=== PATIENT | female | born 1980 | race Caucasian/White ===

== ENCOUNTER → 2018-12-03 | Outpatient (CLI) | payer MEDICARE, MEDICAID | LOC: WOUNDCARE 09:27 | PROVIDERS: ATTEND Surgery | DX: L98.492 Non-pressure chronic ulcer of skin of other sites with fat layer exposed (principal); T81.32XA Disruption of internal operation (surgical) wound, not elsewhere classified, initial encounter; E11.622 Type 2 diabetes mellitus with other skin ulcer; B35.4 Tinea corporis | CPT/HCPCS: 11042; 11045; 87070; 87077; 87185; 87186; 87205 ==

== ENCOUNTER → 2018-12-03 | Outpatient (CLI) | payer MEDICAID, MEDICARE ==
[2018-12-03 11:07] LABS: BASOPHILS % (AUTO) 0 % (0-10); EOSINOPHILS % (AUTO) 0 % (0-10); HEMATOCRIT 36 % (35-52); HEMOGLOBIN 11.8 G/DL (11.5-16.0); LYMPHOCYTES # (AUTO) 1.2 X 10^3 (1.0-4.0); LYMPHOCYTES % (AUTO) 23 % (12-44); MEAN CORPUSCULAR HEMOGLOBIN 31 PG (25-34); MEAN CORPUSCULAR HGB CONC 33 G/DL (32-36); MEAN CORPUSCULAR VOLUME 92 FL (80-99); MEAN PLATELET VOLUME 9.4 FL (7.4-10.4); MONOCYTES # (AUTO) 0.4 X 10^3 (0.0-1.0); MONOCYTES % (AUTO) 7 % (0-12); NEUTROPHILS # (AUTO) 3.6 X 10^3 (1.8-7.8); NEUTROPHILS % (AUTO) 70 % (42-75); PLATELET COUNT 262 10^3/uL (130-400); RED CELL DISTRIBUTION WIDTH 13.4 % (10.0-14.5); WHITE BLOOD COUNT 5.1 10^3/uL (4.3-11.0)
[2018-12-03 11:19] LABS: ALANINE AMINOTRANSFERASE 13 U/L (0-55); ALBUMIN 3.8 GM/DL (3.2-4.5); ALKALINE PHOSPHATASE 65 U/L (40-136); BILIRUBIN,TOTAL 0.5 MG/DL (0.1-1.0); BUN/CREATININE RATIO 13; CALCIUM 8.6 MG/DL (8.5-10.1); CARBON DIOXIDE 23 MMOL/L (21-32); CHLORIDE 108 MMOL/L (98-107); CREATININE SERUM 0.63 MG/DL (0.60-1.30); GFR ESTIMATED > 60; GLUCOSE 82 MG/DL (70-105); SODIUM 140 MMOL/L (135-145); TOTAL PROTEIN 5.9 GM/DL (6.4-8.2)
== END ==
LOC: LAB 10:45
PROVIDERS: ATTEND Surgery
DX: E11.622 Type 2 diabetes mellitus with other skin ulcer (principal); L98.492 Non-pressure chronic ulcer of skin of other sites with fat layer exposed; T81.32XA Disruption of internal operation (surgical) wound, not elsewhere classified, initial encounter; B35.4 Tinea corporis
CPT/HCPCS: 36415; 80053; 83036; 84134; 85025

== ENCOUNTER → 2018-12-10 | Outpatient (CLI) | payer MEDICAID | LOC: WOUNDCARE 09:23 | PROVIDERS: ATTEND Surgery | DX: L98.492 Non-pressure chronic ulcer of skin of other sites with fat layer exposed (principal); T81.31XA Disruption of external operation (surgical) wound, not elsewhere classified, initial encounter; E11.622 Type 2 diabetes mellitus with other skin ulcer; B35.4 Tinea corporis | CPT/HCPCS: 11042; 11045; 97606 ==

== ENCOUNTER → 2018-12-17 | Outpatient (CLI) | payer MEDICAID | LOC: WOUNDCARE 10:57 | PROVIDERS: ATTEND Surgery | DX: E11.622 Type 2 diabetes mellitus with other skin ulcer (principal); L98.492 Non-pressure chronic ulcer of skin of other sites with fat layer exposed; T81.31XA Disruption of external operation (surgical) wound, not elsewhere classified, initial encounter | CPT/HCPCS: 11042; 11045; 97606 ==

== ENCOUNTER → 2018-12-24 | Outpatient (CLI) | payer MEDICAID | LOC: WOUNDCARE 10:37 | PROVIDERS: ATTEND Surgery | DX: L98.492 Non-pressure chronic ulcer of skin of other sites with fat layer exposed (principal); T81.31XA Disruption of external operation (surgical) wound, not elsewhere classified, initial encounter; E11.622 Type 2 diabetes mellitus with other skin ulcer | CPT/HCPCS: 11042; 11045; 87070; 87077; 87186; 87205 ==

== ENCOUNTER → 2018-12-31 | Outpatient (CLI) | payer MEDICAID | LOC: WOUNDCARE 10:53 | PROVIDERS: ATTEND Surgery | DX: E11.622 Type 2 diabetes mellitus with other skin ulcer (principal); L98.492 Non-pressure chronic ulcer of skin of other sites with fat layer exposed; T81.31XA Disruption of external operation (surgical) wound, not elsewhere classified, initial encounter | CPT/HCPCS: 11042; 11045 ==

== ENCOUNTER → 2019-01-04 | Outpatient (CLI) | payer MEDICAID | LOC: WOUNDCARE 13:10 | PROVIDERS: ATTEND Surgery | DX: L98.492 Non-pressure chronic ulcer of skin of other sites with fat layer exposed (principal); T81.31XA Disruption of external operation (surgical) wound, not elsewhere classified, initial encounter; E11.622 Type 2 diabetes mellitus with other skin ulcer | CPT/HCPCS: 11042; 11045 ==

== ENCOUNTER → 2019-01-14 | Outpatient (CLI) | payer MEDICAID | LOC: WOUNDCARE 10:47 | PROVIDERS: ATTEND Surgery | DX: E11.622 Type 2 diabetes mellitus with other skin ulcer (principal); L98.492 Non-pressure chronic ulcer of skin of other sites with fat layer exposed; T81.31XA Disruption of external operation (surgical) wound, not elsewhere classified, initial encounter | CPT/HCPCS: 11042; 87070; 87077; 87186; 87205 ==

== ENCOUNTER → 2019-01-21 | Outpatient (CLI) | payer MEDICAID | LOC: WOUNDCARE 10:55 | PROVIDERS: ATTEND Surgery | DX: E11.622 Type 2 diabetes mellitus with other skin ulcer (principal); L98.492 Non-pressure chronic ulcer of skin of other sites with fat layer exposed; T81.31XA Disruption of external operation (surgical) wound, not elsewhere classified, initial encounter | CPT/HCPCS: 11042 ==

== ENCOUNTER → 2019-01-21 | Outpatient (CLI) | payer MEDICAID ==
--- NOTE | 2019-01-21 13:20 | Diagnostic Imaging Report ---
PROCEDURE: US Non-ob pelvis comp/trans. TECHNIQUE: Multiple realtime grayscale images were obtained of the pelvis in various projections endovaginally. Transabdominal imaging was also performed. INDICATION: Ovarian cyst. Uterus measures 6.8 x 4.5 x 3.5 cm. Endometrial stripe is 3 mm. The ovaries are normal in size. There is a 3 cm cyst on the left ovary. There is a small amount of free fluid in the cul-de-sac. Impression: 3 cm left ovary cyst. There are other small follicular cysts on both ovaries. The uterus appears normal. There is a small amount of free fluid. Dictated by: Dictated on workstation # [id number]
== END ==
LOC: RAD 11:31
PROVIDERS: ATTEND Obstetrics & Gynecology
DX: N83.02 Follicular cyst of left ovary (principal); N83.01 Follicular cyst of right ovary
CPT/HCPCS: 76830; 76856

== ENCOUNTER → 2019-02-02 | Outpatient (CLI) | payer MEDICAID | LOC: WOUNDCARE 08:39 | PROVIDERS: ATTEND Surgery | DX: T81.31XA Disruption of external operation (surgical) wound, not elsewhere classified, initial encounter (principal); E11.622 Type 2 diabetes mellitus with other skin ulcer; L98.492 Non-pressure chronic ulcer of skin of other sites with fat layer exposed | CPT/HCPCS: 11042 ==

== ENCOUNTER → 2019-02-09 | Outpatient (CLI) | payer MEDICAID | LOC: WOUNDCARE 08:30 | PROVIDERS: ATTEND Surgery | DX: T81.31XA Disruption of external operation (surgical) wound, not elsewhere classified, initial encounter (principal); E11.622 Type 2 diabetes mellitus with other skin ulcer; L98.492 Non-pressure chronic ulcer of skin of other sites with fat layer exposed | CPT/HCPCS: 11042 ==

== ENCOUNTER → 2019-02-16 | Outpatient (CLI) | payer MEDICAID | LOC: WOUNDCARE 08:32 | PROVIDERS: ATTEND Surgery | DX: T81.31XA Disruption of external operation (surgical) wound, not elsewhere classified, initial encounter (principal); E11.622 Type 2 diabetes mellitus with other skin ulcer; L98.492 Non-pressure chronic ulcer of skin of other sites with fat layer exposed | CPT/HCPCS: 11042 ==

== ENCOUNTER → 2019-02-23 | Outpatient (CLI) | payer MEDICAID | LOC: WOUNDCARE 08:31 | PROVIDERS: ATTEND Surgery | DX: T81.31XA Disruption of external operation (surgical) wound, not elsewhere classified, initial encounter (principal); E11.622 Type 2 diabetes mellitus with other skin ulcer; L98.492 Non-pressure chronic ulcer of skin of other sites with fat layer exposed | CPT/HCPCS: 99212 ==

== ENCOUNTER 2019-03-18 11:30 | Outpatient (CLI) | payer MEDICAID ==
[~2019-03-18] VITALS: Ht 162.6 cm; Wt 96.6 kg
[2019-03-18] MEDS ORDERED: FERR325T18 PO (11:39)
[2019-03-18] MEDS ORDERED: SERT100T PO (11:39)
[2019-03-18] MEDS ORDERED: OLAN5TAB3 PO (11:39)
[2019-03-18] MEDS ORDERED: OLAN15TA3 PO (11:39)
[2019-03-18] MEDS ORDERED: CICL6.1H4 IH (11:39)
[2019-03-18] MEDS ORDERED: RT-ALBUINH IH (11:39)
[2019-03-18] MEDS ORDERED: OLAN20TA3 PO (11:39)
[2019-03-18] MEDS ORDERED: MEDR150D8 IM (11:39)
[2019-03-18] MEDS ORDERED: MIRT15TA PO (11:39)
[2019-03-18] MEDS ORDERED: LACT10SO5 PO (11:39)
[2019-03-18] MEDS ORDERED: CALC500T7 PO (11:39)
[2019-03-18] MEDS ORDERED: MONT10TA24 PO (11:39)
[2019-03-18] MEDS ORDERED: LAMO100T69 PO (11:39)
[2019-03-18] MEDS ORDERED: ACET325C5 PO (11:39)
[2019-03-22] MEDS ORDERED: IBUP-844 PO (10:47)
== END 2019-03-18 11:47 | disposition home or self-care (01) ==
LOC: PREOP 11:30
PROVIDERS: ATTEND Obstetrics & Gynecology
DX: Z01.818 Encounter for other preprocedural examination (principal)

== ENCOUNTER 2019-03-22 08:04 | Day surgery (SDC) | payer MEDICARE, MEDICAID ==
[~2019-03-22] VITALS: Ht 162.6 cm; Wt 96.6 kg
[2019-03-22] VITALS (9 sets, daily range): BP systolic 106–127; BP diastolic 67–87
[~2019-03-22 08:04] MED LIST: ACET325C5 PO; CALC500T7 PO; CICL6.1H4 IH; FERR325T18 PO; LACT10SO5 PO; LAMO100T69 PO; MEDR150D8 IM; MIRT15TA PO; MONT10TA24 PO; OLAN15TA3 PO; OLAN20TA3 PO; OLAN5TAB3 PO; RT-ALBUINH IH; SERT100T PO
[2019-03-22] MEDS ORDERED: FAMOTIDINE 20MG/2ML IV (PEPCID) IV ONE (08:15)
[2019-03-22] MEDS ORDERED: ceFAZolin INJECTION 1,000 MG in WATER (STERILE) FOR INJECTION 10 ML IV ONE (08:30)
[2019-03-22] MEDS ORDERED: metroNIDAZOLE 500MG/100ML IVPB 100 ML IV ONE (08:30)
[2019-03-22] MEDS ORDERED: RT-ALBUTEROL SULF 2.5 MG/3 ML PRE-MIX VIAL INH ONE (08:30)
--- NOTE | 2019-03-22 08:30 | Progress Note-Pre Operative ---
Pre-Operative Progress Note H&P Reviewed The H&P was reviewed, patient examined and no changes noted. Date Seen by Provider: Mar 22, 2019 Time Seen by Provider: 08:25 Date H&P Reviewed: Mar 22, 2019 Time H&P Reviewed: 08:15 Pre-Operative Diagnosis: menorrhagia, not controlled by conservative measures SHELBY JULES DO Mar 22, 2019 08:30
[2019-03-22] MEDS: LACTATED RINGERS 1,000 ML IV PRN ×2 (08:40→10:03)
[2019-03-22] MEDS ORDERED: FAMOTIDINE 20MG/2ML IV (PEPCID) ONE (09:02)
[2019-03-22] MEDS ORDERED: metroNIDAZOLE 500MG/100ML IVPB 100 ML ONE (09:02)
[2019-03-22] MEDS ORDERED: ceFAZolin INJECTION 1,000 MG ONE (09:02)
[2019-03-22] MEDS ORDERED: WATER (STERILE) FOR INJECTION 10 ML ONE (09:03)
[2019-03-22] MEDS ORDERED: MIDAZOLAM 2 MG/2 ML (VERSED) VIAL ONE (09:32)
[2019-03-22] MEDS ORDERED: fentaNYL INJECTION 100 MCG/2 ML AMP ONE (09:32)
[2019-03-22] MEDS ORDERED: LIDOCAINE PF 2% 5 ML (XYLOCAINE) VIAL ONE (09:32)
[2019-03-22] MEDS ORDERED: ONDANSETRON 4 MG/2 ML (SDV) Z0FRAN ONE (09:32)
[2019-03-22] MEDS ORDERED: proPOfol 200 MG/20 ML (DIPRIVAN) VIAL IV ONE (09:32)
[2019-03-22] MEDS ORDERED: BREO ELLIPTA IH (09:35)
[2019-03-22] MEDS ORDERED: KETOROLAC 30 MG/ML VIAL ONE (10:30)
[2019-03-22] MEDS ORDERED: SEVOFLURANE (ULTANE) 15 ML INHAL SOLN ONE (10:30)
[2019-03-22] MEDS ORDERED: ACETAMINOPHEN 500 MG TAB (TYLENOL) PO SCH (10:45)
[2019-03-22] MEDS ORDERED: KETOROLAC 30 MG/ML VIAL IVP ONE (10:45)
--- NOTE | 2019-03-22 10:45 | Operative Report ---
Operative Report Date of Procedure/Surgery Mar 22, 2019 Surgeon (s) SHELBY JULES DO Post-Operative Diagnosis menorrhagia Procedure Performed Exam under anesthesia, dilation and curettage, Liletta IUD placement Description of Procedure Anesthesia Type: General Estimated blood loss (mL): minimal Specimen(s) collected/removed endometrial curettings Allergies and Home Medications Allergies Coded Allergies: Penicillins (Verified Allergy, Unknown, 03/18/19) amoxicillin (Verified Allergy, Unknown, 03/18/19) clavulanic acid (Verified Allergy, Unknown, 03/18/19) potassium chloride (Verified Allergy, Unknown, 03/18/19) Home Medications Acetaminophen 325 Mg Capsule, 650 MG PO BID PRN for PAIN-MILD, (Reported) Albuterol Sulfate 1 Puff Puff, 2 PUFF IH Q4H PRN for SHORTNESS OF BREATH, (Reported) 1 PUFF = 90 MCG Calcium Carbonate 200 Mg Tab.chew, 200 MG PO BID PRN for HEARTBURN, (Reported) Ferrous Sulfate 325 Mg Tablet, 325 MG PO TID, (Reported) Lactulose 10 Gm/15 Ml Solution, 10 GM PO BID, (Reported) Lamotrigine 100 Mg Tablet, 100 MG PO DAILY, (Reported) Medroxyprogesterone Acetate 150 Mg/1 Ml Syringe, 150 MG IM Q 3MO, (Reported) Mirtazapine 15 Mg Tablet, 15 MG PO HS, (Reported) Montelukast Sodium 10 Mg Tablet, 10 MG PO DAILY, (Reported) Olanzapine 15 Mg Tablet, 15 MG PO DAILY, (Reported) Olanzapine 20 Mg Tablet, 20 MG PO HS, (Reported) Olanzapine 5 Mg Tablet, 5 MG PO HS, (Reported) Sertraline HCl 100 Mg Tablet, PO DAILY, (Reported) [Breo Ellipta] Unknown Strength , 1 PUFF IH DAILY, (Reported) Patient Home Medication List Home Medication List Reviewed: SHELBY Campa DO Mar 22, 2019 10:45
[2019-03-22] MEDS ORDERED: morphine INJ 10 MG/ML 1ML (SYR OR VIAL) ONE (10:46)
[2019-03-22] MEDS ORDERED: IBUP-844 PO (10:47)
--- NOTE | 2019-03-22 10:50 | Discharge Inst-Women's Service ---
Discharge Inst-Women's Serv Depart Medication/Instructions New, Converted or Re-Newed RX: RX on Chart Final Diagnosis menorrhagia Consults/Follow Up Additional Follow Up: Yes Activity Activity: Activity as Tolerated Driving Instructions: No Driving for 24 Hours NO SMOKING: NO SMOKING Nothing Inside Vagina: No Douching, No [place], No Tampons Diet Discharge Diet: No Restrictions Symptoms to Report to : Bleeding Excessive, Pain Increased, Fever Over 101 Degrees F, Vaginal Bleeding Increase, Vaginal Discharge Foul For Any Problems or Questions: Contact Your Physician SHELBY JULES DO Mar 22, 2019 10:50
[2019-03-22] MEDS ORDERED: PROMETHAZINE INJ 25 MG/ML (PHENERGAN) AMP IVP ONE (11:00)
[2019-03-22] MEDS ORDERED: morphine INJ 10 MG/ML 1ML (SYR OR VIAL) IVP ONE (11:00)
[2019-03-22] MEDS ORDERED: HYDROmorphone 2 MG/ML VIAL (DILAUDID) IV ONE (11:00)
[2019-03-22] MEDS ORDERED: ONDANSETRON 4 MG/2 ML (SDV) Z0FRAN IVP PRN (11:00)
--- NOTE | 2019-03-22 11:20 | NUR ---
RESTING QUIETLY IN BED ON ARRIVAL TO AMB SURG FROM PAR. DENIES COMPLAINTS. V-PAD IN PLACE, NO BLEEDING. PO FLUIDS PROVIDED. 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
[2019-03-22] MEDS ORDERED: FLUT1BLS IH (11:22)
[2019-03-22] MEDS ORDERED: IBUPROFEN 600 MG (MOTRIN) TAB PO SCH (12:00)
--- NOTE | 2019-03-22 12:26 | Anesthesia-General Post-Op ---
General Patient Condition Mental Status/LOC: Same as Preop Cardiovascular: Satisfactory Nausea/Vomiting: Absent Respiratory: Satisfactory Pain: Controlled Complications: Absent Post Op Complications Complications None Follow Up Care/Instructions Patient Instructions None needed. Anesthesia/Patient Condition Patient Condition Patient is doing well, no complaints, stable vital signs, no apparent adverse anesthesia problems. No complications reported per nursing. DANAE VELASCO CRNA Mar 22, 2019 12:26
--- NOTE | 2019-03-22 12:30 | NUR ---
HAS BEEN UP TO BR WITH ASSIST, VOIDED WITHOUT PROBLEM, VERY SCANT AMOUNT OF BLOODY DRAINAGE ON V-PAD. DENIES COMPLAINTS, ALERT. STATES SHE IS READY FOR DISMISSAL.
== END 2019-03-22 12:40 | disposition home or self-care (01) ==
LOC: SDC 08:04
PROVIDERS: ATTEND Obstetrics & Gynecology
DX: N92.0 Excessive and frequent menstruation with regular cycle (principal); F41.9 Anxiety disorder, unspecified; F32.9 Major depressive disorder, single episode, unspecified; J45.909 Unspecified asthma, uncomplicated; N83.201 Unspecified ovarian cyst, right side; N83.202 Unspecified ovarian cyst, left side; Z87.891 Personal history of nicotine dependence; Z86.718 Personal history of other venous thrombosis and embolism; F20.9 Schizophrenia, unspecified; K21.9 Gastro-esophageal reflux disease without esophagitis; R73.03 Prediabetes; Z79.899 Other long term (current) drug therapy; Z88.0 Allergy status to penicillin; Z88.1 Allergy status to other antibiotic agents; Z11.2 Encounter for screening for other bacterial diseases
CPT/HCPCS: 84703; 87081; 88305; 94640; 94664

== ENCOUNTER 2019-07-18 22:56 | Inpatient (IN) | payer MEDICARE, MEDICAID ==
[~2019-07-18] VITALS: Ht 170.2 cm; Wt 119.3 kg
[~2019-07-18 22:56] MED LIST changes: +BREO ELLIPTA IH; +FLUT1BLS INH; +IBUP-844 PO
[2019-07-19] MEDS ORDERED: NS IV 1000 ML 1,000 ML IV ONE (00:29)
[2019-07-19 00:39] LABS: BILIRUBIN,URINE NEGATIVE (NEGATIVE); CLARITY,URINE CLEAR; COLOR,URINE YELLOW; GLUCOSE, URINE (UA) NEGATIVE (NEGATIVE); KETONES,URINE NEGATIVE (NEGATIVE); LEUKOCYTE ESTERASE ,URINE NEGATIVE (NEGATIVE); NITRITE,URINE NEGATIVE (NEGATIVE); PH,URINE 8 (5-9); PROTEIN,URINE NEGATIVE (NEGATIVE)
[2019-07-19 00:49] LABS: BASOPHILS % (AUTO) 0 % (0-10); EOSINOPHILS % (AUTO) 0 % (0-10); HEMATOCRIT 42 % (35-52); HEMOGLOBIN 14.6 G/DL (11.5-16.0); LYMPHOCYTES # (AUTO) 1.5 X 10^3 (1.0-4.0); LYMPHOCYTES % (AUTO) 23 % (12-44); MEAN CORPUSCULAR HEMOGLOBIN 31 PG (25-34); MEAN CORPUSCULAR HGB CONC 35 G/DL (32-36); MEAN CORPUSCULAR VOLUME 89 FL (80-99); MEAN PLATELET VOLUME 9.7 FL (7.4-10.4); MONOCYTES # (AUTO) 0.5 X 10^3 (0.0-1.0); MONOCYTES % (AUTO) 7 % (0-12); NEUTROPHILS # (AUTO) 4.6 X 10^3 (1.8-7.8); NEUTROPHILS % (AUTO) 70 % (42-75); PLATELET COUNT 209 10^3/uL (130-400); RED CELL DISTRIBUTION WIDTH 12.6 % (10.0-14.5); WHITE BLOOD COUNT 6.6 10^3/uL (4.3-11.0)
[2019-07-19 01:01] LABS: BACTERIA,URINE FEW /HPF; SQUAMOUS EPITHELIAL CELL,UR 0-2 /HPF
[2019-07-19 01:02] LABS: AMPHETAMINE SCREEN, URINE NEGATIVE (NEGATIVE); BARBITURATE SCREEN URINE NEGATIVE (NEGATIVE); BENZODIAZEPINES SCREEN URINE NEGATIVE (NEGATIVE); CANNABINOID SCREEN, URINE NEGATIVE (NEGATIVE); COCAINE SCREEN URINE NEGATIVE (NEGATIVE); METHADONE STAT NEGATIVE (NEGATIVE); METHAMPHETAMINE SCREEN URINE S NEGATIVE (NEGATIVE); OPIATE SCREEN URINE NEGATIVE (NEGATIVE); OXYCODONE STAT NEGATIVE (NEGATIVE); PROPOXYPHENE STAT NEGATIVE (NEGATIVE); TRICYCLIC ANTIDEPRESSANTS SCRE NEGATIVE (NEGATIVE)
[2019-07-19 01:05] LABS: ACETAMINOPHEN < 10 UG/ML (10-30); ALANINE AMINOTRANSFERASE 17 U/L (0-55); ALBUMIN 4.2 GM/DL (3.2-4.5); ALKALINE PHOSPHATASE 68 U/L (40-136); BILIRUBIN,TOTAL 0.5 MG/DL (0.1-1.0); BUN/CREATININE RATIO 10; CALCIUM 8.6 MG/DL (8.5-10.1); CARBON DIOXIDE 24 MMOL/L (21-32); CHLORIDE 106 MMOL/L (98-107); CREATININE SERUM 0.72 MG/DL (0.60-1.30); GFR ESTIMATED > 60; GLUCOSE 94 MG/DL (70-105); POTASSIUM 3.6 MMOL/L (3.6-5.0); SALICYLATE < 5.0 MG/DL (5.0-20.0); SODIUM 142 MMOL/L (135-145); TOTAL PROTEIN 6.6 GM/DL (6.4-8.2)
--- NOTE | 2019-07-19 01:22 | ED GI ---
General Chief Complaint: Foreign Body Stated Complaint: SWALLOWED FOREIGN BODY Nursing Triage Note: swallowed jin lights because she was upset. Sepsis Screen: No Definite Risk (COOKIE HILL,MED STUDENT) History of Present Illness Date Seen by Provider: Jul 19, 2019 Time Seen by Provider: 00:04 Initial Comments This 38y/o female is accompanied by a generation manager form [employer] to the ED following the ingestion of light bulbs from a strand of Jin lights. Patient states that she swallowed the light bulbs around 1930 yesterday in an attempt to commit suicide. When asked how long she has had thoughts of suicide, she said "for about a week, I just did not tell anyone." When asked if she has e shanika done anything similar in the past she said that she has inserted things (pins, paper clips, etc) into her abdomen and has required hospitalization and surgery as a result. Her generation manager affirms that she has a history of inserting things into her abdomen that started around 2006. The generation manager says that the patient's thoughts of suicide are new to him and he did not know about them until the provider asked her "was there a reason that you swallowed the light bulbs' and she responded with "to commit suicide." According to the generation manager the patient sent a text message 2 days ago, saying she wanted to see one of the [employer] staffing rn members named Bessie because of "i self harmed my life and I don't know what to do about it so I can get you to call someone to help me." In addition, the patient wrote 2 notes yesterday, one note said that she wanted to go the hospital and the second note said that she had "swallowed the 20 light bulbs and wanted to leave this place." Caretakers say that they found the plasti c bases of 31 light bulbs in her room. Patient is on a Bactrim for a moist superficial skin wound on her abdomen. Patient has a history of Anxiety, MDD, schizoaffective disorder, and Borderline personality disorder and sees Anuradha Duffy at [facility]. The patient works with [employer] and is 1 on 1 with a staff member during the day. At this time the patient, denies any abdominal pain or thoughts of further self harm. Timing/Duration: 4-6 Hours Radiation: No Radiation Associated Symptoms: Denies Symptoms (COOKIE HILL,MED STUDENT) Allergies and Home Medications Allergies Coded Allergies: Penicillins (Verified Allergy, Unknown, 03/18/19) amoxicillin (Verified Allergy, Unknown, 03/18/19) clavulanic acid (Verified Allergy, Unknown, 03/18/19) potassium chloride (Verified Allergy, Unknown, 03/18/19) Home Medications Acetaminophen 325 Mg Capsule, 650 MG PO BID PRN for PAIN-MILD, (Reported) Albuterol Sulfate 1 Puff Puff, 2 PUFF IH Q4H PRN for SHORTNESS OF BREATH, (Reported) 1 PUFF = 90 MCG Calcium Carbonate 200 Mg Tab.chew, 200 MG PO BID PRN for HEARTBURN, (Reported) Ferrous Sulfate 325 Mg Tablet, 325 MG PO TID, (Reported) Fluticasone/Vilanterol 1 Each Blst.w.dev, 1 EACH IH DAILY, (Reported) Ibuprofen 600 Mg Tablet, 600 MG PO Q6HR Prescribed by: SHELBY JULES on 03/22/19 1047 Lactulose 10 Gm/15 Ml Solution, 10 GM PO BID, (Reported) Lamotrigine 100 Mg Tablet, 100 MG PO DAILY, (Reported) Mirtazapine 15 Mg Tablet, 15 MG PO HS, (Reported) Montelukast Sodium 10 Mg Tablet, 10 MG PO DAILY, (Reported) Olanzapine 15 Mg Tablet, 15 MG PO DAILY, (Reported) Olanzapine 20 Mg Tablet, 20 MG PO HS, (Reported) Olanzapine 5 Mg Tablet, 5 MG PO HS, (Reported) Sertraline HCl 100 Mg Tablet, PO DAILY, (Reported) Patient Home Medication List Home Medication List Reviewed: Yes (ADRIANA ESPARZA MD) Review of Systems Review of Systems Constitutional: No chills, No diaphoresis, No dizziness, No malaise EENTM: No Mouth Pain, No Mouth Swelling, No Throat Pain, No Throat Swelling Respiratory: Denies Cough, Denies Shortness of Air, Denies SOA With Exertion, Denies SOA at Rest Cardiovascular: Denies Chest Pain Gastrointestinal: Denies Abdomen Distended, Denies Abdominal Pain Skin: see HPI Psychiatric/Neurological: See HPI (COOKIE HILL,MED STUDENT) Past Mtmgisb-Rjfoqu-Gnadtx Hx Patient Social History Alcohol Use: Rarely Uses Alcohol Beverage of Choice: Other (wine coolers ) Recreational Drug Use: No Smoking Status: Former Smoker Former Smoker, Quit: Mar 18, 2014 2nd Hand Smoke Exposure: Yes Recent Foreign Travel: No Contact w/Someone Who Travel: No Recent Infectious Disease Expo: No Recent Hopitalizations: No Physical Abuse: No Sexual Abuse: No Mistreated: No Fear: No (COOKIE HILL MED STUDENT) Immunizations Up To Date Tetanus Booster (TDap): Unknown Date of Influenza Vaccine: Jun 28, 2018 (COOKIE HILL MED STUDENT) Seasonal Allergies Seasonal Allergies: Yes (COOKIE HILL MED STUDENT) Past Medical History Surgeries: Yes (FOREIGN BODY REMOVAL FROM ABDOMEN SEVERAL TIMES WITH A BOWEL RESECTION) Respiratory: Yes Asthma Cardiac: No Neurological: No : No Female Reproductive Disorders: Ovarian Cyst Sexually Transmitted Disease: No Genitourinary: No Gastrointestinal: Yes (BOWEL RESECTION ) Chronic Constipation Musculoskeletal: No Endocrine: No HEENT: No Loss of Vision: Denies Hearing Impairment: Denies Cancer: No Psychosocial: Yes Personality Disorder, Schizophrenia, Depression Integumentary: No Blood Disorders: Yes (LOW IRON) Adverse Reaction/Blood Tranf: No (COOKIE HILL MED STUDENT) Physical Exam Vital Signs Vital Signs - First Documented 07/18/19 23:00 Temp 36.6 Pulse 72 Resp 18 B/P (MAP) 145/97 (113) Pulse Ox 100 O2 Delivery Room Air (ADRIANA ESPARZA MD) Vital Signs Capillary Refill : Less Than 3 Seconds (COOKIE HILL MED STUDENT) Height/Weight/BMI Height: 5'4.00" Weight: 213lbs. 0.0oz. [id number]; 36.00 BMI Method: General Appearance: WD/WN, no apparent distress HEENT: PERRL/EOMI Neck: non-tender, full range of motion Respiratory: chest non-tender, lungs clear, normal breath sounds, no respiratory distress Cardiovascular: regular rate, rhythm, no edema, no gallop, no JVD, no murmur Gastrointestinal: normal bowel sounds, non tender, soft, no organomegaly, no pulsatile mass Extremities: normal range of motion Neurologic/Psychiatric: no motor/sensory deficits, alert, oriented x 3 Skin: normal color, warm/dry Lymphatic: no adenopathy (COOKIE HILL MED STUDENT) Progress/Results/Core Measures Results/Orders Lab Results Laboratory Tests Test 07/19/19 00:30 07/19/19 00:35 Range/Units Urine Color YELLOW Urine Clarity CLEAR Urine pH 8 5-9 Urine Specific [place] 1.010 L 1.016-1.022 Urine Protein NEGATIVE NEGATIVE Urine Glucose (UA) NEGATIVE NEGATIVE Urine Ketones NEGATIVE NEGATIVE Urine Nitrite NEGATIVE NEGATIVE Urine Bilirubin NEGATIVE NEGATIVE Urine Urobilinogen NORMAL NORMAL MG/DL Urine Leukocyte Esterase NEGATIVE NEGATIVE Urine RBC (Auto) NEGATIVE NEGATIVE Urine RBC NONE /HPF Urine WBC NONE /HPF Urine Squamous Epithelial Cells 0-2 /HPF Urine Crystals NONE /LPF Urine Bacteria FEW H /HPF Urine Casts NONE /LPF Urine Mucus NEGATIVE /LPF Urine Culture Indicated NO Urine Opiates Screen NEGATIVE NEGATIVE Urine Oxycodone Screen NEGATIVE NEGATIVE Urine Methadone Screen NEGATIVE NEGATIVE Urine Propoxyphene Screen NEGATIVE NEGATIVE Urine Barbiturates Screen NEGATIVE NEGATIVE Ur Tricyclic Antidepressants Screen NEGATIVE NEGATIVE Urine Phencyclidine Screen NEGATIVE NEGATIVE Urine Amphetamines Screen NEGATIVE NEGATIVE Urine Methamphetamines Screen NEGATIVE NEGATIVE Urine Benzodiazepines Screen NEGATIVE NEGATIVE Urine Cocaine Screen NEGATIVE NEGATIVE Urine Cannabinoids Screen NEGATIVE NEGATIVE White Blood Count 6.6 4.3-11.0 10^3/uL Red Blood Count 4.72 4.35-5.85 10^6/uL Hemoglobin 14.6 11.5-16.0 G/DL Hematocrit 42 35-52 % Mean Corpuscular Volume 89 80-99 FL Mean Corpuscular Hemoglobin 31 25-34 PG Mean Corpuscular Hemoglobin Concent 35 32-36 G/DL Red Cell Distribution Width 12.6 10.0-14.5 % Platelet Count 209 130-400 10^3/uL Mean Platelet Volume 9.7 7.4-10.4 FL Neutrophils (%) (Auto) 70 42-75 % Lymphocytes (%) (Auto) 23 12-44 % Monocytes (%) (Auto) 7 0-12 % Eosinophils (%) (Auto) 0 0-10 % Basophils (%) (Auto) 0 0-10 % Neutrophils # (Auto) 4.6 1.8-7.8 X 10^3 Lymphocytes # (Auto) 1.5 1.0-4.0 X 10^3 Monocytes # (Auto) 0.5 0.0-1.0 X 10^3 Eosinophils # (Auto) 0.0 0.0-0.3 10^3/uL Basophils # (Auto) 0.0 0.0-0.1 10^3/uL Sodium Level 142 135-145 MMOL/L Potassium Level 3.6 3.6-5.0 MMOL/L Chloride Level 106 98-107 MMOL/L Carbon Dioxide Level 24 21-32 MMOL/L Anion Gap 12 5-14 MMOL/L Blood Urea Nitrogen 7 7-18 MG/DL Creatinine 0.72 0.60-1.30 MG/DL Estimat Glomerular Filtration Rate > 60 BUN/Creatinine Ratio 10 Glucose Level 94 70-105 MG/DL Calcium Level 8.6 8.5-10.1 MG/DL Corrected Calcium 8.4 L 8.5-10.1 MG/DL Total Bilirubin 0.5 0.1-1.0 MG/DL Aspartate Amino Transf (AST/SGOT) 12 5-34 U/L Alanine Aminotransferase (ALT/SGPT) 17 0-55 U/L Alkaline Phosphatase 68 40-136 U/L Total Protein 6.6 6.4-8.2 GM/DL Albumin 4.2 3.2-4.5 GM/DL TSH [facility] Testing 5.58 H 0.35-4.94 UIU/ML Salicylates Level < 5.0 L 5.0-20.0 MG/DL Acetaminophen Level < 10 L 10-30 UG/ML Serum Alcohol < 10 <10 MG/DL (ADRIANA ESPARZA MD) My Orders Orders - ADRIANA ESPARZA MD Chest 1 View, Ap/Pa Only (07/18/19 22:59) Abdomen/Kub 1view (07/18/19 22:59) Acetaminophen (07/19/19 00:29) Alcohol (07/19/19:) Cbc With Automated Diff (07/19/19:) Comprehensive Metabolic Panel (07/19/19:) Drug Screen Stat (Urine) (07/19/19:) Salicylate (07/19/19:) Thyroid Analyzer (07/19/19:) Ua Culture If Indicated (07/19/19:) Ed Iv/Invasive Line Start (07/19/19:29) Ns Iv 1000 Ml (Sodium Chloride 0.9%) (07/19/19:29) Free T4 (Free Thyroxine) (07/19/19 00:35) (ADRIANA ESPARZA MD) Medications Given in ED Current Medications Medications Dose Ordered Sig/Dami Route Start Time Stop Time Status Last Admin Dose Admin Sodium Chloride 1,000 ml @ 0 mls/hr Q0M ONCE IV 07/19/19 00:29 07/19/19 00:33 DC 07/19/19 00:40 0 MLS/HR (ADRIANA ESPARZA MD) Vital Signs/I&O 07/18/19 23:00 Temp 36.6 Pulse 72 Resp 18 B/P (MAP) 145/97 (113) Pulse Ox 100 O2 Delivery Room Air (ADRIANA ESPARZA MD) Blood Pressure Mean: 113 POS Diagnostic Imaging Diagonstic Imaging: Xray Plain Films/CT/US/NM/MRI: chest, abdomen Comments X-ray of the chest is unremarkable. Abdominal x-ray reveals numerous Jin light bulbs in the region of the stomach and duodenum. There are also numerous linear metallic foreign bodies over the abdomen suggestive of subcutaneous foreign bodies consistent with patient's history of foreign body insertion. X- rays reviewed by me. Reports not yet available. (ADRIANA ESPARZA MD) Departure Communication (Admissions) Time/Spoke to Admitting Phy: 00:46 Dr. Engel Time/Spoke to Consulting Phy: 00:26 Dr. Flaherty (ADRIANA ESPARZA MD) Impression Primary Impression: Foreign body ingestion Qualified Codes: T18.9XXA - Foreign body of alimentary tract, part unspecified, initial encounter Additional Impressions: Suicidal ideation Wound of skin Disposition: ADMITTED INPATIENT Condition: Improved Admissions Decision to Admit Reason: Admit from ER (General) Decision to Admit/Date: Jul 19, 2019 Time/Decision to Admit Time: 00:26 (ADRIANA ESPARZA MD) Departure-Patient Inst. Referrals: GUILLERMO RASHID MD (PCP/Family) Primary Care Physician This patient was personally interviewed and examined by me along with Cookie Hill MS 3. We also interviewed her generation manager. I agree with MS 3 history, physical, and assessments, and documentation with the following additions and corrections. Patient presents accompanied by her caregiver with complaint of ingestion of numerous [place] light bulbs. She is a client of [employer]. She has a history of ingestions and insertion of foreign bodies under the skin. She has one-on-one supervision with caretakers 24 7. Ingestion was reportedly Thursday evening at 17:30. Patient denies any physical symptoms of nausea or abdominal pain. Staff report that approximately 30 bulbs were removed from their plastic bases. The bases were found in her room. Patient also reports suicidal ideation and states suicidal ideation was the reason for swallowing the bulbs. Additionally, she has an abdominal wound that she picks at. She was seen at an urgent care clinic earlier in the day and prescribed Bactrim. She took a dose of Bactrim in the afternoon. Exam: Gen.: Alert, oriented, obese, no acute distress HEENT: normocephalic and atraumatic Heart: Regular rate and rhythm without murmur Lungs: Clear to auscultation bilaterally with normal effort Abdomen: Soft, nontender Skin: Moist shallow skin and wound on the abdominal wall Neuro/psych: Alert, oriented, no focal deficits, patient expresses suicidal ideation. Case was discussed with Dr. Flaherty a surgeon chronic disease epidemiologist. We will observe the patient overnight and repeat a KUB in the morning. If ingested objects do not progress, endoscopy may be necessary. Case was discussed with Dr. Engel who excepts admission. Social work consult will be needed. A screening or consultation with [facility] may be necessary to determine if patient needs more intensive outpatient services or a psychiatric admission. Patient was given 1 L of IV fluid hydration as Dr. Flaherty requests her to be npo. (ADRIANA ESPARZA MD) Copy Copies To 1: GUILLERMO RASHID MD, MICAH,MED STUDENT Jul 19, 2019 01:22 ADRIANA BALL MD Jul 19, 2019 02:27 POS
[2019-07-19 01:24] LABS: TSH (THYROID ANALYZER) 5.58 UIU/ML (0.35-4.94)
[2019-07-19 02:17] VITALS: BP 126/65
[2019-07-19 03:01] LABS: FREE T4 (FREE THYROXINE) 1.06 NG/DL (0.70-1.48)
[2019-07-19 04:00] VITALS: BP 120/59
[2019-07-19] MEDS ORDERED: ONDANSETRON 4 MG/2 ML (SDV) Z0FRAN IV PRN (05:00)
[2019-07-19] MEDS: cefTRIAXone 1,000 MG/SWFI 10 ML IV PUSH IV SCH ×2 (05:47)
--- NOTE | 2019-07-19 06:55 | Diagnostic Imaging Report ---
INDICATION: Swallowed [place] lights because she was upset. FINDINGS: A supine view of the abdomen demonstrates multiple foreign bodies in the stomach. In addition there are linear foreign bodies consistent with wires overlying the abdomen. One of these overlies the upper liver and is definitely not outside the bowel. An IUD is in place. Bowel gas pattern appears normal. IMPRESSION: There are multiple foreign bodies. Most of these are within the stomach. There are some wires that overlie the abdomen and some could be within bowel loops but are probably all outside of the bowel loops. Dictated by: Dictated on workstation # [id number]
--- NOTE | 2019-07-19 07:39 | Diagnostic Imaging Report ---
INDICATION: Swallowed [place] lights because she is upset. FINDINGS: Frontal view of the chest demonstrates no foreign bodies within the chest. Lungs are clear. Heart size and vascularity are normal. There are no pleural effusions. IMPRESSION: Negative chest. Dictated by: Dictated on workstation # [id number]
[2019-07-19 08:00] VITALS: BP 110/60
--- NOTE | 2019-07-19 08:54 | Consultation - Surgery ---
ALMAZ FERREIRA,MED STUDENT 07/19/19 0854: History of Present Illness History of Present Illness Patient Consulted On(kenisha/time) 07/19/19 08:48 Date Seen by Provider: Jul 19, 2019 Time Seen by Provider: 08:15 History of Present Illness Consultation as requested for ingestion of foreign body. Patient seen and examined. Patient is a 38 yo female who became increasingly depressed yesterday and reports attempting suicide by eating the glass tops of [employer] lights. She estimates that she ate 20 lights, but her credit risk modeler reports that they found 31 empty plastic casings from lights in her room. Patient states that there was no particular event that caused her to become more depressed yesterday, she just felt more "down" than usual. She states that she has attempted suicide in the past by "stabbing myself" and by ingesting foreign materials. The last time she attempted suicide was last year. She denies having any abdominal pain, nausea, or vomiting currently. She has not had a bowel movement since ingesting the lights. Allergies and Home Medications Allergies Coded Allergies: Penicillins (Verified Allergy, Unknown, 03/18/19) amoxicillin (Verified Allergy, Unknown, 03/18/19) clavulanic acid (Verified Allergy, Unknown, 03/18/19) potassium chloride (Verified Allergy, Unknown, 03/18/19) Home Medications Acetaminophen 325 Mg Capsule, 650 MG PO Q6H PRN for PAIN-MILD OR TEMPATURE, (Reported) Acetaminophen 650 Mg Tablet.er, 650 MG PO UD PRN for PAIN-MILD, (Reported) Bismuth Subsalicylate 262 Mg/15 Ml Oral.susp, PO UD PRN for STOMACH UPSET, (Reported) Calamine/Zinc Oxide 177 Ml Lotion, TP UD PRN for RASH/ITCHING, (Reported) Calcium Carbonate 200 Mg Tab.chew, 2 TAB.CHEW PO BID PRN for HEARTBURN, (Reported) Cetirizine HCl 10 Mg Tablet, 10 MG PO HS, (Reported) Clotrimazole/Betamethasone Dip 15 Gm Cream..g., TOP BID PRN for SKIN, (Reported) Diphenhydramine HCl 25 Mg Capsule, 25 MG PO UD PRN for ITCHING, (Reported) Docusate Sodium 100 Mg Capsule, 100 MG PO BID, (Reported) Ferrous Sulfate 325 Mg Tablet, 325 MG PO TID, (Reported) Fluticasone Propionate 16 Gm [place].susp, 2 SPRAYS NS DAILY, (Reported) Fluticasone/Vilanterol 1 Each Blst.w.dev, 1 PUFF INH DAILY, (Reported) Guaifenesin 600 Mg Tab.er.12h, 600 MG PO UD PRN for CONGESTION, (Reported) Guaifenesin/Dextromethorphan 237 Ml Liquid, PO UD PRN for COUGH, (Reported) Hydrocortisone 28.35 Gm Cream..g., TP UD PRN for RASH/ITCHING, (Reported) Lactulose 10 Gm/15 Ml Solution, 30 ML PO BID, (Reported) Lamotrigine 100 Mg Tablet, 150 MG PO DAILY, (Reported) TAKES 1 & 1/2 (100MG) TABLETS Menthol 113 Gm Powder, TP UD PRN for FOOT ODOR/WETNESS, (Reported) Montelukast Sodium 10 Mg Tablet, 10 MG PO DAILY, (Reported) Neomycin/Polymyxin/Bacitracin 0.9 Gm Oint, TP UD PRN for MINOR CUTS, SCRAPES AND SORES, (Reported) Nystatin 60 Gm Powder, TP TID PRN for RASH, (Reported) Olanzapine 15 Mg Tablet, 15 MG PO DAILY, (Reported) Olanzapine 20 Mg Tablet, 20 MG PO HS, (Reported) Pectin 2.8 Mg Lozenge, MM UD PRN for SORE THROAT, (Reported) Sertraline HCl 100 Mg Tablet, 100 MG PO DAILY, (Reported) Sulfamethoxazole/Trimethoprim 1 Each Tablet, 1 TAB PO BID, (Reported) 7 DAY THERAPY START DATE 07-18-19 PM DOSE Trazodone HCl 100 Mg Tablet, 100 MG PO HS, (Reported) Patient Home Medication List Home Medication List Reviewed: Yes Past Lenwnnl-Outojv-Ovzsuy Hx Patient Social History Alcohol Use: Rarely Uses Number of Drinks Today: II Recreational Drug Use: No Smoking Status: Current Everyday Smoker (1 ppd) Former Smoker, Quit: Mar 18, 2014 2nd Hand Smoke Exposure: Yes Recent Foreign Travel: No Contact w/Someone Who Travel: No Recent Infectious Disease Expo: No Recent Hopitalizations: No Physical Abuse Screen: No Sexual Abuse: No Immunizations Up To Date Tetanus Booster (TDap): Unknown Date of Influenza Vaccine: Jun 28, 2018 Seasonal Allergies Seasonal Allergies: Yes Surgeries History of Surgeries: Yes (FOREIGN BODY REMOVAL FROM ABDOMEN SEVERAL TIMES WITH A BOWEL RESECTION) Surgeries: Tonsillectomy Respiratory History of Respiratory Disorde: Yes Respiratory Disorders: Asthma Cardiovascular History of Cardiac Disorders: No Neurological History of Neurological Disord: No Reproductive System : No Sexually Transmitted Disease: No Female Reproductive Disorders: Ovarian Cyst Genitourinary History of Genitourinary Disor: No Gastrointestinal History of Gastrointestinal Di: Yes (BOWEL RESECTION ) Gastrointestinal Disorders: Chronic Constipation Musculoskeletal History of Musculoskeletal Dis: No Endocrine History of Endocrine Disorders: No HEENT History of HEENT Disorders: No Loss of Vision: Denies Hearing Impairment: Denies Cancer History of Cancer: No Psychosocial History of Psychiatric Problem: Yes Behavioral Health Disorders: Anxiety, Suicide Attempts, Personality Disorder, Schizophrenia, Depression Integumentary History of Skin or Integumenta: No Blood Transfusions History of Blood Disorders: Yes (LOW IRON) Adverse Reaction to a Blood Tr: No Family Medical History Significant Family History: Cancer (breast cancer - mom), Diabetes (mom) Review of Systems-General Constitutional: No chills, No fever EENTM: No hearing loss, No vision loss Respiratory: No cough, No short of breath Cardiovascular: No chest pain, No palpitations Gastrointestinal: No abdominal pain, No nausea, No vomiting Genitourinary: No dysuria, No frequency Musculoskeletal: No joint pain, No joint swelling Skin: No lesions, No rash Psychiatric/Neurological: Anxiety, Depressed Physical Exam-General Problems Physical Exam Vital Signs Vital Signs - First Documented 07/18/19 23:00 Temp 36.6 Pulse 72 Resp 18 B/P (MAP) 145/97 (113) Pulse Ox 100 O2 Delivery Room Air Capillary Refill : Less Than 3 SecondsLess Than 3 Seconds General Appearance: WD/WN, no apparent distress HEENT: PERRL/EOMI, pharynx normal Neck: non-tender, supple Respiratory: chest non-tender, lungs clear, normal breath sounds, no respir atory distress, no accessory muscle use Cardiovascular: regular rate, rhythm, no murmur Gastrointestinal: non tender, soft; No distended, No guarding, No mass Extremities: non-tender, no pedal edema Neurologic/Psychiatric: alert, depressed affect Skin: normal color, warm/dry Lymphatic: no adenopathy Data Review Labs Laboratory Tests 07/19/19 00:30: Urine Color YELLOW, Urine Clarity CLEAR, Urine pH 8, Urine Specific Braxton 1.010L, Urine Protein NEGATIVE, Urine Glucose (UA) NEGATIVE, Urine Ketones NEGATIVE, Urine Nitrite NEGATIVE, Urine Bilirubin NEGATIVE, Urine Urobilinogen NORMAL, Urine Leukocyte Esterase NEGATIVE, Urine RBC (Auto) NEGATIVE, Urine RBC NONE, Urine WBC NONE, Urine Squamous Epithelial Cells 0-2, Urine Crystals NONE, Urine Bacteria FEWH, Urine Casts NONE, Urine Mucus NEGATIVE, Urine Culture Indicated NO, Urine Opiates Screen NEGATIVE, Urine Oxycodone Screen NEGATIVE, Urine Methadone Screen NEGATIVE, Urine Propoxyphene Screen NEGATIVE, Urine Barbiturates Screen NEGATIVE, Ur Tricyclic Antidepressants Screen NEGATIVE, Urine Phencyclidine Screen NEGATIVE, Urine Amphetamines Screen NEGATIVE, Urine Methamphetamines Screen NEGATIVE, Urine Benzodiazepines Screen NEGATIVE, Urine Cocaine Screen NEGATIVE, Urine Cannabinoids Screen NEGATIVE 07/19/19 00:35: White Blood Count 6.6, Red Blood Count 4.72, Hemoglobin 14.6, Hematocrit 42, Mean Corpuscular Volume 89, Mean Corpuscular Hemoglobin 31, Mean Corpuscular Hemoglobin Concent 35, Red Cell Distribution Width 12.6, Platelet Count 209, Mean Platelet Volume 9.7, Neutrophils (%) (Auto) 70, Lymphocytes (%) (Auto) 23, Monocytes (%) (Auto) 7, Eosinophils (%) (Auto) 0, Basophils (%) (Auto) 0, Neutrophils # (Auto) 4.6, Lymphocytes # (Auto) 1.5, Monocytes # (Auto) 0.5, Eosinophils # (Auto) 0.0, Basophils # (Auto) 0.0, Sodium Level 142, Potassium Level 3.6, Chloride Level 106, Carbon Dioxide Level 24, Anion Gap 12, Blood Urea Nitrogen 7, Creatinine 0.72, Estimat Glomerular Filtration Rate > 60, BUN/Creatinine Ratio 10, Glucose Level 94, Calcium Level 8.6, Corrected Calcium 8.4L, Total Bilirubin 0.5, Aspartate Amino Transf (AST/SGOT) 12, Alanine Aminotransferase (ALT/SGPT) 17, Alkaline Phosphatase 68, Total Protein 6.6, Albumin 4.2, Free Thyroxine 1.06, TSH [place] Testing 5.58H, Salicylates Level < 5.0L, Acetaminophen Level < 10L, Serum Alcohol < 10 Assessment/Plan Assessment/Plan Assessment/Plan Foreign body ingestion History of suicide attempts Anxiety and Depression Imaging in ED last night showed multiple foreign bodies. Most of these within the stomach. There are some wires that overlie the abdomen and some could be within bowel loops but are probably all outside of the bowel loops. Repeat X-ray today showed that lights had moved beyond duodenum, so endoscopy no longer indicated. Encouraged ambulation and lots of clear liquids and hopefully the lights will pass without issue. Clinical Quality Measures DVT/VTE Risk/Contraindication: RFS Level Per Nursing on Admit: 0=No Risk/No VTE PPX CHERYL FLAHERTY Getachew DO 07/19/19 1728: History of Present Illness History of Present Illness Time Seen by Provider: 16:40 History of Present Illness Pt seen, denies abdominal pain and wants to eat. Allergies and Home Medications Allergies Coded Allergies: Penicillins (Verified Allergy, Unknown, 03/18/19) amoxicillin (Verified Allergy, Unknown, 03/18/19) clavulanic acid (Verified Allergy, Unknown, 03/18/19) potassium chloride (Verified Allergy, Unknown, 03/18/19) Home Medications Acetaminophen 325 Mg Capsule, 650 MG PO Q6H PRN for PAIN-MILD OR TEMPATURE, (Reported) Acetaminophen 650 Mg Tablet.er, 650 MG PO UD PRN for PAIN-MILD, (Reported) Bismuth Subsalicylate 262 Mg/15 Ml Oral.susp, PO UD PRN for STOMACH UPSET, (Reported) Calamine/Zinc Oxide 177 Ml Lotion, TP UD PRN for RASH/ITCHING, (Reported) Calcium Carbonate 200 Mg Tab.chew, 2 TAB.CHEW PO BID PRN for HEARTBURN, (Reported) Cetirizine HCl 10 Mg Tablet, 10 MG PO HS, (Reported) Clotrimazole/Betamethasone Dip 15 Gm Cream..g., TOP BID PRN for SKIN, (Reported) Diphenhydramine HCl 25 Mg Capsule, 25 MG PO UD PRN for ITCHING, (Reported) Docusate Sodium 100 Mg Capsule, 100 MG PO BID, (Reported) Ferrous Sulfate 325 Mg Tablet, 325 MG PO TID, (Reported) Fluticasone Propionate 16 Gm [place].susp, 2 SPRAYS NS DAILY, (Reported) Fluticasone/Vilanterol 1 Each Blst.w.dev, 1 PUFF INH DAILY, (Reported) Guaifenesin 600 Mg Tab.er.12h, 600 MG PO UD PRN for CONGESTION, (Reported) Guaifenesin/Dextromethorphan 237 Ml Liquid, PO UD PRN for COUGH, (Reported) Hydrocortisone 28.35 Gm Cream..g., TP UD PRN for RASH/ITCHING, (Reported) Lactulose 10 Gm/15 Ml Solution, 30 ML PO BID, (Reported) Lamotrigine 100 Mg Tablet, 150 MG PO DAILY, (Reported) TAKES 1 & 1/2 (100MG) TABLETS Menthol 113 Gm Powder, TP UD PRN for FOOT ODOR/WETNESS, (Reported) Montelukast Sodium 10 Mg Tablet, 10 MG PO DAILY, (Reported) Neomycin/Polymyxin/Bacitracin 0.9 Gm Oint, TP UD PRN for MINOR CUTS, SCRAPES AND SORES, (Reported) Nystatin 60 Gm Powder, TP TID PRN for RASH, (Reported) Olanzapine 15 Mg Tablet, 15 MG PO DAILY, (Reported) Olanzapine 20 Mg Tablet, 20 MG PO HS, (Reported) Pectin 2.8 Mg Lozenge, MM UD PRN for SORE THROAT, (Reported) Sertraline HCl 100 Mg Tablet, 100 MG PO DAILY, (Reported) Sulfamethoxazole/Trimethoprim 1 Each Tablet, 1 TAB PO BID, (Reported) 7 DAY THERAPY START DATE 07-18-19 PM DOSE Trazodone HCl 100 Mg Tablet, 100 MG PO HS, (Reported) Review of Systems-General Other pt denies any hx of abnormal bleeding or bruising Physical Exam-General Problems Physical Exam Eyes: Bilateral Eye PERRL, Bilateral Eye EOMI Assessment/Plan Assessment/Plan Assessment/Plan Start clears and then soft in am; most likely ok to go home tomorrow around lunch time. Did talk with pt regarding the fact that most likely they will pass, but it is possible they could cause perforation. Will need to monitor abdomen; any bloating, severe pain or vomiting are signs she needs to go to ER emergently. Supervisory-Addendum Brief Verification & Attestation Participated in pt care: history, MDM, physical Personally performed: exam, history, MDM Care discussed with: Medical Student Procedures: n/a Verification and Attestation of Medical Student E/M Service A medical student performed and documented this service in my presence. I reviewed and verified all information documented by the medical student and made modifications to such information, when appropriate. I personally performed the physical exam and medical decision making. Cheryl Flaherty Jul 19, 2019,17:28 ALMAZ FERREIRA,MED STUDENT Jul 19, 2019 08:54 CHERYL CLEVELAND DO Jul 19, 2019 17:28 POS
--- NOTE | 2019-07-19 09:20 | Diagnostic Imaging Report ---
INDICATION: Foreign body ingestion. FINDINGS: The aggregate of presumed [place] tree lights projects over the right flank along the expected course of the ascending colon to the level of its hepatic flexure. There are multiple additional more linear metallic foreign bodies arrayed in unchanged fashion. These may be soft tissue foreign bodies. An IUD device is unchanged. IMPRESSION: 1. The aggregate of linearly arrayed radiopacities, presumed a string of [place] tree lights, now projects along the right flank over the course of the proximal colon. 2. Multiple additional linear metallic foreign bodies are identical in their orientation and largely projecting outside of bowel loops, presumed embedded in soft tissues. Dictated by: Dictated on workstation # [id number]
[2019-07-19 12:00] VITALS: BP 97/66
--- NOTE | 2019-07-19 12:24 | NUR ---
PATIENT LIVES AT [facility]. SHE HAS A COURT APPOINTED GUARDIAN --[place] [phone] FROM [facility] IS NOT SURE IF SHE OR THE PATIENT CAN AUTHORIZE A FLU VACCINE TO BE GIVEN HERE.
[2019-07-19] MEDS ORDERED: PECT2.8L4 MM (13:26)
[2019-07-19] MEDS ORDERED: DOCU-143 PO (13:26)
[2019-07-19] MEDS ORDERED: HYDR28.3 TP (13:26)
[2019-07-19] MEDS ORDERED: CALA177S11 TP (13:26)
[2019-07-19] MEDS ORDERED: CLOT15CR6 TOP (13:26)
[2019-07-19] MEDS ORDERED: MENT113P2 TP (13:26)
[2019-07-19] MEDS ORDERED: LACT10SO64 PO (13:26)
[2019-07-19] MEDS ORDERED: NYST60PO TP (13:26)
[2019-07-19] MEDS ORDERED: FLUT16SP22 NS (13:26)
[2019-07-19] MEDS ORDERED: GUAI237L82 PO (13:26)
[2019-07-19] MEDS ORDERED: TRAZ-190 PO (13:26)
[2019-07-19] MEDS ORDERED: NPB.9O TP (13:26)
[2019-07-19] MEDS ORDERED: CETI10TA20 PO (13:26)
[2019-07-19] MEDS ORDERED: DIPH25CA79 PO (13:26)
[2019-07-19] MEDS ORDERED: BISM262O27 PO (13:26)
[2019-07-19] MEDS ORDERED: GUAI600T43 PO (13:26)
[2019-07-19] MEDS ORDERED: ACET-2650 PO (13:26)
[2019-07-19] MEDS ORDERED: SULF1TAB35 PO (13:48)
--- NOTE | 2019-07-19 13:49 | NUR ---
UPDATED MED REC WITH MAR FROM [facility]. I HAVE CALLED THEM SEVERAL TIMES TODAY BUT OFTEN GET THE ANSWERING MACHINE. THE MAR STATES ZYPREXA 20MG HS ALONG WITH 5MG DOSE HOWEVER THERE IS NO ENTRY ON THE MAR FOR THE 5MG DOSE SHOWING WHERE IT IS AN ACTIVE ORDER OR BEING CHARTED ON. I CALLED [facility]ERT[facility] MILLER WHO FILLS THE PRESCRIPTIONS AND THEY STATE THE 5MG DOSE WAS DISCONTINUED IN MARCH. I LEFT IT OFF THE MED REC AT THIS TIME.
[2019-07-19] MEDS ORDERED: FLU QUADRIvalent (5+ YOA) 2019-2020 (AFLURIA) 0.5 ML IM ONE (14:45)
--- NOTE | 2019-07-19 14:47 | History & Physical-Hospitalist ---
History of Present Illness HPI/Chief Complaint Stefanie Bernardo is a 38yoF with PMH schizophrenia, depression, self-harming behaviors, who resides at [facility], presented after being found to have ingested several [place] light bulbs. She tells me that she was feeling depressed and decided to ingest the bulbs in an attempt at suicide. She reports that she has tried to harm herself before. Most recently within the past week she cut her abdomen with her fingernail. She has not attempted suicide for about one year. She has a history of impaling her abdomen with foreign objects. Other than the depression, she has been in her normal state of health recently. Source: patient Exam Limitations: no limitations Date Seen 07/19/19 Time Seen by a Provider: 10:45 Attending Physician Rodolfo Engel MD PCP Lillie Tineo MD Referring Physician Date of Admission Jul 19, 2019 at 01:38 Home Medications & Allergies Home Medications Reviewed patient Home Medication Reconciliation performed by pharmacy medication reconciliations veterinary technician assistant and/or nursing. Patients Allergies have been reviewed. Allergies Allergies Coded Allergies Penicillins (Verified Allergy, Unknown, 03/18/19) amoxicillin (Verified Allergy, Unknown, 03/18/19) clavulanic acid (Verified Allergy, Unknown, 03/18/19) potassium chloride (Verified Allergy, Unknown, 03/18/19) Past Khbuhtw-Uedkku-Lioljn Hx Past Med/Social Hx: Reviewed Nursing Past Med/Soc Hx Patient Social History Alcohol Use: Rarely Uses Number of Drinks Today: II Alcohol Beverage of Choice: Other Recreational Drug Use: No Smoking Status: Current Everyday Smoker (1 ppd) Former Smoker, Quit: Mar 18, 2014 2nd Hand Smoke Exposure: Yes Physical Abuse Screen: No Sexual Abuse: No Recent Foreign Travel: No Contact w/other who traveled: No Recent Hopitalizations: No Recent Infectious Disease Expo: No Immunizations Up To Date Tetanus Booster (TDap): Unknown Date of Influenza Vaccine: Jun 28, 2018 Seasonal Allergies Seasonal Allergies: Yes Past Medical History Surgeries: Tonsillectomy : No Sexually Transmitted Disease: No Female Reproductive Disorders: Ovarian Cyst Gastrointestinal: Chronic Constipation Loss of Vision: Denies Hearing Impairment: Denies Psychosocial: Anxiety, Suicide Attempts, Personality Disorder, Schizophrenia, Depression History of Blood Disorders: Yes (LOW IRON) Adverse Reaction to Blood [place]: No Family History Cancer (breast cancer - mom), Diabetes (mom) Review of Systems Constitutional: no symptoms reported EENTM: no symptoms reported Respiratory: no symptoms reported Cardiovascular: no symptoms reported Gastrointestinal: no symptoms reported Genitourinary: no symptoms reported Musculoskeletal: no symptoms reported Skin: no symptoms reported Psychiatric/Neurological: Depressed Physical Exam Physical Exam Vital Signs Vital Signs - First Documented 07/18/19 23:00 Temp 36.6 Pulse 72 Resp 18 B/P (MAP) 145/97 (113) Pulse Ox 100 O2 Delivery Room Air Capillary Refill : Less Than 3 SecondsLess Than 3 Seconds Height, Weight, BMI Height: 5'4.00" Weight: 213lbs. 0.0oz. 96.186490ar; 41.18 BMI Method: General Appearance: No Apparent Distress, WD/WN HEENT: Other (abnormal dentition) Neck: Normal Inspection, Supple Respiratory: Lungs Clear, Normal Breath Sounds, No Respiratory Distress Cardiovascular: Regular Rate, Rhythm, No Edema, No Murmur Gastrointestinal: Normal Bowel Sounds, Non Tender, Soft Extremity: Normal Inspection, Non Tender, No Pedal Edema Neurologic/Psychiatric: Alert, Oriented x3, Depressed Affect Skin: Normal Color, Warm/Dry Results Results/Procedures Labs Laboratory Tests 07/19/19 00:35 Patient resulted labs reviewed. Assessment/Plan Admission Diagnosis Suicide attempt Admission Status: Inpatient Order (span 2 midnights) Reason for Inpatient Admission: Suicide attempt by foreign body ingestion with need for possible endoscopic intervention Assessment and Plan Suicide attempt Foreign body ingestion Schizophrenia Depression -KUB showed multiple foreign bodies in the stomach -Repeat KUB this morning with several opacities within the proximal colon -Surgery consulted -NPO for possible endoscopic intervention -Home psychiatric meds continued -Sitter at bedside -Has 24 hour, one-on-one care, at her current facility to which she will return upon discharge Tobacco abuse -Nicotine patch DVT Prophylaxis: ambulation Diagnosis/Problems Diagnosis/Problems (1) Suicide attempt Status: Acute (2) Foreign body ingestion Status: Acute Qualifiers: Encounter type: initial encounter Qualified Codes: T18.9XXA - Foreign body of alimentary tract, part unspecified, initial encounter Clinical Quality Measures DVT/VTE Risk/Contraindication: RFS Level Per Nursing on Admit: 0=No Risk/No VTE PPX SARTHAK MURPHY MD Jul 19, 2019 14:47 POS
[2019-07-19] MEDS ORDERED: NICOTINE 14 MG (NICODERM) PATCH TD ONE (15:00)
[2019-07-19] MEDS ORDERED: CALCIUM CARBONATE 500 MG (TUMS) TAB.CHEW PO PRN (15:15)
[2019-07-19] MEDS ORDERED: diphenhydrAMINE 25 MG TAB (BENADRYL) PO PRN (15:15)
[2019-07-19 16:11] VITALS: BP 98/56
[2019-07-19] MEDS ORDERED: BISACODYL 5 MG (DULCOLAX) TABLET PO PRN (17:00)
[2019-07-19] MEDS ORDERED: ACETAMINOPHEN 325 MG TABLET PO PRN (17:00)
[2019-07-19] MEDS ORDERED: ONDANSETRON 4 MG (ZOFRAN) ORAL DISSOLVE TAB PO PRN (17:00)
[2019-07-19] MEDS ORDERED: POLYETHYLENE GLYCOL 17 GM (MIRALAX) PACK PO PRN (17:00)
[2019-07-19] MEDS ORDERED: MELATONIN 3 MG TABLET PO PRN (17:00)
[2019-07-19 20:00] VITALS: BP 106/51
[2019-07-19] MEDS ORDERED: RT-ADVAIR HFA 115/21 MCG PER PUFF IH SCH (20:00)
[2019-07-19] MEDS ORDERED: LORATADINE (CLARITIN) 10 MG TAB PO SCH (21:00)
[2019-07-19] MEDS ORDERED: traZODone 100 MG (DESYREL) TAB PO SCH (21:00)
[2019-07-19] MEDS ORDERED: OLANZapine 5 MG (ZyPREXA) TAB PO SCH (21:00)
[2019-07-19] MEDS: DOCUSATE SODIUM 100 MG (COLACE) CAP PO SCH (21:27)
[2019-07-19] MEDS: LACTULOSE SYRUP 10GM/15ML (ENULOSE) 30ML UDC PO SCH (21:27)
[2019-07-20 00:10] VITALS: BP 115/78
[2019-07-20 04:05] VITALS: BP 94/62
[2019-07-20] MEDS: cefTRIAXone 1,000 MG/SWFI 10 ML IV PUSH IV SCH ×2 (05:27)
--- NOTE | 2019-07-20 07:48 | Progress Note - Surgery ---
HANNA,ALMAZ,MED STUDENT 07/20/19 0748: Subjective Date Seen by a Provider: Jul 20, 2019 Time Seen by a Provider: 07:34 Subjective/Events-last exam Patient is feeling well today. Tolerating clear liquids and feels like she wants to advance her diet. She has not had a bowel movement since ingesting the lights. Denies abdominal pain, bloating, nausea, or vomiting. No complaints or concerns at this time. Objective Exam Vital Signs Date Time Temp Pulse Resp B/P (MAP) Pulse Ox O2 Delivery O2 Flow Rate FiO2 07/20/19 04:05 36.4 56 18 94/62 (73) 96 Room Air 07/20/19 00:10 36.2 60 16 115/78 (90) 95 Room Air 07/19/19 20:00 36.1 70 14 106/51 (69) 95 Room Air 07/19/19 20:00 96 Room Air 07/19/19 16:11 36.7 63 16 98/56 (70) 96 Room Air 07/19/19 12:00 37.0 67 18 97/66 (76) 94 Room Air 07/19/19 08:00 96 Room Air 07/19/19 08:00 36.9 71 18 110/60 (77) 96 Room Air I & O 07/20/19 07:00 Intake Total 920 ml Output Total 200 ml Balance 720 ml Capillary Refill : Less Than 3 SecondsLess Than 3 Seconds General Appearance: No Apparent Distress, WD/WN HEENT: Other (poor dentition) Respiratory: Lungs Clear, Normal Breath Sounds, No Respiratory Distress Cardiovascular: Regular Rate, Rhythm, No Edema, No Murmur Gastrointestinal: non tender, soft; No distended, No guarding, No mass Extremity: Normal Inspection, Non Tender, No Pedal Edema Neurologic/Psychiatric: Alert, Normal Mood/Affect Skin: Normal Color, Warm/Dry Assessment/Plan Assessment/Plan Assessment/Plan Foreign body ingestion History of suicide attempts and self harm Anxiety and Depression Tolerating clears, advance to soft diet Ok for discharge home later today if tolerates soft diet Discussed with patient that she will likely pass the lights, but perforation is possible and she should monitor for any bloating, severe abdominal pain, or vomiting in which case she should proceed to ER Clinical Quality Measures DVT/VTE Risk/Contraindication: RFS Level Per Nursing on Admit: 0=No Risk/No VTE PPX CHERYL FLAHERTY DO 07/20/19 1740: Subjective Time Seen by a Provider: 10:39 Subjective/Events-last exam Pt seen and examined, ready to go home. Denies abdominal pain. Objective Exam Gastrointestinal: non tender, soft; No distended, No guarding Supervisory-Addendum Brief Verification & Attestation Participated in pt care: history, MDM, physical Personally performed: exam, history, MDM Care discussed with: Medical Student Procedures: n/a Verification and Attestation of Medical Student E/M Service A medical student performed and documented this service in my presence. I reviewed and verified all information documented by the medical student and made modifications to such information, when appropriate. I personally performed the physical exam and medical decision making. Cheryl Flaherty, Jul 20, 2019,17:39 ALMAZ FERREIRA,MED STUDENT Jul 20, 2019 07:48 CHERYL CLEVELAND DO Jul 20, 2019 17:40 POS
[2019-07-20 08:00] VITALS: BP 92/62
[2019-07-20] MEDS: LACTULOSE SYRUP 10GM/15ML (ENULOSE) 30ML UDC PO SCH (08:23)
[2019-07-20] MEDS: DOCUSATE SODIUM 100 MG (COLACE) CAP PO SCH (08:23)
[2019-07-20] MEDS ORDERED: SERTRALINE 100 MG (ZOLOFT) TAB PO SCH (09:00)
[2019-07-20] MEDS ORDERED: OLANZapine 5 MG (ZyPREXA) TAB PO SCH (09:00)
[2019-07-20] MEDS ORDERED: MONTELUKAST 10 MG (SINGULAIR) TAB PO SCH (09:00)
[2019-07-20] MEDS ORDERED: FLUTICASONE NASAL SPRAY (FLONASE) 16 GM BTL NS SCH (09:00)
[2019-07-20] MEDS ORDERED: NICOTINE 14 MG (NICODERM) PATCH TD SCH (09:00)
[2019-07-20] MEDS ORDERED: NICOTINE PATCH REMOVAL TP SCH (09:00)
--- NOTE | 2019-07-20 10:58 | NUR ---
KAREN/KRISTIN spoke with the patient and the patient's caregiver to assess needs upon discharge. Plan: The patient and caregiver stated that the plan is to return home with 24/7 care in the home. KAREN/KRISTIN discussed moving up her appointment scheduled with Anuradha at [facility] up from to this week. The patient and caregiver verbalized understanding. Summary: The patient's caregiver stated that she is there from 9am-9pm during the day along with another worker due to the patient living with a roommate that is also a one-on-one care. The patient is not alone at home at all without a worker. The patient stated that she feels much better today and does not plan to be back in the hospital. There are no other needs at this time. Addendum: 07/20/19 at 1106 by JING EDUARDO reviewed / approved
--- NOTE | 2019-07-20 11:06 | Discharge Summary ---
Discharge Summary Hospital Course Problems/Dx: (1) Suicide attempt Status: Acute (2) Foreign body ingestion Status: Acute Qualifiers: Qualified Codes: T18.9XXA - Foreign body of alimentary tract, part unspecified, initial encounter Hospital Course Date of Admission: Jul 19, 2019 at 01:38 Admission Diagnosis : Suicide attempt by foreign body ingestion Family Physician/Provider: Guillermo Tineo MD Date of Discharge: 07/20/19 Discharge Diagnosis: Suicide attempt by foreign body ingestion Hospital Course: Stefanie Bernardo is a 38yoF with PMH schizophrenia, depression, self-harming behaviors, multiple suicide attempts, who presented after ingesting several [place] light bulbs in a suicide attempt. Surgery was consulted and did not recommend any surgical or endoscopic intervention. She is expected to pass the bulbs without incidence. She is already staying at a facility with 24 hour one-on-one care and she will return there on discharge. She was instructed to return with any concerning symptoms including: severe abdominal pain, bloating, bleeding, etc. She will follow up in Dr. Flaherty's clinic in about two weeks. Labs and Pending Lab Test: Home Meds Active Reported Bactrim Ds Tablet (Sulfamethoxazole/Trimethoprim) 1 Each Tablet 1 Tab PO BID 7 Days 7 DAY THERAPY START DATE 07-18-19 PM DOSE Clotrimazole-Betamethasone Crm (Clotrimazole/Betamethasone Dip) 15 Gm Cream..g. TOP BID PRN Nystop (Nystatin) 60 Gm Powder TP TID PRN Tylenol Arthritis (Acetaminophen) 650 Mg Tablet.er 650 Mg PO UD PRN Mucinex (Guaifenesin) 600 Mg Tab.er.12h 600 Mg PO UD PRN Pepto-Bismol (Bismuth Subsalicylate) 262 Mg/15 Ml Oral.susp PO UD PRN Throat Drops (Pectin) 2.8 Mg Lozenge MM UD PRN Hydrocortisone 28.35 Gm Cream..g. TP UD PRN Calamine Lotion (Calamine/Zinc Oxide) 177 Ml Lotion TP UD PRN Triple Antibiotic Ointment (Neomycin/Polymyxin/Bacitracin) 0.9 Gm Oint TP UD PRN Gold Melendrez Medicated Foot (Menthol) 113 Gm Powder TP UD PRN Benadryl (Diphenhydramine HCl) 25 Mg Capsule 25 Mg PO UD PRN Robitussin Cough-Chest Dm Liq (Guaifenesin/Dextromethorphan) 237 Ml Liquid PO UD PRN Trazodone HCl 100 Mg Tablet 100 Mg PO HS Constulose (Lactulose) 10 Gm/15 Ml Solution 30 Ml PO BID Fluticasone Propionate 16 Gm [place].susp 2 Sprays NS DAILY Colace (Docusate Sodium) 100 Mg Capsule 100 Mg PO BID Zyrtec (Cetirizine HCl) 10 Mg Tablet 10 Mg PO HS Breo Ellipta 200-25 Mcg INH (Fluticasone/Vilanterol) 1 Each Blst.w.dev 1 Puff INH DAILY Tums (Calcium Carbonate) 200 Mg Tab.chew 2 Tab.chew PO BID PRN Tylenol (Acetaminophen) 325 Mg Capsule 650 Mg PO Q6H PRN Zyprexa (Olanzapine) 20 Mg Tablet 20 Mg PO HS Zyprexa (Olanzapine) 15 Mg Tablet 15 Mg PO DAILY Zoloft (Sertraline HCl) 100 Mg Tablet 100 Mg PO DAILY Montelukast Sodium 10 Mg Tablet 10 Mg PO DAILY Lamictal (Lamotrigine) 100 Mg Tablet 150 Mg PO DAILY TAKES 1 & 1/2 (100MG) TABLETS Ferrous Sulfate 325 Mg Tablet 325 Mg PO TID Assessment/Pt Instructions Take medications as prescribed. Return to the hospital with severe abdominal pain, bloating, rectal bleeding, or if you feel like you are getting worse. Discharge Planning: <30 minutes discharge planning Discharge Instructions Discharge Diet: No Restrictions Activity as Tolerated: Yes Consultations General surgery Discharge Physical Examination Vital Signs Vital Signs Date Time Temp Pulse Resp B/P (MAP) Pulse Ox O2 Delivery O2 Flow Rate FiO2 07/20/19 08:00 96 Room Air 07/20/19 08:00 36.4 79 16 92/62 (72) General Appearance: No Apparent Distress, WD/WN HEENT: PERRL/EOMI, Pharynx Normal Respiratory: Lungs Clear, Normal Breath Sounds, No Respiratory Distress Cardiovascular: Regular Rate, Rhythm, No Edema, No Murmur Gastrointestinal: Normal Bowel Sounds, Non Tender, Soft Extremity: Normal Inspection, Non Tender, No Pedal Edema Skin: Normal Color, Warm/Dry Neurologic/Psychiatric: Alert, Oriented x3, No Motor/Sensory Deficits, Normal Mood/Affect Allergies: Coded Allergies: Penicillins (Verified Allergy, Unknown, 03/18/19) amoxicillin (Verified Allergy, Unknown, 03/18/19) clavulanic acid (Verified Allergy, Unknown, 03/18/19) potassium chloride (Verified Allergy, Unknown, 03/18/19) Copy Copies To 1: GUILLERMO TINEO MD Discharge Summary Date of Admission Jul 19, 2019 at 01:38 Date of Discharge Discharge Date: Jul 20, 2019 Discharge Time: 11:04 Admission Diagnosis Suicide attempt Consults/Procedures Consulations General surgery Discharge Diagnosis Suicide attempt, foreign body ingestion (1) Suicide attempt Status: Acute (2) Foreign body ingestion Status: Acute Qualifiers: Qualified Codes: T18.9XXA - Foreign body of alimentary tract, part unspecified, initial encounter Clinical Quality Measures DVT/VTE Risk/Contraindication: RFS Level Per Nursing on Admit: 0=No Risk/No VTE PPX SARTHAK MURPHY MD Jul 20, 2019 11:03 POS
[2019-07-20 11:30] VITALS: BP 92/62
== END 2019-07-20 11:30 | disposition home or self-care (01) | DRG 395 ==
LOC: EDUNIT# 22:56 → ER 22:57 → 4TH 07-19 01:38
PROVIDERS: ADMIT Internal Medicine; ATTEND Internal Medicine
DX: T18.3XXA Foreign body in small intestine, initial encounter (principal); T18.2XXA Foreign body in stomach, initial encounter; S30.851A Superficial foreign body of abdominal wall, initial encounter; T14.91XA Suicide attempt, initial encounter; F41.9 Anxiety disorder, unspecified; F32.9 Major depressive disorder, single episode, unspecified; F25.9 Schizoaffective disorder, unspecified; F60.3 Borderline personality disorder; J45.909 Unspecified asthma, uncomplicated; K59.09 Other constipation; F17.210 Nicotine dependence, cigarettes, uncomplicated; Z90.49 Acquired absence of other specified parts of digestive tract; Z91.5 Personal history of self-harm; Z88.0 Allergy status to penicillin; Z88.1 Allergy status to other antibiotic agents
CPT/HCPCS: 36415; 71045; 74018; 80053; 80306; 80320; 80329; 81000; 84439; 84443; 85025; 96360

== ENCOUNTER → 2019-07-28 | Outpatient (CLI) | payer MEDICARE, MEDICAID ==
[~2019-07-28] MED LIST changes: +ACET-2650 PO; +BISM262O27 PO; +CALA177S11 TP; +CETI10TA20 PO; +CLOT15CR6 TOP; +DIPH25CA79 PO; +DOCU-143 PO; +FLUT16SP22 NS; +GUAI237L82 PO; +GUAI600T43 PO; +HYDR28.3 TP; +LACT10SO64 PO; +MENT113P2 TP; +NPB.9O TP; +NYST60PO TP; +PECT2.8L4 MM; +SULF1TAB35 PO; +TRAZ-190 PO
--- NOTE | 2019-07-28 14:33 | Diagnostic Imaging Report ---
INDICATION: Foreign body ingestion. COMPARISON: 07/19/2019. FINDINGS: Two supine radiographic views of the abdomen were obtained and demonstrate interval passage of cylindrical radiopaque foreign bodies presumed to represent small [place] tree lights. Multiple linear and curvilinear metallic opacities remain projecting over both sides of the abdomen. Overall, these appear stable in position. There is no large collection of free intraperitoneal air. Small bowel loops are nondistended. Indwelling IUD is noted. Osseous structures show no acute abnormalities. IMPRESSION: 1. Interval passage of radiopaque foreign bodies presumed to represent small [place] tree lights. 2. Multiple other linear and curvilinear metallic opacities are stable in position. Dictated by: Dictated on workstation # [id number]
== END ==
LOC: RAD 13:50
PROVIDERS: ATTEND Surgery
DX: T18.2XXA Foreign body in stomach, initial encounter (principal)
CPT/HCPCS: 74018

== ENCOUNTER 2019-09-21 22:33 | Emergency (ER) | payer MEDICARE, MEDICAID ==
[~2019-09-21] VITALS: Ht 167 cm; Wt 119.3 kg
[2019-09-21] MEDS ORDERED: TETANUS,DIPTH,PERTUSS P/F (BOOSTRIX) 0.5 ML VIAL IM ONE (23:00)
[2019-09-21 23:24] LABS: BASOPHILS % (AUTO) 0 % (0-10); EOSINOPHILS % (AUTO) 0 % (0-10); HEMATOCRIT 42 % (35-52); HEMOGLOBIN 13.9 G/DL (11.5-16.0); LYMPHOCYTES % (AUTO) 17 % (12-44); MEAN CORPUSCULAR HEMOGLOBIN 30 PG (25-34); MEAN CORPUSCULAR HGB CONC 33 G/DL (32-36); MEAN CORPUSCULAR VOLUME 91 FL (80-99); MEAN PLATELET VOLUME 9.3 FL (7.4-10.4); MONOCYTES # (AUTO) 0.9 X 10^3 (0.0-1.0); MONOCYTES % (AUTO) 8 % (0-12); NEUTROPHILS # (AUTO) 8.5 X 10^3 (1.8-7.8); NEUTROPHILS % (AUTO) 75 % (42-75); PLATELET COUNT 249 10^3/uL (130-400); RED CELL DISTRIBUTION WIDTH 12.7 % (10.0-14.5); WHITE BLOOD COUNT 11.3 10^3/uL (4.3-11.0)
[2019-09-21 23:44] LABS: ALANINE AMINOTRANSFERASE 17 U/L (0-55); ALBUMIN 4.3 GM/DL (3.2-4.5); ALKALINE PHOSPHATASE 69 U/L (40-136); BILIRUBIN,TOTAL 0.5 MG/DL (0.1-1.0); BUN/CREATININE RATIO 14; CALCIUM 9.3 MG/DL (8.5-10.1); CARBON DIOXIDE 21 MMOL/L (21-32); CHLORIDE 104 MMOL/L (98-107); GFR ESTIMATED > 60; GLUCOSE 97 MG/DL (70-105); POTASSIUM 3.9 MMOL/L (3.6-5.0); SALICYLATE < 5.0 MG/DL (5.0-20.0); SODIUM 140 MMOL/L (135-145); TOTAL PROTEIN 6.8 GM/DL (6.4-8.2)
[2019-09-21 23:45] LABS: ACETAMINOPHEN < 10 UG/ML (10-30)
[2019-09-21 23:55] LABS: BILIRUBIN,URINE NEGATIVE (NEGATIVE); CLARITY,URINE CLEAR; COLOR,URINE YELLOW; GLUCOSE, URINE (UA) NEGATIVE (NEGATIVE); KETONES,URINE NEGATIVE (NEGATIVE); LEUKOCYTE ESTERASE ,URINE 1+ (NEGATIVE); NITRITE,URINE NEGATIVE (NEGATIVE); PH,URINE 5.5 (5-9); PROTEIN,URINE NEGATIVE (NEGATIVE)
[2019-09-22 00:05] LABS: RBC,URINE RARE /HPF; WBC,URINE 0-2 /HPF
[2019-09-22 00:06] LABS: AMPHETAMINE SCREEN, URINE NEGATIVE (NEGATIVE); BACTERIA,URINE TRACE /HPF; BARBITURATE SCREEN URINE NEGATIVE (NEGATIVE); BENZODIAZEPINES SCREEN URINE NEGATIVE (NEGATIVE); CANNABINOID SCREEN, URINE NEGATIVE (NEGATIVE); COCAINE SCREEN URINE NEGATIVE (NEGATIVE); METHADONE STAT NEGATIVE (NEGATIVE); METHAMPHETAMINE SCREEN URINE S NEGATIVE (NEGATIVE); OPIATE SCREEN URINE NEGATIVE (NEGATIVE); OXYCODONE STAT NEGATIVE (NEGATIVE); PROPOXYPHENE STAT NEGATIVE (NEGATIVE); TRICYCLIC ANTIDEPRESSANTS SCRE NEGATIVE (NEGATIVE)
[2019-09-22] MEDS ORDERED: TRIM/SULFAMETH 160/800 (SEPTRA DS) TAB PO ONE (02:15)
--- NOTE | 2019-09-22 02:24 | ED Psychosocial ---
General Chief Complaint: Psych/Social Disorder Stated Complaint: CUT ON STOMACH,SUICIDAL Nursing Triage Note: PT PRESENTS TO ROOM 8 AMBULATORY WITH SELF INFLICTED INJURIES TO THE ABD. THAT STAFF WITH THE PT STATE SHE USED THE SPRING OUT OF A COUCH CUSION TO LACERATE HER ABD. JUST ABOVE THE NAV[place]. PT STATES SHE DOESNT WANT TO LIVE ANYMORE SO SHE BEGAN CUTTING HERSELF AROUND 2100 TONIGHT. PT STATES SHE HAS A HX OF PREVIOUS SELF HARM Source: patient, caregiver ([facility]) Exam Limitations: no limitations History of Present Illness Date Seen by Provider: Sep 22, 2019 Time Seen by Provider: 01:14 Initial Comments Patient presents ER by private conveyance from [facility] where she was discove red at 10:00 to have lacerated her belly. She says she did about 8:30 to 9:00 last night. She's done this multiple times before. She took a coffman chain coffman ring and straightened the wire out to cut into her abdominal fat. She has multiple scars from previous similar attempts. She says she did it because she was suicidal. She says lots of things of them going on and she would like to go inpatient for counseling and medication adjustment. She is on sertraline and Lamictal. She is followed by psychiatry at [facility] and primary care doctor Noman. She's not having any abdominal pain chest pain nausea vomiting diarrhea dysuria cough shortness of breath. She does have a history of asthma. Reports several previous suicide attempts similar method. She has been in multiple inpatient psychiatric hospitals. Allergies and Home Medications Allergies Coded Allergies: Penicillins (Verified Allergy, Unknown, 03/18/19) amoxicillin (Verified Allergy, Unknown, 03/18/19) clavulanic acid (Verified Allergy, Unknown, 03/18/19) potassium chloride (Verified Allergy, Unknown, 03/18/19) Home Medications Acetaminophen 325 Mg Capsule, 650 MG PO Q6H PRN for PAIN-MILD OR TEMPATURE, (Reported) Acetaminophen 650 Mg Tablet.er, 650 MG PO UD PRN for PAIN-MILD, (Reported) Bismuth Subsalicylate 262 Mg/15 Ml Oral.susp, PO UD PRN for STOMACH UPSET, (Reported) Calamine/Zinc Oxide 177 Ml Lotion, TP UD PRN for RASH/ITCHING, (Reported) Calcium Carbonate 200 Mg Tab.chew, 2 TAB.CHEW PO BID PRN for HEARTBURN, (Reported) Cetirizine HCl 10 Mg Tablet, 10 MG PO HS, (Reported) Clotrimazole/Betamethasone Dip 15 Gm Cream..g., TOP BID PRN for SKIN, (Reported) Diphenhydramine HCl 25 Mg Capsule, 25 MG PO UD PRN for ITCHING, (Reported) Docusate Sodium 100 Mg Capsule, 100 MG PO BID, (Reported) Ferrous Sulfate 325 Mg Tablet, 325 MG PO TID, (Reported) Fluticasone Propionate 16 Gm [place].susp, 2 SPRAYS NS DAILY, (Reported) Fluticasone/Vilanterol 1 Each Blst.w.dev, 1 PUFF INH DAILY, (Reported) Guaifenesin 600 Mg Tab.er.12h, 600 MG PO UD PRN for CONGESTION, (Reported) Guaifenesin/Dextromethorphan 237 Ml Liquid, PO UD PRN for COUGH, (Reported) Hydrocortisone 28.35 Gm Cream..g., TP UD PRN for RASH/ITCHING, (Reported) Lactulose 10 Gm/15 Ml Solution, 30 ML PO BID, (Reported) Lamotrigine 100 Mg Tablet, 150 MG PO DAILY, (Reported) TAKES 1 & 1/2 (100MG) TABLETS Menthol 113 Gm Powder, TP UD PRN for FOOT ODOR/WETNESS, (Reported) Montelukast Sodium 10 Mg Tablet, 10 MG PO DAILY, (Reported) Neomycin/Polymyxin/Bacitracin 0.9 Gm Oint, TP UD PRN for MINOR CUTS, SCRAPES AND SORES, (Reported) Nystatin 60 Gm Powder, TP TID PRN for RASH, (Reported) Olanzapine 15 Mg Tablet, 15 MG PO DAILY, (Reported) Olanzapine 20 Mg Tablet, 20 MG PO HS, (Reported) Pectin 2.8 Mg Lozenge, MM UD PRN for SORE THROAT, (Reported) Sertraline HCl 100 Mg Tablet, 100 MG PO DAILY, (Reported) Sulfamethoxazole/Trimethoprim 1 Each Tablet, 1 TAB PO BID, (Reported) 7 DAY THERAPY START DATE 07-18-19 PM DOSE Trazodone HCl 100 Mg Tablet, 100 MG PO HS, (Reported) Patient Home Medication List Home Medication List Reviewed: Yes Review of Systems Constitutional: No chills, No diaphoresis EENTM: No ear discharge, No ear pain Respiratory: No cough, No short of breath Cardiovascular: No chest pain, No edema Gastrointestinal: No abdominal pain, No constipation, No diarrhea, No dysphagia Genitourinary: No discharge, No dysuria Musculoskeletal: No back pain, No joint pain Skin: No pruritus, No rash Psychiatric/Neurological: See HPI All Other Systems Reviewed Negative Unless Noted: Yes Past Zufnwzp-Jctjtn-Jpnhwc Hx Patient Social History Alcohol Use: Denies Use Alcohol Beverage of Choice: Other Recreational Drug Use: No Smoking Status: Former Smoker Former Smoker, Quit: Mar 18, 2014 2nd Hand Smoke Exposure: Yes Recent Foreign Travel: No Contact w/Someone Who Travel: No Recent Infectious Disease Expo: No Recent Hopitalizations: No Immunizations Up To Date Tetanus Booster (TDap): Unknown Date of Influenza Vaccine: Jun 28, 2018 Seasonal Allergies Seasonal Allergies: Yes Past Medical History Surgeries: Yes (FOREIGN BODY REMOVAL FROM ABDOMEN SEVERAL TIMES WITH A BOWEL RESECTION) Tonsillectomy Respiratory: Yes Asthma Cardiac: No Neurological: No : No Last Menstrual Period: Sep 21, 2019 Female Reproductive Disorders: Ovarian Cyst Sexually Transmitted Disease: No Genitourinary: No Gastrointestinal: Yes (BOWEL RESECTION ) Chronic Constipation Musculoskeletal: No Endocrine: No HEENT: No Loss of Vision: Denies Hearing Impairment: Denies Cancer: No Psychosocial: Yes Anxiety, Suicide Attempts, Personality Disorder, Schizophrenia, Depression Integumentary: No Blood Disorders: Yes (LOW IRON) Adverse Reaction/Blood Tranf: No Family Medical History Cancer, Diabetes Physical Exam Vital Signs - First Documented 09/21/19 22:53 Temp 37.2 Pulse 83 Resp 20 B/P (MAP) 186/105 (132) Pulse Ox 95 O2 Delivery Room Air Capillary Refill : Less Than 3 Seconds Height, Weight, BMI Height: 5'4.00" Weight: 213lbs. 0.0oz. 96.814684kd; 42.00 BMI Method: General Appearance: no apparent distress, obese HEENT: PERRL/EOMI, pharynx normal Neck: non-tender, full range of motion Respiratory: lungs clear, normal breath sounds, no respiratory distress, no accessory muscle use Cardiovascular: normal peripheral pulses, regular rate, rhythm Peripheral Pulses: 2+ Radial Pulses (R), 2+ Radial Pulses (L) Gastrointestinal: normal bowel sounds, non tender, soft Neurologic/Psychiatric: alert, normal mood/affect, oriented x 3 Appearance/Memory: appropriate appearance, no memory impairment, disheveled Behavior/Eye Contact: cooperative, good eye contact, normal speech, other (smiles, jokes and interacts appropriately) Thoughts/Hallucinations: normal thought pattern, no apparent hallucination Skin: normal color, warm/dry, other (5 cm ragged, linear laceration above the umbilicus along an old scar line into the subcutaneous fat but not to the fascia.) Procedures/Interventions Wound Location: Trunk Other Wound Location Superior to the umbilicus, ventral Wound Length (cm): 5 Wound's Depth, Shape: linear, irregular, sub Q Wound Explored: no foreign body removed Irrigated w/ Saline (ccs): 500 Betadine Prep?: Yes (chlorhexidine) Anesthesia: 1% Lidocaine Volume Anesthetic (ccs): 6 Wound Debrided: minimal Suture: Prolene Suture Size: 4-0 Number of Sutures: 7 Layer Closure?: 1 Sterile Dressing Applied?: Yes Progress Wound was cleaned thoroughly with chlorhexidine and sterile saline. We then more gently and found the cavity does not track beyond the subcutaneous initial injury. She was thoroughly flushed with sterile saline and then wiped out again with chlorhexidine and sterile saline. We then flushed the second time and using Betadine disinfected the skin and wound. After this dried we flushed the final time with sterile saline, reapproximated skin edges and closed with 7 simple, interrupted sutures. Patient tolerated procedure well. Progress/Results/Core Measures Results/Orders Lab Results Laboratory Tests Test 09/21/19 23:15 09/21/19 23:45 Range/Units White Blood Count 11.3 H 4.3-11.0 10^3/uL Red Blood Count 4.58 4.35-5.85 10^6/uL Hemoglobin 13.9 11.5-16.0 G/DL Hematocrit 42 35-52 % Mean Corpuscular Volume 91 80-99 FL Mean Corpuscular Hemoglobin 30 25-34 PG Mean Corpuscular Hemoglobin Concent 33 32-36 G/DL Red Cell Distribution Width 12.7 10.0-14.5 % Platelet Count 249 130-400 10^3/uL Mean Platelet Volume 9.3 7.4-10.4 FL Neutrophils (%) (Auto) 75 42-75 % Lymphocytes (%) (Auto) 17 12-44 % Monocytes (%) (Auto) 8 0-12 % Eosinophils (%) (Auto) 0 0-10 % Basophils (%) (Auto) 0 0-10 % Neutrophils # (Auto) 8.5 H 1.8-7.8 X 10^3 Lymphocytes # (Auto) 2.0 1.0-4.0 X 10^3 Monocytes # (Auto) 0.9 0.0-1.0 X 10^3 Eosinophils # (Auto) 0.0 0.0-0.3 10^3/uL Basophils # (Auto) 0.0 0.0-0.1 10^3/uL Sodium Level 140 135-145 MMOL/L Potassium Level 3.9 3.6-5.0 MMOL/L Chloride Level 104 98-107 MMOL/L Carbon Dioxide Level 21 21-32 MMOL/L Anion Gap 15 H 5-14 MMOL/L Blood Urea Nitrogen 10 7-18 MG/DL Creatinine 0.70 0.60-1.30 MG/DL Estimat Glomerular Filtration Rate > 60 BUN/Creatinine Ratio 14 Glucose Level 97 70-105 MG/DL Calcium Level 9.3 8.5-10.1 MG/DL Corrected Calcium 9.1 8.5-10.1 MG/DL Total Bilirubin 0.5 0.1-1.0 MG/DL Aspartate Amino Transf (AST/SGOT) 13 5-34 U/L Alanine Aminotransferase (ALT/SGPT) 17 0-55 U/L Alkaline Phosphatase 69 40-136 U/L Total Protein 6.8 6.4-8.2 GM/DL Albumin 4.3 3.2-4.5 GM/DL Salicylates Level < 5.0 L 5.0-20.0 MG/DL Acetaminophen Level < 10 L 10-30 UG/ML Serum Alcohol < 10 <10 MG/DL Urine Color YELLOW Urine Clarity CLEAR Urine pH 5.5 5-9 Urine Specific [place] 1.015 L 1.016-1.022 Urine Protein NEGATIVE NEGATIVE Urine Glucose (UA) NEGATIVE NEGATIVE Urine Ketones NEGATIVE NEGATIVE Urine Nitrite NEGATIVE NEGATIVE Urine Bilirubin NEGATIVE NEGATIVE Urine Urobilinogen 0.2 < = 1.0 MG/DL Urine Leukocyte Esterase 1+ H NEGATIVE Urine RBC (Auto) TRACE-I NEGATIVE Urine RBC RARE /HPF Urine WBC 0-2 /HPF Urine Squamous Epithelial Cells 2-5 /HPF Urine Crystals NONE /LPF Urine Bacteria TRACE /HPF Urine Casts NONE /LPF Urine Mucus NEGATIVE /LPF Urine Culture Indicated NO Urine Test NEGATIVE NEGATIVE Urine Opiates Screen NEGATIVE NEGATIVE Urine Oxycodone Screen NEGATIVE NEGATIVE Urine Methadone Screen NEGATIVE NEGATIVE Urine Propoxyphene Screen NEGATIVE NEGATIVE Urine Barbiturates Screen NEGATIVE NEGATIVE Ur Tricyclic Antidepressants Screen NEGATIVE NEGATIVE Urine Phencyclidine Screen NEGATIVE NEGATIVE Urine Amphetamines Screen NEGATIVE NEGATIVE Urine Methamphetamines Screen NEGATIVE NEGATIVE Urine Benzodiazepines Screen NEGATIVE NEGATIVE Urine Cocaine Screen NEGATIVE NEGATIVE Urine Cannabinoids Screen NEGATIVE NEGATIVE My Orders Orders - ZION,HAO Hugo Ua Culture If Indicated (09/21/19 23:00) Cbc With Automated Diff (09/21/19 23:00) Comprehensive Metabolic Panel (09/21/19 23:00) Alcohol (09/21/19 23:00) Drug Screen Stat (Urine) (09/21/19 23:00) Acetaminophen (09/21/19 23:00) Salicylate (09/21/19 23:00) Ekg Tracing (09/21/19 23:00) Monitor-Rhythm Ecg Trace Only (09/21/19 23:00) Bh Status Checks/Observation Q15M (09/21/19 23:00) Dipht,Pertuss(Acell),Tet Adult (Boostrix (09/21/19 23:00) Hcg,Qualitative Urine (09/22/19 01:39) Sulfamethoxazole/Trimet Ds Tab (Bactrim (09/22/19 02:15) Abdomen/Kub 1[place] (09/22/19 02:35) Hydralazine Tablet (Apresoline Tablet) (09/22/19 03:15) Medications Given in ED Current Medications Medications Dose Ordered Sig/Dami Route Start Time Stop Time Status Last Admin Dose Admin Diphtheria/ Tetanus/Acell Pertussis 0.5 ml ONCE ONCE IM 09/21/19 23:00 09/21/19 23:02 DC 09/21/19 23:55 0.5 ML Trimethoprim/ Sulfamethoxazole 2 ea ONCE ONCE PO 09/22/19 02:15 09/22/19 02:16 DC 09/22/19 03:00 2 EA Vital Signs/I&O 09/21/19 22:53 Temp 37.2 Pulse 83 Resp 20 B/P (MAP) 186/105 (132) Pulse Ox 95 O2 Delivery Room Air Blood Pressure Mean: 132 Progress Progress Note #1: Time: 02:26 Progress Note Patient is voluntary to go inpatient. Wound is closed we gave her 2 tablets of Bactrim prophylactic infection prevention. Sterile dressing was placed. We will place her on Keflex which would have good coverage against staph and strep. Jonah is on diversion. Faxed information over to [facility]. Progress Note #2: Time: 03:27 Progress Note Discussed the case over the phone with Breana Caruso, associate director data & analytics at [facility]. They have multiple plans in place for this very situation because this patient does this frequently. She feels this is a cry for attention and not medical customer service representative of a actual suicide attempt. This examiner weird agrees since the patient is smiling, giggling, joking throughout the interview and has multiple scars. They have made changes regarding staff doing body checks. They're going to put the patient on one-on-one for the next 24 hours and in the morning and will set her up for an appointment with Nayeli her psychiatrist and Anuradha her therapist at [facility]. We discussed care of her wound and return precautions. This examiner feels that this is an appropriate plan of care and follow-up. Initial ECG Impression Date: Sep 21, 2019 Initial ECG Impression Time: 23:13 Initial ECG Rate: 89 Initial ECG Rhythm: Normal Sinus Initial ECG Intervals: Normal Initial ECG Impression: Normal, Nonspecific Changes Initial ECG Comparisson: No Previous ECG Available Comment Sinus rhythm with no relevant ST elevation or depression. Diagnostic Imaging Diagonstic Imaging: Xray Plain Films/CT/US/NM/MRI: abdomen (kub 1v) Reviewed: Reviewed by Me Departure Impression Primary Impression: Suicide attempt Additional Impressions: Deliberate self-cutting Laceration Disposition: HOME, SELF-CARE Condition: Improved Departure-Patient Inst. Decision time for Depature: 03:30 Referrals: GUILLERMO RASHID MD (PCP/Family) Primary Care Physician Patient Instructions: Laceration Repair With Stitches (DC), Suicide Prevention, Self-Harm Add. Discharge Instructions: Keep the wound clean with regular soap and water. Shampoo or body washes okay. Do not submerse and a bathtub. Showers are okay. Apply a thin smear of Vaseline daily under a gauze dressing changed at least once a day or as often as it becomes soiled. Keflex one capsule twice a day to prevent infection. If you develop fevers, discharge from the wound or redness and pain around the wound that is getting worse then you should follow-up with a doctor. You may return to the ER or your primary care doctor to have the sutures removed in 10-14 days. All discharge instructions reviewed with patient and/or family. Voiced understanding. Scripts Cephalexin (Cephalexin) 500 Mg Tablet 500 MG PO BID for 5 Days, #10 TAB 0 Refills Prov: HAO DONOVAN 09/22/19 HAO DONOVAN Sep 22, 2019 02:24
[2019-09-22] MEDS ORDERED: CEPH500T PO (03:32)
[2019-09-22 03:51] VITALS: BP 165/99
== END 2019-09-22 03:46 | disposition home or self-care (01) ==
LOC: EDUNIT# 22:33 → ER 22:35
DX: S31.115A Laceration without foreign body of abdominal wall, periumbilic region without penetration into peritoneal cavity, initial encounter (principal); J45.909 Unspecified asthma, uncomplicated; F41.9 Anxiety disorder, unspecified; F60.9 Personality disorder, unspecified; F20.9 Schizophrenia, unspecified; F32.9 Major depressive disorder, single episode, unspecified; Z88.0 Allergy status to penicillin; Z88.1 Allergy status to other antibiotic agents; Z88.8 Allergy status to other drugs, medicaments and biological substances; Z79.51 Long term (current) use of inhaled steroids; Z87.891 Personal history of nicotine dependence; Z77.22 Contact with and (suspected) exposure to environmental tobacco smoke (acute) (chronic); Z90.89 Acquired absence of other organs; X78.8XXA Intentional self-harm by other sharp object, initial encounter
CPT/HCPCS: 36415; 80053; 80306; 80320; 80329; 81000; 84703; 85025; 90471; 90715; 93005; 93041

== ENCOUNTER → 2019-09-29 | Outpatient (CLI) | payer MEDICARE, MEDICAID ==
[~2019-09-29] MED LIST changes: +CEPH500T PO
--- NOTE | 2019-09-29 11:03 | Diagnostic Imaging Report ---
INDICATION: Follow-up foreign body. TIME OF EXAM: 10:47 AM Correlation is made with prior radiograph from 07/28/2019. FINDINGS: Multiple linear opacities overlying the abdomen are again noted. There is an IUD in the midline pelvis. Previously noted Jin tree likely ingested foreign bodies are no longer visualized. Bowel gas pattern is unremarkable. No obstruction is seen. There is no free air. IMPRESSION: No definite residual Jin tree-like foreign bodies are identified. Numerous linear radiopaque foreign bodies appear stable. Dictated by: Dictated on workstation # [id number]
== END ==
LOC: RAD 10:03
PROVIDERS: ATTEND Family Medicine
DX: T18.9XXD Foreign body of alimentary tract, part unspecified, subsequent encounter (principal); Z97.5 Presence of (intrauterine) contraceptive device
CPT/HCPCS: 74019

== ENCOUNTER → 2019-10-05 | Outpatient (CLI) | payer MEDICARE, MEDICAID ==
[~2019-10-05] MED LIST changes: -ACET325C5 PO; +ACET325C7 PO; +LACT10SO27 PO; -LACT10SO5 PO
== END ==
LOC: WOUNDCARE 12:18
PROVIDERS: ATTEND Orthopaedic Surgery Hand Surgery
DX: L98.492 Non-pressure chronic ulcer of skin of other sites with fat layer exposed (principal); T81.33XA Disruption of traumatic injury wound repair, initial encounter; X78.8XXD Intentional self-harm by other sharp object, subsequent encounter
CPT/HCPCS: 11042

== ENCOUNTER → 2019-10-11 | Outpatient (CLI) | payer MEDICARE, MEDICAID | LOC: WOUNDCARE 09:09 | PROVIDERS: ATTEND Orthopaedic Surgery Hand Surgery | DX: L98.492 Non-pressure chronic ulcer of skin of other sites with fat layer exposed (principal); T81.33XA Disruption of traumatic injury wound repair, initial encounter; X78.8XXD Intentional self-harm by other sharp object, subsequent encounter; L53.8 Other specified erythematous conditions; L29.9 Pruritus, unspecified | CPT/HCPCS: 11042 ==

== ENCOUNTER → 2019-10-18 | Outpatient (CLI) | payer MEDICARE, MEDICAID | LOC: WOUNDCARE 09:13 | PROVIDERS: ATTEND Orthopaedic Surgery Hand Surgery | DX: L98.491 Non-pressure chronic ulcer of skin of other sites limited to breakdown of skin (principal); T81.33XA Disruption of traumatic injury wound repair, initial encounter; X78.8XXD Intentional self-harm by other sharp object, subsequent encounter; L53.8 Other specified erythematous conditions; L29.9 Pruritus, unspecified | CPT/HCPCS: 99213 ==

== ENCOUNTER 2019-12-31 23:23 | Inpatient (IN) | payer MEDICARE, MEDICAID ==
[~2019-12-31] VITALS: Ht 167 cm; Wt 132.2 kg
[~2019-12-31 23:23] MED LIST changes: -CETI10TA20 PO; +CETI10TA21 PO; -MONT10TA24 PO; +MONT10TA26 PO; -TRAZ-190 PO; +TRAZ-227 PO
[2019-12-31] MEDS ORDERED: LAMO150T4 (23:44)
[2019-12-31] MEDS ORDERED: MELO15TA39 (23:44)
[2019-12-31] MEDS ORDERED: OLAN15TA19 (23:44)
--- NOTE | 2019-12-31 23:55 | NUR ---
urine specimen requested, pt denies being able to void at this time.
[2020-01-01] VITALS (11 sets, daily range): BP systolic 123–163; BP diastolic 63–93
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
[2020-01-01 00:09] LABS: BASOPHILS % (AUTO) 0 % (0-10); EOSINOPHILS % (AUTO) 0 % (0-10); HEMATOCRIT 42 % (35-52); HEMOGLOBIN 14.6 G/DL (11.5-16.0); LYMPHOCYTES # (AUTO) 1.8 X 10^3 (1.0-4.0); LYMPHOCYTES % (AUTO) 16 % (12-44); MEAN CORPUSCULAR HEMOGLOBIN 30 PG (25-34); MEAN CORPUSCULAR HGB CONC 35 G/DL (32-36); MEAN CORPUSCULAR VOLUME 88 FL (80-99); MEAN PLATELET VOLUME 9.7 FL (7.4-10.4); MONOCYTES # (AUTO) 0.8 X 10^3 (0.0-1.0); MONOCYTES % (AUTO) 7 % (0-12); NEUTROPHILS # (AUTO) 8.6 X 10^3 (1.8-7.8); NEUTROPHILS % (AUTO) 76 % (42-75); PLATELET COUNT 237 10^3/uL (130-400); RED CELL DISTRIBUTION WIDTH 12.4 % (10.0-14.5); WHITE BLOOD COUNT 11.2 10^3/uL (4.3-11.0)
[2020-01-01 00:32] LABS: ALBUMIN 4.2 GM/DL (3.2-4.5); CHLORIDE 103 MMOL/L (98-107); POTASSIUM 3.6 MMOL/L (3.6-5.0); SODIUM 139 MMOL/L (135-145)
[2020-01-01 00:33] LABS: AMYLASE 43 U/L (25-125); CALCIUM 8.6 MG/DL (8.5-10.1)
[2020-01-01 00:35] LABS: GLUCOSE 95 MG/DL (70-105); TOTAL PROTEIN 6.7 GM/DL (6.4-8.2)
[2020-01-01 00:36] LABS: BILIRUBIN,TOTAL 0.7 MG/DL (0.1-1.0); CARBON DIOXIDE 22 MMOL/L (21-32)
[2020-01-01 00:36] LABS: BILIRUBIN,URINE NEGATIVE (NEGATIVE); CLARITY,URINE CLEAR; COLOR,URINE YELLOW; GLUCOSE, URINE (UA) NEGATIVE (NEGATIVE); KETONES,URINE NEGATIVE (NEGATIVE); LEUKOCYTE ESTERASE ,URINE NEGATIVE (NEGATIVE); NITRITE,URINE NEGATIVE (NEGATIVE); PROTEIN,URINE NEGATIVE (NEGATIVE)
[2020-01-01 00:37] LABS: PROTHROMBIN TIME PATIENT 13.7 SEC (12.2-14.7)
[2020-01-01 00:38] LABS: ALKALINE PHOSPHATASE 66 U/L (40-136); CREATININE SERUM 0.67 MG/DL (0.60-1.30); GFR ESTIMATED > 60
[2020-01-01 00:40] LABS: BUN/CREATININE RATIO 12
[2020-01-01 00:41] LABS: ALANINE AMINOTRANSFERASE 14 U/L (0-55); SALICYLATE < 5.0 MG/DL (5.0-20.0)
[2020-01-01 00:42] LABS: LIPASE 12 U/L (8-78)
[2020-01-01 00:50] LABS: BACTERIA,URINE FEW /HPF
[2020-01-01 00:51] LABS: YEAST,URINE FEW /HPF
[2020-01-01 00:55] LABS: AMPHETAMINE SCREEN, URINE NEGATIVE (NEGATIVE); BARBITURATE SCREEN URINE NEGATIVE (NEGATIVE); BENZODIAZEPINES SCREEN URINE NEGATIVE (NEGATIVE); CANNABINOID SCREEN, URINE NEGATIVE (NEGATIVE); COCAINE SCREEN URINE NEGATIVE (NEGATIVE); METHADONE STAT NEGATIVE (NEGATIVE); METHAMPHETAMINE SCREEN URINE S NEGATIVE (NEGATIVE); OPIATE SCREEN URINE NEGATIVE (NEGATIVE); OXYCODONE STAT NEGATIVE (NEGATIVE); PROPOXYPHENE STAT NEGATIVE (NEGATIVE); TRICYCLIC ANTIDEPRESSANTS SCRE NEGATIVE (NEGATIVE)
[2020-01-01 01:02] LABS: TSH (THYROID ANALYZER) 3.78 UIU/ML (0.35-4.94)
[2020-01-01 01:03] LABS: ACETAMINOPHEN < 10 UG/ML (10-30)
[2020-01-01] MEDS ORDERED: CEFEPIME INJECTION 1,000 MG in WATER (STERILE) FOR INJECTION 10 ML IV ONE (01:15)
[2020-01-01] MEDS ORDERED: IOHEXOL 350 MG/ML 100 ML (OMNIPAQUE 350) VIAL IV ONE (01:15)
[2020-01-01] MEDS ORDERED: NS 100 ML (IVPB) BAG IV ONE (01:15)
[2020-01-01] MEDS ORDERED: VANCOMYCIN INJECTION 1,000 MG in NS (IVPB) 250 ML IV ONE (01:15)
[2020-01-01] MEDS ORDERED: metroNIDAZOLE 500MG/100ML IVPB 100 ML IV ONE (01:15)
[2020-01-01] MEDS ORDERED: HOLD METFORMIN - RECEIVED CONTRAST 20 ML VIAL IV SCH (01:15)
[2020-01-01] MEDS ORDERED: BUP/EPI 0.5% 1:200,000 (SENSORCAINE) 30 ML VIAL ONE (02:35)
--- NOTE | 2020-01-01 02:44 | NUR ---
dr zuluaga here seeing patient
[2020-01-01] MEDS ORDERED: MEPERIDINE (DEMEROL) INJ 50 MG/ML ONE (02:51)
[2020-01-01] MEDS ORDERED: HYDROmorphone 2 MG/ML VIAL (DILAUDID) ONE (02:51)
[2020-01-01] MEDS ORDERED: ONDANSETRON 4 MG/2 ML (SDV) Z0FRAN ONE (02:52)
[2020-01-01] MEDS ORDERED: morphine INJ 10 MG/ML 1ML (SYR OR VIAL) ONE (02:52)
[2020-01-01] MEDS ORDERED: fentaNYL INJECTION 100 MCG/2 ML AMP ONE ×2 (02:52→02:57)
[2020-01-01] MEDS ORDERED: PROMETHAZINE INJ 25 MG/ML (PHENERGAN) AMP ONE (02:52)
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
[2020-01-01] MEDS ORDERED: proPOfol 200 MG/20 ML (DIPRIVAN) VIAL IV ONE (02:57)
[2020-01-01] MEDS ORDERED: SEVOFLURANE (ULTANE) 15 ML INHAL SOLN ONE ×4 (02:57→04:49)
[2020-01-01] MEDS ORDERED: SUCCINYLCHOLINE INJ 100 MG/5 ML SYR ONE (02:57)
[2020-01-01] MEDS ORDERED: LIDOCAINE PF 2% 5 ML (XYLOCAINE) VIAL ONE (02:57)
[2020-01-01] MEDS ORDERED: MIDAZOLAM 2 MG/2 ML (VERSED) VIAL ONE (02:58)
[2020-01-01] MEDS ORDERED: ROCURONIUM 10 MG/ML 5 ML SYRINGE IV ONE ×2 (03:31→04:12)
[2020-01-01] MEDS ORDERED: NEOSTIGMINE 3 MG/3 ML VIAL ONE (04:17)
[2020-01-01] MEDS ORDERED: GLYCOPYRROLATE 0.2 MG/ML (ROBINUL) 2 ML VIAL ONE (04:17)
[2020-01-01] MEDS ORDERED: ONDANSETRON 4 MG/2 ML (SDV) Z0FRAN IVP PRN ×2 (04:45→05:15)
[2020-01-01] MEDS: KETOROLAC 30 MG/ML VIAL IVP SCH ×4 (04:45→23:09)
[2020-01-01] MEDS: ACETAMINOPHEN 500 MG TAB (TYLENOL) PO SCH ×3 (04:45→21:44)
[2020-01-01] MEDS: metroNIDAZOLE 500MG/100ML IVPB 100 ML IV SCH ×3 (04:45→14:37)
[2020-01-01] MEDS: CIPROFLOXACIN IV 400MG/200ML 200 ML IV SCH ×3 (04:45→18:18)
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
[2020-01-01] MEDS ORDERED: fentaNYL INJECTION 100 MCG/2 ML AMP IVP ONE (05:15)
[2020-01-01] MEDS ORDERED: PROMETHAZINE INJ 25 MG/ML (PHENERGAN) AMP IVP ONE (05:15)
[2020-01-01] MEDS ORDERED: morphine INJ 10 MG/ML 1ML (SYR OR VIAL) IVP ONE (05:15)
[2020-01-01] MEDS ORDERED: HYDROmorphone 2 MG/ML VIAL (DILAUDID) IV ONE (05:15)
[2020-01-01] MEDS ORDERED: MEPERIDINE (DEMEROL) INJ 50 MG/ML IVP ONE (05:15)
--- OUTSIDE RECORDS SUMMARY | 2020-01-01 05:22 | XMS REPORT | Continuity of Care Document ---
Author Organization Unknown Address Unknown Phone Unavailable Allergies Active Description Code Type Severity Reaction Onset Reported/Identified Relationship to Patient Clinical Status Yes NO NAME AVAILABLE 83135 DRUG N/A N/A Yes .MDRO 0040 Miscellaneous Allergy N/A N/A 12/05/2015 Yes amoxicillin [id number] Drug Aller gy N/A N/A 12/05/2015 Yes clavulanic acid [id number] D rug Allergy N/A N/A 12/05/2015 Yes AMOXICILLIN-POT CLAVULANATE 12102 DRUG N/A Other 11/06/2017 11/06/2017 Yes amoxicillin [id number] Drug Aller gy Unknown N/A 03/18/2019 Yes clavulanic acid [id number] D rug Allergy Unknown N/A 03/18/2019 Yes Penicillins [id number] Drug Aller gy Unknown N/A 03/18/2019 Yes potassium chloride [id number] Drug Allergy Unknown N/A 03/18/2019 Medications Medication Packaging Start Date St op Date Route Dosage Sig IOHEXOL 350 MG/ML IV SOLN 08/16/2017 Intravenous 100 ONCE PIPERACILLIN-TAZOBACTAM IN D EX 3-0.375 GM/50ML IV SOLN 08/16/2017 Intravenous 3.375 ONCE LIDOCAINE HCL 1 % IJ SOLN 08/16/2017 Intravenous PRN SUCCINYLCHOLINE CHLORIDE 20 MG/ML IJ SOLN 08/16/2017 Intravenous PRN PROPOFOL 200 MG/20ML IV EMUL 08/16/2017 Intravenous PRN LACTATED RINGERS IV SOLN 08/16/2017 Intravenous 1000 CONTINUOUS ROCURONIUM BROMIDE 50 MG/5ML IV SOLN 08/16/2017 Intravenous PRN DEXAMETHASONE SODIUM PHOSPHATE 4 MG/ML IJ SOLN 08/16/2017 Intravenous PRN ONDANSETRON HCL 4 MG/2ML IJ SOLN 08/16/2017 Intravenous PRN ACETAMINOPHEN 10 MG/ML IV SOLN 08/16/2017 PRN NEOSTIGMINE METHYLSULFATE 5 MG/5ML IV SOSY 08/16/2017 Intravenous PRN GLYCOPYRROLATE 0.2 MG/ML IJ SOLN 08/16/2017 Intravenous PRN ONDANSETRON HCL 4 MG/2ML IJ SOLN 08/16/2017 Intravenous 4 ONCE PRN ONDANSETRON 4 MG PO TBDP 08/16/2017 Oral 4 ONCE PRN CALCIUM CARBONATE ANTACID 500 MG PO CHEW 08/16/2017 Oral 1000 3 TIMES DAILY PRN ALUM T MAG HYDROXIDE-SIMETH 200-200-20 MG/5ML PO SUSP 08/16/2017 Oral 30 EVERY 6 HOURS PRN ONDANSETRON HCL 4 MG/2ML IJ SOLN 08/16/2017 Intravenous 4 EVERY 6 HOURS PRN ACETAMINOPHEN 325 MG PO TABS 08/16/2017 Oral 650 EVERY 4 HOURS PRN LACTATED RINGERS IV BOLUS 08/16/2017 Intravenous 500 BOLUS PRN FAMOTIDINE 40 MG/5ML PO SUSR 08/16/2017 Tube 20 2 TIMES DAILY LACTATED RINGERS IV SOLN 08/16/2017 Intravenous CONTINUOUS PIPERACILLIN-TAZOBACTAM IN D EX 3-0.375 GM/50ML IV SOLN 08/16/2017 Intravenous 3.375 EVERY 6 HOURS CARBAMAZEPINE 200 MG PO TABS 08/16/2017 Oral 200 2 TIMES DAILY ALBUTEROL SULFATE HFA 108 (9 0 BASE) MCG/ACT IN AERS 08/16/2017 Inhalation 2 4 TIMES DAILY MONTELUKAST SODIUM 10 MG PO TABS 08/16/2017 Oral 10 BEDTIME ENOXAPARIN SODIUM 30 MG/0.3ML SC SOLN 08/17/2017 Subcutaneous 30 EVERY 24 HOURS ENOXAPARIN SODIUM 40 MG/0.4ML SC SOLN 08/17/2017 Subcutaneous 40 EVERY 24 HOURS VENLAFAXINE HCL 25 MG PO TABS 08/17/2017 Oral 50 DAILY WITH BREAKFAST LIDOCAINE HCL 2 % EX GEL 08/18/2017 Topical NJ N LACTATED RINGERS IV SOLN 08/20/2017 Intravenous 30 CONTINUOUS VENLAFAXINE HCL 25 MG PO TABS 08/20/2017 Oral 50 2 TIMES DAILY ALBUTEROL SULFATE HFA 108 (9 0 BASE) MCG/ACT IN AERS 08/21/2017 Inhalation 2 EVERY 2 HOURS PRN FAMOTIDINE 20 MG PO TABS 08/21/2017 Oral 20 2 TI MES DAILY CLINIMIX E/DEXTROSE (4.25/5) 4.25 % IV REED N 08/21/2017 Intravenous CONTINUOUS AMOXICILLIN-POT CLAVULANATE 875-125 MG PO TABS 08/24/2017 08/30/2017 Oral 1 2 TIMES DAILY MAGNESIUM HYDROXIDE 400 MG/5ML PO SUSP 08/24/2017 Oral 30 DAILY IOHEXOL 350 MG/ML IV SOLN 10/10/2017 Intravenous 100 ONCE GABAPENTIN 300 MG PO CAPS 11/06/2017 Oral 600 ONCE ACETAMINOPHEN 500 MG PO TABS 11/06/2017 Oral 1000 ONCE LACTATED RINGERS IV SOLN 11/06/2017 Intravenous 20 CONTINUOUS PROPOFOL 200 MG/20ML IV EMUL 11/06/2017 Intravenous PRN SUCCINYLCHOLINE CHLORIDE 20 MG/ML IJ SOLN 11/06/2017 Intravenous PRN ONDANSETRON HCL 4 MG/2ML IJ SOLN 11/06/2017 Intravenous PRN GLYCOPYRROLATE 0.2 MG/ML IJ SOLN 11/06/2017 Intravenous PRN ROCURONIUM BROMIDE 50 MG/5ML IV SOLN 11/06/2017 Intravenous PRN LIDOCAINE HCL 1 % IJ SOLN 11/06/2017 Intravenous PRN DEXAMETHASONE SODIUM PHOSPHATE 4 MG/ML IJ SOLN 11/06/2017 Intravenous PRN STERILE WATER FOR IRRIGATION SOLN (SUPPLY) 11/06/2017 PRN KETOROLAC TROMETHAMINE 30 MG/ML IJ SOLN 11/06/2017 PRN NEOSTIGMINE METHYLSULFATE 5 MG/5ML IV SOSY 11/06/2017 Intravenous PRN ALBUTEROL SULFATE HFA 108 (9 0 BASE) MCG/ACT IN AERS 11/06/2017 PRN ONDANSETRON HCL 4 MG/2ML IJ SOLN 11/06/2017 Intravenous 4 ONCE PRN ONDANSETRON 4 MG PO TBDP 11/06/2017 Oral 4 ONCE PRN CALCIUM CARBONATE ANTACID 500 MG PO CHEW 11/06/2017 Oral 1000 3 TIMES DAILY PRN ALUM T MAG HYDROXIDE-SIMETH 200-200-20 MG/5ML PO SUSP 11/06/2017 Oral 30 EVERY 6 HOURS PRN ACETAMINOPHEN 325 MG PO TABS 11/06/2017 Oral 650 EVERY 4 HOURS PRN ONDANSETRON HCL 4 MG/2ML IJ SOLN 11/06/2017 Intravenous 4 EVERY 6 HOURS PRN ALBUTEROL SULFATE HFA 108 (9 0 BASE) MCG/ACT IN AERS 11/06/2017 Inhalation 2 EVERY 6 HOURS PRN ALVIMOPAN 12 MG PO CAPS 11/06/2017 11/13/2017 Oral 12 2 TIMES DAILY CICLESONIDE 160 MCG/ACT IN AERS 11/06/2017 Inhalation 1 2 TIMES DAILY POTASSIUM CHLORIDE BISI ER 20 MEQ PO TBCR 11/06/2017 Oral 20 DAILY DOCUSATE SODIUM 100 MG PO CAPS 11/06/2017 Oral 100 2 TIMES DAILY KETOROLAC TROMETHAMINE 30 MG/ML IJ SOLN 11/06/2017 11/11/2017 Intravenous 30 ONCE SODIUM CHLORIDE 0.9 % IV SOLN 11/06/2017 Intravenous 125 CONTINUOUS LACTULOSE 10 GM/15ML PO SOLN 11/06/2017 Oral 20 DAILY MONTELUKAST SODIUM 10 MG PO TABS 11/06/2017 Oral 10 BEDTIME OLANZAPINE 10 MG PO TABS 11/06/2017 Oral 20 BEDT CHANELLE LAMOTRIGINE 100 MG PO TABS 11/06/2017 Oral 100 DAILY FUROSEMIDE 20 MG PO TABS 11/06/2017 Oral 40 NATASHA Y KETOROLAC TROMETHAMINE 30 MG/ML IJ SOLN 11/07/2017 11/11/2017 Intravenous 30 EVERY 6 HOURS SCHEDULED LACTULOSE 20 G PO PACK 11/07/2017 Oral 20 NATASHA Y FLUTICASONE PROPIONATE HFA 220 MCG/ACT IN AERO 11/07/2017 Inhalation 1 2 TIMES DAILY ENOXAPARIN SODIUM 40 MG/0.4ML SC SOLN 11/07/2017 Subcutaneous 40 EVERY 24 HOURS SODIUM CHLORIDE 0.9 % IV BOLUS 11/18/2017 Intravenous 1000 BOLUS ACETAMINOPHEN 325 MG PO TABS 11/20/2017 Oral 650 EVERY 4 HOURS PRN ONDANSETRON HCL 4 MG/2ML IJ SOLN 11/20/2017 Intravenous 4 EVERY 6 HOURS PRN SODIUM CHLORIDE 0.9 % IV SOLN 11/20/2017 Intravenous 100 CONTINUOUS FAMOTIDINE IN NACL 20-0.9 MG/50ML-% IV REED N 11/20/2017 Intravenous 20 2 TIMES DAILY OLANZAPINE 5 MG PO TABS 11/20/2017 Oral 20 BEDT CHANELLE LIDOCAINE HCL 2 % EX GEL 11/21/2017 Topical 5 NJ N ALBUTEROL SULFATE HFA 108 (9 0 BASE) MCG/ACT IN AERS 11/21/2017 Inhalation 2 EVERY 6 HOURS PRN FLUTICASONE PROPIONATE HFA 110 MCG/ACT IN AERO 11/23/2017 Inhalation 1 2 TIMES DAILY CLINIMIX E/DEXTROSE (4.25/5) 4.25 % IV REED N 11/23/2017 Intravenous CONTINUOUS VENLAFAXINE HCL ER 75 MG PO CP24 11/23/2017 Oral 75 DAILY WITH BREAKFAST FLUTICASONE PROPIONATE HFA 110 MCG/ACT IN AERO 11/23/2017 Inhalation 1 2 TIMES DAILY LAMOTRIGINE 100 MG PO TABS 11/24/2017 Oral 100 DAILY NALOXONE HCL 2 MG/2ML IJ SOSY 12/23/2017 12/24/2017 Intravenous 0.1 ONCE PRN HEPARIN LOCK FLUSH 10 UNIT/ML IV SOLN 12/23/2017 Intercatheter 5 EVERY 6 HOURS LIDOCAINE HCL (PF) 1 % IJ SOLN 12/23/2017 Intradermal PRN PIPERACILLIN-TAZOBACTAM IN D EX 3-0.375 GM/50ML IV SOLN 10/16/2018 Intravenous 3.375 ONCE LACTATED RINGERS IV SOLN 10/16/2018 Intravenous CONTINUOUS PRN ONDANSETRON HCL 4 MG/2ML IJ SOLN 10/16/2018 Intravenous PRN GLYCOPYRROLATE 0.2 MG/ML IJ SOLN 10/16/2018 Intravenous PRN DEXAMETHASONE SODIUM PHOSPHATE 4 MG/ML IJ SOLN 10/16/2018 Intravenous PRN ROCURONIUM BROMIDE 50 MG/5ML IV SOLN 10/16/2018 Intravenous PRN PROPOFOL 200 MG/20ML IV EMUL 10/16/2018 Intravenous PRN LACTATED RINGERS IV SOLN 10/16/2018 Intravenous 75 CONTINUOUS PIPERACILLIN-TAZOBACTAM IN D EX 3-0.375 GM/50ML IV SOLN 10/16/2018 Intravenous 3.375 EVERY 8 HOURS KETOROLAC TROMETHAMINE 30 MG/ML IJ SOLN 10/16/2018 PRN SODIUM CHLORIDE 0.9 % IRRIGATION SOLN (SUP PLY) 10/16/2018 10/16/2018 PRN SUGAMMADEX SODIUM 200 MG/2ML IV SOLN 10/16/2018 Intravenous PRN BUPIVACAINE HCL 0.5 % IJ SOLN 10/16/2018 10/16/2018 PRN ONDANSETRON HCL 4 MG/2ML IJ SOLN 10/16/2018 Intravenous 4 ONCE PRN ONDANSETRON 4 MG PO TBDP 10/16/2018 Oral 4 ONCE PRN KETOROLAC TROMETHAMINE 30 MG/ML IJ SOLN 10/16/2018 10/21/2018 Intravenous 30 ONCE LACTATED RINGERS IV SOLN 10/16/2018 Intravenous 20 CONTINUOUS ONDANSETRON HCL 4 MG/2ML IJ SOLN 10/16/2018 Intravenous 4 EVERY 6 HOURS PRN CALCIUM CARBONATE ANTACID 500 MG PO CHEW 10/16/2018 Oral 1000 3 TIMES DAILY PRN ACETAMINOPHEN 325 MG PO TABS 10/16/2018 Oral 650 EVERY 4 HOURS PRN LAMOTRIGINE 100 MG PO TABS 10/16/2018 Oral 100 DAILY FLUTICASONE PROPIONATE HFA 110 MCG/ACT IN AERO 10/16/2018 Inhalation 1 2 TIMES DAILY ENOXAPARIN SODIUM 40 MG/0.4ML SC SOLN 10/16/2018 Subcutaneous 40 DAILY SERTRALINE HCL 100 MG PO TABS 10/16/2018 Oral 100 DAILY SERTRALINE HCL 50 MG PO TABS 10/16/2018 Oral 50 DAILY MIRTAZAPINE 15 MG PO TABS 10/16/2018 Oral 15 BEDT CHANELLE OLANZAPINE 5 MG PO TABS 10/16/2018 Oral 10 BEDT CHANELLE INFLUENZA VAC SPLIT QUAD 0.5 ML IM JEM 10/17/2018 Intramuscular 0.5 Prior to discharge ALBUTEROL SULFATE HFA 108 (9 0 BASE) MCG/ACT IN AERS 10/18/2018 Inhalation 2 TWICE WEEKLY IOHEXOL 350 MG/ML IV SOLN 11/05/2018 Intravenous 100 ONCE LEVOFLOXACIN IN D5W 750 MG/150ML IV SOLN 11/05/2018 Intravenous 750 ONCE METRONIDAZOLE IN NACL 5-0.79 MG/ML-% IV SO LN 11/05/2018 Intravenous 500 ONCE LACTATED RINGERS IV SOLN 11/05/2018 Intravenous CONTINUOUS PRN ONDANSETRON HCL 4 MG/2ML IJ SOLN 11/05/2018 Intravenous PRN PROPOFOL 200 MG/20ML IV EMUL 11/05/2018 Intravenous PRN LIDOCAINE HCL 1 % IJ SOLN 11/05/2018 Intravenous PRN DEXAMETHASONE SODIUM PHOSPHATE 4 MG/ML IJ SOLN 11/05/2018 Intravenous PRN SODIUM CHLORIDE 0.9 % IRRIGATION SOLN (SUP PLY) 11/05/2018 PRN ROCURONIUM BROMIDE 50 MG/5ML IV SOLN 11/05/2018 Intravenous PRN SUGAMMADEX SODIUM 200 MG/2ML IV SOLN 11/05/2018 PRN ONDANSETRON HCL 4 MG/2ML IJ SOLN 11/05/2018 Intravenous 4 ONCE PRN ONDANSETRON 4 MG PO TBDP 11/05/2018 Oral 4 ONCE PRN CALCIUM CARBONATE ANTACID 500 MG PO CHEW 11/05/2018 Oral 1000 3 TIMES DAILY PRN ALUM T MAG HYDROXIDE-SIMETH 200-200-20 MG/5ML PO SUSP 11/05/2018 Oral 30 EVERY 6 HOURS PRN ACETAMINOPHEN 325 MG PO TABS 11/05/2018 Oral 650 EVERY 4 HOURS PRN ONDANSETRON HCL 4 MG/2ML IJ SOLN 11/05/2018 Intravenous 4 EVERY 6 HOURS PRN LABETALOL HCL 5 MG/ML IV SOLN 11/05/2018 Intravenous 5 EVERY 1 HOUR PRN SODIUM CHLORIDE 0.9 % IV BOLUS 11/05/2018 Intravenous 500 BOLUS PRN ALBUTEROL SULFATE HFA 108 (9 0 BASE) MCG/ACT IN AERS 11/05/2018 Inhalation 2 TWICE WEEKLY LEVOFLOXACIN IN D5W 500 MG/100ML IV SOLN 11/05/2018 Intravenous 500 EVERY 24 HOURS METRONIDAZOLE IN NACL 5-0.79 MG/ML-% IV SO LN 11/05/2018 Intravenous 500 EVERY 8 HOURS DEXTROSE-NACL 5-0.45 % IV SOLN 11/05/2018 Intravenous 100 CONTINUOUS CICLESONIDE 160 MCG/ACT IN AERS 11/05/2018 Inhalation 1 2 TIMES DAILY SERTRALINE HCL 100 MG PO TABS 11/05/2018 Oral 100 DAILY SERTRALINE HCL 50 MG PO TABS 11/05/2018 Oral 50 DAILY FAMOTIDINE IN NACL 20-0.9 MG/50ML-% IV REED N 11/05/2018 Intravenous 20 2 TIMES DAILY MONTELUKAST SODIUM 10 MG PO TABS 11/05/2018 Oral 10 DAILY LAMOTRIGINE 100 MG PO TABS 11/05/2018 Oral 100 DAILY PHENOL 1.4 % MT LIQD 11/05/2018 Mouth/Throat 1 PRN [id number] PERTUSS IS 5-2-15.5 LF-MCG/0.5 IM SUSP 11/05/2018 Intramuscular 0.5 ONCE ALBUTEROL SULFATE HFA 108 (9 0 BASE) MCG/ACT IN AERS 11/05/2018 Inhalation 2 EVERY 6 HOURS PRN FLUTICASONE PROPIONATE HFA 110 MCG/ACT IN AERO 11/05/2018 Inhalation 1 2 TIMES DAILY MIRTAZAPINE 15 MG PO TABS 11/05/2018 Oral 15 BEDT CHANELLE OLANZAPINE 5 MG PO TABS 11/05/2018 Oral 10 BEDT CHANELLE ENOXAPARIN SODIUM 40 MG/0.4ML SC SOLN 11/06/2018 Subcutaneous 40 EVERY 24 HOURS LIDOCAINE HCL 2 % EX GEL 11/06/2018 Topical 5 NJ N FERROUS SULFATE 325 (65 FE) MG PO TABS 11/06/2018 Oral 325 3 TIMES DAILY WITH MEALS DOCUSATE SODIUM 100 MG PO CAPS 11/06/2018 Oral 100 2 TIMES DAILY OLANZAPINE 5 MG PO TABS 11/07/2018 Oral 5 NATASHA Y FAMOTIDINE 20 MG PO TABS 11/09/2018 Oral 20 2 TI MES DAILY POTASSIUM CHLORIDE BISI ER 20 MEQ PO TBCR 11/09/2018 Oral 40 ONCE MAGNESIUM SULFATE 2 GM/50ML IV SOLN 11/09/2018 Intravenous 2 BOLUS POTASSIUM CHLORIDE BISI ER 20 MEQ PO TBCR 11/09/2018 Oral 40 ONCE POTASSIUM CHLORIDE BISI ER 20 MEQ PO TBCR 11/10/2018 Oral 40 ONCE RISPERIDONE 1 MG PO TABS 11/10/2018 Oral 2 BEDT CHANELLE RISPERIDONE 1 MG PO TABS 11/11/2018 Oral 1 NATASHA Y Problems Date Dx Coded Attending Type Code Diagnosis Diagnosed By 02/19/2015 OT 459.89 02/19/2015 OT 564.00 02/19/2015 OT 681.10 03/05/2015 OT 466.0 03/05/2015 OT 786.2 03/09/2015 OT 459.89 03/09/2015 OT 564.00 03/09/2015 OT 681.10 05/04/2015 Lashanda Burgos APRN OT 783.1 05/04/2015 Lashanda Burgos APRN OT 786.2 05/04/2015 Lashanda Burgos APRN OT 787.01 05/04/2015 Lashanda Burgos APRN OT 789.06 05/04/2015 Lashanda Burgos APRN OT 783.1 05/04/2015 Lashanda Burgos APRN OT 786.2 05/04/2015 Lashanda Burgos APRN OT 787.01 05/04/2015 Lashanda Burgos APRN OT 789.06 05/04/2015 Lashanda Burgos APRN OT 783.1 05/04/2015 Lashanda Burgos APRN OT 786.2 05/04/2015 Lashanda Burgos ACCOUNT CONTACT ASSOCIATE OT 787.01 05/04/2015 Lashanda Burgosn ACCOUNT CONTACT ASSOCIATE OT 789.06 05/08/2015 Worf, Quinten Rosamaria OUTSIDE PRODUCTION INSPECTOR OT 786.00 05/08/2015 Worf, Quinten Rosamaria OUTSIDE PRODUCTION INSPECTOR OT 786.02 05/08/2015 Worf, Quinten Rosamaria OUTSIDE PRODUCTION INSPECTOR OT 786.00 05/08/2015 Worf, Quinten Rosamaria OUTSIDE PRODUCTION INSPECTOR OT 786.02 05/08/2015 Worf, Quinten Rosamaria OUTSIDE PRODUCTION INSPECTOR OT 786.00 05/08/2015 Worf, Quinten Rosamaria OUTSIDE PRODUCTION INSPECTOR OT 786.02 05/08/2015 Worf, Quinten Rosamaria OUTSIDE PRODUCTION INSPECTOR OT 786.00 05/08/2015 Worf, Quinten Rosamaria OUTSIDE PRODUCTION INSPECTOR OT 786.02 05/08/2015 Worf, Quinten Rosamaria OUTSIDE PRODUCTION INSPECTOR OT 786.00 05/08/2015 Worf, Quinten Rosamaria OUTSIDE PRODUCTION INSPECTOR OT 786.02 05/08/2015 Worf, Quinten Rosamaria OUTSIDE PRODUCTION INSPECTOR OT 786.00 05/08/2015 Worf, Quinten Rosamaria OUTSIDE PRODUCTION INSPECTOR OT 786.02 05/08/2015 Worf, Quinten Rosamaria OUTSIDE PRODUCTION INSPECTOR OT 786.00 05/08/2015 Worf, Quinten Rosamaria OUTSIDE PRODUCTION INSPECTOR OT 786.02 05/08/2015 Worf, Quinten Rosamaria OUTSIDE PRODUCTION INSPECTOR OT 786.00 05/08/2015 Worf, Quinten Rosamaria OUTSIDE PRODUCTION INSPECTOR OT 786.02 05/08/2015 EZ SANDOVAL, JOE PittmanPLOMTI OT 493.90 05/31/2015 Worf, Quinten Rosamaria OUTSIDE PRODUCTION INSPECTOR OT 786.05 05/31/2015 Worf, Quinten Rosamaria OUTSIDE PRODUCTION INSPECTOR OT 787.91 06/01/2015 Lashanda Burgosn ACCOUNT CONTACT ASSOCIATE OT 783.1 06/01/2015 Lashanda Burgos Su ACCOUNT CONTACT ASSOCIATE OT 786.2 06/01/2015 Lashanda Burgos Su ACCOUNT CONTACT ASSOCIATE OT 787.01 06/01/2015 Lashanda Burgosn ACCOUNT CONTACT ASSOCIATE OT 789.06 08/29/2015 Worf, Quinten Rosamaria OUTSIDE PRODUCTION INSPECTOR OT N91 .2 08/29/2015 Worf, Quinten Rosamaria OUTSIDE PRODUCTION INSPECTOR OT N91 .2 09/26/2015 Worf, Quinten Rosamaria OUTSIDE PRODUCTION INSPECTOR OT F60 .3 09/26/2015 Worf, Quinten ALLAN OT J44 .9 09/26/2015 Worf, Quinten ALLAN OT K21 .9 09/26/2015 Worzbigniew, Quinten ALLAN OT N91 .2 10/02/2015 OT 681.10 10/25/2015 Beni SANDOVAL, Jefferson Salguero OT F33 .2 10/25/2015 Beni SANDOVAL, Jefferson Salguero OT F60 .3 10/25/2015 Beni SANDOVAL, Jefferson Salguero OT F70 10/25/2015 Beni SANDOVAL, Jefferson Salguero OT J45.909 10/25/2015 Beni SANDOVAL, Jefferson Salguero OT K21 .9 10/25/2015 Beni SANDOVAL, Jefferson Salguero OT L80 10/25/2015 Beni SANDOVAL, Jefferson Salguero OT S30.851A 10/25/2015 Beni SANDOVAL, Jefferson Salguero OT X78.8XXA 10/25/2015 Beni SANDOVAL, Jefferson Salguero OT Z86.711 10/29/2015 Conner Allena R OT L03.31 1 10/29/2015 Conner Allena R OT W22.8X XA 10/29/2015 AllenConner andersona R OT W45.8X XA 10/29/2015 Conner Allena R OT Y99.8 10/29/2015 Conner Allena R OT Z86.14 11/04/2015 Aisha Brice S OT J45.909 11/04/2015 Brice Leonard S OT R07.89 12/05/2015 Jamie, Allan Heredia OT E66.9 12/05/2015 Jamie Allan Heredia OT F32.9 12/05/2015 Jamie, Allan Heredia OT R45.851 12/05/2015 Jamie, Allan Heredia OT S31.129A 12/05/2015 Jamie, Allan Heredia OT X78.0XXA 12/05/2015 Jamie, Allan Heredia OT Z68.43 12/05/2015 Jamie, Allan Heredia OT Z72.0 12/05/2015 WorQuinten OT R10.31 12/05/2015 EZ SANDOVAL, JOE GILMORE OT F32.9 12/05/2015 EZ SANDOVAL, JOE Maya~PLOMTI OT F60.3 12/05/2015 EZ SANDOVAL, JOE Maya~PLOMTI OT F70 12/05/2015 EZ SANDOVAL, JOE Maya~PLOMTI OT R45.851 12/05/2015 EZ SANDOVAL, JOE Maya~PLOMTI OT S31.125D 12/05/2015 EZ SANDOVAL, JOE Maya~PLOMTI OT X78.0XXD 12/05/2015 EZ SANDOVAL, JOE Maya~PLOMTI OT Z72.0 12/27/2015 Elva, Min Vern OT S31.125A 12/27/2015 Min Stevenson Vern OT X78.0XXA 12/27/2015 Min Stevenson Vern OT Z72.0 01/07/2016 Brice Leonard OT T19.2XXA 02/11/2016 Salbador Colin OT E66.9 02/11/2016 Salbador Colin OT F17.290 02/11/2016 Salbador Colin OT S31.115A 02/11/2016 Salbador Colin OT T19.2XXA 02/12/2016 Pauline Neville OT S31.109D 02/12/2016 Pauline Neville OT X78.8XXD 02/27/2016 Worf, Quinten Rosamaria OUTSIDE PRODUCTION INSPECTOR OT F33 .1 02/27/2016 Worf, Quinten Jo OUTSIDE PRODUCTION INSPECTOR OT R73.01 02/27/2016 Worf, Quinten Jo OUTSIDE PRODUCTION INSPECTOR OT F33 .1 02/27/2016 Worf, Quinten Rosamaria OUTSIDE PRODUCTION INSPECTOR OT R73.01 04/01/2016 Worf, Quinten Rosamaria OUTSIDE PRODUCTION INSPECTOR OT F33 .1 04/01/2016 Worf, Quinten Rosamaria OUTSIDE PRODUCTION INSPECTOR OT R73.01 04/01/2016 Worf, Quinten Rosamaria OUTSIDE PRODUCTION INSPECTOR OT F33 .1 04/01/2016 Worf, Quinten Rosamaria OUTSIDE PRODUCTION INSPECTOR OT R73.01 08/18/2016 Worf, Quinten Rosamaria OUTSIDE PRODUCTION INSPECTOR OT B37.84 08/18/2016 Worf, Quinten Blank OUTSIDE PRODUCTION INSPECTOR OT J44 .9 08/18/2016 Quinten Lindsay OT K21 .9 08/25/2017 KHRECEASAR, WAEL V [id number] Abdominal Injury KHREISS, WAEL 08/25/2017 KHREISS, WAEL V [id number] Suicidal KHREISS, WAEL 08/25/2017 KHREISS, WAEL V S31.109A Unspecified open wound of abdominal wall, unspecified quadrant without penetration into peritoneal cavity, initial encounter KEMI, KIMBERLY 08/25/2017 KHRECEASAR, MARIANNEEL A S31.119A Laceration without foreign body of abdominal wall, unspecified quadrant without penetration into peritoneal cavity, initial encounter KHRECEASAR, KIMBERLY 08/25/2017 KHRECEASAR, MARIANNEHARJIT P S31.119A Laceration without foreign body of abdominal wall, unspecified quadrant without penetration into peritoneal cavity, initial encounter 10/10/2017 SHANNEN ELAINE V [id number] Aggressive Behavior SHANNEN ELAINE 10/10/2017 SHANNEN ELAINE V [id number] Wound Dehiscence SHANNEN ELAINE 10/10/2017 SHANNEN ELAINE V T81.30X A Disruption of wound, unspecified, initial encounter SHANNEN ELAINE 11/18/2017 JOSE GARCIA V 160 471 Post-op Problem 11/18/2017 JOSE GARCIA V K63 .2 Fistula of intestine 11/18/2017 JOSE GARCIA F K63 .2 Fistula of intestine 11/18/2017 JOSE GARCIA F Z87.891 Personal history of nicotine dependence 11/18/2017 JOSE GARCIA A Z98.890 Other specified postprocedural states 11/26/2017 BRENDEN, ADDIE V [id number] Wound Check 11/26/2017 BRENDEN, ADDIE V L30.9 Dermatitis, unspecified 11/26/2017 BRENDEN, ADDIE A S31.109A Unspecified open wound of abdominal wall, unspecified quadrant without penetration into peritoneal cavity, initial encounter 11/26/2017 BRENDEN, ADDIE V T14.8XXA Other injury of unspecified body region, initial encounter 11/26/2017 BRENDEN, ADDIE V Z51.89 Encounter for other specified aftercare 11/26/2017 BRENDEN, ADDIE F G89.29 Other chronic pain 11/26/2017 BRENDEN, ADDIE F 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 11/26/2017 BRENDEN, ADDIE F L30.9 Dermatitis, unspecified 11/26/2017 BRENDEN, ADDIE F S31.105A Unspecified open wound of abdominal wall, periumbilic region without penetration into peritoneal cavity, initial encounter 11/26/2017 BRENDENJANENEON F T81.89XA Other complications of procedures, not elsewhere classified, initial encounter 11/26/2017 BRENDENJANENEON F X83.8XXA Intentional self-harm by other specified means, initial encounter ([facility]) 11/26/2017 BRENDEN, ADDIE F Z87.891 Personal history of nicotine dependence 11/26/2017 BRENDEN, ADDIE F Z90.49 Acquired absence of other specified parts of digestive tract 11/26/2017 BRENDEN, ADDIE F Z91.5 Personal history of self-harm 12/18/2017 BRENDEN, ADDIE V L08.9 Local infection of the skin and subcutaneous tissue, unspecified 12/18/2017 BRENDEN, ADDIE V S31.109A Unspecified open wound of abdominal wall, unspecified quadrant without penetration into peritoneal cavity, initial encounter 12/19/2017 BRENDEN, ADDIE F L08.9 Local infection of the skin and subcutaneous tissue, unspecified 12/19/2017 BRENDEN, ADDIE F S31.102D Unspecified open wound of abdominal wall, epigastric region without penetration into peritoneal cavity, subsequent encounter 12/23/2017 BRENDEN, ADDIE F Z45.2 Encounter for adjustment and management of vascular access device 12/28/2017 JOSE MUNROE S31.109 S Unspecified open wound of abdominal wall, unspecified quadrant without penetration into peritoneal cavity, sequela 10/17/2018 SONG CARRASCO V 1100 01 Abdominal Injury 10/17/2018 SONG CARRASCO V F31. 9 Bipolar disorder, unspecified ([facility]) 10/17/2018 SONG CARRASCO T18.9XXA Foreign body of alimentary tract, part unspecified, in itial encounter 10/17/2018 SONG CARRASCO V Z72. 89 Other problems related to lifestyle 10/17/2018 SONG CARRASCO E11. 9 Type 2 diabetes mellitus without complications ([facility]) 10/17/2018 SONG CARRASCO E66. 01 Morbid (severe) obesity due to excess calories (HCC) 10/17/2018 SONG CARRASCO F31. 10 Bipolar disorder, current episode manic without psychotic features, unspecified (HCC) 10/17/2018 SONG CARRASCO F41. 1 Generalized anxiety disorder 10/17/2018 SONG CARRASCO J45. 909 Unspecified asthma, uncomplicated 10/17/2018 SONG CARRASCO K00. 0 Anodontia 10/17/2018 SONG CARRASCO K63. 2 Fistula of intestine 10/17/2018 SONG CARRASCO N83. 9 Noninflammatory disorder of ovary, fallopian tube and broad ligament, unspecified 10/17/2018 SONG CARRASCO S36.81XA Injury of peritoneum, initial encounter 10/17/2018 SONG CARRASCO X78.9XXA Intentional self-harm by unspecified sha rp object, initial encounter ([facility]) 10/17/2018 SONG CARRASCO Z23 Encounter for immunization 10/17/2018 SONG CARRASCO Z65. 1 Imprisonment and other incarceration 10/17/2018 SONG CARRASCO Z68. 32 Body mass index (bmi) 32.0-32.9, adult 10/17/2018 SONG CARRASCO Z72. 89 Other problems related to lifestyle 10/17/2018 SONG CARRASCO Z87. 891 Personal history of nicotine dependence 10/17/2018 SONG CARRASCO Z90. 49 Acquired absence of other specified parts of digestive tract 10/17/2018 SONG CARRASCO Z91. 5 Personal history of self-harm 10/17/2018 SONG CARRASCO S31.149A Puncture wound of abdominal wall with fo reign body, unspecified quadrant without penetration into peritoneal cavity, initial encounter 11/10/2018 TANVIR ORDAZ V [id number] Suicidal 11/10/2018 TANVIR ORDAZ V [id number] Wound Check 11/10/2018 TANVIR ORDAZ V F31.4 Bipolar disorder, current episode depressed, severe, without psychotic features (HCC) 11/10/2018 TANVIR ORDAZ S31.10 9A Unspecified open wound of abdominal wall, unspecified quadrant without penetration into peritoneal cavity, initial encounter 11/10/2018 TANVIR ORDAZ S31.11 9A Laceration without foreign body of abdominal wall, unspecified quadrant without penetration into peritoneal cavity, initial encounter 11/10/2018 ORLIN, TANVIR Maya E66.9 Obesity, unspecified 11/10/2018 MYRANDA, TANVIR Maya E87.1 Hypo-osmolality and hyponatremia 11/10/2018 [facility], TANVIR Maya E87.6 Hypokalemia 11/10/2018 [facility], TANVIR Maya F31.32 Bipolar disorder, current episode depressed, moderate (HCC) 11/10/2018 [facility], TANVIR Maya F41.1 Generalized anxiety disorder 11/10/2018 [facility], TANVIR Maya F43.10 Post-traumatic stress disorder, unspecified 11/10/2018 [facility], TANVIR Maya F60.3 Borderline personality disorder (HCC) 11/10/2018 [facility], TANVIR Maya F63.1 Pyromania 11/10/2018 [facility], TANVIR Maya J45.90 9 Unspecified asthma, uncomplicated 11/10/2018 [facility], [facility] Maya K00.0 Anodontia 11/10/2018 [facility], [facility] Maya K66.0 Peritoneal adhesions (postprocedural) (postinfection) 11/10/2018 [facility], [facility] Maya N83.9 Noninflammatory disorder of ovary, fallopian tube and broad ligament, unspecified 11/10/2018 [facility], [facility] Maya R12 Heartburn 11/10/2018 [facility], [facility] Maya R45.87 Impulsiveness 11/10/2018 [facility], [facility] Maya R73.03 Prediabetes 11/10/2018 [facility], [facility] Maya R97.1 Elevated cancer antigen 125 (CA 125) 11/10/2018 [facility], [facility] Maya S31.62 9A Laceration with foreign body of abdominal wall, unspecified quadrant with penetration into peritoneal cavity, initial encounter 11/10/2018 [facility], [facility] Maya X78.8X XA Intentional self-harm by other sharp object, initial encounter (HCC) 11/10/2018 [facility], TANVIR Maya Z65.1 Imprisonment and other incarceration 11/10/2018 [facility], TAN[facility]IR Maya Z68.33 Body mass index (bmi) 33.0-33.9, adult 11/10/2018 [facility], TANVIR Maya Z71.3 Dietary counseling and surveillance 11/10/2018 [facility] ORDAZ 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 11/10/2018 [facility] Z91.5 Personal history of self-harm 12/03/2018 SALBADOR PAULA MD, Ot E11.622 TYPE 2 DIABETES MELLITUS WITH OTHER SKIN 12/03/2018 SALBADOR PAULA MD, Ot E11.622 TYPE 2 DIABETES MELLITUS WITH OTHER SKIN 12/06/2018 SALBADOR PAULA MD, Ot B35 .4 TINEA CORPORIS 12/06/2018 SALBADOR PAULA MD, Ot E11.622 TYPE 2 DIABETES MELLITUS WITH OTHER SKIN 12/06/2018 SALBADOR PAULA MD, Ot L98.492 NON-PRS CHRONIC ULCER OF SKIN OF SITES W 12/06/2018 SALBADOR PAULA MD, Ot T81.32XA DISRUPTION OF INTERNAL OPERATION (SURGIC 12/06/2018 SALBADOR PAULA MD, Ot B35 .4 TINEA CORPORIS 12/06/2018 SALBADOR PAULA MD, Ot E11.622 TYPE 2 DIABETES MELLITUS WITH OTHER SKIN 12/06/2018 SALBADOR PAULA MD, Ot L98.492 NON-PRS CHRONIC ULCER OF SKIN OF SITES W 12/06/2018 SALBADOR PAULA MD Ot T81.32XA DISRUPTION OF INTERNAL OPERATION (SURGIC 12/07/2018 TANVIR ORDAZ V [id number] Post Op Visit 12/07/2018 [facility]AN[facility] ORDAZ V K63.1 Perforation of intestine (nontraumatic) ([facility]) 12/08/2018 SALBADOR PAULA MD Ot B35 .4 TINEA CORPORIS 12/08/2018 SALBADOR PAULA MD, Ot E11.622 TYPE 2 DIABETES MELLITUS WITH OTHER SKIN 12/08/2018 SALBADOR PAULA MD Ot L98.492 NON-PRS CHRONIC ULCER OF SKIN OF SITES W 12/08/2018 SALBADOR PAULA MD Ot T81.32XA DISRUPTION OF INTERNAL OPERATION (SURGIC 12/08/2018 SALBADOR PAULA MD Ot B35 .4 TINEA CORPORIS 12/08/2018 SALBADOR PAULA MD, Ot E11.622 TYPE 2 DIABETES MELLITUS WITH OTHER SKIN 12/08/2018 SALBADOR PAULA MD Ot L98.492 NON-PRS CHRONIC ULCER OF SKIN OF SITES W 12/08/2018 NISA MD, SALBADOR G Ot T81.32XA DISRUPTION OF INTERNAL OPERATION (SURGIC 12/10/2018 SALBADOR PAULA MD Ot B35 .4 TINEA CORPORIS 12/10/2018 SALBADOR PAULA MD Ot E11.622 TYPE 2 DIABETES MELLITUS WITH OTHER SKIN 12/10/2018 SALBADOR PAULA MD Ot L98.492 NON-PRS CHRONIC ULCER OF SKIN OF SITES W 12/10/2018 SALBADOR PAULA MD Ot T81.32XA DISRUPTION OF INTERNAL OPERATION (SURGIC 12/10/2018 SALBADOR PAULA MD Ot B35 .4 TINEA CORPORIS 12/10/2018 SALBADOR PAULA MD Ot E11.622 TYPE 2 DIABETES MELLITUS WITH OTHER SKIN 12/10/2018 SALBADOR PAULA MD Ot L98.492 NON-PRS CHRONIC ULCER OF SKIN OF SITES W 12/10/2018 SALBADOR PAULA MD Ot T81.32XA DISRUPTION OF INTERNAL OPERATION (SURGIC 12/10/2018 SALBADOR PAULA MD Ot B35 .4 TINEA CORPORIS 12/10/2018 SALBADOR PAULA MD Ot E11.622 TYPE 2 DIABETES MELLITUS WITH OTHER SKIN 12/10/2018 SALBADOR PAULA MD Ot L98.492 NON-PRS CHRONIC ULCER OF SKIN OF SITES W 12/10/2018 SALBADOR PAULA MD Ot T81.32XA DISRUPTION OF INTERNAL OPERATION (SURGIC 12/14/2018 SALBADOR PAULA MD Ot B35 .4 TINEA CORPORIS 12/14/2018 SALBADOR PAULA MD Ot E11.622 TYPE 2 DIABETES MELLITUS WITH OTHER SKIN 12/14/2018 SALBADOR PAULA MD Ot L98.492 NON-PRS CHRONIC ULCER OF SKIN OF SITES W 12/14/2018 SALBADOR PAULA MD Ot T81.31XA DISRUPTION OF EXTERNAL OPERATION (SURGIC 12/29/2018 SALBADOR PAULA MD Ot E11.622 TYPE 2 DIABETES MELLITUS WITH OTHER SKIN 12/29/2018 SALBADOR PAULA MD Ot L98.492 NON-PRS CHRONIC ULCER OF SKIN OF SITES W 12/29/2018 SALBADOR PAULA MD Ot T81.31XA DISRUPTION OF EXTERNAL OPERATION (SURGIC 12/31/2018 SALBADOR PAULA MD Ot E11.622 TYPE 2 DIABETES MELLITUS WITH OTHER SKIN 12/31/2018 SALBADOR APULA MD Ot L98.492 NON-PRS CHRONIC ULCER OF SKIN OF SITES W 12/31/2018 SALBADOR PAULA MD Ot T81.31XA DISRUPTION OF EXTERNAL OPERATION (SURGIC 01/05/2019 SALBADOR PAULA MD Ot E11.622 TYPE 2 DIABETES MELLITUS WITH OTHER SKIN 01/05/2019 SALBADOR PAULA MD Ot L98.492 NON-PRS CHRONIC ULCER OF SKIN OF SITES W 01/05/2019 SALBADOR PAULA MD Ot T81.31XA DISRUPTION OF EXTERNAL OPERATION (SURGIC 01/18/2019 SALBADOR PAULA MD Ot E11.622 TYPE 2 DIABETES MELLITUS WITH OTHER SKIN 01/18/2019 SALBADOR PAULA MD, Ot L98.492 NON-PRS CHRONIC ULCER OF SKIN OF SITES W 01/18/2019 SALBADOR PAULA MD, Ot T81.31XA DISRUPTION OF EXTERNAL OPERATION (SURGIC 01/18/2019 SALBADOR PAULA MD, Ot E11.622 TYPE 2 DIABETES MELLITUS WITH OTHER SKIN 01/18/2019 SALBADOR PAULA MD, Ot L98.492 NON-PRS CHRONIC ULCER OF SKIN OF SITES W 01/18/2019 SALBADOR PAULA MD Ot T81.31XA DISRUPTION OF EXTERNAL OPERATION (SURGIC 01/23/2019 JULES DO, SHELBY C Ot N83.0 1 FOLLICULAR CYST OF RIGHT OVARY 01/23/2019 DHARA RAPHAEL SHELBY C Ot N83.0 2 FOLLICULAR CYST OF LEFT OVARY 01/25/2019 SALBADOR PAULA MD Ot E11.622 TYPE 2 DIABETES MELLITUS WITH OTHER SKIN 01/25/2019 SALBADOR PAULA MD Ot L98.492 NON-PRS CHRONIC ULCER OF SKIN OF SITES W 01/25/2019 SALBADOR PAULA MD Ot T81.31XA DISRUPTION OF EXTERNAL OPERATION (SURGIC 02/18/2019 SALBADOR PAULA MD Ot E11.622 TYPE 2 DIABETES MELLITUS WITH OTHER SKIN 02/18/2019 SALBADOR PAULA MD Ot L98.492 NON-PRS CHRONIC ULCER OF SKIN OF SITES W 02/18/2019 SALBADOR PAULA MD Ot T81.31XA DISRUPTION OF EXTERNAL OPERATION (SURGIC 03/01/2019 SALBADOR PAULA MD Ot E11.622 TYPE 2 DIABETES MELLITUS WITH OTHER SKIN 03/01/2019 SALBADOR PAULA MD Ot L98.492 NON-PRS CHRONIC ULCER OF SKIN OF SITES W 03/01/2019 SALBADOR PAULA MD Ot T81.31XA DISRUPTION OF EXTERNAL OPERATION (SURGIC 03/02/2019 SALBADOR PAULA MD Ot B35 .4 TINEA CORPORIS 03/02/2019 SALBADOR PAULA MD Ot E11.622 TYPE 2 DIABETES MELLITUS WITH OTHER SKIN 03/02/2019 SALBADOR PAULA MD Ot L98.492 NON-PRS CHRONIC ULCER OF SKIN OF SITES W 03/02/2019 SALBADOR PAULA MD Ot T81.32XA DISRUPTION OF INTERNAL OPERATION (SURGIC 03/02/2019 SALBADOR PAULA MD Ot B35 .4 TINEA CORPORIS 03/02/2019 SALBADOR PAULA MD Ot E11.622 TYPE 2 DIABETES MELLITUS WITH OTHER SKIN 03/02/2019 SALBADOR PAULA MD Ot L98.492 NON-PRS CHRONIC ULCER OF SKIN OF SITES W 03/02/2019 SALBADOR PAULA MD Ot T81.31XA DISRUPTION OF EXTERNAL OPERATION (SURGIC 03/02/2019 SALBADOR PAULA MD, Ot E11.622 TYPE 2 DIABETES MELLITUS WITH OTHER SKIN 03/02/2019 SALBADOR PAULA MD Ot L98.492 NON-PRS CHRONIC ULCER OF SKIN OF SITES W 03/02/2019 SALBADOR PAULA MD Ot T81.31XA DISRUPTION OF EXTERNAL OPERATION (SURGIC 03/02/2019 SALBADOR PAULA MD Ot E11.622 TYPE 2 DIABETES MELLITUS WITH OTHER SKIN 03/02/2019 SALBADOR PAULA MD Ot L98.492 NON-PRS CHRONIC ULCER OF SKIN OF SITES W 03/02/2019 SALBADOR PAULA MD Ot T81.31XA DISRUPTION OF EXTERNAL OPERATION (SURGIC 03/02/2019 SALBADOR PAULA MD Ot E11.622 TYPE 2 DIABETES MELLITUS WITH OTHER SKIN 03/02/2019 SALBADOR PAULA MD Ot L98.492 NON-PRS CHRONIC ULCER OF SKIN OF SITES W 03/02/2019 SALBADOR PAULA MD Ot T81.31XA DISRUPTION OF EXTERNAL OPERATION (SURGIC 03/02/2019 SALBADOR PAULA MD Ot E11.622 TYPE 2 DIABETES MELLITUS WITH OTHER SKIN 03/02/2019 SALBADOR PAULA MD Ot L98.492 NON-PRS CHRONIC ULCER OF SKIN OF SITES W 03/02/2019 SALBADOR PAULA MD Ot T81.31XA DISRUPTION OF EXTERNAL OPERATION (SURGIC 03/02/2019 SALBADOR PAULA MD Ot E11.622 TYPE 2 DIABETES MELLITUS WITH OTHER SKIN 03/02/2019 SALBADOR PAULA MD, Ot L98.492 NON-PRS CHRONIC ULCER OF SKIN OF SITES W 03/02/2019 SALBADOR PAULA MD, Ot T81.31XA DISRUPTION OF EXTERNAL OPERATION (SURGIC 03/02/2019 JULES DO, SHELBY C Ot N83.0 1 FOLLICULAR CYST OF RIGHT OVARY 03/02/2019 JULES DO SHELBY C Ot N83.0 2 FOLLICULAR CYST OF LEFT OVARY 03/02/2019 SALBADOR PAULA MD, Ot E11.622 TYPE 2 DIABETES MELLITUS WITH OTHER SKIN 03/02/2019 SALBADOR PAULA MD, Ot L98.492 NON-PRS CHRONIC ULCER OF SKIN OF SITES W 03/02/2019 SALBADOR PAULA MD, Ot T81.31XA DISRUPTION OF EXTERNAL OPERATION (SURGIC 03/02/2019 SALBADOR PAULA MD, Ot E11.622 TYPE 2 DIABETES MELLITUS WITH OTHER SKIN 03/02/2019 SALBADOR PAULA MD, Ot L98.492 NON-PRS CHRONIC ULCER OF SKIN OF SITES W 03/02/2019 SALBADOR PAULA MD Ot T81.31XA DISRUPTION OF EXTERNAL OPERATION (SURGIC 03/02/2019 SALBADOR PAULA MD, Ot E11.622 TYPE 2 DIABETES MELLITUS WITH OTHER SKIN 03/02/2019 SALBADOR PAULA MD, Ot L98.492 NON-PRS CHRONIC ULCER OF SKIN OF SITES W 03/02/2019 SALBADOR PAULA MD, Ot T81.31XA DISRUPTION OF EXTERNAL OPERATION (SURGIC 03/02/2019 SALBADOR PAULA MD Ot E11.622 TYPE 2 DIABETES MELLITUS WITH OTHER SKIN 03/02/2019 SALBADOR PAULA MD, Ot L98.492 NON-PRS CHRONIC ULCER OF SKIN OF SITES W 03/02/2019 SALBADOR PAULA MD Ot T81.31XA DISRUPTION OF EXTERNAL OPERATION (SURGIC 03/02/2019 SALBADOR PAULA MD, Ot E11.622 TYPE 2 DIABETES MELLITUS WITH OTHER SKIN 03/02/2019 SALBADOR PAULA MD, Ot L98.492 NON-PRS CHRONIC ULCER OF SKIN OF SITES W 03/02/2019 SALBADOR PUALA MD Ot T81.31XA DISRUPTION OF EXTERNAL OPERATION (SURGIC 03/08/2019 SALBADOR PAULA MD Ot B35 .4 TINEA CORPORIS 03/08/2019 SALBADOR PAULA MD, Ot E11.622 TYPE 2 DIABETES MELLITUS WITH OTHER SKIN 03/08/2019 SALBADOR PAULA MD Ot L98.492 NON-PRS CHRONIC ULCER OF SKIN OF SITES W 03/08/2019 SALBADOR PAULA MD Ot T81.32XA DISRUPTION OF INTERNAL OPERATION (SURGIC 03/17/2019 JULES DO, SHELBY C Ot Z01.8 18 ENCOUNTER FOR OTHER PREPROCEDURAL EXAMIN 03/18/2019 JULES DO, SHELBY C Ot Z01.8 18 ENCOUNTER FOR OTHER PREPROCEDURAL EXAMIN 03/18/2019 JULES DO, SHELBY C Ot Z01.8 18 ENCOUNTER FOR OTHER PREPROCEDURAL EXAMIN 03/22/2019 SALBADOR PAULA MD Ot B35 .4 TINEA CORPORIS 03/22/2019 SALBADOR PAULA MD, Ot E11.622 TYPE 2 DIABETES MELLITUS WITH OTHER SKIN 03/22/2019 SALBADOR PAULA MD Ot L98.492 NON-PRS CHRONIC ULCER OF SKIN OF SITES W 03/22/2019 SALBADOR PAULA MD Ot T81.32XA DISRUPTION OF INTERNAL OPERATION (SURGIC 03/22/2019 SALBADOR PAULA MD Ot B35 .4 TINEA CORPORIS 03/22/2019 SALBADOR PAULA MD Ot E11.622 TYPE 2 DIABETES MELLITUS WITH OTHER SKIN 03/22/2019 SALBADOR PAULA MD Ot L98.492 NON-PRS CHRONIC ULCER OF SKIN OF SITES W 03/22/2019 SALBADOR PAULA MD Ot T81.31XA DISRUPTION OF EXTERNAL OPERATION (SURGIC 03/22/2019 SALBADOR PAULA MD Ot E11.622 TYPE 2 DIABETES MELLITUS WITH OTHER SKIN 03/22/2019 SALBADOR PAULA MD Ot L98.492 NON-PRS CHRONIC ULCER OF SKIN OF SITES W 03/22/2019 SALBADOR PAULA MD Ot T81.31XA DISRUPTION OF EXTERNAL OPERATION (SURGIC 03/22/2019 SALBADOR PAULA MD Ot E11.622 TYPE 2 DIABETES MELLITUS WITH OTHER SKIN 03/22/2019 SALBADOR PAULA MD Ot L98.492 NON-PRS CHRONIC ULCER OF SKIN OF SITES W 03/22/2019 SALBADOR PAULA MD Ot T81.31XA DISRUPTION OF EXTERNAL OPERATION (SURGIC 03/22/2019 SALBADOR PAULA MD Ot E11.622 TYPE 2 DIABETES MELLITUS WITH OTHER SKIN 03/22/2019 SALBADOR PAULA MD Ot L98.492 NON-PRS CHRONIC ULCER OF SKIN OF SITES W 03/22/2019 SALBADOR PAULA MD Ot T81.31XA DISRUPTION OF EXTERNAL OPERATION (SURGIC 03/22/2019 SALBADOR PAULA MD Ot E11.622 TYPE 2 DIABETES MELLITUS WITH OTHER SKIN 03/22/2019 SALBADOR PAULA MD Ot L98.492 NON-PRS CHRONIC ULCER OF SKIN OF SITES W 03/22/2019 SALBADOR PAULA MD Ot T81.31XA DISRUPTION OF EXTERNAL OPERATION (SURGIC 03/22/2019 SALBADOR PAULA MD, Ot E11.622 TYPE 2 DIABETES MELLITUS WITH OTHER SKIN 03/22/2019 SALBADOR PAULA MD, Ot L98.492 NON-PRS CHRONIC ULCER OF SKIN OF SITES W 03/22/2019 SALBADOR PAULA MD Ot T81.31XA DISRUPTION OF EXTERNAL OPERATION (SURGIC 03/22/2019 JULESBayron RAPHAEL SHELBY C Ot N83.0 1 FOLLICULAR CYST OF RIGHT OVARY 03/22/2019 SHELBY JULES DO C Ot N83.0 2 FOLLICULAR CYST OF LEFT OVARY 03/22/2019 SALBADOR PAULA MD Ot E11.622 TYPE 2 DIABETES MELLITUS WITH OTHER SKIN 03/22/2019 SALBADOR PAULA MD Ot L98.492 NON-PRS CHRONIC ULCER OF SKIN OF SITES W 03/22/2019 SALBADOR PAULA MD Ot T81.31XA DISRUPTION OF EXTERNAL OPERATION (SURGIC 03/22/2019 SALBADOR PAULA MD Ot E11.622 TYPE 2 DIABETES MELLITUS WITH OTHER SKIN 03/22/2019 SALBADOR PAULA MD Ot L98.492 NON-PRS CHRONIC ULCER OF SKIN OF SITES W 03/22/2019 SALBADOR PAULA MD Ot T81.31XA DISRUPTION OF EXTERNAL OPERATION (SURGIC 03/22/2019 SALBADOR APULA MD Ot E11.622 TYPE 2 DIABETES MELLITUS WITH OTHER SKIN 03/22/2019 SALBADOR PAULA MD Ot L98.492 NON-PRS CHRONIC ULCER OF SKIN OF SITES W 03/22/2019 SALBADOR PAULA MD Ot T81.31XA DISRUPTION OF EXTERNAL OPERATION (SURGIC 03/22/2019 SALBADOR PAULA MD Ot E11.622 TYPE 2 DIABETES MELLITUS WITH OTHER SKIN 03/22/2019 SALBADOR PAULA MD Ot L98.492 NON-PRS CHRONIC ULCER OF SKIN OF SITES W 03/22/2019 SALBADOR PAULA MD Ot T81.31XA DISRUPTION OF EXTERNAL OPERATION (SURGIC 03/22/2019 SALBADOR PAULA MD Ot E11.622 TYPE 2 DIABETES MELLITUS WITH OTHER SKIN 03/22/2019 SALBADOR PAULA MD Ot L98.492 NON-PRS CHRONIC ULCER OF SKIN OF SITES W 03/22/2019 SALBADOR PAULA MD, Ot T81.31XA DISRUPTION OF EXTERNAL OPERATION (SURGIC 03/22/2019 ELOY JULES DOA C Ot F20.9 SCHIZOPHRENIA, UNSPECIFIED 03/22/2019 SHELBY JULES DO C Ot F32.9 MAJOR DEPRESSIVE DISORDER, SINGLE EPISOD 03/22/2019 SHELBY JULES DO C Ot F41.9 ANXIETY DISORDER, UNSPECIFIED 03/22/2019 SHELBY JULES DO C Ot J45.9 09 UNSPECIFIED ASTHMA, UNCOMPLICATED 03/22/2019 SHELBY JULES DO C Ot K21.9 GASTRO-ESOPHAGEAL REFLUX DISEASE WITHOUT 03/22/2019 SHELBY JULES DO C Ot N83.2 01 UNSPECIFIED OVARIAN CYST, RIGHT SIDE 03/22/2019 ELOY JULES DOA C Ot N83.2 02 UNSPECIFIED OVARIAN CYST, LEFT SIDE 03/22/2019 ELOY JULES DOA C Ot N92.0 EXCESSIVE AND FREQUENT MENSTRUATION WITH 03/22/2019 ELOY JULES DOA C Ot R73.0 3 PREDIABETES 03/22/2019 ELOY JULES DOA C Ot Z11.2 ENCOUNTER FOR SCREENING FOR OTHER BACTER 03/22/2019 SHELBY JULES DO Ot Z79.8 99 OTHER LONGTERM (CURRENT) DRUG THERAPY 03/22/2019 SHELBY JULES DO C Ot Z86.7 18 PERSONAL HISTORY OF OTHER VENOUS THROMBO 03/22/2019 SHELBY JULES DO C Ot Z87.8 91 PERSONAL HISTORY OF NICOTINE DEPENDENCE 03/22/2019 SHELBY JULES DO C Ot Z88.0 ALLERGY STATUS TO PENICILLIN 03/22/2019 SHELBY JULES DO Ot Z88.1 ALLERGY STATUS TO OTHER ANTIBIOTIC AGENT 03/28/2019 SALBADOR PAULA MD Ot B35 .4 TINEA CORPORIS 03/28/2019 SALBADOR PAULA MD Ot E11.622 TYPE 2 DIABETES MELLITUS WITH OTHER SKIN 03/28/2019 SALBADOR PAULA MD, Ot L98.492 NON-PRS CHRONIC ULCER OF SKIN OF SITES W 03/28/2019 SALBADOR PAULA MD, Ot T81.32XA DISRUPTION OF INTERNAL OPERATION (SURGIC 03/29/2019 JULESBayron RAPHAEL SHELBY C Ot F20.9 SCHIZOPHRENIA, UNSPECIFIED 03/29/2019 DHARA RAPHAEL SHELBY C Ot F32.9 MAJOR DEPRESSIVE DISORDER, SINGLE EPISOD 03/29/2019 JULES DO SHELBY C Ot F41.9 ANXIETY DISORDER, UNSPECIFIED 03/29/2019 JULES DO SHELBY C Ot J45.9 09 UNSPECIFIED ASTHMA, UNCOMPLICATED 03/29/2019 JULES DO SHELBY C Ot K21.9 GASTRO-ESOPHAGEAL REFLUX DISEASE WITHOUT 03/29/2019 JULES DO SHELBY C Ot N83.2 01 UNSPECIFIED OVARIAN CYST, RIGHT SIDE 03/29/2019 JULES DO SHELBY C Ot N83.2 02 UNSPECIFIED OVARIAN CYST, LEFT SIDE 03/29/2019 JULES DO SHELBY C Ot N92.0 EXCESSIVE AND FREQUENT MENSTRUATION WITH 03/29/2019 DHARA RAPHAEL SHELBY C Ot R73.0 3 PREDIABETES 03/29/2019 DHARA RAPHAEL SHELBY C Ot Z11.2 ENCOUNTER FOR SCREENING FOR OTHER BACTER 03/29/2019 ELOY JULES DOA C Ot 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.8 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 03/29/2019 DHARA RAPHAEL SHELBY C Ot Z86.7 18 PERSONAL HISTORY OF OTHER VENOUS THROMBO 03/29/2019 DHARA RAPHAEL SHELBY C Ot Z87.8 91 PERSONAL HISTORY OF NICOTINE DEPENDENCE 03/29/2019 DHARA RAPHAEL SHELBY C Ot Z88.0 ALLERGY STATUS TO PENICILLIN 03/29/2019 ELOY JULES DOA C Ot Z88.1 ALLERGY STATUS TO OTHER ANTIBIOTIC AGENT 07/19/2019 SALBADOR PAULA MD Ot B35 .4 TINEA CORPORIS 07/19/2019 SALBADOR PAULA MD Ot E11.622 TYPE 2 DIABETES MELLITUS WITH OTHER SKIN 07/19/2019 SALBADOR PAULA MD, Ot L98.492 NON-PRS CHRONIC ULCER OF SKIN OF SITES W 07/19/2019 SALBADOR PAULA MD, Ot T81.32XA DISRUPTION OF INTERNAL OPERATION (SURGIC 07/19/2019 SALBADOR PAULA MD, Ot B35 .4 TINEA CORPORIS 07/19/2019 SALBADOR PAULA MD, Ot E11.622 TYPE 2 DIABETES MELLITUS WITH OTHER SKIN 07/19/2019 SALBADOR PAULA MD, Ot L98.492 NON-PRS CHRONIC ULCER OF SKIN OF SITES W 07/19/2019 SALBADOR PAULA MD, Ot T81.31XA DISRUPTION OF EXTERNAL OPERATION (SURGIC 07/19/2019 SALBADOR PAULA MD Ot E11.622 TYPE 2 DIABETES MELLITUS WITH OTHER SKIN 07/19/2019 SALBADOR PAULA MD, Ot L98.492 NON-PRS CHRONIC ULCER OF SKIN OF SITES W 07/19/2019 SALBADOR PAULA MD, Ot T81.31XA DISRUPTION OF EXTERNAL OPERATION (SURGIC 07/19/2019 SALBADOR PAULA MD, Ot E11.622 TYPE 2 DIABETES MELLITUS WITH OTHER SKIN 07/19/2019 SALBADOR PAULA MD, Ot L98.492 NON-PRS CHRONIC ULCER OF SKIN OF SITES W 07/19/2019 SALBADOR PAULA MD, Ot T81.31XA DISRUPTION OF EXTERNAL OPERATION (SURGIC 07/19/2019 SALBADOR PAULA MD, Ot E11.622 TYPE 2 DIABETES MELLITUS WITH OTHER SKIN 07/19/2019 SALBADOR PAULA MD, Ot L98.492 NON-PRS CHRONIC ULCER OF SKIN OF SITES W 07/19/2019 SALBADOR PAULA MD, Ot T81.31XA DISRUPTION OF EXTERNAL OPERATION (SURGIC 07/19/2019 SALBADOR PAULA MD Ot E11.622 TYPE 2 DIABETES MELLITUS WITH OTHER SKIN 07/19/2019 SALBADOR PAULA MD Ot L98.492 NON-PRS CHRONIC ULCER OF SKIN OF SITES W 07/19/2019 SALBADOR PAULA MD, Ot T81.31XA DISRUPTION OF EXTERNAL OPERATION (SURGIC 07/19/2019 SALBADOR PAULA MD, Ot E11.622 TYPE 2 DIABETES MELLITUS WITH OTHER SKIN 07/19/2019 SALBADOR PAULA MD, Ot L98.492 NON-PRS CHRONIC ULCER OF SKIN OF SITES W 07/19/2019 SALBADOR PAULA MD, Ot T81.31XA DISRUPTION OF EXTERNAL OPERATION (SURGIC 07/19/2019 SHELBY JULES DO Ot N83.0 1 FOLLICULAR CYST OF RIGHT OVARY 07/19/2019 SHELBY JULES DO Ot N83.0 2 FOLLICULAR CYST OF LEFT OVARY 07/19/2019 SALBADOR PAULA MD Ot E11.622 TYPE 2 DIABETES MELLITUS WITH OTHER SKIN 07/19/2019 SALBADOR PAULA MD Ot L98.492 NON-PRS CHRONIC ULCER OF SKIN OF SITES W 07/19/2019 SALBADOR PAULA MD Ot T81.31XA DISRUPTION OF EXTERNAL OPERATION (SURGIC 07/19/2019 SALBADOR PAULA MD Ot E11.622 TYPE 2 DIABETES MELLITUS WITH OTHER SKIN 07/19/2019 SALBADOR PAULA MD Ot L98.492 NON-PRS CHRONIC ULCER OF SKIN OF SITES W 07/19/2019 SALBADOR PAULA MD Ot T81.31XA DISRUPTION OF EXTERNAL OPERATION (SURGIC 07/19/2019 SALBADOR PAULA MD Ot E11.622 TYPE 2 DIABETES MELLITUS WITH OTHER SKIN 07/19/2019 SALBADOR PAULA MD Ot L98.492 NON-PRS CHRONIC ULCER OF SKIN OF SITES W 07/19/2019 SALBADOR PAULA MD Ot T81.31XA DISRUPTION OF EXTERNAL OPERATION (SURGIC 07/19/2019 SALBADOR PAULA MD Ot E11.622 TYPE 2 DIABETES MELLITUS WITH OTHER SKIN 07/19/2019 SALBADOR PAULA MD Ot L98.492 NON-PRS CHRONIC ULCER OF SKIN OF SITES W 07/19/2019 SALBADOR PAULA MD Ot T81.31XA DISRUPTION OF EXTERNAL OPERATION (SURGIC 07/19/2019 SALBADOR PAULA MD Ot E11.622 TYPE 2 DIABETES MELLITUS WITH OTHER SKIN 07/19/2019 SALBADOR PAULA MD Ot L98.492 NON-PRS CHRONIC ULCER OF SKIN OF SITES W 07/19/2019 SALBADOR PAULA MD Ot T81.31XA DISRUPTION OF EXTERNAL OPERATION (SURGIC 07/19/2019 SALBADOR PAULA MD Ot B35 .4 TINEA CORPORIS 07/19/2019 SALBADOR PAULA MD Ot E11.622 TYPE 2 DIABETES MELLITUS WITH OTHER SKIN 07/19/2019 SALBADOR PAULA MD Ot L98.492 NON-PRS CHRONIC ULCER OF SKIN OF SITES W 07/19/2019 SALBADOR PAULA MD Ot T81.32XA DISRUPTION OF INTERNAL OPERATION (SURGIC 07/19/2019 SALBADOR PAULA MD Ot B35 .4 TINEA CORPORIS 07/19/2019 SALBADOR PAULA MD Ot E11.622 TYPE 2 DIABETES MELLITUS WITH OTHER SKIN 07/19/2019 SALBADOR PAULA MD, Ot L98.492 NON-PRS CHRONIC ULCER OF SKIN OF SITES W 07/19/2019 SALBADOR PAULA MD, Ot T81.31XA DISRUPTION OF EXTERNAL OPERATION (SURGIC 07/19/2019 SALBADOR PAULA MD Ot E11.622 TYPE 2 DIABETES MELLITUS WITH OTHER SKIN 07/19/2019 SALBADOR PAULA MD, Ot L98.492 NON-PRS CHRONIC ULCER OF SKIN OF SITES W 07/19/2019 SALBADOR PAULA MD, Ot T81.31XA DISRUPTION OF EXTERNAL OPERATION (SURGIC 07/19/2019 SALBADOR PAULA MD, Ot E11.622 TYPE 2 DIABETES MELLITUS WITH OTHER SKIN 07/19/2019 SALBADOR PAULA MD, Ot L98.492 NON-PRS CHRONIC ULCER OF SKIN OF SITES W 07/19/2019 SALBADOR PAULA MD, Ot T81.31XA DISRUPTION OF EXTERNAL OPERATION (SURGIC 07/19/2019 SALBADOR PAULA MD, Ot E11.622 TYPE 2 DIABETES MELLITUS WITH OTHER SKIN 07/19/2019 SALBADOR PAULA MD, Ot L98.492 NON-PRS CHRONIC ULCER OF SKIN OF SITES W 07/19/2019 SALBADOR PAULA MD, Ot T81.31XA DISRUPTION OF EXTERNAL OPERATION (SURGIC 07/19/2019 SALBADOR PAULA MD Ot E11.622 TYPE 2 DIABETES MELLITUS WITH OTHER SKIN 07/19/2019 SALBADOR PAULA MD, Ot L98.492 NON-PRS CHRONIC ULCER OF SKIN OF SITES W 07/19/2019 SALBADOR PAULA MD, Ot T81.31XA DISRUPTION OF EXTERNAL OPERATION (SURGIC 07/19/2019 SALBADOR PAULA MD, Ot E11.622 TYPE 2 DIABETES MELLITUS WITH OTHER SKIN 07/19/2019 SALBADOR PAULA MD, Ot L98.492 NON-PRS CHRONIC ULCER OF SKIN OF SITES W 07/19/2019 SALBADOR PAULA MD Ot T81.31XA DISRUPTION OF EXTERNAL OPERATION (SURGIC 07/19/2019 SHELBY JLUES DO Ot N83.0 1 FOLLICULAR CYST OF RIGHT OVARY 07/19/2019 SHELBY JULES DO Ot N83.0 2 FOLLICULAR CYST OF LEFT OVARY 07/19/2019 SALBADOR PAULA MD Ot E11.622 TYPE 2 DIABETES MELLITUS WITH OTHER SKIN 07/19/2019 SALBADOR PAULA MD, Ot L98.492 NON-PRS CHRONIC ULCER OF SKIN OF SITES W 07/19/2019 SALBADOR PAULA MD, Ot T81.31XA DISRUPTION OF EXTERNAL OPERATION (SURGIC 07/19/2019 SALBADOR PAULA MD Ot E11.622 TYPE 2 DIABETES MELLITUS WITH OTHER SKIN 07/19/2019 SALBADOR PAULA MD Ot L98.492 NON-PRS CHRONIC ULCER OF SKIN OF SITES W 07/19/2019 SALBADOR PAULA MD, Ot T81.31XA DISRUPTION OF EXTERNAL OPERATION (SURGIC 07/19/2019 SALBADOR PAULA MD, Ot E11.622 TYPE 2 DIABETES MELLITUS WITH OTHER SKIN 07/19/2019 SALBADOR PAULA MD Ot L98.492 NON-PRS CHRONIC ULCER OF SKIN OF SITES W 07/19/2019 SALBADOR PAULA MD, Ot T81.31XA DISRUPTION OF EXTERNAL OPERATION (SURGIC 07/19/2019 SALBADOR PAULA MD, Ot E11.622 TYPE 2 DIABETES MELLITUS WITH OTHER SKIN 07/19/2019 SALBADOR PAULA MD Ot L98.492 NON-PRS CHRONIC ULCER OF SKIN OF SITES W 07/19/2019 SALBADOR PAULA MD, Ot T81.31XA DISRUPTION OF EXTERNAL OPERATION (SURGIC 07/19/2019 SALBADOR PAULA MD, Ot E11.622 TYPE 2 DIABETES MELLITUS WITH OTHER SKIN 07/19/2019 SALBADOR PAULA MD Ot L98.492 NON-PRS CHRONIC ULCER OF SKIN OF SITES W 07/19/2019 SALBADOR PAULA MD, Ot T81.31XA DISRUPTION OF EXTERNAL OPERATION (SURGIC 07/20/2019 MADDIE DE LEÓN MD Ot F17.210 NICOTINE DEPENDENCE, CIGARETTES, UNCOMPL 07/20/2019 MADDIE DE LEÓN MD Ot F25 .9 SCHIZOAFFECTIVE DISORDER, UNSPECIFIED 07/20/2019 MADDIE DE LEÓN MD Ot F32 .9 MAJOR DEPRESSIVE DISORDER, SINGLE EPISOD 07/20/2019 MADDIE DE LEÓN MD Ot F41 .9 ANXIETY DISORDER, UNSPECIFIED 07/20/2019 MADDIE DE LEÓN MD Ot F60 .3 BORDERLINE PERSONALITY DISORDER 07/20/2019 MADDIE DE LEÓN MD Ot J45.909 UNSPECIFIED ASTHMA, UNCOMPLICATED 07/20/2019 MADDIE DE LEÓN MD Ot K59.09 OTHER CONSTIPATION 07/20/2019 MADDIE DE LEÓN MD Ot S30.851A SUPERFICIAL FOREIGN BODY OF ABDOMINAL [place] 07/20/2019 MADDIE DE LEÓN MD Ot T14.91XA SUICIDE ATTEMPT, INITIAL ENCOUNTER 07/20/2019 MADDIE DE LEÓN MD, Ot T18.2XXA FOREIGN BODY IN STOMACH, INITIAL ENCOUNT 07/20/2019 MADDIE DE LEÓN MD, Ot T18.3XXA FOREIGN BODY IN SMALL INTESTINE, INITIAL 07/20/2019 MADDIE DE LEÓN MD Ot Z87.891 PERSONAL HISTORY OF NICOTINE DEPENDENCE 07/20/2019 MADDIE DE LEÓN MD, Ot Z88 .0 ALLERGY STATUS TO PENICILLIN 07/20/2019 MADDIE DE LEÓN MD, Ot Z88 .1 ALLERGY STATUS TO OTHER ANTIBIOTIC AGENT 07/20/2019 MADDIE DE LEÓN MD, Ot Z90.49 ACQUIRED ABSENCE OF OTHER SPECIFIED PART 07/20/2019 MADDIE DE LEÓN MD, Ot Z91 .5 PERSONAL HISTORY OF SELF-HARM 08/01/2019 CHERYL MIRAMONTES DO Ot T18.2XXA FOREIGN BODY IN STOMACH, INITIAL ENCOUNT 08/23/2019 CHERYL MIRAMONTES DO Ot T18.2XXA FOREIGN BODY IN STOMACH, INITIAL ENCOUNT 09/22/2019 HAO DONOVAN MD Ot F20. 9 SCHIZOPHRENIA, UNSPECIFIED 09/22/2019 HAO DONOVAN MD Ot F32. 9 MAJOR DEPRESSIVE DISORDER, SINGLE EPISOD 09/22/2019 HAO DONOVAN MD Ot F41. 9 ANXIETY DISORDER, UNSPECIFIED 09/22/2019 HAO DONOVAN MD Ot F60. 9 PERSONALITY DISORDER, UNSPECIFIED 09/22/2019 HAO DONOVAN MD Ot J45.909 UNSPECIFIED ASTHMA, UNCOMPLICATED 09/22/2019 HAO DONOVAN MD Ot S31.115A LAC W/O FB OF ABD WL, PERIUMB RGN W/O PE 09/22/2019 HAO DONOVAN MD Ot X78.8XXA INTENTIONAL SELF-HARM BY OTHER SHARP OBJ 09/22/2019 HAO DONOVAN MD Ot Z77. 22 CNTCT W AND EXPSR TO ENVIRON TOBACCO SMO 09/22/2019 HAO DONOVAN MD Ot Z79. 51 LONGTERM (CURRENT) USE OF INHALED STERO 09/22/2019 HAO DONOVAN MD Ot Z87.891 PERSONAL HISTORY OF NICOTINE DEPENDENCE 09/22/2019 HAO DONOVAN MD, Ot Z88. 0 ALLERGY STATUS TO PENICILLIN 09/22/2019 HAO DONOVAN MD Ot Z88. 1 ALLERGY STATUS TO OTHER ANTIBIOTIC AGENT 09/22/2019 HAO DONOVAN MD, Ot Z88. 8 ALLERGY STATUS TO OTH DRUG/MEDS/BIOL SUB 09/22/2019 HAO DONOVAN MD Ot Z90. 89 ACQUIRED ABSENCE OF OTHER ORGANS 09/27/2019 HAO DONOVAN MD Ot F20. 9 SCHIZOPHRENIA, UNSPECIFIED 09/27/2019 HAO DONOVAN MD Ot F32. 9 MAJOR DEPRESSIVE DISORDER, SINGLE EPISOD 09/27/2019 HAO DONOVAN MD Ot F41. 9 ANXIETY DISORDER, UNSPECIFIED 09/27/2019 HAO DONOVAN MD Ot F60. 9 PERSONALITY DISORDER, UNSPECIFIED 09/27/2019 HAO DONOVAN MD, Ot J45.909 UNSPECIFIED ASTHMA, UNCOMPLICATED 09/27/2019 HAO DONOVAN MD Ot S31.115A LAC W/O FB OF ABD WL, PERIUMB RGN W/O PE 09/27/2019 HAO DONOVAN MD, Ot X78.8XXA INTENTIONAL SELF-HARM BY OTHER SHARP OBJ 09/27/2019 HAO DONOVAN MD, Ot Z77. 22 CNTCT W AND EXPSR TO ENVIRON TOBACCO SMO 09/27/2019 HAO DONOVAN MD, Ot Z79. 51 LONGTERM (CURRENT) USE OF INHALED STERO 09/27/2019 HAO DONOVAN MD Ot Z87.891 PERSONAL HISTORY OF NICOTINE DEPENDENCE 09/27/2019 HAO DONOVAN MD, Ot Z88. 0 ALLERGY STATUS TO PENICILLIN 09/27/2019 HAO DONOVAN MD, Ot Z88. 1 ALLERGY STATUS TO OTHER ANTIBIOTIC AGENT 09/27/2019 HAO DONOVAN MD, Ot Z88. 8 ALLERGY STATUS TO OTH DRUG/MEDS/BIOL SUB 09/27/2019 HAO DONOVAN MD Ot Z90. 89 ACQUIRED ABSENCE OF OTHER ORGANS 09/29/2019 SALBADOR PAULA MD Ot B35 .4 TINEA CORPORIS 09/29/2019 SALBADOR PAULA MD Ot E11.622 TYPE 2 DIABETES MELLITUS WITH OTHER SKIN 09/29/2019 SALBADOR PAULA MD Ot L98.492 NON-PRS CHRONIC ULCER OF SKIN OF SITES W 09/29/2019 SALBADOR PAULA MD Ot T81.32XA DISRUPTION OF INTERNAL OPERATION (SURGIC 09/29/2019 SALBADOR PAULA MD Ot B35 .4 TINEA CORPORIS 09/29/2019 SALBADOR PAULA MD Ot E11.622 TYPE 2 DIABETES MELLITUS WITH OTHER SKIN 09/29/2019 SALBADOR PAULA MD Ot L98.492 NON-PRS CHRONIC ULCER OF SKIN OF SITES W 09/29/2019 SALBADOR PAULA MD Ot T81.31XA DISRUPTION OF EXTERNAL OPERATION (SURGIC 09/29/2019 SALBADOR PAULA MD, Ot E11.622 TYPE 2 DIABETES MELLITUS WITH OTHER SKIN 09/29/2019 SALBADOR PAULA MD Ot L98.492 NON-PRS CHRONIC ULCER OF SKIN OF SITES W 09/29/2019 SALBADOR PAULA MD Ot T81.31XA DISRUPTION OF EXTERNAL OPERATION (SURGIC 09/29/2019 SALBADOR PAULA MD, Ot E11.622 TYPE 2 DIABETES MELLITUS WITH OTHER SKIN 09/29/2019 SALBADOR PAULA MD Ot L98.492 NON-PRS CHRONIC ULCER OF SKIN OF SITES W 09/29/2019 SALBADOR PAULA MD Ot T81.31XA DISRUPTION OF EXTERNAL OPERATION (SURGIC 09/29/2019 SALBADOR PAULA MD Ot E11.622 TYPE 2 DIABETES MELLITUS WITH OTHER SKIN 09/29/2019 SALBADOR PAULA MD Ot L98.492 NON-PRS CHRONIC ULCER OF SKIN OF SITES W 09/29/2019 SALBADOR PAULA MD Ot T81.31XA DISRUPTION OF EXTERNAL OPERATION (SURGIC 09/29/2019 SALBADOR PAULA MD Ot E11.622 TYPE 2 DIABETES MELLITUS WITH OTHER SKIN 09/29/2019 SALBADOR PAULA MD Ot L98.492 NON-PRS CHRONIC ULCER OF SKIN OF SITES W 09/29/2019 SALBADOR PAULA MD Ot T81.31XA DISRUPTION OF EXTERNAL OPERATION (SURGIC 09/29/2019 SALBADOR PAULA MD Ot E11.622 TYPE 2 DIABETES MELLITUS WITH OTHER SKIN 09/29/2019 SALBADOR PAULA MD Ot L98.492 NON-PRS CHRONIC ULCER OF SKIN OF SITES W 09/29/2019 SALBADOR PAULA MD Ot T81.31XA DISRUPTION OF EXTERNAL OPERATION (SURGIC 09/29/2019 SHELBY JULES DO Ot N83.0 1 FOLLICULAR CYST OF RIGHT OVARY 09/29/2019 SHELBY JULES DO Ot N83.0 2 FOLLICULAR CYST OF LEFT OVARY 09/29/2019 SALBADOR PAULA MD, Ot E11.622 TYPE 2 DIABETES MELLITUS WITH OTHER SKIN 09/29/2019 SALBADOR PAULA MD, Ot L98.492 NON-PRS CHRONIC ULCER OF SKIN OF SITES W 09/29/2019 SALBADOR PAULA MD, Ot T81.31XA DISRUPTION OF EXTERNAL OPERATION (SURGIC 09/29/2019 SALBADOR PAULA MD, Ot E11.622 TYPE 2 DIABETES MELLITUS WITH OTHER SKIN 09/29/2019 SALBADOR PAULA MD, Ot L98.492 NON-PRS CHRONIC ULCER OF SKIN OF SITES W 09/29/2019 SALBADOR PAULA MD, Ot T81.31XA DISRUPTION OF EXTERNAL OPERATION (SURGIC 09/29/2019 SALBADOR PAULA MD, Ot E11.622 TYPE 2 DIABETES MELLITUS WITH OTHER SKIN 09/29/2019 SALBADOR PAULA MD, Ot L98.492 NON-PRS CHRONIC ULCER OF SKIN OF SITES W 09/29/2019 SALBADOR PAULA MD, Ot T81.31XA DISRUPTION OF EXTERNAL OPERATION (SURGIC 09/29/2019 SALBADOR PAULA MD Ot E11.622 TYPE 2 DIABETES MELLITUS WITH OTHER SKIN 09/29/2019 ASLBADOR PAULA MD Ot L98.492 NON-PRS CHRONIC ULCER OF SKIN OF SITES W 09/29/2019 SALBADOR PAULA MD Ot T81.31XA DISRUPTION OF EXTERNAL OPERATION (SURGIC 09/29/2019 SALBADOR PAULA MD, Ot E11.622 TYPE 2 DIABETES MELLITUS WITH OTHER SKIN 09/29/2019 SALBADOR PAULA MD, Ot L98.492 NON-PRS CHRONIC ULCER OF SKIN OF SITES W 09/29/2019 SALBADOR PAULA MD Ot T81.31XA DISRUPTION OF EXTERNAL OPERATION (SURGIC 09/29/2019 CHERYL MIRAMONTES DO Ot T18.2XXA FOREIGN BODY IN STOMACH, INITIAL ENCOUNT 10/03/2019 GUILLERMO RASHID MD, Ot T18.9XXD FOREIGN BODY OF ALIMENTARY TRACT, PART U 10/03/2019 GUILLERMO RASHID MD, Ot Z97.5 PRESENCE OF (INTRAUTERINE) CONTRACEPTIVE 10/07/2019 MELANIE SURESH MD, Ot L98.492 NON- PRS CHRONIC ULCER OF SKIN OF SITES W 10/07/2019 MELANIE SURESH MD, Ot T81.33XA DISRUPTION OF TRAUMATIC INJURY WOUND REP 10/07/2019 MELANIE SURESH MD Ot X78.8XXD INTENTIONAL SELF-HARM BY OTHER SHARP OBJ 10/10/2019 MELANIE SURESH MD, Ot L98.492 NON- PRS CHRONIC ULCER OF SKIN OF SITES W 10/10/2019 MELANIE SURESH MD, Ot T81.33XA DISRUPTION OF TRAUMATIC INJURY WOUND REP 10/10/2019 MELANIE SURESH MD Ot X78.8XXD INTENTIONAL SELF-HARM BY OTHER SHARP OBJ 10/13/2019 MELANIE SURESH MD Ot L29.9 PRURITUS, UNSPECIFIED 10/13/2019 MELANIE SURESH MD Ot L53.8 OTHER SPECIFIED ERYTHEMATOUS CONDITIONS 10/13/2019 MELANIE SURESH MD, Ot L98.492 NON- PRS CHRONIC ULCER OF SKIN OF SITES W 10/13/2019 MELANIE SURESH MD, Ot T81.33XA DISRUPTION OF TRAUMATIC INJURY WOUND REP 10/13/2019 MELANIE SURESH MD Ot X78.8XXD INTENTIONAL SELF-HARM BY OTHER SHARP OBJ 10/19/2019 MELANIE SURESH MD, Ot L29.9 PRURITUS, UNSPECIFIED 10/19/2019 MELANIE SURESH MD Ot L53.8 OTHER SPECIFIED ERYTHEMATOUS CONDITIONS 10/19/2019 MELANIE SURESH MD, Ot L98.491 NON- PRS CHRONIC ULCER SKIN/ SITES LIMITE 10/19/2019 MELANIE SURESH MD, Ot T81.33XA DISRUPTION OF TRAUMATIC INJURY WOUND REP 10/19/2019 MELANIE SURESH MD Ot X78.8XXD INTENTIONAL SELF-HARM BY OTHER SHARP OBJ 10/21/2019 GUILLERMO RASHID MD Ot T18.9XXD FOREIGN BODY OF ALIMENTARY TRACT, PART U 10/21/2019 GUILLERMO RASHID MD Ot Z97.5 PRESENCE OF (INTRAUTERINE) CONTRACEPTIVE 10/28/2019 MELANIE SURESH MD, Ot L98.492 NON- PRS CHRONIC ULCER OF SKIN OF SITES W 10/28/2019 MELANIE SURESH MD, Ot T81.33XA DISRUPTION OF TRAUMATIC INJURY WOUND REP 10/28/2019 MELANIE SURESH MD Ot X78.8XXD INTENTIONAL SELF-HARM BY OTHER SHARP OBJ 11/08/2019 MELANIE SURESH MD Ot L29.9 PRURITUS, UNSPECIFIED 11/08/2019 MELANIE SURESH MD Ot L53.8 OTHER SPECIFIED ERYTHEMATOUS CONDITIONS 11/08/2019 MELANIE SURESH MD, Ot L98.492 NON- PRS CHRONIC ULCER OF SKIN OF SITES W 11/08/2019 MELANIE SURESH MD, Ot T81.33XA DISRUPTION OF TRAUMATIC INJURY WOUND REP 11/08/2019 MELANIE SURESH MD, Ot X78.8XXD INTENTIONAL SELF-HARM BY OTHER SHARP OBJ 11/15/2019 MELANIE SURESH MD, Ot L29.9 PRURITUS, UNSPECIFIED 11/15/2019 MELANIE SURESH MD, Ot L53.8 OTHER SPECIFIED ERYTHEMATOUS CONDITIONS 11/15/2019 MELANIE SURESH MD, Ot L98.491 NON- PRS CHRONIC ULCER SKIN/ SITES LIMITE 11/15/2019 MELANIE SURESH MD, Ot T81.33XA DISRUPTION OF TRAUMATIC INJURY WOUND REP 11/15/2019 MELANIE SURESH MD, Ot X78.8XXD INTENTIONAL SELF-HARM BY OTHER SHARP OBJ Procedures Code Description Performed By Per jose On [id number] In sertion of Infusion Dev into Sup Vena Cava, Perc Approach 11/24/2017 [id number] [facility] [place] Other Device in Trunk Subcu/Fascia, [employer] Executive Approach 12/2017 [id number] Ex tirpation of Matter from Peritoneal Cavity, Open Approach 0 10/16/2018 [id number] Ex cision of Small Intestine, Open Approach 11/05/2018 [id number] Ex tirpation of Matter from Small Intestine, Open Approach [id number] Re lease Small Intestine, Open Approach 11/05/2018 Results Test Result Range URINE - 08/29/15 15:15 SPECIFIC GRAVITY < 1.005 URINE NEGATIVE NEGATIVE ETHANOL, SERUM - 10/22/15 23:50 ETHANOL, SERUM < 5 mg/dL CBC Diff reflex to Manual Diff - 6 00:00 WBC 10.7 1000/uL 3.7-11.1 RBC 4.26 mil/uL 4.11-5.63 HEMOGLOBIN 12.3 g/dl 11.9-16.3 HEMATOCRIT 36.7 % 37.0-47.7 PLATELET COUNT 331 1000/uL 150-400 MCV 86 fl 81-97 MCH 28.9 pg 26.7-33.1 MCHC 33.5 g/dL 31.1-35.3 RDW 13.0 % 12.3-15.9 MPV 7.7 fl ABSOLUTE NEUTROPHIL 8.3 1000/uL 1.7-7.1 ABSOLUTE LYMPHOCYTE 1.8 1000/uL 1.1-3.7 ABSOLUTE MONOCYTE 0.5 1000/uL 0.3-0.9 ABSOLUTE EOSINOPHIL 0.0 1000/uL 0.0-0.5 ABSOLUTE BASOPHIL 0.0 1000/uL 0.0-0.1 NEUTROPHILS 78 % LYMPHOCYTE 17 % MONOCYTE 5 % EOSINOPHIL 0 % BASOPHIL 0 % VERIFY DIFF Auto diff THYROID STIMULATING HORMONE 3G - 6 00:00 THYROID STIMULATING HORMONE 3G 9.14 uIU/mL 0.34-5.60 URINALYSIS RFLX MICROSCOPIC UA - 6 00:00 COLLECTION TYPE VOIDED APPEARANCE Sl Cloudy CLEAR COLOR Straw PH, URINE 7.0 5.0-8.0 SPECIFIC GRAVITY, URINE <1.005 <1.030 GLUCOSE, URINE Negative mg/dL Negative BLOOD, URINE Negative Negative KETONES, URINE Negative mg/dL Negative PROTEIN, UA QUALITATIVE Negative mg/dL N egative BILIRUBIN, URINE Negative Negative UROBILINOGEN, URINE <2.0 mg/dL <2.0 LEUKOCYTE ESTERASE, URINE Negative Nega tive NITRITE, URINE Negative Negative WBC, URINE 0-2 /hpf 0-5 RBC, URINE 0-2 /hpf 0-5 BACTERIA, URINE 3+ /hpf None seen SQUAMOUS CELLS >30 /lpf 0-5 ACORBIC ACID, URINE 20 mg/dL Negative TSH/REFLEX FT4 - 10/25/15 09:10 THYROID STIMULATING HORMONE 3G 1.85 uIU/mL 0.34-5.60 HOLD SPECIMENS - 10/29/15 16:29 HOLD SPECIMENS SAVE CBC Diff reflex to Manual Diff - 6 16:29 WBC 11.6 1000/uL 3.7-11.1 RBC 4.21 mil/uL 4.11-5.63 HEMOGLOBIN 11.9 g/dl 11.9-16.3 HEMATOCRIT 35.8 % 37.0-47.7 PLATELET COUNT 365 1000/uL 150-400 MCV 85 fl 81-97 MCH 28.4 pg 26.7-33.1 MCHC 33.3 g/dL 31.1-35.3 RDW 12.7 % 12.3-15.9 MPV 7.4 fl ABSOLUTE NEUTROPHIL 8.7 1000/uL 1.7-7.1 ABSOLUTE LYMPHOCYTE 2.2 1000/uL 1.1-3.7 ABSOLUTE MONOCYTE 0.6 1000/uL 0.3-0.9 ABSOLUTE EOSINOPHIL 0.0 1000/uL 0.0-0.5 ABSOLUTE BASOPHIL 0.0 1000/uL 0.0-0.1 NEUTROPHILS 75 % LYMPHOCYTE 19 % MONOCYTE 6 % EOSINOPHIL 0 % BASOPHIL 0 % VERIFY DIFF Auto diff TROPONIN I - 11/03/15 22:22 TROPONIN I < 0.010 ng/mL <0.030 ETHANOL, SERUM - 12/05/15 10:15 ETHANOL, SERUM < 5 mg/dL HOLD SPECIMENS - 12/05/15 10:15 HOLD SPECIMENS SAVE CBC Diff reflex to Manual Diff - 6 10:19 WBC 9.8 1000/uL 3.7-11.1 RBC 4.50 mil/uL 4.11-5.63 HEMOGLOBIN 12.1 g/dl 11.9-16.3 HEMATOCRIT 36.9 % 37.0-47.7 PLATELET COUNT 323 1000/uL 150-400 MCV 82 fl 81-97 MCH 27.0 pg 26.7-33.1 MCHC 32.9 g/dL 31.1-35.3 RDW 13.4 % 12.3-15.9 MPV 7.3 fl ABSOLUTE NEUTROPHIL 8.0 1000/uL 1.7-7.1 ABSOLUTE LYMPHOCYTE 1.4 1000/uL 1.1-3.7 ABSOLUTE MONOCYTE 0.4 1000/uL 0.3-0.9 ABSOLUTE EOSINOPHIL 0.0 1000/uL 0.0-0.5 ABSOLUTE BASOPHIL 0.0 1000/uL 0.0-0.1 NEUTROPHILS 82 % LYMPHOCYTE 14 % MONOCYTE 4 % EOSINOPHIL 0 % BASOPHIL 0 % VERIFY DIFF Auto diff DRUG SCREEN, URINE - 12/05/15 20:00 AMPHETAMINE SCREEN,URINE NONE DETECTED NONE DETECT BARBITURATES SCREEN,URINE NONE DETECTED NONE DETECT BENZODIAZEPINES SCREEN,URINE NONE DETECTED NONE DETECT CANNABINOID SCREEN, URINE NONE DETECTED NONE DETECT COCAINE SCREEN, URINE NONE DETECTED NON E DETECT ECSTASY (MDMA) SCRN UR NONE DETECTED NO NE DETECT OPIATE SCREEN, URINE NONE DETECTED NONE DETECT CBC WITH AUTO DIFFERENTIAL - 08/16/17 06 :05 BASOPHILS RELATIVE PERCENT 0.1 % 0.0 -2.5 EOSINOPHILS RELATIVE PERCENT 0.0 % < =5.0 HEMATOCRIT 39.2 % 34.9-44.5 HEMOGLOBIN 13.6 g/dL 12.0-15.5 LYMPHOCYTES RELATIVE PERCENT 5.5 % 2 2.0-49.0 MEAN CORPUSCULAR HEMOGLOBIN 30.0 pg 26 .0-34.0 MEAN CORPUSCULAR HEMOGLOBIN CONC 34.7 g/dL 31.0-37.0 MEAN CORPUSCULAR VOLUME 86.5 fL 81.6-9 8.3 MONOCYTES RELATIVE PERCENT 5.8 % 2.0 -9.0 NEUTROPHILS RELATIVE PERCENT 88.6 % 4 0.0-75.0 NUCLEATED RED BLOOD CELLS 0 /100 <=0 PLATELET COUNT 225 10E9/L 150-450 RED BLOOD CELL COUNT 4.53 10E12/L 3.90-5 .03 RED CELL DISTRIBUTION WIDTH 13.2 % 11 .9-15.5 [id number] 15.3 10E9/L 3.5-10.5 3875077 0.84 10E9/L 0.90-2.90 7756020 0.89 10E9/L 0.30-0.90 8657972 0.00 10E9/L 0.05-0.50 6277104 13.59 10E9/L 1.70-7.00 [id number] 0.01 10E9/L 0.00-0.30 2122601 0 % HCG, SERUM, QUALITATIVE - 08/16/17 06:05 HCG SERUM(QUAL) Negative mIU/mL Negative FLUID CULTURE - 08/16/17 09:38 [id number] No organisms seen [id number] No Growth ANAEROBIC CULTURE - 08/16/17 09:38 [id number] No Growth CBC WITHOUT DIFFERENTIAL - 08/17/17 06:3 7 HEMATOCRIT 36.4 % 34.9-44.5 HEMOGLOBIN 11.8 g/dL 12.0-15.5 MEAN CORPUSCULAR HEMOGLOBIN 29.5 pg 26 .0-34.0 MEAN CORPUSCULAR HEMOGLOBIN CONC 32.4 g/dL 31.0-37.0 MEAN CORPUSCULAR VOLUME 91.0 fL 81.6-9 8.3 PLATELET COUNT 306 10E9/L 150-450 RED BLOOD CELL COUNT 4.00 10E12/L 3.90-5 .03 RED CELL DISTRIBUTION WIDTH 13.9 % 11 .9-15.5 [id number] 12.5 10E9/L 3.5-10.5 COMPREHENSIVE METABOLIC PANEL - 08/17/17 06:37 ALBUMIN 3.3 g/dL 3.4-4.8 ALKALINE PHOSPHATASE 60 U/L 29-122 ALT 14 U/L 10-46 ANION GAP 10 AST < U/L 16-37 BILIRUBIN,TOTAL 0.7 mg/dL 0.0-1.2 BUN BLOOD 9 mg/dL 6-20 CALCIUM 8.0 mg/dL 8.7-10.5 CHLORIDE 103 mmol/L 99-111 CO2 26 mmol/L 20-36 CREATININE 0.59 mg/dL 0.40-1.10 EGFR > mL/min >59 GLUCOSE 123 mg/dL 74-106 POTASSIUM 3.8 mmol/L 3.6-4.9 PROTEIN TOTAL 5.3 g/dL 6.4-8.3 SODIUM 139 mmol/L 136-145 CBC WITHOUT DIFFERENTIAL - 08/18/17 07:0 4 HEMATOCRIT 28.7 % 34.9-44.5 HEMOGLOBIN 8.9 g/dL 12.0-15.5 MEAN CORPUSCULAR HEMOGLOBIN 29.7 pg 26 .0-34.0 MEAN CORPUSCULAR HEMOGLOBIN CONC 31.0 g/dL 31.0-37.0 MEAN CORPUSCULAR VOLUME 95.7 fL 81.6-9 8.3 PLATELET COUNT 261 10E9/L 150-450 RED BLOOD CELL COUNT 3.00 10E12/L 3.90-5 .03 RED CELL DISTRIBUTION WIDTH 13.9 % 11 .9-15.5 [id number] 10.5 10E9/L 3.5-10.5 COMPREHENSIVE METABOLIC PANEL - 08/18/17 07:04 ALBUMIN 3.1 g/dL 3.4-4.8 ALKALINE PHOSPHATASE 67 U/L 29-122 ALT 12 U/L 10-46 ANION GAP 9 AST 15 U/L 16-37 BILIRUBIN,TOTAL 0.5 mg/dL 0.0-1.2 BUN BLOOD 7 mg/dL 6-20 CALCIUM 7.5 mg/dL 8.7-10.5 CHLORIDE 107 mmol/L 99-111 CO2 26 mmol/L 20-36 CREATININE 0.49 mg/dL 0.40-1.10 EGFR > mL/min >59 GLUCOSE 95 mg/dL 74-106 POTASSIUM 3.7 mmol/L 3.6-4.9 PROTEIN TOTAL 5.2 g/dL 6.4-8.3 SODIUM 142 mmol/L 136-145 CBC WITHOUT DIFFERENTIAL - 08/19/17 06:1 8 HEMATOCRIT 27.4 % 34.9-44.5 HEMOGLOBIN 8.6 g/dL 12.0-15.5 MEAN CORPUSCULAR HEMOGLOBIN 29.7 pg 26 .0-34.0 MEAN CORPUSCULAR HEMOGLOBIN CONC 31.4 g/dL 31.0-37.0 MEAN CORPUSCULAR VOLUME 94.5 fL 81.6-9 8.3 PLATELET COUNT 237 10E9/L 150-450 RED BLOOD CELL COUNT 2.90 10E12/L 3.90-5 .03 RED CELL DISTRIBUTION WIDTH 13.6 % 11 .9-15.5 [id number] 6.0 10E9/L 3.5-10.5 COMPREHENSIVE METABOLIC PANEL - 08/19/17 06:18 ALBUMIN 3.2 g/dL 3.4-4.8 ALKALINE PHOSPHATASE 66 U/L 29-122 ALT 12 U/L 10-46 ANION GAP 10 AST 14 U/L 16-37 BILIRUBIN,TOTAL 0.5 mg/dL 0.0-1.2 BUN BLOOD 6 mg/dL 6-20 CALCIUM 7.7 mg/dL 8.7-10.5 CHLORIDE 107 mmol/L 99-111 CO2 27 mmol/L 20-36 CREATININE 0.44 mg/dL 0.40-1.10 EGFR > mL/min >59 GLUCOSE 95 mg/dL 74-106 POTASSIUM 3.1 mmol/L 3.6-4.9 PROTEIN TOTAL 5.3 g/dL 6.4-8.3 SODIUM 144 mmol/L 136-145 CBC WITHOUT DIFFERENTIAL - 08/20/17 07:0 0 HEMATOCRIT 21.0 % 34.9-44.5 HEMOGLOBIN 6.8 g/dL 12.0-15.5 MEAN CORPUSCULAR HEMOGLOBIN 29.8 pg 26 .0-34.0 MEAN CORPUSCULAR HEMOGLOBIN CONC 32.4 g/dL 31.0-37.0 MEAN CORPUSCULAR VOLUME 92.1 fL 81.6-9 8.3 PLATELET COUNT 260 10E9/L 150-450 RED BLOOD CELL COUNT 2.28 10E12/L 3.90-5 .03 RED CELL DISTRIBUTION WIDTH 13.4 % 11 .9-15.5 [id number] 3.4 10E9/L 3.5-10.5 COMPREHENSIVE METABOLIC PANEL - 08/20/17 07:00 ALBUMIN 3.0 g/dL 3.4-4.8 ALKALINE PHOSPHATASE 64 U/L 29-122 ALT 12 U/L 10-46 ANION GAP 8 AST 15 U/L 16-37 BILIRUBIN,TOTAL 0.5 mg/dL 0.0-1.2 BUN BLOOD < mg/dL 6-20 CALCIUM 7.2 mg/dL 8.7-10.5 CHLORIDE 101 mmol/L 99-111 CO2 29 mmol/L 20-36 CREATININE 0.34 mg/dL 0.40-1.10 EGFR > mL/min >59 GLUCOSE 80 mg/dL 74-106 POTASSIUM 3.1 mmol/L 3.6-4.9 PROTEIN TOTAL 5.1 g/dL 6.4-8.3 SODIUM 138 mmol/L 136-145 BLOOD TYPE VERIFICATION - 08/20/17 07:00 ABORH A POS Packed Cells Leukoreduced - 08/20/17 08: 08 Packed Cells Leukoreduced Unit Type Unit Product Name Unit Dispense Status Unit Dispense Status Unit Barcoded Product Code Unit Barcoded Blood Type CBC WITHOUT DIFFERENTIAL - 08/21/17 06:3 3 HEMATOCRIT 27.5 % 34.9-44.5 HEMOGLOBIN 8.7 g/dL 12.0-15.5 MEAN CORPUSCULAR HEMOGLOBIN 29.1 pg 26 .0-34.0 MEAN CORPUSCULAR HEMOGLOBIN CONC 31.6 g/dL 31.0-37.0 MEAN CORPUSCULAR VOLUME 92.0 fL 81.6-9 8.3 PLATELET COUNT 257 10E9/L 150-450 RED BLOOD CELL COUNT 2.99 10E12/L 3.90-5 .03 RED CELL DISTRIBUTION WIDTH 14.4 % 11 .9-15.5 [id number] 3.4 10E9/L 3.5-10.5 COMPREHENSIVE METABOLIC PANEL - 08/21/17 06:33 ALBUMIN 3.2 g/dL 3.4-4.8 ALKALINE PHOSPHATASE 75 U/L 29-122 ALT 12 U/L 10-46 ANION GAP 8 AST 13 U/L 16-37 BILIRUBIN,TOTAL 0.7 mg/dL 0.0-1.2 BUN BLOOD < mg/dL 6-20 CALCIUM 8.2 mg/dL 8.7-10.5 CHLORIDE 106 mmol/L 99-111 CO2 26 mmol/L 20-36 CREATININE 0.37 mg/dL 0.40-1.10 EGFR > mL/min >59 GLUCOSE 89 mg/dL 74-106 POTASSIUM 3.6 mmol/L 3.6-4.9 PROTEIN TOTAL 5.2 g/dL 6.4-8.3 SODIUM 140 mmol/L 136-145 CBC WITHOUT DIFFERENTIAL - 08/22/17 07:0 8 HEMATOCRIT 28.9 % 34.9-44.5 HEMOGLOBIN 9.2 g/dL 12.0-15.5 MEAN CORPUSCULAR HEMOGLOBIN 28.8 pg 26 .0-34.0 MEAN CORPUSCULAR HEMOGLOBIN CONC 31.8 g/dL 31.0-37.0 MEAN CORPUSCULAR VOLUME 90.6 fL 81.6-9 8.3 PLATELET COUNT 329 10E9/L 150-450 RED BLOOD CELL COUNT 3.19 10E12/L 3.90-5 .03 RED CELL DISTRIBUTION WIDTH 13.9 % 11 .9-15.5 [id number] 5.2 10E9/L 3.5-10.5 MAGNESIUM - 08/22/17 07:08 MAGNESIUM 1.8 mg/dL 1.6-2.3 PHOSPHORUS - 08/22/17 07:08 PHOSPHORUS 4.0 mg/dL 2.7-4.5 COMPREHENSIVE METABOLIC PANEL - 08/22/17 07:08 ALBUMIN 3.4 g/dL 3.4-4.8 ALKALINE PHOSPHATASE 104 U/L 29-122 ALT 17 U/L 10-46 ANION GAP 7 AST 19 U/L 16-37 BILIRUBIN,TOTAL 0.6 mg/dL 0.0-1.2 BUN BLOOD < mg/dL 6-20 CALCIUM 8.6 mg/dL 8.7-10.5 CHLORIDE 105 mmol/L 99-111 CO2 30 mmol/L 20-36 CREATININE 0.32 mg/dL 0.40-1.10 EGFR > mL/min >59 GLUCOSE 116 mg/dL 74-106 POTASSIUM 3.9 mmol/L 3.6-4.9 PROTEIN TOTAL 5.7 g/dL 6.4-8.3 SODIUM 142 mmol/L 136-145 CBC WITHOUT DIFFERENTIAL - 08/23/17 07:1 5 HEMATOCRIT 25.5 % 34.9-44.5 HEMOGLOBIN 8.1 g/dL 12.0-15.5 MEAN CORPUSCULAR HEMOGLOBIN 29.3 pg 26 .0-34.0 MEAN CORPUSCULAR HEMOGLOBIN CONC 31.8 g/dL 31.0-37.0 MEAN CORPUSCULAR VOLUME 92.4 fL 81.6-9 8.3 PLATELET COUNT 282 10E9/L 150-450 RED BLOOD CELL COUNT 2.76 10E12/L 3.90-5 .03 RED CELL DISTRIBUTION WIDTH 14.0 % 11 .9-15.5 [id number] 3.6 10E9/L 3.5-10.5 COMPREHENSIVE METABOLIC PANEL - 08/23/17 07:15 ALBUMIN 3.0 g/dL 3.4-4.8 ALKALINE PHOSPHATASE 117 U/L 29-122 ALT 15 U/L 10-46 ANION GAP 5 AST 16 U/L 16-37 BILIRUBIN,TOTAL 0.4 mg/dL 0.0-1.2 BUN BLOOD 5 mg/dL 6-20 CALCIUM 8.2 mg/dL 8.7-10.5 CHLORIDE 105 mmol/L 99-111 CO2 32 mmol/L 20-36 CREATININE 0.33 mg/dL 0.40-1.10 EGFR > mL/min >59 GLUCOSE 105 mg/dL 74-106 POTASSIUM 3.9 mmol/L 3.6-4.9 PROTEIN TOTAL 5.1 g/dL 6.4-8.3 SODIUM 142 mmol/L 136-145 CBC WITHOUT DIFFERENTIAL - 08/24/17 08:1 4 HEMATOCRIT 30.5 % 34.9-44.5 HEMOGLOBIN 9.5 g/dL 12.0-15.5 MEAN CORPUSCULAR HEMOGLOBIN 29.1 pg 26 .0-34.0 MEAN CORPUSCULAR HEMOGLOBIN CONC 31.1 g/dL 31.0-37.0 MEAN CORPUSCULAR VOLUME 93.6 fL 81.6-9 8.3 PLATELET COUNT 343 10E9/L 150-450 RED BLOOD CELL COUNT 3.26 10E12/L 3.90-5 .03 RED CELL DISTRIBUTION WIDTH 14.1 % 11 .9-15.5 [id number] 4.7 10E9/L 3.5-10.5 COMPREHENSIVE METABOLIC PANEL - 08/24/17 08:14 ALBUMIN 3.6 g/dL 3.4-4.8 ALKALINE PHOSPHATASE 130 U/L 29-122 ALT 21 U/L 10-46 ANION GAP 8 AST 20 U/L 16-37 BILIRUBIN,TOTAL 0.3 mg/dL 0.0-1.2 BUN BLOOD 6 mg/dL 6-20 CALCIUM 8.7 mg/dL 8.7-10.5 CHLORIDE 105 mmol/L 99-111 CO2 28 mmol/L 20-36 CREATININE 0.34 mg/dL 0.40-1.10 EGFR > mL/min >59 GLUCOSE 103 mg/dL 74-106 POTASSIUM 4.3 mmol/L 3.6-4.9 PROTEIN TOTAL 6.0 g/dL 6.4-8.3 SODIUM 141 mmol/L 136-145 CBC WITHOUT DIFFERENTIAL - 08/25/17 06:3 1 HEMATOCRIT 30.3 % 34.9-44.5 HEMOGLOBIN 9.7 g/dL 12.0-15.5 MEAN CORPUSCULAR HEMOGLOBIN 29.0 pg 26 .0-34.0 MEAN CORPUSCULAR HEMOGLOBIN CONC 32.0 g/dL 31.0-37.0 MEAN CORPUSCULAR VOLUME 90.7 fL 81.6-9 8.3 PLATELET COUNT 379 10E9/L 150-450 RED BLOOD CELL COUNT 3.34 10E12/L 3.90-5 .03 RED CELL DISTRIBUTION WIDTH 13.9 % 11 .9-15.5 [id number] 5.6 10E9/L 3.5-10.5 COMPREHENSIVE METABOLIC PANEL - 08/25/17 06:31 ALBUMIN 3.7 g/dL 3.4-4.8 ALKALINE PHOSPHATASE 130 U/L 29-122 ALT 24 U/L 10-46 ANION GAP 10 AST 20 U/L 16-37 BILIRUBIN,TOTAL 0.3 mg/dL 0.0-1.2 BUN BLOOD 5 mg/dL 6-20 CALCIUM 8.6 mg/dL 8.7-10.5 CHLORIDE 103 mmol/L 99-111 CO2 28 mmol/L 20-36 CREATININE 0.37 mg/dL 0.40-1.10 EGFR > mL/min >59 GLUCOSE 106 mg/dL 74-106 POTASSIUM 4.0 mmol/L 3.6-4.9 PROTEIN TOTAL 6.1 g/dL 6.4-8.3 SODIUM 141 mmol/L 136-145 CBC WITH AUTO DIFFERENTIAL - 10/10/17 21 :27 BASOPHILS RELATIVE PERCENT 0.0 % 0.0 -2.5 EOSINOPHILS RELATIVE PERCENT 0.0 % < =5.0 HEMATOCRIT 36.3 % 34.9-44.5 HEMOGLOBIN 12.0 g/dL 12.0-15.5 LYMPHOCYTES RELATIVE PERCENT 15.3 % 2 2.0-49.0 MEAN CORPUSCULAR HEMOGLOBIN 29.9 pg 26 .0-34.0 MEAN CORPUSCULAR HEMOGLOBIN CONC 33.1 g/dL 31.0-37.0 MEAN CORPUSCULAR VOLUME 90.3 fL 81.6-9 8.3 MONOCYTES RELATIVE PERCENT 8.2 % 2.0 -9.0 NEUTROPHILS RELATIVE PERCENT 76.5 % 4 0.0-75.0 NUCLEATED RED BLOOD CELLS 0 /100 <=0 PLATELET COUNT 226 10E9/L 150-450 RED BLOOD CELL COUNT 4.02 10E12/L 3.90-5 .03 RED CELL DISTRIBUTION WIDTH 13.4 % 11 .9-15.5 [id number] 8.7 10E9/L 3.5-10.5 3223856 1.33 10E9/L 0.90-2.90 5541535 0.71 10E9/L 0.30-0.90 9403816 0.00 10E9/L 0.05-0.50 6561404 6.65 10E9/L 1.70-7.00 6585819 0.00 10E9/L 0.00-0.30 2377337 0 % COMPREHENSIVE METABOLIC PANEL - 10/10/17 21:27 ALBUMIN 3.9 g/dL 3.4-4.8 ALKALINE PHOSPHATASE 77 U/L 29-122 ALT 30 U/L 10-46 ANION GAP 7 AST 29 U/L 16-37 BILIRUBIN,TOTAL 0.6 mg/dL 0.0-1.2 BUN BLOOD 6 mg/dL 6-20 CALCIUM 8.8 mg/dL 8.7-10.5 CHLORIDE 104 mmol/L 99-111 CO2 27 mmol/L 20-36 CREATININE 0.38 mg/dL 0.40-1.10 EGFR > mL/min >59 GLUCOSE 96 mg/dL 74-106 POTASSIUM 4.1 mmol/L 3.6-4.9 PROTEIN TOTAL 6.2 g/dL 6.4-8.3 SODIUM 138 mmol/L 136-145 COMPREHENSIVE METABOLIC PANEL - 11/06/17 13:11 ALBUMIN 4.0 g/dL 3.4-4.8 ALKALINE PHOSPHATASE 87 U/L 29-122 ALT 24 U/L 10-46 ANION GAP 9 AST 21 U/L 16-37 BILIRUBIN,TOTAL 0.7 mg/dL 0.0-1.2 BUN BLOOD 7 mg/dL 6-20 CALCIUM 8.6 mg/dL 8.7-10.5 CHLORIDE 104 mmol/L 99-111 CO2 27 mmol/L 20-36 CREATININE 0.46 mg/dL 0.40-1.10 EGFR > mL/min >59 GLUCOSE 83 mg/dL 74-106 POTASSIUM 4.2 mmol/L 3.6-4.9 PROTEIN TOTAL 6.3 g/dL 6.4-8.3 SODIUM 140 mmol/L 136-145 CBC WITH AUTO DIFFERENTIAL - 11/06/17 13 :12 BASOPHILS RELATIVE PERCENT 0.0 % 0.0 -2.5 EOSINOPHILS RELATIVE PERCENT 0.0 % < =5.0 HEMATOCRIT 35.9 % 34.9-44.5 HEMOGLOBIN 11.8 g/dL 12.0-15.5 LYMPHOCYTES RELATIVE PERCENT 17.6 % 2 2.0-49.0 MEAN CORPUSCULAR HEMOGLOBIN 30.3 pg 26 .0-34.0 MEAN CORPUSCULAR HEMOGLOBIN CONC 32.9 g/dL 31.0-37.0 MEAN CORPUSCULAR VOLUME 92.1 fL 81.6-9 8.3 MONOCYTES RELATIVE PERCENT 10.3 % 2.0 -9.0 NEUTROPHILS RELATIVE PERCENT 72.1 % 4 0.0-75.0 NUCLEATED RED BLOOD CELLS 0 /100 <=0 PLATELET COUNT 256 10E9/L 150-450 RED BLOOD CELL COUNT 3.90 10E12/L 3.90-5 .03 RED CELL DISTRIBUTION WIDTH 13.5 % 11 .9-15.5 7081424 6.9 10E9/L 3.5-10.5 4327498 1.22 10E9/L 0.90-2.90 5906478 0.71 10E9/L 0.30-0.90 0419827 0.00 10E9/L 0.05-0.50 1987609 4.99 10E9/L 1.70-7.00 4522218 0.00 10E9/L 0.00-0.30 6730714 0 % EXTRA LIGHT BLUE TOP - 11/06/17 13:12 1324 Extra tube in lab EXTRA LIGHT GREEN TOP - 11/06/17 13:12 1324 Extra tube in lab TYPE AND SCREEN - 11/06/17 15:55 ABORH A POS ANTIBODY SCREEN NEG CBC WITH AUTO DIFFERENTIAL - 11/08/17 13 :44 BASOPHILS RELATIVE PERCENT 0.0 % 0.0 -2.5 EOSINOPHILS RELATIVE PERCENT 0.2 % < =5.0 HEMATOCRIT 30.8 % 34.9-44.5 HEMOGLOBIN 9.6 g/dL 12.0-15.5 LYMPHOCYTES RELATIVE PERCENT 23.9 % 2 2.0-49.0 MEAN CORPUSCULAR HEMOGLOBIN 29.9 pg 26 .0-34.0 MEAN CORPUSCULAR HEMOGLOBIN CONC 31.2 g/dL 31.0-37.0 MEAN CORPUSCULAR VOLUME 96.0 fL 81.6-9 8.3 MONOCYTES RELATIVE PERCENT 7.7 % 2.0 -9.0 NEUTROPHILS RELATIVE PERCENT 68.2 % 4 0.0-75.0 NUCLEATED RED BLOOD CELLS 0 /100 <=0 PLATELET COUNT 242 10E9/L 150-450 RED BLOOD CELL COUNT 3.21 10E12/L 3.90-5 .03 RED CELL DISTRIBUTION WIDTH 13.4 % 11 .9-15.5 5871789 5.6 10E9/L 3.5-10.5 7381071 1.34 10E9/L 0.90-2.90 8585018 0.43 10E9/L 0.30-0.90 1359314 0.01 10E9/L 0.05-0.50 4459217 3.83 10E9/L 1.70-7.00 4089062 0.00 10E9/L 0.00-0.30 8054920 0 % COMPREHENSIVE METABOLIC PANEL - 11/08/17 13:44 ALBUMIN 3.3 g/dL 3.4-4.8 ALKALINE PHOSPHATASE 73 U/L 29-122 ALT 15 U/L 10-46 ANION GAP 6 AST 17 U/L 16-37 BILIRUBIN,TOTAL < mg/dL 0.0-1.2 BUN BLOOD 6 mg/dL 6-20 CALCIUM 7.7 mg/dL 8.7-10.5 CHLORIDE 111 mmol/L 99-111 CO2 25 mmol/L 20-36 CREATININE 0.32 mg/dL 0.40-1.10 EGFR > mL/min >59 GLUCOSE 98 mg/dL 74-106 POTASSIUM 3.9 mmol/L 3.6-4.9 PROTEIN TOTAL 5.2 g/dL 6.4-8.3 SODIUM 142 mmol/L 136-145 CBC WITH AUTO DIFFERENTIAL - 11/18/17 14 :01 BASOPHILS RELATIVE PERCENT 0.1 % 0.0 -2.5 EOSINOPHILS RELATIVE PERCENT 0.0 % < =5.0 HEMATOCRIT 32.2 % 34.9-44.5 HEMOGLOBIN 10.7 g/dL 12.0-15.5 LYMPHOCYTES RELATIVE PERCENT 17.3 % 2 2.0-49.0 MEAN CORPUSCULAR HEMOGLOBIN 30.0 pg 26 .0-34.0 MEAN CORPUSCULAR HEMOGLOBIN CONC 33.2 g/dL 31.0-37.0 MEAN CORPUSCULAR VOLUME 90.2 fL 81.6-9 8.3 MONOCYTES RELATIVE PERCENT 11.0 % 2.0 -9.0 NEUTROPHILS RELATIVE PERCENT 71.6 % 4 0.0-75.0 NUCLEATED RED BLOOD CELLS 0 /100 <=0 PLATELET COUNT 340 10E9/L 150-450 RED BLOOD CELL COUNT 3.57 10E12/L 3.90-5 .03 RED CELL DISTRIBUTION WIDTH 12.9 % 11 .9-15.5 [id number] 8.2 10E9/L 3.5-10.5 7391699 1.42 10E9/L 0.90-2.90 6175621 0.90 10E9/L 0.30-0.90 2801456 0.00 10E9/L 0.05-0.50 8721332 5.88 10E9/L 1.70-7.00 6932455 0.01 10E9/L 0.00-0.30 3484035 0 % COMPREHENSIVE METABOLIC PANEL - 11/18/17 14:01 ALBUMIN 3.8 g/dL 3.4-4.8 ALKALINE PHOSPHATASE 71 U/L 29-122 ALT 19 U/L 10-46 ANION GAP 10 AST 16 U/L 16-37 BILIRUBIN,TOTAL < mg/dL 0.0-1.2 BUN BLOOD 10 mg/dL 6-20 CALCIUM 8.3 mg/dL 8.7-10.5 CHLORIDE 103 mmol/L 99-111 CO2 27 mmol/L 20-36 CREATININE 0.49 mg/dL 0.40-1.10 EGFR > mL/min >59 GLUCOSE 94 mg/dL 74-106 POTASSIUM 4.4 mmol/L 3.6-4.9 PROTEIN TOTAL 6.1 g/dL 6.4-8.3 SODIUM 140 mmol/L 136-145 LACTIC ACID, PLASMA - 11/18/17 14:01 LACTIC ACID 0.66 mmol/L 0.50-2.00 URINALYSIS, REFLEX CULTURE IF NEEDED - 0 11/18/17 15:30 APPEARANCE Clear BILIRUBIN UA Negative Negative COLOR Yellow GLUCOSE UA Negative Negative HEMOGLOBIN UA Negative Negative LEUKOCYTE ESTERASE UA Negative Negative NITRATE UA Negative Negative PH UA 5.0 5.0-8.0 PROTEIN UA Negative Negative RBC UA 0-3 /hpf 0-3 SPECIFIC GRAVITY UA 1.022 1.003-1.03 0 SQUAMOUS EPITHELIAL 2+ /hpf UROBILINOGEN UA 1.0 EU/dL 0.2 WBC UA 0-3 /hpf 0-3 [id number] Trace Negative [id number] 4 /lpf CBC WITH AUTO DIFFERENTIAL - 11/20/17 17 :49 BASOPHILS RELATIVE PERCENT 0.1 % 0.0 -2.5 EOSINOPHILS RELATIVE PERCENT 0.1 % < =5.0 HEMATOCRIT 35.0 % 34.9-44.5 HEMOGLOBIN 11.0 g/dL 12.0-15.5 LYMPHOCYTES RELATIVE PERCENT 21.5 % 2 2.0-49.0 MEAN CORPUSCULAR HEMOGLOBIN 29.1 pg 26 .0-34.0 MEAN CORPUSCULAR HEMOGLOBIN CONC 31.4 g/dL 31.0-37.0 MEAN CORPUSCULAR VOLUME 92.6 fL 81.6-9 8.3 MONOCYTES RELATIVE PERCENT 10.2 % 2.0 -9.0 NEUTROPHILS RELATIVE PERCENT 68.1 % 4 0.0-75.0 NUCLEATED RED BLOOD CELLS 0 /100 <=0 PLATELET COUNT 447 10E9/L 150-450 RED BLOOD CELL COUNT 3.78 10E12/L 3.90-5 .03 RED CELL DISTRIBUTION WIDTH 12.8 % 11 .9-15.5 2920055 7.3 10E9/L 3.5-10.5 7936590 1.56 10E9/L 0.90-2.90 3079976 0.74 10E9/L 0.30-0.90 6906684 0.01 10E9/L 0.05-0.50 4137466 4.94 10E9/L 1.70-7.00 5831724 0.01 10E9/L 0.00-0.30 9588054 0 % BASIC METABOLIC PANEL - 11/23/17 14:42 ANION GAP 11 BUN BLOOD 7 mg/dL 6-20 CALCIUM 8.0 mg/dL 8.7-10.5 CHLORIDE 111 mmol/L 99-111 CO2 20 mmol/L 20-36 CREATININE 0.30 mg/dL 0.40-1.10 EGFR > mL/min >59 GLUCOSE 65 mg/dL 74-106 POTASSIUM 3.7 mmol/L 3.6-4.9 SODIUM 142 mmol/L 136-145 CBC WITH AUTO DIFFERENTIAL - 11/24/17 06 :15 BASOPHILS RELATIVE PERCENT 0.0 % 0.0 -2.5 EOSINOPHILS RELATIVE PERCENT 0.0 % < =5.0 HEMATOCRIT 27.5 % 34.9-44.5 HEMOGLOBIN 8.9 g/dL 12.0-15.5 LYMPHOCYTES RELATIVE PERCENT 20.6 % 2 2.0-49.0 MEAN CORPUSCULAR HEMOGLOBIN 29.3 pg 26 .0-34.0 MEAN CORPUSCULAR HEMOGLOBIN CONC 32.4 g/dL 31.0-37.0 MEAN CORPUSCULAR VOLUME 90.5 fL 81.6-9 8.3 MONOCYTES RELATIVE PERCENT 11.1 % 2.0 -9.0 NEUTROPHILS RELATIVE PERCENT 68.3 % 4 0.0-75.0 NUCLEATED RED BLOOD CELLS 0 /100 <=0 PLATELET COUNT 366 10E9/L 150-450 RED BLOOD CELL COUNT 3.04 10E12/L 3.90-5 .03 RED CELL DISTRIBUTION WIDTH 12.6 % 11 .9-15.5 4577681 5.4 10E9/L 3.5-10.5 2807699 1.11 10E9/L 0.90-2.90 4901665 0.60 10E9/L 0.30-0.90 5476707 0.00 10E9/L 0.05-0.50 0479172 3.69 10E9/L 1.70-7.00 0935158 0.00 10E9/L 0.00-0.30 5122862 0 % PT T APTT - 11/24/17 06:15 APTT 35.3 sec. 25.0-36.0 INR 1.27 INR PROTHROMBIN TIME 15.9 sec. 11.8-14.8 COMPREHENSIVE METABOLIC PANEL - 11/24/17 06:15 ALBUMIN 3.2 g/dL 3.4-4.8 ALKALINE PHOSPHATASE 85 U/L 29-122 ALT 11 U/L 10-46 ANION GAP 10 AST < U/L 16-37 BILIRUBIN,TOTAL 0.5 mg/dL 0.0-1.2 BUN BLOOD 9 mg/dL 6-20 CALCIUM 7.9 mg/dL 8.7-10.5 CHLORIDE 107 mmol/L 99-111 CO2 21 mmol/L 20-36 CREATININE < mg/dL 0.40-1.10 EGFR mL/min >59 GLUCOSE 108 mg/dL 74-106 POTASSIUM 3.9 mmol/L 3.6-4.9 PROTEIN TOTAL 5.0 g/dL 6.4-8.3 SODIUM 138 mmol/L 136-145 PT T APTT - 11/24/17 10:13 APTT 31.5 sec. 25.0-36.0 INR 1.25 INR PROTHROMBIN TIME 15.7 sec. 11.8-14.8 COMPREHENSIVE METABOLIC PANEL - 11/24/17 10:13 ALBUMIN 3.3 g/dL 3.4-4.8 ALKALINE PHOSPHATASE 89 U/L 29-122 ALT 11 U/L 10-46 ANION GAP 9 AST < U/L 16-37 BILIRUBIN,TOTAL 0.5 mg/dL 0.0-1.2 BUN BLOOD 9 mg/dL 6-20 CALCIUM 8.1 mg/dL 8.7-10.5 CHLORIDE 107 mmol/L 99-111 CO2 23 mmol/L 20-36 CREATININE < mg/dL 0.40-1.10 EGFR mL/min >59 GLUCOSE 105 mg/dL 74-106 POTASSIUM 3.7 mmol/L 3.6-4.9 PROTEIN TOTAL 5.4 g/dL 6.4-8.3 SODIUM 139 mmol/L 136-145 PERFORM POINT OF CARE GLUCOSE - 11/25/17 00:29 BEDSIDE GLUCOSE 129 mg/dL 74-106 COMPREHENSIVE METABOLIC PANEL - 11/25/17 07:01 ALBUMIN 3.2 g/dL 3.4-4.8 ALKALINE PHOSPHATASE 84 U/L 29-122 ALT 9 U/L 10-46 ANION GAP 7 AST < U/L 16-37 BILIRUBIN,TOTAL 0.5 mg/dL 0.0-1.2 BUN BLOOD 10 mg/dL 6-20 CALCIUM 8.2 mg/dL 8.7-10.5 CHLORIDE 106 mmol/L 99-111 CO2 27 mmol/L 20-36 CREATININE < mg/dL 0.40-1.10 EGFR mL/min >59 GLUCOSE 117 mg/dL 74-106 POTASSIUM 3.5 mmol/L 3.6-4.9 PROTEIN TOTAL 5.2 g/dL 6.4-8.3 SODIUM 140 mmol/L 136-145 PERFORM POINT OF CARE GLUCOSE - 11/25/17 07:09 BEDSIDE GLUCOSE 118 mg/dL 74-106 PERFORM POINT OF CARE GLUCOSE - 11/25/17 18:01 BEDSIDE GLUCOSE 126 mg/dL 74-106 PERFORM POINT OF CARE GLUCOSE - 11/25/17 23:47 BEDSIDE GLUCOSE 122 mg/dL 74-106 PERFORM POINT OF CARE GLUCOSE - 11/26/17 06:06 BEDSIDE GLUCOSE 136 mg/dL 74-106 MAGNESIUM - 11/26/17 06:38 MAGNESIUM 1.7 mg/dL 1.6-2.3 PHOSPHORUS - 11/26/17 06:38 PHOSPHORUS 4.5 mg/dL 2.7-4.5 COMPREHENSIVE METABOLIC PANEL - 11/26/17 06:38 ALBUMIN 3.3 g/dL 3.4-4.8 ALKALINE PHOSPHATASE 94 U/L 29-122 ALT 11 U/L 10-46 ANION GAP 6 AST < U/L 16-37 BILIRUBIN,TOTAL 0.6 mg/dL 0.0-1.2 BUN BLOOD 13 mg/dL 6-20 CALCIUM 8.2 mg/dL 8.7-10.5 CHLORIDE 106 mmol/L 99-111 CO2 27 mmol/L 20-36 CREATININE 0.30 mg/dL 0.40-1.10 EGFR > mL/min >59 GLUCOSE 97 mg/dL 74-106 POTASSIUM 3.6 mmol/L 3.6-4.9 PROTEIN TOTAL 5.3 g/dL 6.4-8.3 SODIUM 139 mmol/L 136-145 PERFORM POINT OF CARE GLUCOSE - 11/26/17 12:49 BEDSIDE GLUCOSE 114 mg/dL 74-106 CBC WITH AUTO DIFFERENTIAL - 10/16/18 01 :03 BASOPHILS RELATIVE PERCENT 0.0 % 0.0 -2.5 EOSINOPHILS RELATIVE PERCENT 0.0 % < =5.0 HEMATOCRIT 39.9 % 34.9-44.5 HEMOGLOBIN 13.8 g/dL 12.0-15.5 LYMPHOCYTES RELATIVE PERCENT 28.1 % 2 2.0-49.0 MEAN CORPUSCULAR HEMOGLOBIN 31.0 pg 26 .0-34.0 MEAN CORPUSCULAR HEMOGLOBIN CONC 34.6 g/dL 31.0-37.0 MEAN CORPUSCULAR VOLUME 89.7 fL 81.6-9 8.3 MONOCYTES RELATIVE PERCENT 8.5 % 2.0 -9.0 NEUTROPHILS RELATIVE PERCENT 63.4 % 4 0.0-75.0 NUCLEATED RED BLOOD CELLS 0 10E9/L <=0 PLATELET COUNT 216 10E9/L 150-450 RED BLOOD CELL COUNT 4.45 10E12/L 3.90-5 .03 RED CELL DISTRIBUTION WIDTH 12.0 % 11 .9-15.5 7988237 6.8 10E9/L 3.5-10.5 0804785 1.92 10E9/L 0.90-2.90 1253940 0.58 10E9/L 0.30-0.90 5553612 0.00 10E9/L 0.05-0.50 9517787 4.33 10E9/L 1.70-7.00 5037532 0.00 10E9/L 0.00-0.30 6570528 0 % CA 125 - 10/16/18 01:03 CANCER ANTIGEN 125-II, SERUM 52.3 U/mL < =35.0 CBC WITH AUTO DIFFERENTIAL - 11/05/18 00 :02 BASOPHILS RELATIVE PERCENT 0.2 % 0.0 -2.5 EOSINOPHILS RELATIVE PERCENT 0.0 % < =5.0 HEMATOCRIT 35.1 % 34.9-44.5 HEMOGLOBIN 11.9 g/dL 12.0-15.5 LYMPHOCYTES RELATIVE PERCENT 33.8 % 2 2.0-49.0 MEAN CORPUSCULAR HEMOGLOBIN 30.4 pg 26 .0-34.0 MEAN CORPUSCULAR HEMOGLOBIN CONC 33.9 g/dL 31.0-37.0 MEAN CORPUSCULAR VOLUME 89.8 fL 81.6-9 8.3 MONOCYTES RELATIVE PERCENT 9.3 % 2.0 -9.0 NEUTROPHILS RELATIVE PERCENT 56.7 % 4 0.0-75.0 NUCLEATED RED BLOOD CELLS 0 10E9/L <=0 PLATELET COUNT 209 10E9/L 150-450 RED BLOOD CELL COUNT 3.91 10E12/L 3.90-5 .03 RED CELL DISTRIBUTION WIDTH 12.2 % 11 .9-15.5 3324531 6.1 10E9/L 3.5-10.5 1849451 2.06 10E9/L 0.90-2.90 9805265 0.57 10E9/L 0.30-0.90 1731024 0.00 10E9/L 0.05-0.50 2106309 3.46 10E9/L 1.70-7.00 9180426 0.01 10E9/L 0.00-0.30 8328036 0 % C-REACTIVE PROTEIN - 11/05/18 00:02 [id number] 2.0 mg/dL <=0.9 COMPREHENSIVE METABOLIC PANEL - 11/05/18 00:02 ALBUMIN 4.1 g/dL 3.4-4.8 ALKALINE PHOSPHATASE 61 U/L 29-122 ALT 20 U/L 10-46 ANION GAP 9 AST 16 U/L 16-37 BILIRUBIN,TOTAL 0.5 mg/dL 0.0-1.2 BUN BLOOD 8 mg/dL 6-20 CALCIUM 8.3 mg/dL 8.7-10.5 CHLORIDE 99 mmol/L 99-111 CO2 26 mmol/L 20-36 CREATININE 0.56 mg/dL 0.40-1.10 EGFR > mL/min >59 GLUCOSE 86 mg/dL 74-106 POTASSIUM 3.5 mmol/L 3.6-4.9 PROTEIN TOTAL 5.8 g/dL 6.4-8.3 SODIUM 134 mmol/L 136-145 URINALYSIS, REFLEX CULTURE IF NEEDED - 0 11/05/18 00:27 AMORPHOUS 3+ APPEARANCE Clear BILIRUBIN UA Negative Negative COLOR Yellow GLUCOSE UA Negative Negative HEMOGLOBIN UA 2+ Negative LEUKOCYTE ESTERASE UA Negative Negative NITRATE UA Negative Negative PH UA 6.5 5.0-8.0 PROTEIN UA Negative Negative RBC UA 0-3 /hpf 0-3 SPECIFIC GRAVITY UA 1.008 1.003-1.03 0 SQUAMOUS EPITHELIAL None Seen /hpf UROBILINOGEN UA 0.2 EU/dL 0.2 WBC UA 0-3 /hpf 0-3 [id number] Negative Negative Packed Cells Leukoreduced - 11/05/18 01: 50 Packed Cells Leukoreduced Packed Cells Leukoreduced PERFORM POINT OF CARE GLUCOSE - 11/05/18 05:33 BEDSIDE GLUCOSE 78 mg/dL 74-106 CBC WITH AUTO DIFFERENTIAL - 11/06/18 08 :13 BASOPHILS RELATIVE PERCENT 0.0 % 0.0 -2.5 EOSINOPHILS RELATIVE PERCENT 0.0 % < =5.0 HEMATOCRIT 35.4 % 34.9-44.5 HEMOGLOBIN 11.9 g/dL 12.0-15.5 LYMPHOCYTES RELATIVE PERCENT 15.8 % 2 2.0-49.0 MEAN CORPUSCULAR HEMOGLOBIN 31.1 pg 26 .0-34.0 MEAN CORPUSCULAR HEMOGLOBIN CONC 33.6 g/dL 31.0-37.0 MEAN CORPUSCULAR VOLUME 92.4 fL 81.6-9 8.3 MONOCYTES RELATIVE PERCENT 10.9 % 2.0 -9.0 NEUTROPHILS RELATIVE PERCENT 73.3 % 4 0.0-75.0 NUCLEATED RED BLOOD CELLS 0 10E9/L <=0 PLATELET COUNT 231 10E9/L 150-450 RED BLOOD CELL COUNT 3.83 10E12/L 3.90-5 .03 RED CELL DISTRIBUTION WIDTH 12.6 % 11 .9-15.5 4280351 8.2 10E9/L 3.5-10.5 3571988 1.30 10E9/L 0.90-2.90 5931749 0.90 10E9/L 0.30-0.90 4670863 0.00 10E9/L 0.05-0.50 3242255 6.02 10E9/L 1.70-7.00 5623413 0.00 10E9/L 0.00-0.30 2145665 0 % COMPREHENSIVE METABOLIC PANEL - 11/06/18 08:13 ALBUMIN 3.4 g/dL 3.4-4.8 ALKALINE PHOSPHATASE 54 U/L 29-122 ALT 12 U/L 10-46 ANION GAP 8 AST 12 U/L 16-37 BILIRUBIN,TOTAL 0.9 mg/dL 0.0-1.2 BUN BLOOD 6 mg/dL 6-20 CALCIUM 7.6 mg/dL 8.7-10.5 CHLORIDE 105 mmol/L 99-111 CO2 26 mmol/L 20-36 CREATININE 0.45 mg/dL 0.40-1.10 EGFR > mL/min >59 GLUCOSE 95 mg/dL 74-106 POTASSIUM 3.7 mmol/L 3.6-4.9 PROTEIN TOTAL 4.9 g/dL 6.4-8.3 SODIUM 139 mmol/L 136-145 TROPONIN I - 11/07/18 19:47 TROPONIN I < ng/mL 0.000-0.040 BASIC METABOLIC PANEL - 11/09/18 08:52 ANION GAP 8 BUN BLOOD < mg/dL 6-20 CALCIUM 7.7 mg/dL 8.7-10.5 CHLORIDE 108 mmol/L 99-111 CO2 26 mmol/L 20-36 CREATININE 0.36 mg/dL 0.40-1.10 EGFR > mL/min >59 GLUCOSE 87 mg/dL 74-106 POTASSIUM 2.9 mmol/L 3.6-4.9 SODIUM 142 mmol/L 136-145 CBC WITH AUTO DIFFERENTIAL - 11/09/18 09 :36 BASOPHILS RELATIVE PERCENT 0.0 % 0.0 -2.5 EOSINOPHILS RELATIVE PERCENT 0.0 % < =5.0 HEMATOCRIT 29.4 % 34.9-44.5 HEMOGLOBIN 9.7 g/dL 12.0-15.5 LYMPHOCYTES RELATIVE PERCENT 21.4 % 2 2.0-49.0 MEAN CORPUSCULAR HEMOGLOBIN 30.9 pg 26 .0-34.0 MEAN CORPUSCULAR HEMOGLOBIN CONC 33.0 g/dL 31.0-37.0 MEAN CORPUSCULAR VOLUME 93.6 fL 81.6-9 8.3 MONOCYTES RELATIVE PERCENT 8.5 % 2.0 -9.0 NEUTROPHILS RELATIVE PERCENT 70.1 % 4 0.0-75.0 NUCLEATED RED BLOOD CELLS 0 10E9/L <=0 PLATELET COUNT 209 10E9/L 150-450 RED BLOOD CELL COUNT 3.14 10E12/L 3.90-5 .03 RED CELL DISTRIBUTION WIDTH 12.6 % 11 .9-15.5 5770678 5.0 10E9/L 3.5-10.5 0197169 1.08 10E9/L 0.90-2.90 3627877 0.43 10E9/L 0.30-0.90 1188785 0.00 10E9/L 0.05-0.50 4388086 3.53 10E9/L 1.70-7.00 8064891 0.00 10E9/L 0.00-0.30 6578623 0 % EXTRA SST TUBE - 11/09/18 09:36 1324 Extra tube in lab BASIC METABOLIC PANEL - 11/09/18 14:20 ANION GAP 7 BUN BLOOD < mg/dL 6-20 CALCIUM 7.5 mg/dL 8.7-10.5 CHLORIDE 111 mmol/L 99-111 CO2 25 mmol/L 20-36 CREATININE 0.33 mg/dL 0.40-1.10 EGFR > mL/min >59 GLUCOSE 92 mg/dL 74-106 POTASSIUM 3.2 mmol/L 3.6-4.9 SODIUM 143 mmol/L 136-145 BASIC METABOLIC PANEL - 11/10/18 08:14 ANION GAP 6 BUN BLOOD < mg/dL 6-20 CALCIUM 7.2 mg/dL 8.7-10.5 CHLORIDE 112 mmol/L 99-111 CO2 25 mmol/L 20-36 CREATININE < mg/dL 0.40-1.10 EGFR mL/min >59 GLUCOSE 91 mg/dL 74-106 POTASSIUM 3.1 mmol/L 3.6-4.9 SODIUM 143 mmol/L 136-145 Gram stain microscopy - 12/03/18 10:21 Gram stain microscopy [id number]. NR G Bacteria identification in wound by cult ure - 12/03/18 10:21 Bacteria identification in wound by culture SEE CO MMEN NRG FREE TEXT EXTERNAL BETA LACTAMASE POSITIVE NRG QUANTITY OF GROWTH . NRG RML Sensitivity Panel - 12/03/18 10:21 Oxacillin susceptibility test by minimum inhibitory co ncentration 0.5 NRG Clindamycin susceptibility test by minimum inhibitory concentration R NRG Erythromycin susceptibility test by minimum inhibitory concentration > NRG Trimethoprim/sulfamethoxazole susceptibi lity test by minimum inhibitoryconcentration S NRG Vancomycin susceptibility test by minimum inhibitory c oncentration 1 NRG Levofloxacin susceptibility test by minimum inhibitory concentration <= NRG Rifampin susceptibility test by minimum inhibitory con centration <= NRG Cefazolin susceptibility test by minimum inhibitory co ncentration <= NRG Linezolid susceptibility test by minimum inhibitory co ncentration 2 NRG Penicillin G susceptibility test by minimum inhibitory concentration > NRG Moxifloxacin susceptibility test by minimum inhibitory concentration <= NRG Minocycline susc CATRACHO <= NRG Complete blood count (CBC) with automate d white blood cell (WBC) differential - 12/03/18 10:54 Blood leukocytes automated count (number/volume) 5.1 10*3/uL 4.3-11.0 Blood erythrocytes automated count (number/volume) 3.86 10*6/uL 4.35-5.85 Venous blood hemoglobin measurement (mass/volume) 11.8 g/dL 11.5-16.0 Blood hematocrit (volume fraction) 36 % 35-52 Automated erythrocyte mean corpuscular volume 92 [ foz_us] 80-99 Automated erythrocyte mean corpuscular h emoglobin (mass per erythrocyte) 31 pg 25-34 Automated erythrocyte mean corpuscular h emoglobin concentration measurement (mass/volume) 33 g/dL 32-36 Automated erythrocyte distribution width ratio 13. 4 % 10.0- 14.5 Automated blood platelet count (count/volume) 262 10*3/uL 130-400 Automated blood platelet mean volume measurement 9.4 [foz_us] 7.4-10.4 Automated blood neutrophils/100 leukocytes 70 % 42-75 Automated blood lymphocytes/100 leukocytes 23 % 12-44 Blood monocytes/100 leukocytes 7 % 0-12 Automated blood eosinophils/100 leukocytes 0 % 0-10 Automated blood basophils/100 leukocytes 0 % 0-10 Blood neutrophils automated count (number/volume) 3.6 10*3 1.8-7.8 Blood lymphocytes automated count (number/volume) 1.2 10*3 1.0-4.0 Blood monocytes automated count (number/volume) 0. 4 10*3 0.0-1.0 Automated eosinophil count 0.0 10*3/uL 0 .0-0.3 Automated blood basophil count (count/volume) 0.0 10*3/uL 0.0-0.1 Comprehensive metabolic panel - 12/03/18 10:54 Serum or plasma sodium measurement (moles/volume) 140 mmol/L 135-145 Serum or plasma potassium measurement (moles/volume) 4.0 mmol/L 3.6-5.0 Serum or plasma chloride measurement (moles/volume) 108 mmol/L 98-107 Carbon dioxide 23 mmol/L 21-32 Serum or plasma anion gap determination (moles/volume) 9 mmol/L 5-14 Serum or plasma urea nitrogen measurement (mass/volume ) 8 mg/dL 7-18 Serum or plasma creatinine measurement (mass/volume) 0.63 mg/dL 0.60-1.30 Serum or plasma urea nitrogen/creatinine mass ratio 13 NRG Serum or plasma creatinine measurement w ith calculation of estimated glomerular filtration rate > NRG Serum or plasma glucose measurement (mass/volume) 82 mg/dL 70-105 Serum or plasma calcium measurement (mass/volume) 8.6 mg/dL 8.5-10.1 Serum or plasma total bilirubin measurement (mass/volu me) 0.5 mg/dL 0.1-1.0 Serum or plasma alkaline phosphatase leia surement (enzymatic activity/volume) 65 U/L 40-136 Serum or plasma aspartate aminotransfera se measurement (enzymatic activity/volume) 12 U/L 5-34 Serum or plasma alanine aminotransferase measurement (enzymatic activity/volume) 13 U/L 0-55 Serum or plasma protein measurement (mass/volume) 5.9 g/dL 6.4-8.2 Serum or plasma albumin measurement (mass/volume) 3.8 g/dL 3.2-4.5 CALCIUM CORRECTED 8.8 mg/dL 8.5-10.1 Hemoglobin A1c - 12/03/18 10:54 Blood hemoglobin A1C measurement (mass/volume) 4.3 % 4.0-5.6 MEAN BLOOD GLUCOSE 77 % <=126 PREALBUMIN - 12/03/18 10:54 PREALBUM 23.5 % 18.0-37.0 Gram stain microscopy - 12/24/18 11:55 Gram stain microscopy [id number]. NRG Bacteria identification in wound by cult ure - 12/24/18 11:55 Bacteria identification in wound by culture [id number] NR FREE TEXT EXTERNAL NORMAL SKIN ADRIANA ISOLATED NRG QUANTITY OF GROWTH Rare NRG FREE TEXT ENTRY 2 NO SUSCEPTIBILITIES SET UP NR FREE TEXT ENTRY 3 IS NOT FDA CLEARED FOR TESTING. NR RML Sensitivity Panel - 12/24/18 11:55 Oxacillin susceptibility test by minimum inhibitory co ncentration 1 NRG Clindamycin susceptibility test by minimum inhibitory concentration R NRG Erythromycin susceptibility test by minimum inhibitory concentration > NRG Trimethoprim/sulfamethoxazole susceptibi lity test by minimum inhibitoryconcentration S NRG Vancomycin susceptibility test by minimum inhibitory c oncentration 1 NRG Levofloxacin susceptibility test by minimum inhibitory concentration <= NRG Rifampin susceptibility test by minimum inhibitory con centration <= NRG Cefazolin susceptibility test by minimum inhibitory co ncentration <= NRG Linezolid susceptibility test by minimum inhibitory co ncentration 2 NRG Penicillin G susceptibility test by minimum inhibitory concentration > NRG Moxifloxacin susceptibility test by minimum inhibitory concentration <= NRG Minocycline susc CATRACHO <= NRG Gram stain microscopy - 01/14/19 11:37 Gram stain microscopy No bacteria seen NRG Bacteria identification in wound by cult ure - 01/14/19 11:37 Bacteria identification in wound by culture [id number] NRG FREE TEXT EXTERNAL SUSCEPTIBILITY REPORT RCD 01/17 12:05 NRG QUANTITY OF GROWTH Rare NRG FREE TEXT ENTRY 2 ID REPORTED 01/15/19 15:05 NRG RML Sensitivity Panel - 01/14/19 11:37 Oxacillin susceptibility test by minimum inhibitory co ncentration 0.5 NRG Clindamycin susceptibility test by minimum inhibitory concentration R NRG Erythromycin susceptibility test by minimum inhibitory concentration > NRG Trimethoprim/sulfamethoxazole susceptibi lity test by minimum inhibitoryconcentration <= NRG Vancomycin susceptibility test by minimum inhibitory c oncentration 1 NRG Levofloxacin susceptibility test by minimum inhibitory concentration <= NRG Rifampin susceptibility test by minimum inhibitory con centration <= NRG Cefazolin susceptibility test by minimum inhibitory co ncentration <= NRG Linezolid susceptibility test by minimum inhibitory co ncentration 2 NRG Moxifloxacin susceptibility test by minimum inhibitory concentration <= NRG Minocycline susc CATRACHO <= NRG RML Sensitivity Panel - 01/14/19 11:37 Oxacillin susceptibility test by minimum inhibitory co ncentration <= NRG Clindamycin susceptibility test by minimum inhibitory concentration > NRG Erythromycin susceptibility test by minimum inhibitory concentration > NRG Vancomycin susceptibility test by minimum inhibitory c oncentration <= NRG Levofloxacin susceptibility test by minimum inhibitory concentration <= NRG Rifampin susceptibility test by minimum inhibitory con centration <= NRG Cefazolin susceptibility test by minimum inhibitory co ncentration <= NRG Linezolid susceptibility test by minimum inhibitory co ncentration 2 NRG Moxifloxacin susceptibility test by minimum inhibitory concentration S NRG Minocycline susc [place] <= NRG Methicillin resistant Staphylococcus aur eus (MRSA) screening culture - 03/22/19 08:26 Methicillin resistant Staphylococcus aureus (MRSA) scr eening culture NEG NRG Complete urinalysis with reflex to cultu re - 07/19/19 00:30 Urine color determination YELLOW NRG Urine clarity determination CLEAR NR G Urine pH measurement by test strip 8 5-9 Specific gravity of urine by test strip 1.010 1.016-1.022 Urine protein assay by test strip, semi-quantitative NEGATIVE NEGATIVE Urine glucose detection by automated test strip NE GATIVE NEGATIVE Erythrocytes detection in urine sediment by light micr oscopy NEGATIVE NEGATIVE Urine ketones detection by automated test strip NE GATIVE NEGATIVE Urine nitrite detection by test strip NEGATIVE NEGATIVE Urine total bilirubin detection by test strip NEGA TIVE NEGATIVE Urine urobilinogen measurement by automated test strip (mass/volume) NORMAL NORMAL Urine leukocyte esterase detection by dipstick NEG ATIVE NEGATIVE Automated urine sediment erythrocyte cou nt by microscopy (number/high power field) NONE NRG Automated urine sediment leukocyte count by microscopy (number/high power field) NONE NRG Bacteria detection in urine sediment by light microsco py FEW NRG Squamous epithelial cells detection in u rine sediment by light microscopy 0-2 NRG Crystals detection in urine sediment by light microsco py NONE NRG Casts detection in urine sediment by light microscopy NONE NRG Mucus detection in urine sediment by light microscopy NEGATIVE NRG Complete urinalysis with reflex to culture NO NRG Urine drug screening test - 07/19/19 00: 30 Urine phencyclidine detection by screening method NEGATIVE NEGATIVE Urine benzodiazepines detection by screening method NEGATIVE NEGATIVE Urine cocaine detection NEGATIVE NEGATI VE Urine amphetamines detection by screening method N EGATIVE NEGATIVE Urine methamphetamine detection by screening method NEGATIVE NEGATIVE Urine cannabinoids detection by screening method N EGATIVE NEGATIVE Urine opiates detection by screening method NEGATI VE NEGATIVE Urine barbiturates detection NEGATIVE N EGATIVE Screening urine tricyclic antidepressants detection NEGATIVE NEGATIVE Urine methadone detection by screening method NEGA TIVE NEGATIVE Urine oxycodone detection NEGATIVE NEGA TIVE Urine propoxyphene detection NEGATIVE N EGATIVE Complete blood count (CBC) with automate d white blood cell (WBC) differential - 07/19/19 00:35 Blood leukocytes automated count (number/volume) 6.6 10*3/uL 4.3-11.0 Blood erythrocytes automated count (number/volume) 4.72 10*6/uL 4.35-5.85 Venous blood hemoglobin measurement (mass/volume) 14.6 g/dL 11.5-16.0 Blood hematocrit (volume fraction) 42 % 35-52 Automated erythrocyte mean corpuscular volume 89 [ foz_us] 80-99 Automated erythrocyte mean corpuscular h emoglobin (mass per erythrocyte) 31 pg 25-34 Automated erythrocyte mean corpuscular h emoglobin concentration measurement (mass/volume) 35 g/dL 32-36 Automated erythrocyte distribution width ratio 12. 6 % 10.0- 14.5 Automated blood platelet count (count/volume) 209 10*3/uL 130-400 Automated blood platelet mean volume measurement 9.7 [foz_us] 7.4-10.4 Automated blood neutrophils/100 leukocytes 70 % 42-75 Automated blood lymphocytes/100 leukocytes 23 % 12-44 Blood monocytes/100 leukocytes 7 % 0-12 Automated blood eosinophils/100 leukocytes 0 % 0-10 Automated blood basophils/100 leukocytes 0 % 0-10 Blood neutrophils automated count (number/volume) 4.6 10*3 1.8-7.8 Blood lymphocytes automated count (number/volume) 1.5 10*3 1.0-4.0 Blood monocytes automated count (number/volume) 0. 5 10*3 0.0-1.0 Automated eosinophil count 0.0 10*3/uL 0 .0-0.3 Automated blood basophil count (count/volume) 0.0 10*3/uL 0.0-0.1 Comprehensive metabolic panel - 07/19/19 00:35 Serum or plasma sodium measurement (moles/volume) 142 mmol/L 135-145 Serum or plasma potassium measurement (moles/volume) 3.6 mmol/L 3.6-5.0 Serum or plasma chloride measurement (moles/volume) 106 mmol/L 98-107 Carbon dioxide 24 mmol/L 21-32 Serum or plasma anion gap determination (moles/volume) 12 mmol/L 5-14 Serum or plasma urea nitrogen measurement (mass/volume ) 7 mg/dL 7-18 Serum or plasma creatinine measurement (mass/volume) 0.72 mg/dL 0.60-1.30 Serum or plasma urea nitrogen/creatinine mass ratio 10 NRG Serum or plasma creatinine measurement w ith calculation of estimated glomerular filtration rate > NRG Serum or plasma glucose measurement (mass/volume) 94 mg/dL 70-105 Serum or plasma calcium measurement (mass/volume) 8.6 mg/dL 8.5-10.1 Serum or plasma total bilirubin measurement (mass/volu me) 0.5 mg/dL 0.1-1.0 Serum or plasma alkaline phosphatase leia surement (enzymatic activity/volume) 68 U/L 40-136 Serum or plasma aspartate aminotransfera se measurement (enzymatic activity/volume) 12 U/L 5-34 Serum or plasma alanine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
--- OUTSIDE RECORDS SUMMARY | 2020-01-01 05:25 | XMS REPORT | Continuity of Care Document ---
Author Organization Unknown Address Unknown Phone Unavailable Allergies Active Description Code Type Severity Reaction Onset Reported/Identified Relationship to Patient Clinical Status Yes NO NAME AVAILABLE 35785 DRUG N/A N/A Yes .MDRO 0040 Miscellaneous Allergy N/A N/A 12/05/2015 Yes amoxicillin [id number] Drug Aller gy N/A N/A 12/05/2015 Yes clavulanic acid [id number] D rug Allergy N/A N/A 12/05/2015 Yes AMOXICILLIN-POT CLAVULANATE 09774 DRUG N/A Other 11/06/2017 11/06/2017 Yes amoxicillin [id number] Drug Aller gy Unknown N/A 03/18/2019 Yes clavulanic acid [id number] D rug Allergy Unknown N/A 03/18/2019 Yes Penicillins [id number] Drug Aller gy Unknown N/A 03/18/2019 Yes potassium chloride [id number] Drug Allergy Unknown N/A 03/18/2019 Medications Medication [...] HCL 2 % EX GEL 08/18/2017 Topical KS N LACTATED RINGERS IV SOLN 08/20/2017 Intravenous [...] 2 % EX GEL 11/21/2017 Topical 5 KS N ALBUTEROL SULFATE HFA 108 (9 0 [...] % MT LIQD 11/05/2018 Mouth/Throat 1 PRN [id number]-LDVVT PERTUSS IS 5-2-15.5 LF-MCG/0.5 IM SUSP 11/05/2018 [...] 2 % EX GEL 11/06/2018 Topical 5 KS N FERROUS SULFATE 325 (65 FE) MG [...] Burgos APRN OT 786.2 05/04/2015 Lashanda Burgos DIRECTOR MOBILE OT 787.01 05/04/2015 Lashanda Burgosn DIRECTOR MOBILE OT 789.06 05/08/2015 Worf, Quinten Rosamaria UTILITY TENDER CARDING OT 786.00 05/08/2015 Worf, Quinten Rosamaria UTILITY TENDER CARDING OT 786.02 05/08/2015 Worf, Quinten Rosamaria UTILITY TENDER CARDING OT 786.00 05/08/2015 Worf, Quinten Rosamaria UTILITY TENDER CARDING OT 786.02 05/08/2015 Worf, Quinten Rosamaria UTILITY TENDER CARDING OT 786.00 05/08/2015 Worf, Quinten Rosamaria UTILITY TENDER CARDING OT 786.02 05/08/2015 Worf, Quinten Rosamaria UTILITY TENDER CARDING OT 786.00 05/08/2015 Worf, Quinten Rosamaria UTILITY TENDER CARDING OT 786.02 05/08/2015 Worf, Quinten Rosamaria UTILITY TENDER CARDING OT 786.00 05/08/2015 Worf, Quinten Rosamaria UTILITY TENDER CARDING OT 786.02 05/08/2015 Worf, Quinten Rosamaria UTILITY TENDER CARDING OT 786.00 05/08/2015 Worf, Quinten Rosamaria UTILITY TENDER CARDING OT 786.02 05/08/2015 Worf, Quinten Rosamaria UTILITY TENDER CARDING OT 786.00 05/08/2015 Worf, Quinten Rosamraia UTILITY TENDER CARDING OT 786.02 05/08/2015 Worf, Quinten Rosamaria UTILITY TENDER CARDING OT 786.00 05/08/2015 Worf, Quinten Rosamaria UTILITY TENDER CARDING OT 786.02 05/08/2015 EZ SANDOVAL, JOE PittmanPLOMTI OT 493.90 05/31/2015 Worf, Quinten Rosamaria UTILITY TENDER CARDING OT 786.05 05/31/2015 Worf, Quinten Rosamaria UTILITY TENDER CARDING OT 787.91 06/01/2015 Lashanda Burgosn DIRECTOR MOBILE OT 783.1 06/01/2015 Lashanda Burgos Su DIRECTOR MOBILE OT 786.2 06/01/2015 Lashanda Burgos Su DIRECTOR MOBILE OT 787.01 06/01/2015 Lashanda Burgosn DIRECTOR MOBILE OT 789.06 08/29/2015 Worf, Quinten Rosamaria UTILITY TENDER CARDING OT N91 .2 08/29/2015 Worf, Quinten Rosamaria UTILITY TENDER CARDING OT N91 .2 09/26/2015 Worf, Quinten Rosamaria UTILITY TENDER CARDING OT F60 .3 09/26/2015 Worf, Quinten ALLAN [...] Neville OT X78.8XXD 02/27/2016 Worf, Quinten Rosamaria UTILITY TENDER CARDING OT F33 .1 02/27/2016 Worf, Quinten Jo UTILITY TENDER CARDING OT R73.01 02/27/2016 Worf, Quinten Jo UTILITY TENDER CARDING OT F33 .1 02/27/2016 Worf, Quinten Rosamaria UTILITY TENDER CARDING OT R73.01 04/01/2016 Worf, Quinten Rosamaria UTILITY TENDER CARDING OT F33 .1 04/01/2016 Worf, Quinten Rosamaria UTILITY TENDER CARDING OT R73.01 04/01/2016 Worf, Quinten Rosamaria UTILITY TENDER CARDING OT F33 .1 04/01/2016 Worf, Quinten Rosamaria UTILITY TENDER CARDING OT R73.01 08/18/2016 Worf, Quinten Rosamaria UTILITY TENDER CARDING OT B37.84 08/18/2016 Worf, Quinten Blank UTILITY TENDER CARDING OT J44 .9 08/18/2016 Quinten Lindsay OT K21 .9 08/25/2017 KHRECEASAR, WAEL V 429835 Abdominal Injury KHREISS, WAEL 08/25/2017 KHREISS, WAEL V 705489 Suicidal KHREISS, WAEL 08/25/2017 KHREISS, WAEL V [...] cavity, initial encounter 10/10/2017 SHANNEN ELAINE V 515005 Aggressive Behavior SHANNEN ELAINE 10/10/2017 SHANNEN ELAINE V 703959 Wound Dehiscence SHANNEN ELAINE 10/10/2017 SHANNEN ELAINE [...] specified postprocedural states 11/26/2017 BRENDEN, ADDIE V 785716 Wound Check 11/26/2017 BRENDEN, ADDIE V L30.9 [...] self-harm by other specified means, initial encounter ([facility]) 11/26/2017 BRENDEN, ADDIE F Z87.891 Personal history [...] CARRASCO V F31. 9 Bipolar disorder, unspecified ([facility]) 10/17/2018 SONG CARRASCO T18.9XXA Foreign body of alimentary tract, part unspecified, in itial encounter 10/17/2018 SONG CARRASCO V Z72. 89 Other problems related to lifestyle 10/17/2018 SONG CARRASCO E11. 9 Type 2 diabetes mellitus without complications ([facility]) 10/17/2018 SONG CARRASCO E66. 01 Morbid (severe) [...] by unspecified sha rp object, initial encounter ([facility]) 10/17/2018 SONG CARRASCO Z23 Encounter for immunization [...] cavity, initial encounter 11/10/2018 TANVIR ORDAZ V 177648 Suicidal 11/10/2018 TANVIR ORDAZ V 031850 Wound Check 11/10/2018 TANVIR ORDAZ V F31.4 [...] TANVIR Maya E87.1 Hypo-osmolality and hyponatremia 11/10/2018 [facility], TANVIR Maya E87.6 Hypokalemia 11/10/2018 [facility], TANVIR Maya F31.32 Bipolar disorder, current episode depressed, moderate (HCC) 11/10/2018 [facility], TANVIR Maya F41.1 Generalized anxiety disorder 11/10/2018 [facility], TANVIR Maya F43.10 Post-traumatic stress disorder, unspecified 11/10/2018 [facility], TANVIR Maya F60.3 Borderline personality disorder (HCC) 11/10/2018 [facility], TANVIR Maya F63.1 Pyromania 11/10/2018 [facility], TANVIR Maya J45.90 9 Unspecified asthma, uncomplicated 11/10/2018 [facility], TANVIR Maya K00.0 Anodontia 11/10/2018 [facility], TANVIR Maya K66.0 Peritoneal adhesions (postprocedural) (postinfection) 11/10/2018 [facility], TANVIR Maya N83.9 Noninflammatory disorder of ovary, fallopian tube and broad ligament, unspecified 11/10/2018 [facility], TANVIR Maya R12 Heartburn 11/10/2018 [facility], TANVIR Maya R45.87 Impulsiveness 11/10/2018 [facility], TANVIR Maya R73.03 Prediabetes 11/10/2018 [facility], TANVIR Maya R97.1 Elevated cancer antigen 125 (CA 125) 11/10/2018 [facility], TANVIR Maya S31.62 9A Laceration with [...] surveillance 11/10/2018 TANVIR ORDAZ 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 11/10/[facility] Z91.5 Personal history of self-harm 12/03/2018 [...] INTERNAL OPERATION (SURGIC 12/07/2018 TANVIR ORDAZ V 275727 501 Post Op Visit 12/07/2018 TANVIR ORDAZ V K63.1 Perforation of intestine (nontraumatic) ([facility]) 12/08/2018 SALBADOR PAULA MD Ot B35 .4 [...] DIABETES MELLITUS WITH OTHER SKIN 12/31/2018 SALBADOR PAULA MD Ot L98.492 NON-PRS CHRONIC [...] SHELBY JULES DO Ot Z79.8 99 OTHER HALFWAY (CURRENT) DRUG THERAPY 03/22/2019 SHELBY JULES DO [...] 02 UNSPECIFIED OVARIAN CYST, LEFT SIDE 03/29/2019 JULSE DO SHELBY C Ot N92.0 EXCESSIVE AND FREQUENT MENSTRUATION WITH 03/29/2019 DHARA RAPHAEL SHELBY C Ot R73.0 3 PREDIABETES 03/29/2019 DHARA RAPHAEL SHELBY C Ot Z11.2 ENCOUNTER FOR SCREENING FOR OTHER BACTER 03/29/2019 ELOY JULES DOA C Ot Z79.8 99 OTHER CADDY/CADDIE SUPERVISOR (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 9 ANXIETY DISORDER, [...] 09/22/2019 HAO DONOVAN MD Ot Z79. 51 HALFWAY (CURRENT) USE OF INHALED STERO 09/22/2019 HAO [...] 09/27/2019 HAO DONOVAN MD, Ot Z79. 51 HALFWAY (CURRENT) USE OF INHALED STERO 09/27/2019 HAO [...] DISRUPTION OF EXTERNAL OPERATION (SURGIC 09/29/2019 SALBADOR APULA MD Ot E11.622 TYPE 2 [...] OF SKIN OF SITES W 09/29/2019 SALBADOR PAUAL MD, Ot T81.31XA DISRUPTION OF EXTERNAL OPERATION [...] Code Description Performed By Per jose On [id number] In sertion of Infusion Dev into Sup Vena Cava, Perc Approach 11/24/2017 [id number] [place] Other Device in Trunk Subcu/Fascia, Carbon Sequestration Plant Engineer Approach 12/2017 [id number] Ex tirpation of Matter from Peritoneal Cavity, Open Approach 0 10/16/2018 [id number] Ex cision of Small Intestine, Open Approach 11/05/2018 [id number] Ex tirpation of Matter from Small Intestine, Open Approach [id number] Re lease Small Intestine, Open Approach 11/05/2018 [...] CELL DISTRIBUTION WIDTH 13.2 % 11 .9-15.5 8558155 15.3 10E9/L 3.5-10.5 1111034 0.84 10E9/L 0.90-2.90 6514005 0.89 10E9/L 0.30-0.90 7078855 0.00 10E9/L 0.05-0.50 9667315 13.59 10E9/L 1.70-7.00 1923405 0.01 10E9/L 0.00-0.30 6497606 0 % HCG, SERUM, QUALITATIVE - 08/16/17 06:05 HCG SERUM(QUAL) Negative mIU/mL Negative FLUID CULTURE - 08/16/17 09:38 [id number] No organisms seen [id number] No Growth ANAEROBIC CULTURE - 08/16/17 09:38 [id number] No Growth CBC WITHOUT DIFFERENTIAL - 08/17/17 06:3 7 HEMATOCRIT 36.4 % 34.9-44.5 HEMOGLOBIN 11.8 g/dL 12.0-15.5 MEAN CORPUSCULAR HEMOGLOBIN 29.5 pg 26 .0-34.0 MEAN CORPUSCULAR HEMOGLOBIN CONC 32.4 g/dL 31.0-37.0 MEAN CORPUSCULAR VOLUME 91.0 fL 81.6-9 8.3 PLATELET COUNT 306 10E9/L 150-450 RED BLOOD CELL COUNT 4.00 10E12/L 3.90-5 .03 RED CELL DISTRIBUTION WIDTH 13.9 % 11 .9-15.5 9267983 12.5 10E9/L 3.5-10.5 COMPREHENSIVE METABOLIC PANEL - [...] CELL DISTRIBUTION WIDTH 13.9 % 11 .9-15.5 3925029 10.5 10E9/L 3.5-10.5 COMPREHENSIVE METABOLIC PANEL - [...] CELL DISTRIBUTION WIDTH 13.6 % 11 .9-15.5 1020032 6.0 10E9/L 3.5-10.5 COMPREHENSIVE METABOLIC PANEL - [...] CELL DISTRIBUTION WIDTH 13.4 % 11 .9-15.5 7089593 3.4 10E9/L 3.5-10.5 COMPREHENSIVE METABOLIC PANEL - [...] CELL DISTRIBUTION WIDTH 14.4 % 11 .9-15.5 1958539 3.4 10E9/L 3.5-10.5 COMPREHENSIVE METABOLIC PANEL - [...] CELL DISTRIBUTION WIDTH 13.9 % 11 .9-15.5 7338925 5.2 10E9/L 3.5-10.5 MAGNESIUM - 08/22/17 07:08 [...] CELL DISTRIBUTION WIDTH 14.0 % 11 .9-15.5 0550248 3.6 10E9/L 3.5-10.5 COMPREHENSIVE METABOLIC PANEL - [...] CELL DISTRIBUTION WIDTH 14.1 % 11 .9-15.5 5186294 4.7 10E9/L 3.5-10.5 COMPREHENSIVE METABOLIC PANEL - [...] CELL DISTRIBUTION WIDTH 13.9 % 11 .9-15.5 6762053 5.6 10E9/L 3.5-10.5 COMPREHENSIVE METABOLIC PANEL - [...] CELL DISTRIBUTION WIDTH 13.4 % 11 .9-15.5 7565003 8.7 10E9/L 3.5-10.5 4436227 1.33 10E9/L 0.90-2.90 2818365 0.71 10E9/L 0.30-0.90 1233078 0.00 10E9/L 0.05-0.50 2112973 6.65 10E9/L 1.70-7.00 9061522 0.00 10E9/L 0.00-0.30 1094108 0 % COMPREHENSIVE METABOLIC PANEL - 10/10/17 [...] CELL DISTRIBUTION WIDTH 13.5 % 11 .9-15.5 6692340 6.9 10E9/L 3.5-10.5 4776024 1.22 10E9/L 0.90-2.90 7923185 0.71 10E9/L 0.30-0.90 8921849 0.00 10E9/L 0.05-0.50 7868001 4.99 10E9/L 1.70-7.00 0449687 0.00 10E9/L 0.00-0.30 9595529 0 % EXTRA LIGHT BLUE TOP - [...] CELL DISTRIBUTION WIDTH 13.4 % 11 .9-15.5 8801482 5.6 10E9/L 3.5-10.5 7491686 1.34 10E9/L 0.90-2.90 8916339 0.43 10E9/L 0.30-0.90 5075875 0.01 10E9/L 0.05-0.50 3585615 3.83 10E9/L 1.70-7.00 3817012 0.00 10E9/L 0.00-0.30 0444643 0 % COMPREHENSIVE METABOLIC PANEL - 11/08/17 [...] CELL DISTRIBUTION WIDTH 12.9 % 11 .9-15.5 1654417 8.2 10E9/L 3.5-10.5 1972581 1.42 10E9/L 0.90-2.90 0890948 0.90 10E9/L 0.30-0.90 9034317 0.00 10E9/L 0.05-0.50 1964319 5.88 10E9/L 1.70-7.00 0592534 0.01 10E9/L 0.00-0.30 2870352 0 % COMPREHENSIVE METABOLIC PANEL - 11/18/17 [...] EU/dL 0.2 WBC UA 0-3 /hpf 0-3 9843521 Trace Negative 1284619 4 /lpf CBC WITH AUTO DIFFERENTIAL - [...] CELL DISTRIBUTION WIDTH 12.8 % 11 .9-15.5 0969530 7.3 10E9/L 3.5-10.5 3130105 1.56 10E9/L 0.90-2.90 9811371 0.74 10E9/L 0.30-0.90 3188581 0.01 10E9/L 0.05-0.50 3477630 4.94 10E9/L 1.70-7.00 0592595 0.01 10E9/L 0.00-0.30 1423884 0 % BASIC METABOLIC PANEL - 11/23/17 [...] CELL DISTRIBUTION WIDTH 12.6 % 11 .9-15.5 8733464 5.4 10E9/L 3.5-10.5 4145380 1.11 10E9/L 0.90-2.90 5954602 0.60 10E9/L 0.30-0.90 2890729 0.00 10E9/L 0.05-0.50 1757838 3.69 10E9/L 1.70-7.00 1751738 0.00 10E9/L 0.00-0.30 8220698 0 % PT T APTT - 11/24/17 [...] CELL DISTRIBUTION WIDTH 12.0 % 11 .9-15.5 6289025 6.8 10E9/L 3.5-10.5 8592602 1.92 10E9/L 0.90-2.90 2132161 0.58 10E9/L 0.30-0.90 5658460 0.00 10E9/L 0.05-0.50 0160398 4.33 10E9/L 1.70-7.00 3577555 0.00 10E9/L 0.00-0.30 5464754 0 % CA 125 - 10/16/18 01:03 [...] CELL DISTRIBUTION WIDTH 12.2 % 11 .9-15.5 8437297 6.1 10E9/L 3.5-10.5 8908881 2.06 10E9/L 0.90-2.90 0195668 0.57 10E9/L 0.30-0.90 9494792 0.00 10E9/L 0.05-0.50 0938692 3.46 10E9/L 1.70-7.00 5086187 0.01 10E9/L 0.00-0.30 5144109 0 % C-REACTIVE PROTEIN - 11/05/18 00:02 3836847 2.0 mg/dL <=0.9 COMPREHENSIVE METABOLIC PANEL - [...] EU/dL 0.2 WBC UA 0-3 /hpf 0-3 0942096 Negative Negative Packed Cells Leukoreduced - 11/05/18 [...] CELL DISTRIBUTION WIDTH 12.6 % 11 .9-15.5 8148378 8.2 10E9/L 3.5-10.5 4305941 1.30 10E9/L 0.90-2.90 7909005 0.90 10E9/L 0.30-0.90 6562984 0.00 10E9/L 0.05-0.50 9446701 6.02 10E9/L 1.70-7.00 1236215 0.00 10E9/L 0.00-0.30 8965459 0 % COMPREHENSIVE METABOLIC PANEL - 11/06/18 [...] CELL DISTRIBUTION WIDTH 12.6 % 11 .9-15.5 9737550 5.0 10E9/L 3.5-10.5 6700585 1.08 10E9/L 0.90-2.90 7463688 0.43 10E9/L 0.30-0.90 1100673 0.00 10E9/L 0.05-0.50 1768382 3.53 10E9/L 1.70-7.00 8432772 0.00 10E9/L 0.00-0.30 3882170 0 % EXTRA SST TUBE - 11/09/18 [...] 11:55 Bacteria identification in wound by culture [id number] 009 NR FREE TEXT EXTERNAL NORMAL SKIN [...] 11:37 Bacteria identification in wound by culture 878569 01 NRG FREE TEXT EXTERNAL SUSCEPTIBILITY REPORT [...] pa katya - 01/01/20 01:45 WRISTBAND NUMBER [id number] NRG ABO+Rh group AP NRG Blood group [...] MDDT: 10/16/2018 12:42 [place] [address] on 11/05/19 19 00:30:38 EXAM: CT Abdomen [...] mA and/orkV according to patient size.DLP[facility] abdomen findings:The lung bases are clear. [...] Status Pt. Type Provider Facility Loc./Unit Complaint [id number] 07/25/2019 14:20:00 07/25/2019 23:59: 59 CLS Outpatient WHITNEY LAC[facility] [id number] 10/18/2019 09:13:00 23:59:59 CLS Outpatient MELANIE SURESH MD [facility] WOUNDCARE [id number] 10/11/2019 09:09:00 23:59:59 CLS Outpatient MELANIE SURESH MD [facility] WOUNDCARE [id number] 10/05/2019 12:18:00 23:59:59 CLS Outpatient MELANIE SURESH MD [facility] WOUNDCARE [id number] 09/29/2019 10:03:00 23:59:59 CLS Outpatient GAY SANDOVAL, GUILLERMO Lin [facility] RAD FOREIGN BODY INGESTION [id number] 09/21/2019 22:35:00 03:46:00 DIS Emergency ZION SANDOVAL, HAO Arias [facility] ER CUT ON STOMACH,SUICIDAL [id number] 07/28/2019 13:50:00 23:59:59 CLS Outpatient CHERYL MIRAMONTES DO [facility] RAD FB STOMACH [id number] 07/19/2019 01:38:00 11:30:00 DIS Inpatient SARTHAK SANDOVAL, MADDIE Hobson [facility] 4TH SUICIDAL IDEATION, FORE IGN BODY INGESTION [id number] 03/22/2019 08:04:00 12:40:00 DIS Outpatient SHELBY JULES DO [facility] SDC MENORRHAGIA [id number] 03/18/2019 11:30:00 11:47:00 DIS Outpatient SHELBY JULES DO [facility] PREOP MENORRHAGIA [id number] 02/23/2019 08:31:00 23:59:59 CLS Outpatient SALBADOR PAULA MD [facility] WOUNDCARE [id number] 02/16/2019 08:32:00 23:59:59 CLS Outpatient SALBADOR PAULA MD [facility] WOUNDCARE [id number] 02/09/2019 08:30:00 23:59:59 CLS Outpatient SALBADOR PAULA MD [facility] WOUNDCARE [id number] 02/02/2019 08:39:00 23:59:59 CLS Outpatient SALBADOR PAULA MD [facility] WOUNDCARE [id number] 01/21/2019 11:31:00 23:59:59 CLS Outpatient SHELBY JULES DO [facility] RAD BILATERAL OVARIAN CYSTS [id number] 01/21/2019 10:55:00 23:59:59 CLS Outpatient SALBADOR PAULA MD [facility] WOUNDCARE [id number] 01/14/2019 10:47:00 23:59:59 CLS Outpatient SALBADOR PAULA MD [facility] WOUNDCARE [id number] 01/04/2019 13:10:00 23:59:59 CLS Outpatient SALBADOR PAULA MD [facility] WOUNDCARE [id number] 12/31/2018 10:53:00 23:59:59 CLS Outpatient SALBADOR PAULA MD [facility] WOUNDCARE [id number] 12/24/2018 10:37:00 23:59:59 CLS Outpatient SALBADOR PAULA MD [facility] WOUNDCARE [id number] 12/17/2018 10:57:00 23:59:59 CLS Outpatient SALBADOR PAULA MD [facility] WOUNDCARE [id number] 12/10/2018 09:23:00 23:59:59 CLS Outpatient SALBADOR PAULA MD [facility] WOUNDCARE [id number] 12/03/2018 10:45:00 23:59:59 CLS Outpatient SALBADOR PAULA MD [facility] LAB [id number] 12/03/2018 09:27:00 23:59:59 CLS Outpatient SALBADOR PAULA MD [facility] WOUNDCARE [id number] 01/01/2020 00:32:00 Document Registration [id number] 11/06/2018 18:00:00 ACT Inpatient Shannen Raymundo MD [facility] [id number] 11/05/2018 18:00:00 ACT Inpatient Shannen Raymundo MD [facility] [id number] 02/11/2016 15:17:00 23:59:59 CLS Preadmit [facility] ABD LAC. [id number] 12/20/2016 11:00:00 017 12:19:00 DIS Emergency Skinny Wilkerson [facility] KCUC DRESSING CHANGE [id number] 12/19/2016 16:18:00 017 20:28:00 DIS [facility] [id number] 12/15/2016 16:03:00 017 16:43:00 DIS Emergency Eder Díaz [facility] FOREIGN OBJECT IN WOUND [id number] 07/18/2016 10:09:00 23:59:59 CLS Outpatient MarloQuinten maya [facility] OFFICE [id number] 02/27/2016 00:00:00 00:00:00 [facility] [id number] 02/12/2016 14:05:00 016 15:36:00 DIS Emergency Pauline Neville [facility] FOB IN GENITAL [id number] 02/11/2016 15:47:00 016 15:57:00 DIS Emergency Salbador Colin [facility] ABD LAC. [id number] 01/07/2016 14:28:00 016 15:42:[address] [facility] [id number] 12/27/2015 15:02:00 016 17:58:00 DIS Emergency Min Stevenson Vern [facility] WOUND ABD [id number] 12/05/2015 19:07:00 016 22:03:00 DIS Emergency EZ SANDOVAL, JOE FLETCHER I [facility] FOB [id number] 12/05/2015 09:16:00 016 12:03:00 DIS Emergency Allan Ayala [facility] P-EVAL [id number] 11/13/2015 15:37:00 23:59:59 CLS Outpatient WorQuinten maya [facility] OFFICE [id number] 11/03/2015 19:57:00 00:02:00 DIS Emergency Brice Leonard [facility] ASTHMA [id number] 10/29/2015 15:39:00 18:25:00 DIS Emergency Neli Allen R [facility] ABD PAIN [id number] 10/23/2015 04:00:00 13:14:00 DIS Inpatient Beni SANDOVAL, Jefferson Salguero [address] MAJOR DEPRESSIVE DISORDER, R ECURRENT SEVERE c PSY [id number] 08/29/2015 15:07:00 23:59:59 CLS Outpatient Worf, [facility] OFFICE [id number] 05/15/2015 10:30:00 23:59:59 CLS Preadmit Lashanda Burgos [facility] KCRAD ABDOMINAL PAIN EPIGASTRIC [id number] 05/08/2015 13:20:00 23:59:59 CLS Outpatient Lashanda Burgos [facility] OFFICE [id number] 05/08/2015 09:33:00 23:59:59 CLS Outpatient Worf, [facility] KCCPUL RESPIRATORY ABNORMALITY UNSPECIFIED [id number] 05/08/2015 22:50:00 23:33:00 DIS Emergency EZ SANDOVAL, JOE FLETCHER I [facility] CHEST PAIN [id number] 05/04/2015 14:00:00 23:59:59 CLS Outpatient Lashanda Burgos [facility] LAB [id number] 04/25/2015 08:14:00 015 23:59:59 CLS Outpatient Quinten Lindsay [facility] OFFICE [id number] 02/13/2015 16:09:00 Document Registration [id number] 01/30/2015 11:53:00 Document Registration [id number] 01/15/2015 08:47:00 Document Registration [id number] 11/29/2018 11:11:52 9 23:59:59 CLS Outpatient MYRANDATANVIR [facility] 823 [id number] 11/04/2018 23:20:09 9 16:00:00 DIS Inpatient TANVIR ORDAZ [facility] 7S [id number] 10/15/2018 22:08:44 9 13:24:00 DIS Inpatient DANILO, JOHN Get[place]w [facility] 7S [id number] 02/02/2018 10:28:37 8 23:59:59 CLS Outpatient BRENDEN, ADDIE [facility] BRENDEN [id number] 01/19/2018 09:38:37 8 23:59:59 CLS Outpatient BRENDEN, ADDIE [facility] BRENDEN [id number] 12/28/2017 20:14:33 8 23:59:59 CLS Outpatient JOSE MUNROE S [facility] LAB [id number] 12/28/2017 20:06:32 8 23:59:59 CLS Outpatient JOSE MUNROE S [facility] LAB [id number] 12/23/2017 15:02:25 8 16:45:00 DIS Outpatient BRENDEN, ADDIE [facility] [id number] 12/18/2017 08:57:58 8 11:08:00 DIS R BRENDEN, ADDIE [facility] IF [id number] 12/08/2017 10:15:30 8 23:59:59 CLS Outpatient BRENDEN, ADDIE [facility] BRENDEN [id number] 11/27/2017 10:11:46 8 23:59:59 CLS Outpatient JOSE MUNROE [facility] LAB [id number] 11/20/2017 12:11:56 8 18:24:00 DIS Inpatient BRENDENADDIE [facility] 7S [id number] 11/18/2017 12:27:34 8 16:07:00 DIS Emergency JOSE GARCIA [facility] EMD [id number] 11/06/2017 12:52:57 8 17:05:00 DIS Inpatient BRENDENADDIEon t [facility] 6EOBV [id number] 11/04/2017 14:03:25 8 23:59:59 CLS Outpatient KIMBERLY MCMULLEN [facility] 823 [id number] 10/10/2017 20:57:09 8 23:43:00 DIS Emergency [facility] [id number] 09/30/2017 13:45:37 8 23:59:59 CLS Outpatient KIMBERLY MCMULLEN [facility] 823 [id number] 09/09/2017 10:26:37 7 23:59:59 CLS Outpatient KIMBERLY MCMULLEN [facility] [id number] [id number] 08/16/2017 05:14:41 7 17:38:00 DIS Inpatient KIMBERLY MCMULLEN [facility] 7S [id number] 11/05/2018 04:43:39 Document Registration [id number] 11/05/2018 00:02:03 Document Registration [id number] 10/16/2018 03:01:34 Document Registration [id number] 10/16/2018 00:09:38 Document Registration [id number] 10/15/2018 22:41:23 Document Registration [id number] 12/23/2017 11:54:45 Document Registration [id number] 12/18/2017 14:32:11 Document Registration [id number] 08/16/2017 06:54:16 Document Registration
[2020-01-01] MEDS ORDERED: ENOXAPARIN 40 MG/0.4 ML (LOVENOX) SYR ONE (06:26)
[2020-01-01] MEDS ORDERED: CIPROFLOXACIN IV 400MG/200ML 200 ML IV ONE (06:27)
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
--- OUTSIDE RECORDS SUMMARY | 2020-01-01 06:59 | XMS REPORT | Continuity of Care Document ---
Author Organization Unknown Address Unknown Phone Unavailable Allergies Active Description Code Type Severity Reaction Onset Reported/Identified Relationship to Patient Clinical Status Yes NO NAME AVAILABLE 36944 DRUG N/A N/A Yes .MDRO 0040 Miscellaneous Allergy N/A N/A 12/05/2015 Yes amoxicillin [id number] Drug Aller gy N/A N/A 12/05/2015 Yes clavulanic acid [id number] D rug Allergy N/A N/A 12/05/2015 Yes AMOXICILLIN-POT CLAVULANATE 33694 DRUG N/A Other 11/06/2017 11/06/2017 Yes amoxicillin [id number] Drug Aller gy Unknown N/A 03/18/2019 Yes clavulanic acid [id number] D rug Allergy Unknown N/A 03/18/2019 Yes Penicillins [id number] Drug Aller gy Unknown N/A 03/18/2019 Yes potassium chloride [id number] Drug Allergy Unknown N/A 03/18/2019 Medications Medication [...] HCL 2 % EX GEL 08/18/2017 Topical CA N LACTATED RINGERS IV SOLN 08/20/2017 Intravenous [...] 2 % EX GEL 11/21/2017 Topical 5 CA N ALBUTEROL SULFATE HFA 108 (9 0 [...] % MT LIQD 11/05/2018 Mouth/Throat 1 PRN [id number] PERTUSS IS 5-2-15.5 LF-MCG/0.5 IM SUSP 11/05/2018 [...] 2 % EX GEL 11/06/2018 Topical 5 CA N FERROUS SULFATE 325 (65 FE) MG [...] Burgos APRN OT 786.2 05/04/2015 Lashanda Burgos GLOVE PRESSER OT 787.01 05/04/2015 Lashanda Burgosn GLOVE PRESSER OT 789.06 05/08/2015 Worf, Quinten Rosamaria MANAGER SOCIAL RESPONSIBILITY OT 786.00 05/08/2015 Worf, Quinten Rosamaria MANAGER SOCIAL RESPONSIBILITY OT 786.02 05/08/2015 Worf, Quinten Rosamaria MANAGER SOCIAL RESPONSIBILITY OT 786.00 05/08/2015 Worf, Quinten Rosamaria MANAGER SOCIAL RESPONSIBILITY OT 786.02 05/08/2015 Worf, Quinten Rosamaria MANAGER SOCIAL RESPONSIBILITY OT 786.00 05/08/2015 Worf, Quinten Rosamaria MANAGER SOCIAL RESPONSIBILITY OT 786.02 05/08/2015 Worf, Quinten Rosamaria MANAGER SOCIAL RESPONSIBILITY OT 786.00 05/08/2015 Worf, Quinten Rosamaria MANAGER SOCIAL RESPONSIBILITY OT 786.02 05/08/2015 Worf, Quinten Rosamaria MANAGER SOCIAL RESPONSIBILITY OT 786.00 05/08/2015 Worf, Quinten Rosamaria MANAGER SOCIAL RESPONSIBILITY OT 786.02 05/08/2015 Worf, Quinten Rosamaria MANAGER SOCIAL RESPONSIBILITY OT 786.00 05/08/2015 Worf, Quinten Rosamaria MANAGER SOCIAL RESPONSIBILITY OT 786.02 05/08/2015 Worf, Quinten Rosamaria MANAGER SOCIAL RESPONSIBILITY OT 786.00 05/08/2015 Worf, Quinten Rosamaria MANAGER SOCIAL RESPONSIBILITY OT 786.02 05/08/2015 Worf, Quinten Rosamaria MANAGER SOCIAL RESPONSIBILITY OT 786.00 05/08/2015 Worf, Quinten Rosamaria MANAGER SOCIAL RESPONSIBILITY OT 786.02 05/08/2015 EZ SANDOVAL, JOE PittmanPLOMTI OT 493.90 05/31/2015 Worf, Quinten Rosamaria MANAGER SOCIAL RESPONSIBILITY OT 786.05 05/31/2015 Worf, Quinten Rosamaria MANAGER SOCIAL RESPONSIBILITY OT 787.91 06/01/2015 Lashanda Burgosn GLOVE PRESSER OT 783.1 06/01/2015 Lashanda Burgos Su GLOVE PRESSER OT 786.2 06/01/2015 Lashanda Burgos Su GLOVE PRESSER OT 787.01 06/01/2015 Lashanda Burgosn GLOVE PRESSER OT 789.06 08/29/2015 Worf, Quinten Rosamaria MANAGER SOCIAL RESPONSIBILITY OT N91 .2 08/29/2015 Worf, Quinten Rosamaria MANAGER SOCIAL RESPONSIBILITY OT N91 .2 09/26/2015 Worf, Quinten Rosamaria MANAGER SOCIAL RESPONSIBILITY OT F60 .3 09/26/2015 Worf, Quinten ALLAN [...] Neville OT X78.8XXD 02/27/2016 Worf, Quinten Rosamaria MANAGER SOCIAL RESPONSIBILITY OT F33 .1 02/27/2016 Worf, Quinten Jo MANAGER SOCIAL RESPONSIBILITY OT R73.01 02/27/2016 Worf, Quinten Jo MANAGER SOCIAL RESPONSIBILITY OT F33 .1 02/27/2016 Worf, Quinten Rosamaria MANAGER SOCIAL RESPONSIBILITY OT R73.01 04/01/2016 Worf, Quinten Rosamaria MANAGER SOCIAL RESPONSIBILITY OT F33 .1 04/01/2016 Worf, Quinten Rosamaria MANAGER SOCIAL RESPONSIBILITY OT R73.01 04/01/2016 Worf, Quinten Rosamaria MANAGER SOCIAL RESPONSIBILITY OT F33 .1 04/01/2016 Worf, Quinten Rosamaria MANAGER SOCIAL RESPONSIBILITY OT R73.01 08/18/2016 Worf, Quinten Rosamaria MANAGER SOCIAL RESPONSIBILITY OT B37.84 08/18/2016 Worf, Quinten Blank MANAGER SOCIAL RESPONSIBILITY OT J44 .9 08/18/2016 Quinten Lindsay OT K21 .9 08/25/2017 KHRECEASAR, WAEL V 969562 Abdominal Injury KHREISS, WAEL 08/25/2017 KHREISS, WAEL V 618053 Suicidal KHREISS, WAEL 08/25/2017 KHREISS, WAEL V [...] cavity, initial encounter 10/10/2017 SHANNEN ELAINE V 959089 Aggressive Behavior SHANNEN ELAINE 10/10/2017 SHANNEN ELAINE V 358615 Wound Dehiscence SHANNEN ELAINE 10/10/2017 SHANNEN ELAINE [...] specified postprocedural states 11/26/2017 BRENDEN, ADDIE V 699013 Wound Check 11/26/2017 BRENDEN, ADDIE V L30.9 [...] self-harm by other specified means, initial encounter ([facility]) 11/26/2017 BRENDEN, ADDIE F Z87.891 Personal history [...] CARRASCO V F31. 9 Bipolar disorder, unspecified ([facility]) 10/17/2018 SONG CARRASCO T18.9XXA Foreign body of alimentary tract, part unspecified, in itial encounter 10/17/2018 SONG CARRASCO V Z72. 89 Other problems related to lifestyle 10/17/2018 SONG CARRASCO E11. 9 Type 2 diabetes mellitus without complications ([facility]) 10/17/2018 SONG CARRASCO E66. 01 Morbid (severe) [...] by unspecified sha rp object, initial encounter ([facility]) 10/17/2018 SONG CARRASCO Z23 Encounter for immunization [...] cavity, initial encounter 11/10/2018 TANVIR ORDAZ V 184287 Suicidal 11/10/2018 TANVIR ORDAZ V 256115 Wound Check 11/10/2018 TANVIR ORDAZ V F31.4 [...] TANVIR Maya E87.1 Hypo-osmolality and hyponatremia 11/10/2018 [facility], TANVIR Maya E87.6 Hypokalemia 11/10/2018 [facility], TANVIR Maya F31.32 Bipolar disorder, current episode depressed, moderate (HCC) 11/10/2018 [facility], TANVIR Maya F41.1 Generalized anxiety disorder 11/10/2018 [facility], TANVIR Maya F43.10 Post-traumatic stress disorder, unspecified 11/10/2018 [facility], TANVIR Maya F60.3 Borderline personality disorder (HCC) 11/10/2018 [facility], TANVIR Maya F63.1 Pyromania 11/10/2018 [facility], TANVIR Maya J45.90 9 Unspecified asthma, uncomplicated 11/10/2018 [facility], TANVIR Maya K00.0 Anodontia 11/10/2018 [facility], TANVIR Maya K66.0 Peritoneal adhesions (postprocedural) (postinfection) 11/10/2018 [facility], TANVIR Maya N83.9 Noninflammatory disorder of ovary, fallopian tube and broad ligament, unspecified 11/10/2018 [facility], TANVIR Maya R12 Heartburn 11/10/2018 [facility], TANVIR Maya R45.87 Impulsiveness 11/10/2018 [facility], TANVIR Maya R73.03 Prediabetes 11/10/2018 [facility], TANVIR Maya R97.1 Elevated cancer antigen 125 (CA 125) 11/10/2018 [facility], TANVIR Maya S31.62 9A Laceration with [...] surveillance 11/10/2018 TANVIR ORDAZ Z79.89 9 Other parts counterman (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) drug therapy 11/10/[facility] Z[facility].5 Personal history of self-harm 12/03/2018 [...] INTERNAL OPERATION (SURGIC 12/07/2018 TANVIR ORDAZ V 174704 501 Post Op Visit 12/07/2018 TANVIR ORDAZ V K63.1 Perforation of intestine (nontraumatic) ([facility]) 12/08/2018 SALBADOR PAULA MD Ot B35 .4 [...] DISRUPTION OF EXTERNAL OPERATION (SURGIC 12/31/2018 SALBADOR PALUA MD Ot E11.622 TYPE 2 DIABETES MELLITUS [...] SHELBY JULES DO Ot Z79.8 99 OTHER CARE HOME (CURRENT) DRUG THERAPY 03/22/2019 SHELBY JULES DO [...] JULES DOA C Ot Z79.8 99 OTHER DIRECTOR INTERNAL COMMUNICATIONS (CURRENT) DRUG THERAPY 03/29/2019 DHARA RAPHAEL SHELBY [...] .5 PERSONAL HISTORY OF SELF-HARM 08/01/2019 CHERYL MIARMONTES DO Ot T18.2XXA FOREIGN BODY IN STOMACH, [...] Ot J45.909 UNSPECIFIED ASTHMA, UNCOMPLICATED 09/22/2019 HAO ODNOVAN MD Ot S31.115A LAC W/O FB OF ABD WL, PERIUMB RGN W/O PE 09/22/2019 HAO DONOVAN MD Ot X78.8XXA INTENTIONAL SELF-HARM BY OTHER SHARP OBJ 09/22/2019 HAO DONOVAN MD Ot Z77. 22 CNTCT W AND EXPSR TO ENVIRON TOBACCO SMO 09/22/2019 HAO DONOVAN MD Ot Z79. 51 CARE HOME (CURRENT) USE OF INHALED STERO 09/22/2019 HAO [...] 09/27/2019 HAO DONOVAN MD, Ot Z79. 51 CARE HOME (CURRENT) USE OF INHALED STERO 09/27/2019 HAO [...] Code Description Performed By Per jose On [id number] In sertion of Infusion Dev into Sup Vena Cava, Perc Approach 11/24/2017 [id number] [facility] [place] Other Device in Trunk Subcu/Fascia, Track Man Approach 12/2017 [id number] Ex tirpation of Matter from Peritoneal Cavity, Open Approach 0 10/16/2018 [id number] Ex cision of Small Intestine, Open Approach 11/05/2018 [id number] Ex tirpation of Matter from Small Intestine, Open Approach [id number] Re lease Small Intestine, Open Approach 11/05/2018 [...] CELL DISTRIBUTION WIDTH 13.2 % 11 .9-15.5 2985627 15.3 10E9/L 3.5-10.5 6702807 0.84 10E9/L 0.90-2.90 9996615 0.89 10E9/L 0.30-0.90 9636626 0.00 10E9/L 0.05-0.50 2108970 13.59 10E9/L 1.70-7.00 2744232 0.01 10E9/L 0.00-0.30 5666637 0 % HCG, SERUM, QUALITATIVE - 08/16/17 06:05 HCG SERUM(QUAL) Negative mIU/mL Negative FLUID CULTURE - 08/16/17 09:38 [id number] No organisms seen [id number] No Growth ANAEROBIC CULTURE - 08/16/17 09:38 2252945 No Growth CBC WITHOUT DIFFERENTIAL - 08/17/17 06:3 7 HEMATOCRIT 36.4 % 34.9-44.5 HEMOGLOBIN 11.8 g/dL 12.0-15.5 MEAN CORPUSCULAR HEMOGLOBIN 29.5 pg 26 .0-34.0 MEAN CORPUSCULAR HEMOGLOBIN CONC 32.4 g/dL 31.0-37.0 MEAN CORPUSCULAR VOLUME 91.0 fL 81.6-9 8.3 PLATELET COUNT 306 10E9/L 150-450 RED BLOOD CELL COUNT 4.00 10E12/L 3.90-5 .03 RED CELL DISTRIBUTION WIDTH 13.9 % 11 .9-15.5 6553988 12.5 10E9/L 3.5-10.5 COMPREHENSIVE METABOLIC PANEL - [...] CELL DISTRIBUTION WIDTH 13.9 % 11 .9-15.5 8708123 10.5 10E9/L 3.5-10.5 COMPREHENSIVE METABOLIC PANEL - [...] CELL DISTRIBUTION WIDTH 13.6 % 11 .9-15.5 1278084 6.0 10E9/L 3.5-10.5 COMPREHENSIVE METABOLIC PANEL - [...] CELL DISTRIBUTION WIDTH 13.4 % 11 .9-15.5 1159022 3.4 10E9/L 3.5-10.5 COMPREHENSIVE METABOLIC PANEL - [...] CELL DISTRIBUTION WIDTH 14.4 % 11 .9-15.5 9511173 3.4 10E9/L 3.5-10.5 COMPREHENSIVE METABOLIC PANEL - [...] CELL DISTRIBUTION WIDTH 13.9 % 11 .9-15.5 5892566 5.2 10E9/L 3.5-10.5 MAGNESIUM - 08/22/17 07:08 [...] CELL DISTRIBUTION WIDTH 14.0 % 11 .9-15.5 6217382 3.6 10E9/L 3.5-10.5 COMPREHENSIVE METABOLIC PANEL - [...] CELL DISTRIBUTION WIDTH 14.1 % 11 .9-15.5 7125206 4.7 10E9/L 3.5-10.5 COMPREHENSIVE METABOLIC PANEL - [...] CELL DISTRIBUTION WIDTH 13.9 % 11 .9-15.5 3593325 5.6 10E9/L 3.5-10.5 COMPREHENSIVE METABOLIC PANEL - [...] CELL DISTRIBUTION WIDTH 13.4 % 11 .9-15.5 6959147 8.7 10E9/L 3.5-10.5 5663594 1.33 10E9/L 0.90-2.90 4897849 0.71 10E9/L 0.30-0.90 6303595 0.00 10E9/L 0.05-0.50 6743413 6.65 10E9/L 1.70-7.00 5964237 0.00 10E9/L 0.00-0.30 4062813 0 % COMPREHENSIVE METABOLIC PANEL - 10/10/17 [...] CELL DISTRIBUTION WIDTH 13.5 % 11 .9-15.5 0957206 6.9 10E9/L 3.5-10.5 9813109 1.22 10E9/L 0.90-2.90 7915683 0.71 10E9/L 0.30-0.90 4213919 0.00 10E9/L 0.05-0.50 3526812 4.99 10E9/L 1.70-7.00 0213856 0.00 10E9/L 0.00-0.30 0081576 0 % EXTRA LIGHT BLUE TOP - [...] CELL DISTRIBUTION WIDTH 13.4 % 11 .9-15.5 6070432 5.6 10E9/L 3.5-10.5 5300008 1.34 10E9/L 0.90-2.90 0881769 0.43 10E9/L 0.30-0.90 2986438 0.01 10E9/L 0.05-0.50 0706683 3.83 10E9/L 1.70-7.00 1039184 0.00 10E9/L 0.00-0.30 7436453 0 % COMPREHENSIVE METABOLIC PANEL - 11/08/17 [...] CELL DISTRIBUTION WIDTH 12.9 % 11 .9-15.5 7966646 8.2 10E9/L 3.5-10.5 6193937 1.42 10E9/L 0.90-2.90 9632793 0.90 10E9/L 0.30-0.90 9490471 0.00 10E9/L 0.05-0.50 9071942 5.88 10E9/L 1.70-7.00 1341163 0.01 10E9/L 0.00-0.30 5989068 0 % COMPREHENSIVE METABOLIC PANEL - 11/18/17 [...] EU/dL 0.2 WBC UA 0-3 /hpf 0-3 4120243 Trace Negative 8710250 4 /lpf CBC WITH AUTO DIFFERENTIAL - [...] CELL DISTRIBUTION WIDTH 12.8 % 11 .9-15.5 3998935 7.3 10E9/L 3.5-10.5 5295778 1.56 10E9/L 0.90-2.90 7262801 0.74 10E9/L 0.30-0.90 8407157 0.01 10E9/L 0.05-0.50 8327385 4.94 10E9/L 1.70-7.00 9651797 0.01 10E9/L 0.00-0.30 9188788 0 % BASIC METABOLIC PANEL - 11/23/17 [...] CELL DISTRIBUTION WIDTH 12.6 % 11 .9-15.5 8597610 5.4 10E9/L 3.5-10.5 5542253 1.11 10E9/L 0.90-2.90 1602524 0.60 10E9/L 0.30-0.90 4105152 0.00 10E9/L 0.05-0.50 4545960 3.69 10E9/L 1.70-7.00 5231318 0.00 10E9/L 0.00-0.30 2979397 0 % PT T APTT - 11/24/17 [...] CELL DISTRIBUTION WIDTH 12.0 % 11 .9-15.5 9420183 6.8 10E9/L 3.5-10.5 4219772 1.92 10E9/L 0.90-2.90 5406489 0.58 10E9/L 0.30-0.90 2627909 0.00 10E9/L 0.05-0.50 8771088 4.33 10E9/L 1.70-7.00 1894054 0.00 10E9/L 0.00-0.30 5893733 0 % CA 125 - 10/16/18 01:03 [...] CELL DISTRIBUTION WIDTH 12.2 % 11 .9-15.5 5049495 6.1 10E9/L 3.5-10.5 4147454 2.06 10E9/L 0.90-2.90 4841455 0.57 10E9/L 0.30-0.90 8017817 0.00 10E9/L 0.05-0.50 8414133 3.46 10E9/L 1.70-7.00 3459062 0.01 10E9/L 0.00-0.30 5953452 0 % C-REACTIVE PROTEIN - 11/05/18 00:02 3046116 2.0 mg/dL <=0.9 COMPREHENSIVE METABOLIC PANEL - [...] EU/dL 0.2 WBC UA 0-3 /hpf 0-3 2234894 Negative Negative Packed Cells Leukoreduced - 11/05/18 [...] CELL DISTRIBUTION WIDTH 12.6 % 11 .9-15.5 5000284 8.2 10E9/L 3.5-10.5 8660676 1.30 10E9/L 0.90-2.90 1938803 0.90 10E9/L 0.30-0.90 7540396 0.00 10E9/L 0.05-0.50 2921083 6.02 10E9/L 1.70-7.00 0588533 0.00 10E9/L 0.00-0.30 1230842 0 % COMPREHENSIVE METABOLIC PANEL - 11/06/18 [...] CELL DISTRIBUTION WIDTH 12.6 % 11 .9-15.5 1232226 5.0 10E9/L 3.5-10.5 9935770 1.08 10E9/L 0.90-2.90 6227481 0.43 10E9/L 0.30-0.90 7739887 0.00 10E9/L 0.05-0.50 5942519 3.53 10E9/L 1.70-7.00 1884547 0.00 10E9/L 0.00-0.30 8233366 0 % EXTRA SST TUBE - 11/09/18 [...] 11:55 Bacteria identification in wound by culture [id number] 009 NR FREE TEXT EXTERNAL NORMAL SKIN [...] 11:37 Bacteria identification in wound by culture 505728 01 NRG FREE TEXT EXTERNAL SUSCEPTIBILITY REPORT [...] pa katya - 01/01/20 01:45 WRISTBAND NUMBER [id number] NRG ABO+Rh group AP NRG Blood group [...] MDDT: 10/16/2018 12:42 [place] [id number] on 11/05/19 19 00:30:38 EXAM: CT Abdomen [...] mA and/orkV according to patient size.DLP[facility] abdomen findings:The lung bases are clear. [...] Status Pt. Type Provider Facility Loc./Unit Complaint [id number] 07/25/2019 14:20:00 07/25/2019 23:59: 59 CLS Outpatient WHITNEY LAC, QUINTEN [facility] [id number] 10/18/2019 09:13:00 23:59:59 CLS Outpatient MELANIE SURESH MD [facility] WOUNDCARE [id number] 10/11/2019 09:09:00 23:59:59 CLS Outpatient MELANIE SURESH MD [facility] WOUNDCARE [id number] 10/05/2019 12:18:00 23:59:59 CLS Outpatient MELANIE SURESH MD [facility] WOUNDCARE [id number] 09/29/2019 10:03:00 23:59:59 CLS Outpatient GAY SANDOVAL, GUILLERMO Lin [facility] RAD FOREIGN BODY INGESTION [id number] 09/21/2019 22:35:00 03:46:00 DIS Emergency ZION SANDOVAL, HAO Arias [facility] ER CUT ON STOMACH,SUICIDAL [id number] 07/28/2019 13:50:00 23:59:59 CLS Outpatient CHERYL MIRAMONTES DO [facility] RAD FB STOMACH [id number] 07/19/2019 01:38:00 11:30:00 DIS Inpatient SARTHAK SANDOVAL, MADDIE Hobson [facility] 4TH SUICIDAL IDEATION, FORE IGN BODY INGESTION [id number] 03/22/2019 08:04:00 12:40:00 DIS Outpatient SHELBY JULES DO [facility] SDC MENORRHAGIA [id number] 03/18/2019 11:30:00 11:47:00 DIS Outpatient SHELBY JULES DO [facility] PREOP MENORRHAGIA [id number] 02/23/2019 08:31:00 23:59:59 CLS Outpatient SALBADOR PAULA MD [facility] WOUNDCARE [id number] 02/16/2019 08:32:00 23:59:59 CLS Outpatient SALBADOR PAULA MD [facility] WOUNDCARE [id number] 02/09/2019 08:30:00 23:59:59 CLS Outpatient SALBADOR PAULA MD [facility] WOUNDCARE [id number] 02/02/2019 08:39:00 23:59:59 CLS Outpatient SALBADOR PAULA MD [facility] WOUNDCARE [id number] 01/21/2019 11:31:00 23:59:59 CLS Outpatient SHELBY JULES DO [facility] RAD BILATERAL OVARIAN CYSTS [id number] 01/21/2019 10:55:00 23:59:59 CLS Outpatient SALBADOR PAULA MD [facility] WOUNDCARE [id number] 01/14/2019 10:47:00 23:59:59 CLS Outpatient SALBADOR PAULA MD [facility] WOUNDCARE [id number] 01/04/2019 13:10:00 23:59:59 CLS Outpatient SALBADOR PAULA MD [facility] WOUNDCARE [id number] 12/31/2018 10:53:00 23:59:59 CLS Outpatient SALBADOR PAULA MD [facility] WOUNDCARE [id number] 12/24/2018 10:37:00 23:59:59 CLS Outpatient SALBADOR PAULA MD [facility] WOUNDCARE [id number] 12/17/2018 10:57:00 23:59:59 CLS Outpatient SALBADOR PAULA MD [facility] WOUNDCARE [id number] 12/10/2018 09:23:00 23:59:59 CLS Outpatient SALBADOR PAULA MD [facility] WOUNDCARE [id number] 12/03/2018 10:45:00 23:59:59 CLS Outpatient SALBADOR PAULA MD [facility] LAB [id number] 12/03/2018 09:27:00 23:59:59 CLS Outpatient SALBADOR PAULA MD [facility] WOUNDCARE [id number] 01/01/2020 00:32:00 Document Registration [id number] 11/06/2018 18:00:00 ACT Inpatient Shannen Raymundo MD [facility] [id number] 11/05/2018 18:00:00 ACT Inpatient Shannen Raymundo MD [facility] N[facility] [id number] 02/11/2016 15:17:00 23:59:59 CLS Preadmit [facility] ABD LAC. [id number] 12/20/2016 11:00:00 017 12:19:00 DIS Emergency Skinny Wilkerson [facility] KCUC DRESSING CHANGE [id number] 12/19/2016 16:18:00 017 20:28:00 DIS [facility] [id number] 12/15/2016 16:03:00 017 16:43:00 DIS Emergency Eder Díaz [facility] FOREIGN OBJECT IN WOUND [id number] 07/18/2016 10:09:00 23:59:59 CLS Outpatient MarloQuinten [facility] OFFICE [id number] 02/27/2016 00:00:00 00:00:00 [facility] [id number] 02/12/2016 14:05:00 016 15:36:00 DIS Emergency Pauline Neville [facility] FOB IN GENITAL [id number] 02/11/2016 15:47:00 016 15:57:00 DIS Emergency Salbador Colin [facility] ABD LAC. [id number] 01/07/2016 14:28:00 016 15:42:00 DIS [id number] 12/27/2015 15:02:00 016 17:58:00 DIS Emergency Min Stevenson Vern [facility] WOUND ABD [id number] 12/05/2015 19:07:00 016 22:03:00 DIS Emergency EZ SANDOVAL, JOE FLETCHER I [facility] FOB [id number] 12/05/2015 09:16:00 016 12:03:00 DIS Emergency Allan Ayala [facility] P-EVAL [id number] 11/13/2015 15:37:00 23:59:59 CLS Outpatient WorQuinten maya [facility] OFFICE [id number] 11/03/2015 19:57:00 00:02:00 DIS Emergency Brice Leonard [facility] ASTHMA [id number] 10/29/2015 15:39:00 18:25:00 DIS Emergency Neli Allen R [facility] ABD PAIN [id number] 10/23/2015 04:00:00 13:14:00 DIS Inpatient Beni SANDOVAL, Jefferson Salguero [address] MAJOR DEPRESSIVE DISORDER, R ECURRENT SEVERE c PSY [id number] 08/29/2015 15:07:00 23:59:59 CLS Outpatient Worf, [facility] OFFICE [id number] 05/15/2015 10:30:00 23:59:59 CLS Preadmit Lashanda Burgos [facility] KCRAD ABDOMINAL PAIN EPIGASTRIC [id number] 05/08/2015 13:20:00 23:59:59 CLS Outpatient Lashanda Burgos [facility] OFFICE [id number] 05/08/2015 09:33:00 23:59:59 CLS Outpatient Worf, [facility] KCCPUL RESPIRATORY ABNORMALITY UNSPECIFIED [id number] 05/08/2015 22:50:00 23:33:00 DIS Emergency EZ SANDOVAL, JOE FLETCHER I [facility] CHEST PAIN [id number] 05/04/2015 14:00:00 23:59:59 CLS Outpatient Lashanda Burgos [facility] LAB [id number] 04/25/2015 08:14:00 015 23:59:59 CLS Outpatient Quinten Lindsay [facility] OFFICE [id number] 02/13/2015 16:09:00 Document Registration [id number] 01/30/2015 11:53:00 Document Registration [id number] 01/15/2015 08:47:00 Document Registration [id number] 11/29/2018 11:11:52 9 23:59:59 CLS Outpatient MYRANDATANVIR [facility] 823 [id number] 11/04/2018 23:20:09 9 16:00:00 DIS Inpatient TANVIR ORDAZ [facility] 7S [id number] 10/15/2018 22:08:44 9 13:24:00 DIS Inpatient DANILO, JOHN [facility] 7S [id number] 02/02/2018 10:28:37 8 23:59:59 CLS Outpatient BRENDEN, ADDIE [facility] BRENDEN [id number] 01/19/2018 09:38:37 8 23:59:59 CLS Outpatient BRENDEN, ADDIE [facility] BRENDEN [id number] 12/28/2017 20:14:33 8 23:59:59 CLS Outpatient JOSE MUNROE S [facility] LAB [id number] 12/28/2017 20:06:32 8 23:59:59 CLS Outpatient JOSE MUNROE S [facility] LAB [id number] 12/23/2017 15:02:25 8 16:45:00 DIS Outpatient BRENDEN, ADDIE [facility] [id number] 12/18/2017 08:57:58 8 11:08:00 DIS R BRENDEN, ADDIE [facility] IF [id number] 12/08/2017 10:15:30 8 23:59:59 CLS Outpatient BRENDEN, ADDIE [facility] BRENDEN [id number] 11/27/2017 10:11:46 8 23:59:59 CLS Outpatient JOSE MUNROE [facility] LAB [id number] 11/20/2017 12:11:56 8 18:24:00 DIS Inpatient BRENDENADDIE [facility] 7S [id number] 11/18/2017 12:27:34 8 16:07:00 DIS Emergency JOSE GARCIA [facility] EMD [id number] 11/06/2017 12:52:57 8 17:05:00 DIS Inpatient BRENDENADDIEon t [facility] 6EOBV [id number] 11/04/2017 14:03:25 8 23:59:59 CLS Outpatient KIMBERLY MCMULLEN [facility] 823 [id number] 10/10/2017 20:57:09 8 23:43:00 DIS Emergency SHANNEN ELAINE [facility] [id number] 09/30/2017 13:45:37 8 23:59:59 CLS Outpatient KIMBERLY MCMULLEN [facility] 823 [id number] 09/09/2017 10:26:37 7 23:59:59 CLS Outpatient KIMBERLY MCMULLEN [facility] 823 [id number] 08/16/2017 05:14:41 7 17:38:00 DIS Inpatient KIMBERLY MCMULLEN [facility] 7S [id number] 11/05/2018 04:43:39 Document Registration [id number] 11/05/2018 00:02:03 Document Registration [id number] 10/16/2018 03:01:34 Document Registration [id number] 10/16/2018 00:09:38 Document Registration [id number] 10/15/2018 22:41:23 Document Registration [id number] 12/23/2017 11:54:45 Document Registration [id number] 12/18/2017 14:32:11 Document Registration [id number] 08/16/2017 06:54:16 Document Registration
[2020-01-01] MEDS: LACTATED RINGERS 1,000 ML IV SCH ×2 (07:27→12:57)
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
[2020-01-01] MEDS ORDERED: PANTOPRAZOLE 40 MG (PROTONIX) TAB PO ONE (07:45)
[2020-01-01] MEDS: PANTOPRAZOLE 40 MG (PROTONIX) TAB PO SCH (07:49)
[2020-01-01] MEDS ORDERED: PANTOPRAZOLE 40 MG (PROTONIX) VIAL IVP SCH (09:00)
[2020-01-01] MEDS: SERTRALINE 100 MG (ZOLOFT) TAB PO SCH (09:39)
[2020-01-01] MEDS: OLANZapine 5 MG (ZyPREXA) TAB PO SCH ×2 (09:39→21:44)
[2020-01-01] MEDS ORDERED: OLANZAPINE 20 MG PO SCH (21:00)
--- NOTE | 2020-01-01 22:00 | NUR ---
PT ASKED FOR HER TRAZODONE, DR MIRAMONTES ORDERED TO RESTART IT
[2020-01-01] MEDS ORDERED: traZODone 100 MG (DESYREL) TAB ONE (22:33)
[2020-01-02] VITALS (7 sets, daily range): BP systolic 100–131; BP diastolic 53–83
[2020-01-02] MEDS: ACETAMINOPHEN 500 MG TAB (TYLENOL) PO SCH ×3 (05:43→21:05)
[2020-01-02] MEDS: KETOROLAC 30 MG/ML VIAL IVP SCH ×4 (05:43→23:13)
[2020-01-02] MEDS: CIPROFLOXACIN IV 400MG/200ML 200 ML IV SCH (05:43)
[2020-01-02] MEDS: ENOXAPARIN 40 MG/0.4 ML (LOVENOX) SYR SC SCH ×3 (05:43→17:31)
--- NOTE | 2020-01-02 08:52 | Anesthesia-General Post-Op ---
General Patient Condition Mental Status/LOC: Same as Preop Cardiovascular: Satisfactory Nausea/Vomiting: Absent Respiratory: Satisfactory Pain: Controlled Complications: Absent Post Op Complications Complications None Follow Up Care/Instructions Patient Instructions None needed. Anesthesia/Patient Condition Patient Condition Patient is doing well, no complaints, stable vital signs, no apparent adverse anesthesia problems. No complications reported per nursing. ROXANNE BETHEA CRNA Jan 02, 2020 08:52
[2020-01-02] MEDS: PANTOPRAZOLE 40 MG (PROTONIX) TAB PO SCH (08:54)
[2020-01-02] MEDS: OLANZapine 5 MG (ZyPREXA) TAB PO SCH ×2 (08:54→19:58)
[2020-01-02] MEDS: SERTRALINE 100 MG (ZOLOFT) TAB PO SCH (08:54)
--- NOTE | 2020-01-02 10:46 | Progress Note - Surgery ---
Subjective Time Seen by a Provider: 10:22 Subjective/Events-last exam Pt seen and examined, states minimal abdominal pain and is having flatus and BM. Review of Systems General: No Chills, No Night Sweats Pulmonary: No Dyspnea, No Cough Cardiovascular: No: Chest Pain, Palpitations Gastrointestinal: No: Nausea, Vomiting Objective Exam Vital Signs Date Time Temp Pulse Resp B/P (MAP) Pulse Ox O2 Delivery O2 Flow Rate FiO2 01/02/20 08:00 36.2 82 18 120/68 (85) 94 Room Air 01/02/20 08:00 94 Room Air 4.00 01/02/20 04:00 36.8 80 18 100/58 (72) 93 Room Air 01/02/20 00:19 36.2 89 18 102/53 (69) 92 Room Air 01/01/20 21:30 Room Air 01/01/20 19:19 37.5 86 20 149/83 (105) 95 Room Air 01/01/20 16:33 37.0 80 15 142/63 (89) 94 Room Air 01/01/20 11:57 36.9 79 18 123/73 (90) 98 Nasal Cannula 4.00 I & O 01/02/20 07:00 Intake Total 3060 ml Balance 3060 ml Capillary Refill : Less Than 3 SecondsLess Than 3 Seconds General Appearance: No Apparent Distress, Obese HEENT: Moist Mucous Membranes; No Scleral Icterus (L), No Scleral Icterus (R) Respiratory: Lungs Clear, Normal Breath Sounds, No Accessory Muscle Use, No Respiratory Distress Cardiovascular: Regular Rate, Rhythm, No Murmur Gastrointestinal: soft, tenderness (minimally at incision), other (incision is intact with no drainage, did have old blood) Results Lab Microbiology 12/31/19 Urine Culture - Final, Complete 3 or more isolates Assessment/Plan Assessment/Plan Assessment/Plan S/P Ex Lap with JOAN and repair of enterotomy Will order SBFT to make sure no extravasation; if it looks good will increase diet and possibly send pt home tomorrow. Pain control as needed, can restart all home meds. CHERYL MIRAMONTES DO Jan 02, 2020 10:46
--- NOTE | 2020-01-02 12:22 | NUR ---
CM/SS: Visited with pt and her staff from [facility] at bedside, as to plan for discharge Plan: Pt will return to her home at [facility] - through [facility] Staff report they have a plan in place for pt after discharge from hospital - pt has round the clock supervision. Summary: Pt is living at [facility] - through [facility]. She reports having a Counselor Anuradha Duffy, and has medications monitored through [facility]. Pt reports having some problems with her roommate and just felt like she wanted to hurt herself. She shares she has done this a few times in the past. Staff present report that they are working on a plan for pt based on the her conflict with her roommate. Call to pt's Meat Team Lead - Breana Caruso - [phone]. She reports that pt has staff with her round the clock for safety. Appointments are scheduled for pt with counselor and she just had her medication management appointment. She reports they are not sure if they can make changes with the roommate, due to her having staffing round the clock at the present time. No Mental Health screen will be requested as pt does not report feeling that way at this time. Also, pt has supportive services in place upon her discharge through [facility] and has round the clock staff for supervision based on her self harm behaviors.
[2020-01-02] MEDS ORDERED: DIATRIZOATE MEGLUM/SODIUM 37% 120 ML (GASTROGRAFIN) PO ONE (12:45)
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
--- NOTE | 2020-01-02 14:16 | Diagnostic Imaging Report ---
INDICATION: Penetrating foreign body, status post surgical removal. Study was performed to evaluate for hollow viscus perforation. COMPARISON: Correlation is made with the CT study from one day earlier. FINDINGS: The business travel consultant radiograph demonstrates numerous linear opacities, consistent with foreign objects. There are midline skin jw. The bowel gas pattern is nonobstructed. No definite free air is seen. The previously noted linear lucency in the left lower quadrant on the prior CT and abdominal radiographs is no longer visualized and has likely been surgically removed. 240 cc of Gastrografin contrast was ingested. Serial radiographs of the abdomen were then obtained. No definite extravasated contrast is identified to suggest perforation. No contrast collection is seen. The bowel loops are of normal caliber. There is no obstruction. The fold pattern is unremarkable. IMPRESSION: No definite evidence of bowel perforation. Dictated by: Dictated on workstation # [id number]
[2020-01-02] MEDS ORDERED: traZODone 100 MG (DESYREL) TAB PO SCH (21:00)
[2020-01-03 04:05] VITALS: BP 113/53
[2020-01-03] MEDS: ENOXAPARIN 40 MG/0.4 ML (LOVENOX) SYR SC SCH (05:43)
[2020-01-03] MEDS: KETOROLAC 30 MG/ML VIAL IVP SCH ×2 (05:43→09:54)
[2020-01-03] MEDS: ACETAMINOPHEN 500 MG TAB (TYLENOL) PO SCH ×2 (05:43→12:50)
[2020-01-03 08:00] VITALS: BP 110/73
[2020-01-03] MEDS: PANTOPRAZOLE 40 MG (PROTONIX) TAB PO SCH (09:54)
[2020-01-03] MEDS: OLANZapine 5 MG (ZyPREXA) TAB PO SCH (09:54)
[2020-01-03] MEDS: SERTRALINE 100 MG (ZOLOFT) TAB PO SCH (09:54)
--- NOTE | 2020-01-03 10:52 | NUR ---
CM/SS: Visited with pt as to plan for discharge Plan: Pt will return to her apartment, [facility], through [facility] Summary: Pt reports feeling better and that she hopes to be able to go home today. She reports having to have her diet advanced and as long as she can tolerate it she will be able to discharge. Pt reports that she is trying to get ready to return to her apartment with her roommate. She is encouraged to be mentally tough and is given an example about being mentally tough and she is able to understand, laugh and relate. Pt's staff is present and she reports that they have talked about being mentally tough. Pt seems to want to get back home and talk with her counselor and others to see if her roommate can change. She is encouraged that if she does not get to change roommates that she will not look at harming herself if that does not happen. She verbalizes understanding. Pt will have support services through [facility] as well as she has round the clock attendant care based on her self harm behaviors. Pt is wished well as she returns home.
[2020-01-03 12:00] VITALS: BP 121/81
--- NOTE | 2020-01-03 14:04 | Progress Note - Surgery ---
Subjective Time Seen by a Provider: 09:47 Subjective/Events-last exam Pt seen and examined, tolerating clears and denies abdominal pain. States she is passing gas. Review of Systems General: No Chills, No Night Sweats Pulmonary: No Dyspnea, No Cough Cardiovascular: No: Chest Pain Gastrointestinal: No: Nausea, Vomiting Objective Exam Vital Signs Date Time Temp Pulse Resp B/P (MAP) Pulse Ox O2 Delivery O2 Flow Rate FiO2 01/03/20 12:00 36.2 83 20 121/81 (94) 96 Room Air 01/03/20 08:00 36.1 80 20 110/73 (85) 96 Room Air 01/03/20 08:00 96 Room Air 4.00 01/03/20 04:05 36.4 79 18 113/53 (73) 93 Room Air 01/02/20 23:14 37.0 86 18 120/74 (89) 97 Room Air 01/02/20 20:00 Room Air 01/02/20 19:17 36.8 87 18 119/72 (88) 97 Room Air 01/02/20 15:43 37.0 92 18 131/83 (99) 95 Room Air I & O 01/03/20 07:00 Intake Total 2860 ml Balance 2860 ml Capillary Refill : Less Than 3 SecondsLess Than 3 Seconds General Appearance: No Apparent Distress, Obese HEENT: Moist Mucous Membranes; No Scleral Icterus (L), No Scleral Icterus (R) Respiratory: Lungs Clear, Normal Breath Sounds, No Accessory Muscle Use, No Respiratory Distress Cardiovascular: Regular Rate, Rhythm, No Murmur Gastrointestinal: soft, tenderness (minimally at incision), other (incision is intact with no drainage) Results Lab Microbiology 12/31/19 Urine Culture - Final, Complete 3 or more isolates Assessment/Plan Assessment/Plan Assessment/Plan S/P Ex Lap with JOAN and repair of enterotomy SBFT showed no extravasation; will increase to soft diet and d/c after lunch. CHERYL MIRAMONTES DO Jan 03, 2020 14:04
--- NOTE | 2020-01-03 14:05 | Discharge Inst-Surgical ---
Discharge Inst-Surgical Depart Medication/Instructions New, Converted or Re-Newed RX: Other (no pain meds needed) Patient Instructions Follow up Appt: Make appointment for 1 week. [phone] Instructions: No lifting greater than 20 pounds. No strenuous activity. May shower in 24 hours, no tub bath or soaking. Use incentive spirometer at home as directed. No Smoking Skin/Wound Care: May remove bandages in am. You need to leave the Dermabond on incision it will fall off on it's own. Symptoms to Report: Appetite Changes, Extremity Discoloration, Numbness/Tingling, Swelling Increased, Bleeding Excessive, Eyesight Changes, Pain Increased, Urine Color Change, Constipation(Persistent), Fever over 101 degree F, Pain/Pressure in chest, Urinating Difficulty, Cough Up/Vomit Blood, Heart Beat Irreg/Pounding, Pain/Pressure in jaw, Cramps in feet or legs, Lightheadedness, Pain/Pressure in shoulder, Diarrhea(Persistent), Memory Changes Suddenly, Questions/Concerns, Weight gain consecutive days, Dizziness/Fainting, Nausea/Vomiting, Shortness of Breath, Weight gain over 2 pounds If questions or concerns contact your physician Or seek help at emergency department. Activity Activity as Tolerated: Yes Activity Instructions: Avoid Stress to Incision Driving Instructions: No Driving/Refer to Dr. Peralta Discharge Diet: No Restrictions Diet After 24 Hours: Clear Liquid if Nauseous If Any Problems/Questions/Issu: Contact Your Physician, Go to Emergency Room Skin/Wound Care Infection Signs and Symptoms: Increased Redness, Foul Odor of Wound, Increased Drainage, Skin Itchy or Has a Rash, Increased Swelling, Temperature Above 101 F Bathing Instructions: Shower Stitches/Miguel/Dermabond Dis: Care of CHERYL Roberts DO Jan 03, 2020 14:05
--- NOTE | 2020-01-04 08:56 | Physician Query Clarification ---
"Physician Query-General Query to Physician: The medical record reflects the following clinical scenario: History/Risk factors: Obesity documented Clinical Findings: BMI 47 Question: What condition best reflects the above clinical scenario? Please document response in the Progress notes or Discharge Summary. 1. Morbid obesity 2. BMI of 47 ( as documented by Nursing) 3. Other , with explanation of the clinical findings 4. Clinically undetermined, no explanation for the clinical findings Please remember a lack of response to the above will prompt a phone page by CDI/coding staff In responding to this query, please exercise your independent professional judgment. The purpose of this communication is to more accurately reflect the complexity of your patients condition. The fact that a question is asked does not imply that any particular answer is desired or expected. Thank you for timely response to this clarification. Corine Escalera, MSN, RN RN Specialist-Clinical Doc Improvement CD -Health Info Mgmt Operations [address] [facility] t: [phone] | f: [phone] If you are unable to reach me at my extension, I may be working from home. Please contact me at [phone] PHYSICIAN RESPONSE: Based on the clinical findings in the record, please respond to the query above on this document as an addendum. Physician Response: Physician Response Morbid Obesity If you have questions please contact: Ice Cream Scooper: Ext: Thank you for your time and cooperation. Clinical Reading Interventionist/Ice Cream Scooper This is a permanent part of the medical record CORINE ESCALERA Jan 04, 2020 08:56 CHERYL MIRAMONTES DO Jan 04, 2020 12:30"
== END 2020-01-03 15:58 | disposition home or self-care (01) | DRG 330 ==
LOC: EDUNIT# 23:23 → ER 23:26 → SDC 01-01 01:45 → 4TH 01-01 04:42
PROVIDERS: ADMIT Surgery; ATTEND Surgery
PROC: 0DC80ZZ Extirpation of Matter from Small Intestine, Open Approach (ICD-10-PCS; 2020-01-01)
PROC: 0DQ80ZZ Repair Small Intestine, Open Approach (ICD-10-PCS; principal; 2020-01-01 03:05)
DX: S36.439A Laceration of unspecified part of small intestine, initial encounter (principal); F17.210 Nicotine dependence, cigarettes, uncomplicated; E66.9 Obesity, unspecified; Z68.42 Body mass index [BMI] 45.0-49.9, adult; F41.9 Anxiety disorder, unspecified; F60.9 Personality disorder, unspecified; F20.9 Schizophrenia, unspecified; F32.9 Major depressive disorder, single episode, unspecified; J45.909 Unspecified asthma, uncomplicated; X78.8XXA Intentional self-harm by other sharp object, initial encounter; Z90.89 Acquired absence of other organs
CPT/HCPCS: 36415; 74022; 74177; 74250; 80053; 80306; 80320; 80329; 81000; 82150; 83690; 84443; 84703; 85025; 85610; 85730; 86850; 86900; 86901; 87088; 93005; 93041; 94664; 96365; 96367; 96375

== ENCOUNTER 2020-01-15 15:12 | Inpatient (IN) | payer MEDICARE, MEDICAID ==
[~2020-01-15] VITALS: Ht 162 cm; Wt 122.0 kg
[~2020-01-15 15:12] MED LIST changes: +LAMO150T4 PO; +MELO15TA39 PO; +OLAN15TA19 PO
--- OUTSIDE RECORDS SUMMARY | 2020-01-15 15:18 | XMS REPORT | Continuity of Care Document ---
Author Organization Unknown Address Unknown Phone Unavailable Allergies Active Description Code Type Severity Reaction Onset Reported/Identified Relationship to Patient Clinical Status Yes NO NAME AVAILABLE 40568 DRUG N/A N/A Yes .MDRO 0040 Miscellaneous Allergy N/A N/A 12/05/2015 Yes amoxicillin [id number] Drug Aller gy N/A N/A 12/05/2015 Yes clavulanic acid [id number] D rug Allergy N/A N/A 12/05/2015 Yes AMOXICILLIN-POT CLAVULANATE 11884 DRUG N/A Other 11/06/2017 11/06/2017 Yes amoxicillin [id number] Drug Aller gy Unknown N/A 03/18/2019 Yes clavulanic acid [id number] D rug Allergy Unknown N/A 03/18/2019 Yes Penicillins [id number] Drug Aller gy Unknown N/A 03/18/2019 Yes potassium chloride [id number] Drug Allergy Unknown N/A 03/18/2019 Medications Medication [...] HCL 2 % EX GEL 08/18/2017 Topical WA N LACTATED RINGERS IV SOLN 08/20/2017 Intravenous [...] 2 % EX GEL 11/21/2017 Topical 5 WA N ALBUTEROL SULFATE HFA 108 (9 0 [...] % MT LIQD 11/05/2018 Mouth/Throat 1 PRN [id number] PERTUSS IS 5-2-15.5 LF-MCG/0.5 IM SUSP 11/05/2018 [...] 2 % EX GEL 11/06/2018 Topical 5 WA N FERROUS SULFATE 325 (65 FE) MG [...] Burgos APRN OT 786.2 05/04/2015 Lashanda Burgos SENIOR ORACLE DBA OT 787.01 05/04/2015 Lashanda Burgosn SENIOR ORACLE DBA OT 789.06 05/08/2015 Worf, Quinten Rosamaria COPYWRITING INTERN OT 786.00 05/08/2015 Worf, Quinten Rosamaria COPYWRITING INTERN OT 786.02 05/08/2015 Worf, Quinten Rosamaria COPYWRITING INTERN OT 786.00 05/08/2015 Worf, Quinten Rosamaria COPYWRITING INTERN OT 786.02 05/08/2015 Worf, Quinten Rosamaria COPYWRITING INTERN OT 786.00 05/08/2015 Worf, Quinten Rosamaria COPYWRITING INTERN OT 786.02 05/08/2015 Worf, Quinten Rosamaria COPYWRITING INTERN OT 786.00 05/08/2015 Worf, Quinten Rosamaria COPYWRITING INTERN OT 786.02 05/08/2015 Worf, Quinten Rosamaria COPYWRITING INTERN OT 786.00 05/08/2015 Worf, Quinten Rosamaria COPYWRITING INTERN OT 786.02 05/08/2015 Worf, Quinten Rosamaria COPYWRITING INTERN OT 786.00 05/08/2015 Worf, Quinten Rosamaria COPYWRITING INTERN OT 786.02 05/08/2015 Worf, Quinten Rosamaria COPYWRITING INTERN OT 786.00 05/08/2015 Worf, Quinten Rosamaria COPYWRITING INTERN OT 786.02 05/08/2015 Worf, Quinten Rosamaria COPYWRITING INTERN OT 786.00 05/08/2015 Worf, Quinten Rosamaria COPYWRITING INTERN OT 786.02 05/08/2015 EZ SANDOVAL, JOE PittmanPLOMTI OT 493.90 05/31/2015 Worf, Quinten Rosamaria COPYWRITING INTERN OT 786.05 05/31/2015 Worf, Quinten Rosamaria COPYWRITING INTERN OT 787.91 06/01/2015 Lashanda Burgosn SENIOR ORACLE DBA OT 783.1 06/01/2015 Lashanda Burgos Su SENIOR ORACLE DBA OT 786.2 06/01/2015 Lashanda Burgos Su SENIOR ORACLE DBA OT 787.01 06/01/2015 Lashanda Burgosn SENIOR ORACLE DBA OT 789.06 08/29/2015 Worf, Quinten Rosamaria COPYWRITING INTERN OT N91 .2 08/29/2015 Worf, Quinten Rosamaria COPYWRITING INTERN OT N91 .2 09/26/2015 Worf, Quinten Rosamaria COPYWRITING INTERN OT F60 .3 09/26/2015 Worf, Quinten ALLAN [...] Neville OT X78.8XXD 02/27/2016 Worf, Quinten Rosamaria COPYWRITING INTERN OT F33 .1 02/27/2016 Worf, Quinten Jo COPYWRITING INTERN OT R73.01 02/27/2016 Worf, Quinten Jo COPYWRITING INTERN OT F33 .1 02/27/2016 Worf, Quinten Rosamaria COPYWRITING INTERN OT R73.01 04/01/2016 Worf, Quinten Rosamaria COPYWRITING INTERN OT F33 .1 04/01/2016 Worf, Quinten Rosamaria COPYWRITING INTERN OT R73.01 04/01/2016 Worf, Quinten Rosamaria COPYWRITING INTERN OT F33 .1 04/01/2016 Worf, Quinten Rosamaria COPYWRITING INTERN OT R73.01 08/18/2016 Worf, Quinten Rosamaria COPYWRITING INTERN OT B37.84 08/18/2016 Worf, Quinten Blank COPYWRITING INTERN OT J44 .9 08/18/2016 Quinten Lindsay OT K21 .9 08/25/2017 KHRECEASAR, WAEL V 323917 Abdominal Injury KHREISS, WAEL 08/25/2017 KHREISS, WAEL V 714520 Suicidal KHREISS, WAEL 08/25/2017 KHREISS, WAEL V [...] cavity, initial encounter 10/10/2017 SHANNEN ELAINE V 311713 Aggressive Behavior SHANNEN ELAINE 10/10/2017 SHANNEN ELAINE V 426054 Wound Dehiscence SHANNEN ELAINE 10/10/2017 SHANNEN ELAINE [...] specified postprocedural states 11/26/2017 BRENDEN, ADDIE V 262255 Wound Check 11/26/2017 BRENDEN, ADDIE V L30.9 [...] self-harm by other specified means, initial encounter ([facility]) 11/26/2017 BRENDEN, ADDIE F Z87.891 Personal [...] CARRASCO V F31. 9 Bipolar disorder, unspecified ([facility]) 10/17/2018 SONG CARRASCO T18.9XXA Foreign body of alimentary tract, part unspecified, in itial encounter 10/17/2018 SONG CARRASCO V Z72. 89 Other problems related to lifestyle 10/17/2018 SONG CARRASCO E11. 9 Type 2 diabetes mellitus without complications ([facility]) 10/17/2018 SONG CARRASCO E66. 01 Morbid [...] by unspecified sha rp object, initial encounter ([facility]) 10/17/2018 SONG CARRASCO Z23 Encounter for [...] cavity, initial encounter 11/10/2018 TANVIR ORDAZ V 102877 Suicidal 11/10/2018 TANVIR ORDAZ V 509956 Wound Check 11/10/2018 TANVIR ORDAZ V F31.4 [...] TANVIR Maya E87.1 Hypo-osmolality and hyponatremia 11/10/2018 [facility], TANVIR Maya E87.6 Hypokalemia 11/10/2018 [facility], TANVIR Maya F31.32 Bipolar disorder, current episode depressed, moderate (HCC) 11/10/2018 [facility], TANVIR Maya F41.1 Generalized anxiety disorder 11/10/2018 [facility], TANVIR Maya F43.10 Post-traumatic stress disorder, unspecified 11/10/2018 [facility], TANVIR Maya F60.3 Borderline personality disorder (HCC) 11/10/2018 [facility], TANVIR Maya F63.1 Pyromania 11/10/2018 [facility], TANVIR Maya J45.90 9 Unspecified asthma, uncomplicated 11/10/2018 [facility], TANVIR Maya K00.0 Anodontia 11/10/2018 [facility], TANVIR Maya K66.0 Peritoneal adhesions (postprocedural) (postinfection) 11/10/2018 [facility], TANVIR Maya N83.9 Noninflammatory disorder of ovary, fallopian tube and broad ligament, unspecified 11/10/2018 [facility], TANVIR Maya R12 Heartburn 11/10/2018 [facility], TANVIR Maya R45.87 Impulsiveness 11/10/2018 [facility], TANVIR Maya R73.03 Prediabetes 11/10/2018 [facility], TANVIR Maya R97.1 Elevated cancer antigen 125 (CA 125) 11/10/2018 [facility], TANVIR Maya S31.62 9A Laceration with [...] surveillance 11/10/2018 TANVIR ORDAZ Z79.89 9 Other rodent exterminator (current) drug therapy [facility]/10[facility] Z[facility].5 Personal history of self-harm 12/03/2018 [...] INTERNAL OPERATION (SURGIC 12/07/2018 TANVIR ORDAZ V 970469 501 Post Op Visit 12/07/2018 TANVIR ORDAZ V K63.1 Perforation of intestine (nontraumatic) ([facility]) 12/08/2018 SALBADOR PAULA MD Ot B35 [...] 2 DIABETES MELLITUS WITH OTHER SKIN 03/02/2019 ASLBADOR PAULA MD Ot L98.492 NON-PRS CHRONIC ULCER OF SKIN OF SITES W 03/02/2019 SALBADOR PAULA MD Ot T81.31XA DISRUPTION OF EXTERNAL OPERATION (SURGIC 03/02/2019 SALBADOR PUALA MD Ot E11.622 TYPE 2 DIABETES MELLITUS [...] SHELBY JULES DO Ot Z79.8 99 OTHER SENIOR LIVING (CURRENT) DRUG THERAPY 03/22/2019 SHELBY JULES DO [...] JULES DOA C Ot 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 51 SENIOR LIVING (CURRENT) USE OF INHALED STERO 09/22/2019 HAO [...] 09/27/2019 HAO DONOVAN MD, Ot Z79. 51 SENIOR LIVING (CURRENT) USE OF INHALED STERO 09/27/2019 HAO [...] 2 DIABETES MELLITUS WITH OTHER SKIN 09/29/2019 SALABDOR PAULA MD, Ot L98.492 NON-PRS CHRONIC ULCER [...] OTHER SPECIFIED ERYTHEMATOUS CONDITIONS 11/08/2019 MELANIE SURESH MD Ot L98.492 NON- PRS CHRONIC ULCER OF SKIN OF SITES W 11/08/2019 MELANIE SURESH MD Ot T81.33XA DISRUPTION OF TRAUMATIC INJURY WOUND REP 11/08/2019 MELANIE SURESH MD Ot X78.8XXD INTENTIONAL SELF-HARM BY OTHER SHARP OBJ 11/15/2019 MELANIE SURESH MD Ot L29.9 PRURITUS, UNSPECIFIED 11/15/2019 MELANIE SURESH MD Ot L53.8 OTHER SPECIFIED ERYTHEMATOUS CONDITIONS 11/15/2019 MELANIE SURESH MD Ot L98.491 NON- PRS CHRONIC ULCER SKIN/ SITES LIMITE 11/15/2019 MELANIE SURESH MD, Ot T81.33XA DISRUPTION OF TRAUMATIC INJURY WOUND REP 11/15/2019 MELANIE SURESH MD, Ot X78.8XXD INTENTIONAL SELF-HARM BY OTHER SHARP OBJ 01/03/2020 KULWINDER DO, CHERYL B Ot E66.9 OBESITY, UNSPECIFIED 01/03/2020 KULWINDER RAPHAEL, CHERYL B Ot F17.2 10 NICOTINE DEPENDENCE, CIGARETTES, UNCOMPL 01/03/2020 KULWINDER DO, CHERYL B Ot F20.9 SCHIZOPHRENIA, UNSPECIFIED 01/03/2020 KULWINDER DO, CHERYL B Ot F32.9 MAJOR DEPRESSIVE DISORDER, SINGLE EPISOD 01/03/2020 KULWINDER RAPHAEL, CHERYL B Ot F41.9 ANXIETY DISORDER, UNSPECIFIED 01/03/2020 KULWINDER DO, CHERYL B Ot F60.9 PERSONALITY DISORDER, UNSPECIFIED 01/03/2020 KULWINDER DO, CHERYL B Ot J45.9 09 UNSPECIFIED ASTHMA, UNCOMPLICATED 01/03/2020 KULWINDER RAPHAEL, CHERYL B Ot S36.439A LACERATION OF UNSP PART OF SMALL INTESTI 01/03/2020 KULWINDER RAPHAEL CHERYL B Ot X78.8XXA INTENTIONAL SELF-HARM BY OTHER SHARP OBJ 01/03/2020 KULWINDER DO, CHERYL B Ot Z68.4 2 BODY MASS INDEX (BMI) 45.0-49.9, ADULT 01/03/2020 KULIWNDER RAPHAEL, CHERYL B Ot Z90.8 9 ACQUIRED ABSENCE OF OTHER ORGANS Procedures Code Description Performed By Per jose On [id number] In sertion of Infusion Dev into Sup Vena Cava, Perc Approach 11/24/2017 [id number] [facility] [place] Other Device in Trunk Subcu/Fascia, Yeast Maker Approach 12/2017 [id number] Ex tirpation of Matter from Peritoneal Cavity, Open Approach 0 10/16/2018 [id number] Ex cision of Small Intestine, Open Approach 11/05/2018 [id number] Ex tirpation of Matter from Small Intestine, Open Approach [id number] Re lease Small Intestine, Open Approach 11/05/2018 [id number] EX TIRPATION OF MATTER FROM SMALL INTESTI 01/01/2020 [id number] RE PAIR SMALL INTESTINE, OPEN APPROACH 01/01/2020 Results Test Result Range URINE - 08/29/15 [...] CELL DISTRIBUTION WIDTH 13.2 % 11 .9-15.5 8175349 15.3 10E9/L 3.5-10.5 0537428 0.84 10E9/L 0.90-2.90 4096567 0.89 10E9/L 0.30-0.90 0946442 0.00 10E9/L 0.05-0.50 5000093 13.59 10E9/L 1.70-7.00 1423132 0.01 10E9/L 0.00-0.30 0534295 0 % HCG, SERUM, QUALITATIVE - 08/16/17 06:05 HCG SERUM(QUAL) Negative mIU/mL Negative FLUID CULTURE - 08/16/17 09:38 [id number] No organisms seen 7500028 No Growth ANAEROBIC CULTURE - 08/16/17 09:38 0445212 No Growth CBC WITHOUT DIFFERENTIAL - 08/17/17 06:3 7 HEMATOCRIT 36.4 % 34.9-44.5 HEMOGLOBIN 11.8 g/dL 12.0-15.5 MEAN CORPUSCULAR HEMOGLOBIN 29.5 pg 26 .0-34.0 MEAN CORPUSCULAR HEMOGLOBIN CONC 32.4 g/dL 31.0-37.0 MEAN CORPUSCULAR VOLUME 91.0 fL 81.6-9 8.3 PLATELET COUNT 306 10E9/L 150-450 RED BLOOD CELL COUNT 4.00 10E12/L 3.90-5 .03 RED CELL DISTRIBUTION WIDTH 13.9 % 11 .9-15.5 1813690 12.5 10E9/L 3.5-10.5 COMPREHENSIVE METABOLIC PANEL - [...] CELL DISTRIBUTION WIDTH 13.9 % 11 .9-15.5 9118426 10.5 10E9/L 3.5-10.5 COMPREHENSIVE METABOLIC PANEL - [...] CELL DISTRIBUTION WIDTH 13.6 % 11 .9-15.5 0978281 6.0 10E9/L 3.5-10.5 COMPREHENSIVE METABOLIC PANEL - [...] CELL DISTRIBUTION WIDTH 13.4 % 11 .9-15.5 8003212 3.4 10E9/L 3.5-10.5 COMPREHENSIVE METABOLIC PANEL - [...] CELL DISTRIBUTION WIDTH 14.4 % 11 .9-15.5 6684654 3.4 10E9/L 3.5-10.5 COMPREHENSIVE METABOLIC PANEL - [...] CELL DISTRIBUTION WIDTH 13.9 % 11 .9-15.5 7020737 5.2 10E9/L 3.5-10.5 MAGNESIUM - 12/02/17 07:08 MAGNESIUM 1.8 mg/dL 1.6-2.3 PHOSPHORUS - [...] CELL DISTRIBUTION WIDTH 14.0 % 11 .9-15.5 3665242 3.6 10E9/L 3.5-10.5 COMPREHENSIVE METABOLIC PANEL - [...] CELL DISTRIBUTION WIDTH 14.1 % 11 .9-15.5 5583102 4.7 10E9/L 3.5-10.5 COMPREHENSIVE METABOLIC PANEL - [...] CELL DISTRIBUTION WIDTH 13.9 % 11 .9-15.5 8780590 5.6 10E9/L 3.5-10.5 COMPREHENSIVE METABOLIC PANEL - [...] CELL DISTRIBUTION WIDTH 13.4 % 11 .9-15.5 7426734 8.7 10E9/L 3.5-10.5 9729918 1.33 10E9/L 0.90-2.90 0868889 0.71 10E9/L 0.30-0.90 1723522 0.00 10E9/L 0.05-0.50 2341117 6.65 10E9/L 1.70-7.00 4113923 0.00 10E9/L 0.00-0.30 4586742 0 % COMPREHENSIVE METABOLIC PANEL - 10/10/17 [...] CELL DISTRIBUTION WIDTH 13.5 % 11 .9-15.5 5276987 6.9 10E9/L 3.5-10.5 7581220 1.22 10E9/L 0.90-2.90 7534770 0.71 10E9/L 0.30-0.90 7256582 0.00 10E9/L 0.05-0.50 8701562 4.99 10E9/L 1.70-7.00 5102193 0.00 10E9/L 0.00-0.30 3700598 0 % EXTRA LIGHT BLUE TOP - [...] CELL DISTRIBUTION WIDTH 13.4 % 11 .9-15.5 6645953 5.6 10E9/L 3.5-10.5 8956943 1.34 10E9/L 0.90-2.90 1610230 0.43 10E9/L 0.30-0.90 0160768 0.01 10E9/L 0.05-0.50 0951077 3.83 10E9/L 1.70-7.00 3071059 0.00 10E9/L 0.00-0.30 2551150 0 % COMPREHENSIVE METABOLIC PANEL - 11/08/17 [...] CELL DISTRIBUTION WIDTH 12.9 % 11 .9-15.5 2692632 8.2 10E9/L 3.5-10.5 0248975 1.42 10E9/L 0.90-2.90 7111805 0.90 10E9/L 0.30-0.90 2683249 0.00 10E9/L 0.05-0.50 4393986 5.88 10E9/L 1.70-7.00 9103145 0.01 10E9/L 0.00-0.30 6699487 0 % COMPREHENSIVE METABOLIC PANEL - 11/18/17 [...] EU/dL 0.2 WBC UA 0-3 /hpf 0-3 3586245 Trace Negative 7664764 4 /lpf CBC WITH AUTO DIFFERENTIAL - [...] CELL DISTRIBUTION WIDTH 12.8 % 11 .9-15.5 3694924 7.3 10E9/L 3.5-10.5 5459361 1.56 10E9/L 0.90-2.90 1022436 0.74 10E9/L 0.30-0.90 5436574 0.01 10E9/L 0.05-0.50 6564848 4.94 10E9/L 1.70-7.00 9325017 0.01 10E9/L 0.00-0.30 2083889 0 % BASIC METABOLIC PANEL - 11/23/17 [...] CELL DISTRIBUTION WIDTH 12.6 % 11 .9-15.5 8229585 5.4 10E9/L 3.5-10.5 0797917 1.11 10E9/L 0.90-2.90 1693621 0.60 10E9/L 0.30-0.90 9558691 0.00 10E9/L 0.05-0.50 5387892 3.69 10E9/L 1.70-7.00 8571659 0.00 10E9/L 0.00-0.30 6805354 0 % PT T APTT - 11/24/17 [...] CELL DISTRIBUTION WIDTH 12.0 % 11 .9-15.5 8323274 6.8 10E9/L 3.5-10.5 7151627 1.92 10E9/L 0.90-2.90 8362251 0.58 10E9/L 0.30-0.90 9947632 0.00 10E9/L 0.05-0.50 4616084 4.33 10E9/L 1.70-7.00 5911337 0.00 10E9/L 0.00-0.30 2791179 0 % CA 125 - 10/16/18 01:03 [...] CELL DISTRIBUTION WIDTH 12.2 % 11 .9-15.5 6337511 6.1 10E9/L 3.5-10.5 0926688 2.06 10E9/L 0.90-2.90 5675299 0.57 10E9/L 0.30-0.90 7928963 0.00 10E9/L 0.05-0.50 9963601 3.46 10E9/L 1.70-7.00 0610320 0.01 10E9/L 0.00-0.30 0200758 0 % C-REACTIVE PROTEIN - 11/05/18 00:02 3883961 2.0 mg/dL <=0.9 COMPREHENSIVE METABOLIC PANEL - [...] EU/dL 0.2 WBC UA 0-3 /hpf 0-3 4529966 Negative Negative Packed Cells Leukoreduced - 11/05/18 [...] CELL DISTRIBUTION WIDTH 12.6 % 11 .9-15.5 6782845 8.2 10E9/L 3.5-10.5 7259293 1.30 10E9/L 0.90-2.90 9955757 0.90 10E9/L 0.30-0.90 0602126 0.00 10E9/L 0.05-0.50 7941072 6.02 10E9/L 1.70-7.00 1716005 0.00 10E9/L 0.00-0.30 2886330 0 % COMPREHENSIVE METABOLIC PANEL - 11/06/18 [...] CELL DISTRIBUTION WIDTH 12.6 % 11 .9-15.5 1655880 5.0 10E9/L 3.5-10.5 7072535 1.08 10E9/L 0.90-2.90 7131923 0.43 10E9/L 0.30-0.90 0693731 0.00 10E9/L 0.05-0.50 2446301 3.53 10E9/L 1.70-7.00 4585686 0.00 10E9/L 0.00-0.30 9780480 0 % EXTRA SST TUBE - 11/09/18 [...] microscopy - 12/03/18 10:21 Gram stain microscopy 12-04-18, 0605. NR G Bacteria identification in wound by [...] microscopy - 12/24/18 11:55 Gram stain microscopy 12-24-18 1805. NRG Bacteria identification in wound by cult ure - 12/24/18 11:55 Bacteria identification in wound by culture [id number] 009 NRG FREE TEXT EXTERNAL NORMAL SKIN ADRIANA ISOLATED NRG QUANTITY OF GROWTH Rare NRG FREE TEXT ENTRY 2 NO SUSCEPTIBILITIES SET UP NRG FREE TEXT ENTRY 3 IS NOT FDA CLEARED FOR TESTING. NRG RML Sensitivity Panel - 12/24/18 11:55 Oxacillin [...] 11:37 Bacteria identification in wound by culture 977447 01 NRG FREE TEXT EXTERNAL SUSCEPTIBILITY REPORT [...] TIVE Urine propoxyphene detection NEGATIVE N EGATIVE Bacterial urine culture - 12/31/19 00:25 Bacterial urine culture 3 OR MORE NRG COLONY COUNT 40,000 CFU/ML NRG SUSCEPTIBILITY SUGGESTING PROBABLE COLLECTION NRG MRSA SCREEN CONTAMINATION WITH SKIN ADRIANA NRG RAPID ID NO SUSCEPTIBILITY PERFORMED N RG Comprehensive metabolic panel - 12/31/19 23:55 Serum [...] pa katya - 01/01/20 01:45 WRISTBAND NUMBER [id number] NRG ABO+Rh group AP NRG Blood group [...] MDDT: 10/16/2018 12:42 AM Radiology [place] [id number] on 11/05/19 19 00:30:38 EXAM: CT Abdomen [...] mA and/orkV according to patient size.DLP: 721 mGycmCOMPARISON: 10/16/2018CT abdomen findings:The lung bases are clear. [...] Status Pt. Type Provider Facility Loc./Unit Complaint [id number] 07/25/2019 14:20:00 07/25/2019 23:59: 59 CLS Outpatient QUINTEN [facility] [id number] 01/01/2020 04:42:00 15:58:00 DIS Outpatient CHERYL MIRAMONTES DO [facility] 4TH FOREIGN BODY IN ABD WIT H PERFORATED BOWEL [id number] 10/18/2019 09:13:00 23:59:59 CLS Outpatient MELANIE SRUESH MD [facility] WOUNDCARE [id number] 10/11/2019 09:09:00 23:59:59 CLS Outpatient MELANIE SURESH MD [facility] WOUNDCARE [id number] 10/05/2019 12:18:00 23:59:59 CLS Outpatient MELANIE SURESH MD [facility] WOUNDCARE [id number] 09/29/2019 10:03:00 23:59:59 CLS Outpatient GUILLERMO RASHID MD [facility] RAD FOREIGN BODY INGESTION [id number] 09/21/2019 22:35:00 03:46:00 DIS Emergency ZION SANDOVAL, HAO Arias [facility] ER CUT ON STOMACH,SUICIDAL [id number] 07/28/2019 13:50:00 23:59:59 CLS Outpatient KULWINDER DO CHERYL Chilel [facility] RAD FB STOMACH [id number] 07/19/2019 01:38:00 11:30:00 DIS Inpatient MADDIE DE LEÓN MD [facility] 4TH SUICIDAL IDEATION, FORE IGN BODY INGESTION [id number] 03/22/2019 08:04:00 12:40:00 DIS Outpatient SHELBY JULES DO [facility] SDC MENORRHAGIA [id number] 03/18/2019 11:30:00 11:47:00 DIS Outpatient SHELBY JULES DO [facility] PREOP MENORRHAGIA [id number] 02/23/2019 08:31:00 23:59:59 CLS Outpatient SALBADOR PAULA MD [facility] WOUNDCARE [id number] 02/16/2019 08:32:00 23:59:59 CLS Outpatient SALBADOR PAULA MD [facility] WOUNDCARE [id number] 02/09/2019 08:30:00 23:59:59 CLS Outpatient SALBADOR PAULA MD [facility] WOUNDCARE [id number] 02/02/2019 08:39:00 23:59:59 CLS Outpatient SALBADOR PAULA MD [facility] WOUNDCARE [id number] 01/21/2019 11:31:00 23:59:59 CLS Outpatient SHELBY JULES DO [facility] RAD BILATERAL OVARIAN CYSTS [id number] 01/21/2019 10:55:00 23:59:59 CLS Outpatient SALBADOR PAULA MD [facility] WOUNDCARE [id number] 01/14/2019 10:47:00 23:59:59 CLS Outpatient SALBADOR PAULA MD [facility] WOUNDCARE [id number] 01/04/2019 13:10:00 04/16/2 019 23:59:59 CLS Outpatient SALBADOR PAULA MD [facility] WOUNDCARE [id number] 12/31/2018 10:53:00 23:59:59 CLS Outpatient SALBADOR PAULA MD [facility] WOUNDCARE [id number] 12/24/2018 10:37:00 23:59:59 CLS Outpatient SALBADOR PAULA MD [facility] WOUNDCARE [id number] 12/17/2018 10:57:00 23:59:59 CLS Outpatient SALBADOR PAULA MD [facility] WOUND[facility] [id number] 12/10/2018 09:23:00 23:59:59 CLS Outpatient SALBADOR PAULA MD [facility] WOUNDCARE [id number] 12/03/2018 10:45:00 23:59:59 CLS Outpatient SALBADOR PAULA MD [facility] LAB [id number] 12/03/2018 09:27:00 23:59:59 CLS Outpatient SALBADOR PAULA MD [facility] WOUNDCARE [id number] 11/06/2018 18:00:00 ACT Inpatient Shannen Raymundo MD [facility] NEREYDA [facility] [id number] 11/05/2018 18:00:00 ACT Inpatient Shannen Raymundo MD [facility] N[facility]YDA [facility] [id number] 02/11/2016 15:17:00 23:59:59 [id number] [facility]/20/2016 11:00:00 12:19:00 DIS Emergency [facility] KCUC DRESSING CHANGE [id number] 12/19/2016 16:18:00 20:28:00 [facility] [id number] 12/15/2016 16:03:00 017 16:43:00 DIS Emergency [facility] FOREIGN OBJECT IN WOUND [id number] 07/18/2016 10:09:00 23:59:59 CLS [facility] [id number] 02/27/2016 00:00:00 00:00:[address] [facility] LAB [id number] 02/12/2016 14:05:00 016 15:36:00 DIS Emergency Pauline Neville [facility] FOB IN GENITAL [id number] 02/11/2016 15:47:00 016 15:57:00 DIS Emergency Salbador Colin [facility] ABD LAC. [id number] 01/07/2016 14:28:00 016 15:42:00 [facility] [id number] 12/27/2015 15:02:00 016 17:58:00 DIS Emergency Min Stevenson Vern [facility] WOUND ABD [id number] 12/05/2015 19:07:00 016 22:03:00 DIS Emergency EZ SANDOVAL, JOE FLETCHER I [facility] FOB [id number] 12/05/2015 09:16:00 016 12:03:00 DIS Emergency Allan Ayala [facility] P-EVAL [id number] 11/13/2015 15:37:00 016 23:59:[address] [facility] OFFICE [id number] 11/03/2015 19:57:00 016 00:02:00 DIS Emergency Neef, [facility] ASTHMA [id number] 10/29/2015 15:39:00 18:25:00 DIS Emergency Alejandro Neli Sun[facility] ABD PAIN [id number] 10/23/2015 04:00:00 13:14:00 DIS Inpatient Beni SANDOVAL, Jefferson Salguero KC3A MAJOR DEPRESSIVE DISORDER, R ECURRENT SEVERE c PSY [id number] 08/29/2015 15:07:00 23:59:[address] [facility] OFFICE [id number] 05/15/2015 10:30:00 23:59:59 CLS Preadmit Lashanda Burgos [facility] KCRAD ABDOMINAL PAIN EPIGASTRIC [id number] 05/08/2015 13:20:00 23:59:59 CLS Outpatient Lashanda Burgos [facility] OFFICE [id number] 05/08/2015 09:33:00 23:59:59 CLS Outpatient Worf, [facility] KCCPUL RESPIRATORY ABNORMALITY UNSPECIFIED [id number] 05/08/2015 22:50:00 23:33:00 DIS Emergency EZ SANDOVAL, JOE FLETCHER I [facility] CHEST PAIN [id number] 05/04/2015 14:00:00 23:59:59 CLS Outpatient Lashanda Burgos [facility] LAB [id number] 04/25/2015 08:14:00 23:59:[address] [facility] OFFICE [id number] 02/13/2015 16:09:00 Document Registration [id number] 01/30/2015 11:53:00 Document Registration [id number] 01/15/2015 08:47:00 Document Registration [id number] 11/29/2018 11:11:52 9 23:59:59 CLS Outpatient TANVIR ORDAZ [facility] [id number] 11/04/2018 23:20:09 9 16:00:00 DIS Inpatient TANVIR ORDAZ [facility] 7S [id number] 10/15/2018 22:08:44 9 13:24:00 DIS Inpatient DANILOSONG STERLING [facility] 7S [id number] 02/02/2018 10:28:37 8 23:59:59 CLS Outpatient BRENDEN, ADDIE Storm[facility] BRENDEN [id number] 01/19/2018 09:38:37 8 23:59:59 CLS Outpatient BRENDEN, ADDIE [facility] BRENDEN [id number] 12/28/2017 20:14:33 8 23:59:59 CLS Outpatient MUNROEJOSE [facility] LAB [id number] 12/28/2017 20:06:32 8 23:59:59 CLS Outpatient MUNROEJOSE [facility] LAB [id number] 12/23/2017 15:02:25 8 16:45:00 DIS Outpatient BRENDEN, ADDIE [facility] [id number] 12/18/2017 08:57:58 8 11:08:00 DIS R [facility] [id number] 12/08/2017 10:15:30 8 23:59:59 CLS Outpatient BRENDEN, ADDIE [facility] BRENDEN [id number] 11/27/2017 10:11:46 8 23:59:59 CLS Outpatient MUNROEJOSE RODRIGUEZ [facility] LAB [id number] 11/20/2017 12:11:56 8 18:24:00 DIS Inpatient BRENDEN, ADDIE Stormon [facility] 7S [id number] 11/18/2017 12:27:34 8 16:07:00 DIS Emergency JOSE GARCIA [facility] EMD [id number] 11/06/2017 12:52:57 8 17:05:00 DIS Inpatient ADDIE WILCOX [facility] [id number] 11/04/2017 14:03:25 8 23:59:59 CLS Outpatient KIMBERLY CASAS [facility] 823 [id number] 10/10/2017 20:57:09 8 23:43:00 DIS Emergency ARGENTINASHANNEN [facility] [id number] 09/30/2017 13:45:37 8 23:59:59 CLS Outpatient KIMBERLY CASAS [place] [id number] 09/09/2017 10:26:37 7 23:59:59 CLS Outpatient KIMBERLY CASAS [place] [id number] 08/16/2017 05:14:41 7 17:38:00 DIS Inpatient KIMBERLY CASAS [facility] 7S [id number] 11/05/2018 04:43:39 Document Registration [id number] 11/05/2018 00:02:03 Document Registration [id number] 10/16/2018 03:01:34 Document Registration [id number] 10/16/2018 00:09:38 Document Registration [id number] 10/15/2018 22:41:23 Document Registration [id number] 12/23/2017 11:54:45 Document Registration [id number] 12/18/2017 14:32:11 Document Registration [id number] 08/16/2017 06:54:16 Document Registration
--- NOTE | 2020-01-15 15:35 | ED GI ---
General Chief Complaint: Abdominal/GI Problems Stated Complaint: WOUND OPENED/BLEEDING/R ABD PAIN Source of Information: Patient Exam Limitations: No Limitations History of Present Illness Date Seen by Provider: Jan 15, 2020 Time Seen by Provider: 15:33 Initial Comments To ER with postoperative wound complication. She was here initially on 01/01/24 self-inflicted abdominal wound. She stabbed herself in the abdomen with a pin. This perforated the loop of small bowel. She went to the operating room for exploratory laparotomy and closure of enterotomy. She was discharged on 01/02. She has extensive psych issues and has a 24-hour caregiver. Comes in today with a large amount of drainage from the abdominal wound and some of this seems to be "bubbling" when it comes out of the incision. She reports increasing abdominal pain over the past 2 days. No fevers. Timing/Duration: 1-2 Days Severity/Quality: Moderate Location: Periumbilical Radiation: No Radiation Associated Symptoms: Denies Symptoms Allergies and Home Medications Allergies Coded Allergies: Penicillins (Verified Allergy, Unknown, 03/18/19) amoxicillin (Verified Allergy, Unknown, 03/18/19) clavulanic acid (Verified Allergy, Unknown, 03/18/19) potassium chloride (Verified Allergy, Unknown, 03/18/19) Home Medications Acetaminophen 650 Mg Tablet.er, 650 MG PO UD PRN for PAIN-MILD, (Reported) Cetirizine HCl 10 Mg Tablet, 10 MG PO HS, (Reported) Diphenhydramine HCl 25 Mg Capsule, 25 MG PO UD PRN for ITCHING, (Reported) Docusate Sodium 100 Mg Capsule, 100 MG PO BID, (Reported) Ferrous Sulfate 325 Mg Tablet, 325 MG PO TID, (Reported) Fluticasone Propionate 16 Gm Mead.susp, 2 SPRAYS NS DAILY, (Reported) Fluticasone/Vilanterol 1 Each Blst.w.dev, 1 PUFF INH DAILY, (Reported) Montelukast Sodium 10 Mg Tablet, 10 MG PO DAILY, (Reported) Olanzapine 20 Mg Tablet, 20 MG PO HS, (Reported) Sertraline HCl 100 Mg Tablet, 100 MG PO DAILY, (Reported) Trazodone HCl 100 Mg Tablet, 100 MG PO HS, (Reported) Patient Home Medication List Home Medication List Reviewed: Yes Review of Systems Review of Systems Constitutional: see HPI; No chills, No fever EENTM: No Symptoms Reported Respiratory: No Symptoms Reported Cardiovascular: No Symptoms Reported Gastrointestinal: See HPI, Abdominal Pain Genitourinary: No Symptoms Reported Musculoskeletal: no symptoms reported Skin: no symptoms reported Psychiatric/Neurological: No Symptoms Reported Endocrine: No Symptoms Reported Past Tbztsht-Uesvhv-Tymwft Hx Patient Social History Alcohol Beverage of Choice: Other Type Used: Cigarettes 2nd Hand Smoke Exposure: Yes Recent Foreign Travel: No Contact w/Someone Who Travel: No Recent Hopitalizations: No Immunizations Up To Date Tetanus Booster (TDap): Less than 5yrs Date of Influenza Vaccine: Jun 28, 2018 Seasonal Allergies Seasonal Allergies: Yes Past Medical History Surgeries: Yes (FOREIGN BODY REMOVAL FROM ABDOMEN SEVERAL TIMES WITH A BOWEL RESECTION) Abdominal, Bowel Surgery, Tonsillectomy Respiratory: Yes Asthma Cardiac: No Neurological: No Reproductive Disorders: Yes (IUD PLACED 03/2019 WITH D&C FOR MENORRHAGIA) Female Reproductive Disorders: Menstrual Problems, Ovarian Cyst EXHIBITIONS CURATOR History: IUD Sexually Transmitted Disease: No Genitourinary: No Gastrointestinal: Yes (BOWEL RESECTION DUE TO FOREIGN BODIES;HAS INSERTED & INGESTED MULTIPLE FB'S) Chronic Constipation Musculoskeletal: No Endocrine: Yes (OBESITY) HEENT: No Loss of Vision: Denies Hearing Impairment: Denies Cancer: No Psychosocial: Yes (EXTENSIVE PSYCH ISSUES-MULTIPLE FB INGESTIONS/INSERTIONS/STABBED IN ABDOMEN) Anxiety, Suicide Attempts, Personality Disorder, Schizophrenia, Depression Integumentary: No Blood Disorders: Yes (LOW IRON) Adverse Reaction/Blood Tranf: No Family Medical History Cancer, Diabetes, Hypertension Physical Exam Vital Signs Vital Signs - First Documented 01/15/20 15:23 Temp 36.9 Pulse 115 Resp 20 B/P (MAP) 136/64 (88) Pulse Ox 98 O2 Delivery Room Air Capillary Refill : Height/Weight/BMI Height: 5'4.00" Weight: 213lbs. 0.0oz. [id number]; 47.00 BMI Method: General Appearance: WD/WN, no apparent distress HEENT: PERRL/EOMI, normal ENT inspection Gastrointestinal: normal bowel sounds, soft, tenderness (right-sided lower abdominal tenderness. Midline abdominal incision. There is partial wound de hiscence in the center of this. Harper remain intact to the superior and inferior aspect of this incision. There is some serosanguineous drainage from the center of this dehisced portion. They state that it has been "open" for several days but the bubbling drainage is new. There is in fact some serosanguineous drainage from this that appears to be bubbling when it comes up through the incision.) Extremities: normal range of motion, non-tender Neurologic/Psychiatric: alert, normal mood/affect, oriented x 3 Skin: normal color, warm/dry Procedures/Interventions Suture Size: 4-0 Progress/Results/Core Measures Results/Orders Lab Results Laboratory Tests Test 01/15/20 15:35 01/15/20 15:53 Range/Units White Blood Count 14.3 H 4.3-11.0 10^3/uL Red Blood Count 4.27 L 4.35-5.85 10^6/uL Hemoglobin 12.7 11.5-16.0 G/DL Hematocrit 38 35-52 % Mean Corpuscular Volume 90 80-99 FL Mean Corpuscular Hemoglobin 30 25-34 PG Mean Corpuscular Hemoglobin Concent 33 32-36 G/DL Red Cell Distribution Width 13.0 10.0-14.5 % Platelet Count 375 130-400 10^3/uL Mean Platelet Volume 9.5 7.4-10.4 FL Neutrophils (%) (Auto) 78 H 42-75 % Lymphocytes (%) (Auto) 7 L 12-44 % Monocytes (%) (Auto) 11 0-12 % Eosinophils (%) (Auto) 4 0-10 % Basophils (%) (Auto) 0 0-10 % Neutrophils # (Auto) 11.2 H 1.8-7.8 X 10^3 Lymphocytes # (Auto) 0.9 L 1.0-4.0 X 10^3 Monocytes # (Auto) 1.6 H 0.0-1.0 X 10^3 Eosinophils # (Auto) 0.5 H 0.0-0.3 10^3/uL Basophils # (Auto) 0.0 0.0-0.1 10^3/uL Neutrophils % (Manual) 73 % Lymphocytes % (Manual) 8 % Monocytes % (Manual) 19 % Blood Morphology Comment NORMAL Sodium Level 138 135-145 MMOL/L Potassium Level 4.3 3.6-5.0 MMOL/L Chloride Level 103 98-107 MMOL/L Carbon Dioxide Level 21 21-32 MMOL/L Anion Gap 14 5-14 MMOL/L Blood Urea Nitrogen 8 7-18 MG/DL Creatinine 0.64 0.60-1.30 MG/DL Estimat Glomerular Filtration Rate > 60 BUN/Creatinine Ratio 13 Glucose Level 106 H 70-105 MG/DL Calcium Level 8.9 8.5-10.1 MG/DL Serum Test, Qualitative NEGATIVE NEGATIVE Urine Color YELLOW Urine Clarity CLEAR Urine pH 6.5 5-9 Urine Specific Alloy 1.010 L 1.016-1.022 Urine Protein NEGATIVE NEGATIVE Urine Glucose (UA) NEGATIVE NEGATIVE Urine Ketones NEGATIVE NEGATIVE Urine Nitrite NEGATIVE NEGATIVE Urine Bilirubin NEGATIVE NEGATIVE Urine Urobilinogen 1.0 < = 1.0 MG/DL Urine Leukocyte Esterase NEGATIVE NEGATIVE Urine RBC (Auto) 3+ H NEGATIVE Urine RBC RARE /HPF Urine WBC 0-2 /HPF Urine Squamous Epithelial Cells 0-2 /HPF Urine Crystals NONE /LPF Urine Bacteria TRACE /HPF Urine Casts NONE /LPF Urine Mucus NEGATIVE /LPF Urine Culture Indicated NO My Orders Orders - GUILLERMINA PINEDA [employer] HEL[employer] Cbc With Automated Diff (01/15/20 15:28) Basic Metabolic Panel (01/15/20 15:28) Hcg,Qualitative Serum (01/15/20 15:28) Ct Abdomen/Pelvis Wo (01/15/20 15:35) Manual Differential (01/15/20 15:35) Ua Culture If Indicated (01/15/20 15:51) Diatrizoate Meglum/Sodium 37% (Gastrogra (01/15/20 17:30) Ciprofloxacin Iv 400mg/200ml (Cipro Iv S (01/15/20 18:00) Metronidazole 500mg/100ml Ivpb (Flagyl 5 (01/15/20 18:00) Cefepime 1 Gm Iv (1x Dose) (01/15/20 18:00) Medications Given in ED Current Medications Medications Dose Ordered Sig/Dami Route Start Time Stop Time Status Last Admin Dose Admin Diatrizoate Meglum/ Diatrizoate Sod 120 ml ONCE ONCE PO 01/15/20 17:30 01/15/20 17:31 DC 01/15/20 16:00 50 ML Vital Signs/I&O 01/15/20 15:23 Temp 36.9 Pulse 115 Resp 20 B/P (MAP) 136/64 (88) Pulse Ox 98 O2 Delivery Room Air Departure Communication (Admissions) Time/Spoke to Admitting Phy: 17:[address] Torres, we'll admit, recommends Zosyn. I didn't realize it during conversation, but she is allergic to penicillins. As such I'll use Cefepime and Flagyl. Will obtain CT abdomen and pelvis to evaluate for free air, I'll also give oral contrast to evaluate integrity of small bowel wall and evaluate for any potential fistula. Impression Primary Impression: Intra-abdominal abscess Disposition: ADMITTED INPATIENT Condition: Stable Admissions Decision to Admit Reason: Admit from ER (General) Decision to Admit/Date: Jan 15, 2020 Time/Decision to Admit Time: 17:51 Departure-Patient Inst. Referrals: GUILLERMO RASHID MD (PCP/Family) Primary Care Physician GUILLERMINA PINEDA APRN Jan 15, 2020 15:35
[2020-01-15 15:45] LABS: BASOPHILS % (AUTO) 0 % (0-10); EOSINOPHILS # (AUTO) 0.5 10^3/uL (0.0-0.3); EOSINOPHILS % (AUTO) 4 % (0-10); HEMATOCRIT 38 % (35-52); HEMOGLOBIN 12.7 G/DL (11.5-16.0); LYMPHOCYTES # (AUTO) 0.9 X 10^3 (1.0-4.0); LYMPHOCYTES % (AUTO) 7 % (12-44); MEAN CORPUSCULAR HEMOGLOBIN 30 PG (25-34); MEAN CORPUSCULAR HGB CONC 33 G/DL (32-36); MEAN CORPUSCULAR VOLUME 90 FL (80-99); MEAN PLATELET VOLUME 9.5 FL (7.4-10.4); MONOCYTES # (AUTO) 1.6 X 10^3 (0.0-1.0); MONOCYTES % (AUTO) 11 % (0-12); NEUTROPHILS # (AUTO) 11.2 X 10^3 (1.8-7.8); NEUTROPHILS % (AUTO) 78 % (42-75); PLATELET COUNT 375 10^3/uL (130-400); WHITE BLOOD COUNT 14.3 10^3/uL (4.3-11.0)
[2020-01-15 15:59] LABS: BILIRUBIN,URINE NEGATIVE (NEGATIVE); CLARITY,URINE CLEAR; COLOR,URINE YELLOW; GLUCOSE, URINE (UA) NEGATIVE (NEGATIVE); KETONES,URINE NEGATIVE (NEGATIVE); LEUKOCYTE ESTERASE ,URINE NEGATIVE (NEGATIVE); NITRITE,URINE NEGATIVE (NEGATIVE); PH,URINE 6.5 (5-9); PROTEIN,URINE NEGATIVE (NEGATIVE)
[2020-01-15 16:01] LABS: BUN/CREATININE RATIO 13; CALCIUM 8.9 MG/DL (8.5-10.1); CARBON DIOXIDE 21 MMOL/L (21-32); CHLORIDE 103 MMOL/L (98-107); CREATININE SERUM 0.64 MG/DL (0.60-1.30); GFR ESTIMATED > 60; GLUCOSE 106 MG/DL (70-105); SODIUM 138 MMOL/L (135-145)
[2020-01-15 16:03] LABS: POTASSIUM 4.3 MMOL/L (3.6-5.0)
[2020-01-15 16:06] LABS: BACTERIA,URINE TRACE /HPF; RBC,URINE RARE /HPF; SQUAMOUS EPITHELIAL CELL,UR 0-2 /HPF; WBC,URINE 0-2 /HPF
[2020-01-15 16:17] LABS: LYMPHOCYTES % (MANUAL) 8 %; MONOCYTES % (MANUAL) 19 %; NEUTROPHILS % (MANUAL) 73 %
[2020-01-15 16:18] LABS: RBC MORPH NORMAL
[2020-01-15] MEDS ORDERED: DIATRIZOATE MEGLUM/SODIUM 37% 120 ML (GASTROGRAFIN) PO ONE (17:30)
--- NOTE | 2020-01-15 17:45 | Diagnostic Imaging Report ---
PROCEDURE: CT abdomen and pelvis without contrast. TECHNIQUE: Multiple contiguous axial images were obtained through the abdomen and pelvis without the use of intravenous contrast. Auto Exposure Controls were utilized during the CT exam to meet ALARA standards for radiation dose reduction. INDICATION: History of self-mutilation. Recent abdominal surgery. COMPARISON: 01/01/2020. FINDINGS: Included portions of the lung bases are clear. CT abdomen: Patient is status post recent laparotomy. Surgical incision site is identified midline and appears to be open, inferiorly. Surgical skin jw are noted. Deep to the anterior abdominal wall on the right, there is a 3.2 x 13.3 cm complex loculated intraperitoneal air fluid collection consistent with probable abscess. Small amount of free fluid is also noted within the lower pelvis. Small bowel loops are nondistended. Moderate air and stool is noted scattered throughout the colon. The kidneys, adrenal glands, spleen, pancreas and liver have an unremarkable noncontrast CT appearance. No abnormal mesenteric or retroperitoneal adenopathy is seen. Osseous structures show no acute abnormality. Multiple linear metallic foreign bodies are again noted within the anterior subcutaneous soft tissues. CT pelvis: Urinary bladder is unopacified. No calculi are seen within the urinary bladder. Hypodense right ovarian cyst measures 2.4 x 2.8 cm. Again, there is a small amount of free fluid. Indwelling intrauterine contraceptive device is noted and appears to be in appropriate position. There is no free air. No abnormal lymph nodes are identified. Osseous structures show no acute abnormality. IMPRESSION: 1. Postsurgical changes of interval laparotomy. 2. Interval development of complex loculated air-fluid collection within the anterior right hemiabdomen consistent with abscess. This does appear amenable to CT-guided drainage. 3. Trace free fluid within the pelvis. Dictated by: Dictated on workstation # [id number]
[2020-01-15] MEDS ORDERED: CEFEPIME INJECTION 1,000 MG in WATER (STERILE) FOR INJECTION 10 ML IV ONE (18:00)
[2020-01-15] MEDS ORDERED: metroNIDAZOLE 500MG/100ML IVPB 100 ML IV ONE (18:00)
[2020-01-15] MEDS ORDERED: CIPROFLOXACIN IV 400MG/200ML 200 ML IV ONE (18:00)
--- OUTSIDE RECORDS SUMMARY | 2020-01-15 18:16 | XMS REPORT | Continuity of Care Document ---
Author Organization Unknown Address Unknown Phone Unavailable Allergies Active Description Code Type Severity Reaction Onset Reported/Identified Relationship to Patient Clinical Status Yes NO NAME AVAILABLE 36985 DRUG N/A N/A Yes .MDRO 0040 Miscellaneous Allergy N/A N/A 12/05/2015 Yes amoxicillin [id number] Drug Aller gy N/A N/A 12/05/2015 Yes clavulanic acid [id number] D rug Allergy N/A N/A 12/05/2015 Yes AMOXICILLIN-POT CLAVULANATE 92683 DRUG N/A Other 11/06/2017 11/06/2017 Yes amoxicillin [id number] Drug Aller gy Unknown N/A 03/18/2019 Yes clavulanic acid [id number] D rug Allergy Unknown N/A 03/18/2019 Yes Penicillins [id number] Drug Aller gy Unknown N/A 03/18/2019 Yes potassium chloride [id number] Drug Allergy Unknown N/A 03/18/2019 Medications Medication [...] HCL 2 % EX GEL 08/18/2017 Topical [place] N LACTATED RINGERS IV SOLN 08/20/2017 Intravenous [...] 2 % EX GEL 11/21/2017 Topical 5 [place] N ALBUTEROL SULFATE HFA 108 (9 0 [...] % MT LIQD 11/05/2018 Mouth/Throat 1 PRN [id number] PERTUSS IS 5-2-15.5 LF-MCG/0.5 IM SUSP 11/05/2018 [...] 2 % EX GEL 11/06/2018 Topical 5 W[place] N FERROUS SULFATE 325 (65 FE) MG [...] 05/04/2015 Lashanda Burgos APRN OT 783.1 05/04/2015 Lashnada Burgos APRN OT 786.2 05/04/2015 Lashanda Burgos PERSONAL BANKING REPRESENTATIVE OT 787.01 05/04/2015 Lashanda Burgosn PERSONAL BANKING REPRESENTATIVE OT 789.06 05/08/2015 Worf, Quinten Rosamaria IMPREGNATING TANK OPERATOR OT 786.00 05/08/2015 Worf, Quinten Rosamaria IMPREGNATING TANK OPERATOR OT 786.02 05/08/2015 Worf, Quinten Rosamaria IMPREGNATING TANK OPERATOR OT 786.00 05/08/2015 Worf, Quinten Rosamaria IMPREGNATING TANK OPERATOR OT 786.02 05/08/2015 Worf, Quinten Rosamaria IMPREGNATING TANK OPERATOR OT 786.00 05/08/2015 Worf, Quinten Rosamaria IMPREGNATING TANK OPERATOR OT 786.02 05/08/2015 Worf, Quinten Rosamaria IMPREGNATING TANK OPERATOR OT 786.00 05/08/2015 Worf, Quinten Rosamaria IMPREGNATING TANK OPERATOR OT 786.02 05/08/2015 Worf, Quinten Rosamaria IMPREGNATING TANK OPERATOR OT 786.00 05/08/2015 Worf, Quinten Rosamaria IMPREGNATING TANK OPERATOR OT 786.02 05/08/2015 Worf, Quinten Rosamaria IMPREGNATING TANK OPERATOR OT 786.00 05/08/2015 Worf, Quinten Rosamaria IMPREGNATING TANK OPERATOR OT 786.02 05/08/2015 Worf, Quinten Rosamaria IMPREGNATING TANK OPERATOR OT 786.00 05/08/2015 Worf, Quinten Rosamaria IMPREGNATING TANK OPERATOR OT 786.02 05/08/2015 Worf, Quinten Rosamaria IMPREGNATING TANK OPERATOR OT 786.00 05/08/2015 Worf, Quinten Rosamaria IMPREGNATING TANK OPERATOR OT 786.02 05/08/2015 EZ SANDOVAL, JOE PittmanPLOMTI OT 493.90 05/31/2015 Worf, Quinten Rosamaria IMPREGNATING TANK OPERATOR OT 786.05 05/31/2015 Worf, Quinten Rosamaria IMPREGNATING TANK OPERATOR OT 787.91 06/01/2015 Lashanda Burgosn PERSONAL BANKING REPRESENTATIVE OT 783.1 06/01/2015 Lashanda Brugos Su PERSONAL BANKING REPRESENTATIVE OT 786.2 06/01/2015 Lashanda Burgos Su PERSONAL BANKING REPRESENTATIVE OT 787.01 06/01/2015 Lashanda Burgosn PERSONAL BANKING REPRESENTATIVE OT 789.06 08/29/2015 Worf, Quinten Rosamaria IMPREGNATING TANK OPERATOR OT N91 .2 08/29/2015 Worf, Quinten Rosamaria IMPREGNATING TANK OPERATOR OT N91 .2 09/26/2015 Worf, Quinten Rosamaria IMPREGNATING TANK OPERATOR OT F60 .3 09/26/2015 Worf, Quinten ALLAN [...] Neville OT X78.8XXD 02/27/2016 Worf, Quinten Rosamaria IMPREGNATING TANK OPERATOR OT F33 .1 02/27/2016 Worf, Quinten Jo IMPREGNATING TANK OPERATOR OT R73.01 02/27/2016 Worf, Quinten Jo IMPREGNATING TANK OPERATOR OT F33 .1 02/27/2016 Worf, Quinten Rosamaria IMPREGNATING TANK OPERATOR OT R73.01 04/01/2016 Worf, Quinten Rosamaria IMPREGNATING TANK OPERATOR OT F33 .1 04/01/2016 Worf, Quinten Rosamaria IMPREGNATING TANK OPERATOR OT R73.01 04/01/2016 Worf, Quinten Rosamaria IMPREGNATING TANK OPERATOR OT F33 .1 04/01/2016 Worf, Quinten Rosamaria IMPREGNATING TANK OPERATOR OT R73.01 08/18/2016 Worf, Quinten Rosamaria IMPREGNATING TANK OPERATOR OT B37.84 08/18/2016 Worf, Quinten Blank IMPREGNATING TANK OPERATOR OT J44 .9 08/18/2016 Quinten Lindsay OT K21 .9 08/25/2017 KHRECEASAR, WAEL V [id number] Abdominal Injury KHREISS, WAEL 08/25/2017 KHREISS, WAEL V 403408 Suicidal KHREISS, WAEL 08/25/2017 KHREISS, WAEL V [...] cavity, initial encounter 10/10/2017 SHANNEN ELAINE V 218918 Aggressive Behavior SHANNEN ELAINE 10/10/2017 SHANNEN ELAINE V 921937 Wound Dehiscence SHANNEN ELAINE 10/10/2017 SHANNEN ELAINE [...] specified postprocedural states 11/26/2017 BRENDEN, ADDIE V 440391 Wound Check 11/26/2017 BRENDEN, ADDIE V L30.9 [...] self-harm by other specified means, initial encounter ([facility]) 11/26/2017 BRENDEN, ADDIE F Z87.891 Personal [...] CARRASCO V F31. 9 Bipolar disorder, unspecified ([facility]) 10/17/2018 SONG CARRASCO T18.9XXA Foreign body of alimentary tract, part unspecified, in itial encounter 10/17/2018 SONG CARRASCO V Z72. 89 Other problems related to lifestyle 10/17/2018 SONG CARRASCO E11. 9 Type 2 diabetes mellitus without complications ([facility]) 10/17/2018 SONG CARRASCO E66. 01 Morbid [...] by unspecified sha rp object, initial encounter ([facility]) 10/17/2018 SONG CARRASCO Z23 Encounter for [...] cavity, initial encounter 11/10/2018 TANVIR ORDAZ V [id number] Suicidal 11/10/2018 TANVIR ORDAZ V 636855 Wound Check 11/10/2018 TANVIR ORDAZ V F31.4 [...] E87.1 Hypo-osmolality and hyponatremia 11/10/2018 [facility], TANVIR Maya E87.6 Hypokalemia 11/10/2018 [facility], TANVIR Maya F31.32 Bipolar disorder, current episode depressed, moderate (HCC) 11/10/2018 [facility], TANVIR Maya F41.1 Generalized anxiety disorder 11/10/2018 [facility], TANVIR Maya F43.10 Post-traumatic stress disorder, unspecified 11/10/2018 [facility], TANVIR Maya F60.3 Borderline personality disorder (HCC) 11/10/2018 [facility], TANVIR Maya F63.1 Pyromania 11/10/2018 [facility], TANVIR Maya J45.90 9 Unspecified asthma, uncomplicated 11/10/2018 [facility], TANVIR Maya K00.0 Anodontia 11/10/2018 [facility], TANVIR Maya K66.0 Peritoneal adhesions (postprocedural) (postinfection) 11/10/2018 [facility], TANVIR Maya N83.9 Noninflammatory disorder of ovary, fallopian tube and broad ligament, unspecified 11/10/2018 [facility], TANVIR Maya R12 Heartburn 11/10/2018 [facility], TANVIR Maya R45.87 Impulsiveness 11/10/2018 [facility], TANVIR Maya R73.03 Prediabetes 11/10/2018 [facility], TANVIR Maya R97.1 Elevated cancer antigen 125 (CA 125) 11/10/2018 [facility], TANVIR Maya S31.62 9A Laceration with foreign [...] surveillance 11/10/2018 TANVIR ORDAZ 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 11/10/2018 [facility] Z91.5 Personal history of self-harm 12/03/2018 SALBADOR [...] INTERNAL OPERATION (SURGIC 12/07/2018 TANVIR ORDAZ V 387488 501 Post Op Visit 12/07/2018 TANVIR ORDAZ V K63.1 Perforation of intestine (nontraumatic) ([facility]) 12/08/2018 SALBADOR PAULA MD Ot B35 [...] SHELBY JULES DO Ot Z79.8 99 OTHER CUSTODIAL (CURRENT) DRUG THERAPY 03/22/2019 SHELBY JULES DO [...] JULES DOA C Ot Z79.8 99 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 51 CUSTODIAL (CURRENT) USE OF INHALED STERO 09/22/2019 HAO [...] 09/27/2019 HAO DONOVAN MD, Ot Z79. 51 CUSTODIAL (CURRENT) USE OF INHALED STERO 09/27/2019 HAO DONOVAN MD Ot Z87.891 PERSONAL HISTORY OF NICOTINE DEPENDENCE 09/27/2019 HAO DONOVAN MD, Ot Z88. 0 ALLERGY STATUS TO PENICILLIN 09/27/2019 HAO DONOVAN MD, Ot Z88. 1 ALLERGY STATUS TO OTHER ANTIBIOTIC AGENT 09/27/2019 HAO ODNOVAN MD, Ot Z88. 8 ALLERGY STATUS TO [...] BODY MASS INDEX (BMI) 45.0-49.9, ADULT 01/03/2020 KULWINDER RAPHAEL, CHERYL B Ot Z90.8 9 ACQUIRED ABSENCE OF OTHER ORGANS Procedures Code Description Performed By Per jose On [id number] In sertion of Infusion Dev into Sup Vena Cava, Perc Approach 11/24/2017 [id number] Ch [place] Other Device in Trunk Subcu/Fascia, Environmental Monitoring Specialist Approach 12/2017 [id number] Ex tirpation of Matter from Peritoneal Cavity, Open Approach 0 10/16/2018 [id number] Ex cision of Small Intestine, Open Approach 11/05/2018 [id number] Ex tirpation of Matter from Small Intestine, Open Approach [id number] Re lease Small Intestine, Open Approach 11/05/2018 [id number] EX TIRPATION OF MATTER FROM SMALL INTESTI 01/01/2020 [id number] RE PAIR SMALL INTESTINE, OPEN APPROACH 01/01/2020 [...] CELL DISTRIBUTION WIDTH 13.2 % 11 .9-15.5 6162144 15.3 10E9/L 3.5-10.5 4423887 0.84 10E9/L 0.90-2.90 1399509 0.89 10E9/L 0.30-0.90 5255404 0.00 10E9/L 0.05-0.50 1939379 13.59 10E9/L 1.70-7.00 1521759 0.01 10E9/L 0.00-0.30 2670884 0 % HCG, SERUM, QUALITATIVE - 08/16/17 06:05 HCG SERUM(QUAL) Negative mIU/mL Negative FLUID CULTURE - 08/16/17 09:38 [id number] No organisms seen [id number] No Growth ANAEROBIC CULTURE - 08/16/17 09:38 [id number] No Growth CBC WITHOUT DIFFERENTIAL - 08/17/17 06:3 7 HEMATOCRIT 36.4 % 34.9-44.5 HEMOGLOBIN 11.8 g/dL 12.0-15.5 MEAN CORPUSCULAR HEMOGLOBIN 29.5 pg 26 .0-34.0 MEAN CORPUSCULAR HEMOGLOBIN CONC 32.4 g/dL 31.0-37.0 MEAN CORPUSCULAR VOLUME 91.0 fL 81.6-9 8.3 PLATELET COUNT 306 10E9/L 150-450 RED BLOOD CELL COUNT 4.00 10E12/L 3.90-5 .03 RED CELL DISTRIBUTION WIDTH 13.9 % 11 .9-15.5 6607857 12.5 10E9/L 3.5-10.5 COMPREHENSIVE METABOLIC PANEL - [...] CELL DISTRIBUTION WIDTH 13.9 % 11 .9-15.5 4535850 10.5 10E9/L 3.5-10.5 COMPREHENSIVE METABOLIC PANEL - [...] CELL DISTRIBUTION WIDTH 13.6 % 11 .9-15.5 5982227 6.0 10E9/L 3.5-10.5 COMPREHENSIVE METABOLIC PANEL - [...] CELL DISTRIBUTION WIDTH 13.4 % 11 .9-15.5 4961967 3.4 10E9/L 3.5-10.5 COMPREHENSIVE METABOLIC PANEL - [...] CELL DISTRIBUTION WIDTH 14.4 % 11 .9-15.5 0040426 3.4 10E9/L 3.5-10.5 COMPREHENSIVE METABOLIC PANEL - [...] CELL DISTRIBUTION WIDTH 13.9 % 11 .9-15.5 7366425 5.2 10E9/L 3.5-10.5 MAGNESIUM - 12/02/17 07:08 [...] CELL DISTRIBUTION WIDTH 14.0 % 11 .9-15.5 7190907 3.6 10E9/L 3.5-10.5 COMPREHENSIVE METABOLIC PANEL - [...] CELL DISTRIBUTION WIDTH 14.1 % 11 .9-15.5 6678458 4.7 10E9/L 3.5-10.5 COMPREHENSIVE METABOLIC PANEL - [...] CELL DISTRIBUTION WIDTH 13.9 % 11 .9-15.5 8188258 5.6 10E9/L 3.5-10.5 COMPREHENSIVE METABOLIC PANEL - [...] CELL DISTRIBUTION WIDTH 13.4 % 11 .9-15.5 0982009 8.7 10E9/L 3.5-10.5 1344752 1.33 10E9/L 0.90-2.90 0408844 0.71 10E9/L 0.30-0.90 1209764 0.00 10E9/L 0.05-0.50 7011411 6.65 10E9/L 1.70-7.00 1500334 0.00 10E9/L 0.00-0.30 6055564 0 % COMPREHENSIVE METABOLIC PANEL - 10/10/17 [...] CELL DISTRIBUTION WIDTH 13.5 % 11 .9-15.5 2091745 6.9 10E9/L 3.5-10.5 6456863 1.22 10E9/L 0.90-2.90 5911173 0.71 10E9/L 0.30-0.90 7302649 0.00 10E9/L 0.05-0.50 1044380 4.99 10E9/L 1.70-7.00 0634362 0.00 10E9/L 0.00-0.30 7618298 0 % EXTRA LIGHT BLUE TOP - [...] CELL DISTRIBUTION WIDTH 13.4 % 11 .9-15.5 0678640 5.6 10E9/L 3.5-10.5 4963664 1.34 10E9/L 0.90-2.90 9645652 0.43 10E9/L 0.30-0.90 0940540 0.01 10E9/L 0.05-0.50 5820409 3.83 10E9/L 1.70-7.00 3469985 0.00 10E9/L 0.00-0.30 9264556 0 % COMPREHENSIVE METABOLIC PANEL - 11/08/17 [...] CELL DISTRIBUTION WIDTH 12.9 % 11 .9-15.5 9976220 8.2 10E9/L 3.5-10.5 9886148 1.42 10E9/L 0.90-2.90 2678995 0.90 10E9/L 0.30-0.90 1356951 0.00 10E9/L 0.05-0.50 0770466 5.88 10E9/L 1.70-7.00 9085101 0.01 10E9/L 0.00-0.30 4398443 0 % COMPREHENSIVE METABOLIC PANEL - 11/18/17 [...] EU/dL 0.2 WBC UA 0-3 /hpf 0-3 5205942 Trace Negative 3859133 4 /lpf CBC WITH AUTO DIFFERENTIAL - [...] CELL DISTRIBUTION WIDTH 12.8 % 11 .9-15.5 0914182 7.3 10E9/L 3.5-10.5 9518656 1.56 10E9/L 0.90-2.90 7383788 0.74 10E9/L 0.30-0.90 6109243 0.01 10E9/L 0.05-0.50 4978182 4.94 10E9/L 1.70-7.00 3148840 0.01 10E9/L 0.00-0.30 2413935 0 % BASIC METABOLIC PANEL - 11/23/17 [...] CELL DISTRIBUTION WIDTH 12.6 % 11 .9-15.5 8565168 5.4 10E9/L 3.5-10.5 8102718 1.11 10E9/L 0.90-2.90 3586936 0.60 10E9/L 0.30-0.90 5782184 0.00 10E9/L 0.05-0.50 7144883 3.69 10E9/L 1.70-7.00 0178244 0.00 10E9/L 0.00-0.30 4389422 0 % PT T APTT - 11/24/17 [...] CELL DISTRIBUTION WIDTH 12.0 % 11 .9-15.5 6099402 6.8 10E9/L 3.5-10.5 7720114 1.92 10E9/L 0.90-2.90 0077993 0.58 10E9/L 0.30-0.90 1968781 0.00 10E9/L 0.05-0.50 8821518 4.33 10E9/L 1.70-7.00 9759677 0.00 10E9/L 0.00-0.30 8076543 0 % CA 125 - 10/16/18 01:03 [...] CELL DISTRIBUTION WIDTH 12.2 % 11 .9-15.5 8311762 6.1 10E9/L 3.5-10.5 6577315 2.06 10E9/L 0.90-2.90 5078437 0.57 10E9/L 0.30-0.90 3716602 0.00 10E9/L 0.05-0.50 8749483 3.46 10E9/L 1.70-7.00 8911137 0.01 10E9/L 0.00-0.30 0867173 0 % C-REACTIVE PROTEIN - 11/05/18 00:02 9544913 2.0 mg/dL <=0.9 COMPREHENSIVE METABOLIC PANEL - [...] EU/dL 0.2 WBC UA 0-3 /hpf 0-3 4260729 Negative Negative Packed Cells Leukoreduced - 11/05/18 [...] CELL DISTRIBUTION WIDTH 12.6 % 11 .9-15.5 5602816 8.2 10E9/L 3.5-10.5 2196979 1.30 10E9/L 0.90-2.90 6455223 0.90 10E9/L 0.30-0.90 0206587 0.00 10E9/L 0.05-0.50 4567716 6.02 10E9/L 1.70-7.00 0851336 0.00 10E9/L 0.00-0.30 9592473 0 % COMPREHENSIVE METABOLIC PANEL - 11/06/18 [...] CELL DISTRIBUTION WIDTH 12.6 % 11 .9-15.5 0503089 5.0 10E9/L 3.5-10.5 9135769 1.08 10E9/L 0.90-2.90 4001252 0.43 10E9/L 0.30-0.90 9802369 0.00 10E9/L 0.05-0.50 4114113 3.53 10E9/L 1.70-7.00 3563585 0.00 10E9/L 0.00-0.30 1252538 0 % EXTRA SST TUBE - 11/09/18 [...] 11:55 Bacteria identification in wound by culture [id number] 009 NRG FREE TEXT EXTERNAL NORMAL SKIN [...] 11:37 Bacteria identification in wound by culture 141856 01 NRG FREE TEXT EXTERNAL SUSCEPTIBILITY REPORT [...] pa katya - 01/01/20 01:45 WRISTBAND NUMBER [id number] NRG ABO+Rh group AP NRG Blood group antibody screen NEGATIVE NR G Complete blood count (CBC) with automate d white blood cell (WBC) differential - 01/15/20 15:35 Blood leukocytes automated count (number/volume) 14.3 10*3/uL 4.3-11.0 Blood erythrocytes automated count (number/volume) 4.27 10*6/uL 4.35-5.85 Venous blood hemoglobin measurement (mass/volume) 12.7 g/dL 11.5-16.0 Blood hematocrit (volume fraction) 38 % 35-52 Automated erythrocyte mean corpuscular volume 90 [ foz_us] 80-99 Automated erythrocyte mean corpuscular h emoglobin (mass per erythrocyte) 30 pg 25-34 Automated erythrocyte mean corpuscular h emoglobin concentration measurement (mass/volume) 33 g/dL 32-36 Automated erythrocyte distribution width ratio 13. 0 % 10.0- 14.5 Automated blood platelet count (count/volume) 375 10*3/uL 130-400 Automated blood platelet mean volume measurement 9.5 [foz_us] 7.4-10.4 Automated blood neutrophils/100 leukocytes 78 % 42-75 Automated blood lymphocytes/100 leukocytes 7 % 12-44 Blood monocytes/100 leukocytes 11 % 0-12 Automated blood eosinophils/100 leukocytes 4 % 0-10 Automated blood basophils/100 leukocytes 0 % 0-10 Blood neutrophils automated count (number/volume) 11.2 10*3 1.8-7.8 Blood lymphocytes automated count (number/volume) 0.9 10*3 1.0-4.0 Blood monocytes automated count (number/volume) 1. 6 10*3 0.0-1.0 Automated eosinophil count 0.5 10*3/uL 0 .0-0.3 Automated blood basophil count (count/volume) 0.0 10*3/uL 0.0-0.1 Serum or plasma choriogonadotropin (preg taisha test) detection - 01/15/20 15:35 Serum or plasma choriogonadotropin ( test) de tection NEGATIVE NEGATIVE Whole blood basic metabolic panel - 12/21 03/10 15:35 Serum or plasma sodium measurement (moles/volume) 138 mmol/L 135-145 Serum or plasma potassium measurement (moles/volume) 4.3 mmol/L 3.6-5.0 Serum or plasma chloride measurement (moles/volume) 103 mmol/L 98-107 Carbon dioxide 21 mmol/L 21-32 Serum or plasma anion gap determination (moles/volume) 14 mmol/L 5-14 Serum or plasma urea nitrogen measurement (mass/volume ) 8 mg/dL 7-18 Serum or plasma creatinine measurement (mass/volume) 0.64 mg/dL 0.60-1.30 Serum or plasma urea nitrogen/creatinine mass ratio 13 NRG Serum or plasma creatinine measurement w ith calculation of estimated glomerular filtration rate > NRG Serum or plasma glucose measurement (mass/volume) 106 mg/dL 70-105 Serum or plasma calcium measurement (mass/volume) 8.9 mg/dL 8.5-10.1 Manual absolute plasma cell count - 12/21 03/10 15:35 Blood monocytes/100 leukocytes 19 % NRG Manual blood segmented neutrophils/100 leukocytes 73 % NRG Manual blood lymphocytes/100 leukocytes 8 % NRG Blood erythrocyte morphology finding identification NORMAL NRG Complete urinalysis with reflex to cultu re - 01/15/20 15:53 Urine color determination YELLOW NRG Urine clarity determination CLEAR NR G Urine pH measurement by test strip 6.5 5-9 Specific gravity of urine by test strip 1.010 1.016-1.022 Urine protein assay by test strip, semi-quantitative NEGATIVE NEGATIVE Urine glucose detection by automated test strip NE GATIVE NEGATIVE Erythrocytes detection in urine sediment by light micr oscopy 3+ NEGATIVE Urine ketones detection by automated test strip NE GATIVE NEGATIVE Urine nitrite detection by test strip NEGATIVE NEGATIVE Urine total bilirubin detection by test strip NEGA TIVE NEGATIVE Urine urobilinogen measurement by automated test strip (mass/volume) 1.0 mg/dL < = 1.0 Urine leukocyte esterase detection by dipstick NEG ATIVE NEGATIVE Automated urine sediment erythrocyte cou nt by microscopy (number/high power field) RARE NRG Automated urine sediment leukocyte count by microscopy (number/high power field) [HPF] NRG Bacteria detection in urine sediment by light microsco py TRACE NRG Squamous epithelial cells detection in u rine sediment by light microscopy 0-2 NRG Crystals detection in urine sediment by light microsco py NONE NRG Casts detection in urine sediment by light microscopy NONE NRG Mucus detection in urine sediment by light microscopy NEGATIVE NRG Complete urinalysis with reflex to culture NO NRG Radiology Report from [id number] on 10/15/2018 23:15:07 [...] the peritoneal cavity size excluded.Electronically signed by GWENDOLYN MichelleT: 10/15/2018 11:14 PM Radiology Report from [id number] [...] MDDT: 10/16/2018 12:42 AM Radiology Report from [id number] on 11/05/19 19 00:30:38 EXAM: CT Abdomen [...] mA and/orkV according to patient size.DLP[facility] abdomen findings:The lung bases are [...] Status Pt. Type Provider Facility Loc./Unit Complaint [id number] 07/25/2019 14:20:00 07/25/2019 23:59: 59 CLS Outpatient QUINTEN [facility]LSON [facility] [id number] 01/01/2020 04:42:00 15:58:00 DIS Outpatient CHERYL MIRAMONTES DO Via [facility] 4TH FOREIGN BODY IN ABD WIT H PERFORATED BOWEL [id number] 10/18/2019 09:13:00 23:59:59 CLS Outpatient MELANIE SURESH MD [facility] WOUNDCARE [id number] 10/11/2019 09:09:00 23:59:59 CLS Outpatient MELANIE SURESH MD [facility] WOUNDCARE [id number] 10/05/2019 12:18:00 23:59:59 CLS Outpatient MELANIE SURESH MD [facility] WOUNDCARE [id number] 09/29/2019 10:03:00 23:59:59 CLS Outpatient GUILLERMO RASHID MD [facility] RAD FOREIGN BODY INGESTION [id number] 09/21/2019 22:35:00 03:46:00 DIS Emergency HAO DONOVAN MD [facility] ER CUT ON STOMACH,SUICIDAL [id number] 07/28/2019 13:50:00 23:59:59 CLS Outpatient CHERYL MIRAMONTES DO [facility] RAD FB STOMACH [id number] 07/19/2019 01:38:00 11:30:00 DIS Inpatient MADDIE DE LEÓN MD [facility] 4TH SUICIDAL IDEATION, FORE IGN BODY INGESTION [id number] 03/22/2019 08:04:00 12:40:00 DIS Outpatient SHELBY JULES DO [facility] SDC MENORRHAGIA [id number] 03/18/2019 11:30:00 11:47:00 DIS Outpatient SHELBY JULES DO [facility] PREOP MENORRHAGIA [id number] 02/23/2019 08:31:00 23:59:59 CLS Outpatient SALBADOR PAULA MD [facility] WOUNDCARE [id number] 02/16/2019 08:32:00 23:59:59 CLS Outpatient SALBADOR PAULA MD [facility] WOUNDCARE [id number] 02/09/2019 08:30:00 23:59:59 CLS Outpatient SALABDOR PAULA MD [facility] WOUNDCARE [id number] 02/02/2019 08:39:00 23:59:59 CLS Outpatient SALBADOR PAULA MD [facility] WOUNDCARE [id number] 01/21/2019 11:31:00 23:59:59 CLS Outpatient SHELBY JULES DO [facility] RAD BILATERAL OVARIAN CYSTS [id number] 01/21/2019 10:55:00 23:59:59 CLS Outpatient SALBADOR PAULA MD [facility] WOUNDCARE [id number] 01/14/2019 10:47:00 23:59:59 CLS Outpatient SALBADOR PAULA MD [facility] WOUNDCARE [id number] 01/04/2019 13:10:00 23:59:59 CLS Outpatient SALBADOR PAULA MD [facility] WOUNDCARE [id number] 12/31/2018 10:53:00 23:59:59 CLS Outpatient SALBADOR PAULA MD [facility] [id number] 12/24/2018 10:37:00 23:59:59 CLS Outpatient SALBADOR PAULA MD [facility] W[facility] [id number] 12/17/2018 10:57:00 23:59:59 CLS Outpatient SALBADOR PAULA MD [facility] W[facility] [id number] 12/10/2018 09:23:00 23:59:59 CLS Outpatient SALBADOR PAULA MD [facility] [id number] 12/03/2018 10:45:00 23:59:59 CLS Outpatient SALBADOR PAULA MD [facility] LAB [id number] 12/03/2018 09:27:00 23:59:59 CLS Outpatient SALBADOR PAULA MD [facility] W[facility] [id number] 01/15/2020 15:47:00 Document Registration [id number] 11/06/2018 18:00:00 ACT Inpatient Shannen Raymundo MD [facility] [id number] 11/05/2018 18:00:00 ACT Inpatient Shannen Raymundo MD [facility] [id number] 02/11/2016 15:17:00 016 23:59:59 [id number]/20/2016 11:00:00 017 12:19:00 DIS [facility] [id number] 12/19/2016 16:18:00 017 20:28:00 [facility] [id number] 12/15/2016 16:03:00 017 16:43:00 DIS Emergency Eder Díaz [facility] KCES FOREIGN OBJECT IN WOUND [id number] 07/18/2016 10:09:00 23:59:59 CLS Outpatient WorQuinten may[facility] OFFICE [id number] 02/27/2016 00:00:00 00:00:00 [facility] [id number] 02/12/2016 14:05:00 15:36:00 DIS Emergency Pankaj Nevillemark Arias [facility] FOB IN GENITAL [id number] 02/11/2016 15:47:00 15:57:00 DIS Emergency Salbador Colin [facility] ABD LAC. [id number] 01/07/2016 14:28:00 15:42:00 DIS Emergency Nesabi, [facility] FB [id number] 12/27/2015 15:02:00 17:58:00 DIS Emergency Min Stevenson Vern [facility] WOUND ABD [id number] 12/05/2015 19:07:00 016 22:03:00 DIS Emergency JOE HUI MD, I [facility] FOB [id number] 12/05/2015 09:16:00 016 12:03:00 DIS Emergency Allan Ayala [facility] P-EVAL [id number] 11/13/2015 15:37:00 016 23:59:59 CLS Outpatient [place] [facility] [id number] 11/03/2015 19:57:00 016 00:02:00 DIS Emergency Neef, [facility] ASTHMA [id number] 10/29/2015 15:39:00 18:25:00 DIS [facility] [id number] 10/23/2015 04:00:00 13:14:00 DIS Inpatient Jefferson Bazan MD [facility]3A MAJOR DEPRESSIVE DISORDER, R ECURRENT SEVERE c PSY [id number] 08/29/2015 15:07:00 23:59:59 CLS Outpatient Worf, Quinten Blank [facility] [id number] 05/15/2015 10:30:00 23:59:59 CLS Pread[address] [facility] EPIGASTRIC [id number] 05/08/2015 13:20:00 23:59:59 CLS Outpatient Lashanda Burgosn [facility] OFFICE [id number] 05/08/2015 09:33:00 23:59:59 CLS Outpatient Worf, [place] [facility] KCCPUL RESPIRATORY ABNORMALITY UNSPECIFIED [id number] 05/08/2015 22:50:00 23:33:00 DIS Emergency EZ SANDOVAL, JOE FLETCHER I [facility] CHEST PAIN [id number] 05/04/2015 14:00:00 23:59:59 CLS Outpatient Lashanda Burgosn [facility] LAB [id number] 04/25/2015 08:14:00 23:59:59 CLS Outpatient Worf, [facility] OFFICE [id number] 02/13/2015 16:09:00 Document Registration [id number] 01/30/2015 11:53:00 Document Registration [id number] 01/15/2015 08:47:00 Document Registration [id number] 11/29/2018 11:11:52 9 23:59:59 CLS Outpatient TANVIR ORDAZ [facility] 823 [id number] 11/04/2018 23:20:09 9 16:00:00 DIS Inpatient TANVIR ORDAZ [facility] 7S [id number] 10/15/2018 22:08:44 9 13:24:00 DIS Inpatient SONG CARRASCO [facility] 7S [id number] 02/02/2018 10:28:37 8 23:59:59 CLS Outpatient BRENDEN, ADDIE Stormo nt [facility] BRENDEN [id number] 01/19/2018 09:38:37 8 23:59:59 CLS Outpatient BRENDEN, ADDIE Stormo nt [facility] BRENDEN [id number] 12/28/2017 20:14:33 8 23:59:59 CLS Outpatient MUNROEJOSE [facility] LAB [id number] 12/28/2017 20:06:32 8 23:59:59 CLS Outpatient MUNROEJETHROA David Austin [facility] LAB [id number] 12/23/2017 15:02:25 8 16:45:00 DIS Outpatient BRENDEN, ADDIE Stormo nt [facility] [id number] 12/18/2017 08:57:58 8 11:08:00 DIS R [facility] [id number] 12/08/2017 10:15:30 8 23:59:59 CLS Outpatient BRENDEN, ADDIE Stormo nt [facility] BRENDEN [id number] 11/27/2017 10:11:46 8 23:59:59 CLS Outpatient MUNROEJOSE [facility] LAB [id number] 11/20/2017 12:11:56 8 18:24:00 DIS Inpatient BRENDEN, ADDIE Stormon t [facility] 7S [id number] 11/18/2017 12:27:34 8 16:07:00 DIS Emergency JOSE GARCIA [facility] [id number] 11/06/2017 12:52:57 8 17:05:00 DIS Inpatient ADDIE WILCOX [facility] 6EOBV [id number] 11/04/2017 14:03:25 8 23:59:59 CLS Outpatient KIMBERLY MCMULLEN [facility] 823 [id number] 10/10/2017 20:57:09 8 23:43:00 DIS Emergency SHANNEN ELAINE [facility] EMD [id number] 09/30/2017 13:45:37 8 23:59:59 CLS Outpatient KIMBERLY CASAS [facility] 823 [id number] 09/09/2017 10:26:37 7 23:59:59 CLS Outpatient KIMBERLY MCMULLEN [place] 579853 [id number] 08/16/2017 05:14:41 7 17:38:00 DIS Inpatient KIMBERLY CASAS [facility] 7S [id number] 11/05/2018 04:43:39 Document Registration [id number] 11/05/2018 00:02:03 Document Registration [id number] 10/16/2018 03:01:34 Document Registration [id number] 10/16/2018 00:09:38 Document Registration [id number] 10/15/2018 22:41:23 Document Registration [id number] 12/23/2017 11:54:45 Document Registration [id number] 12/18/2017 14:32:11 Document Registration [id number] 08/16/2017 06:54:16 Document Registration
[2020-01-15] MEDS ORDERED: CEFEPIME 1 GM (MAXIPIME) VIAL ONE (18:17)
[2020-01-15] MEDS ORDERED: WATER (STERILE) FOR INJECTION 10 ML ONE (18:17)
[2020-01-15] MEDS ORDERED: fentaNYL INJECTION 100 MCG/2 ML AMP IVP ONE (18:30)
--- NOTE | 2020-01-15 20:00 | NUR ---
JAXSON GOODWIN admitted to room 422-1, with an admitting diagnosis of ABDOMINAL ABSCESS, on 01/15/20 from [facility] via , accompanied by STAFF AND [employer].JAXSON GOODWIN introduced to surroundings, call light, bed controls, phone, TV, temperature control, lights, meal times, smoking policy, visitor policy, side rail policy, bathrooms and showers. Patient Rights given to patient in the handbook. JAXSON GOODWIN verbalizes understanding that [facility] is not responsible for the loss or damage to any personal effects or valuables that are kept in the patients possession during their hospitalization. Patient and/or family were informed about the Rapid Response Team and its purpose.
[2020-01-15 20:09] VITALS: BP 114/73
[2020-01-15] MEDS ORDERED: ONDANSETRON 4 MG/2 ML (SDV) Z0FRAN IV PRN (20:45)
[2020-01-15] MEDS ORDERED: CATHETER FLUSH 10 ML SYR IV PRN (20:45)
[2020-01-15] MEDS: LACTATED RINGERS 1,000 ML IV SCH (21:53)
[2020-01-15] MEDS: CATHETER FLUSH 10 ML SYR IV SCH (21:54)
[2020-01-15] MEDS ORDERED: metroNIDAZOLE 500 MG/100 ML IVPB (PRE-MIX) IV SCH (22:00)
[2020-01-15] MEDS: fentaNYL INJECTION 100 MCG/2 ML AMP IV PRN (22:58)
[2020-01-15 23:34] VITALS: BP 102/70
[2020-01-16] VITALS (13 sets, daily range): BP systolic 106–141; BP diastolic 57–83
[2020-01-16] MEDS: metroNIDAZOLE 500 MG/100 ML IVPB (PRE-MIX) IV SCH ×3 (00:55→16:46)
[2020-01-16] MEDS: CATHETER FLUSH 10 ML SYR IV SCH ×3 (04:40→23:39)
[2020-01-16 04:51] LABS: BASOPHILS % (AUTO) 0 % (0-10); EOSINOPHILS % (AUTO) 0 % (0-10); HEMATOCRIT 34 % (35-52); LYMPHOCYTES # (AUTO) 1.4 X 10^3 (1.0-4.0); LYMPHOCYTES % (AUTO) 15 % (12-44); MEAN CORPUSCULAR HEMOGLOBIN 30 PG (25-34); MEAN CORPUSCULAR HGB CONC 33 G/DL (32-36); MEAN CORPUSCULAR VOLUME 91 FL (80-99); MEAN PLATELET VOLUME 9.3 FL (7.4-10.4); MONOCYTES % (AUTO) 11 % (0-12); NEUTROPHILS # (AUTO) 7.1 X 10^3 (1.8-7.8); NEUTROPHILS % (AUTO) 74 % (42-75); PLATELET COUNT 345 10^3/uL (130-400); RED CELL DISTRIBUTION WIDTH 12.9 % (10.0-14.5); WHITE BLOOD COUNT 9.5 10^3/uL (4.3-11.0)
[2020-01-16 05:04] LABS: ALBUMIN 3.2 GM/DL (3.2-4.5); CHLORIDE 105 MMOL/L (98-107); POTASSIUM 3.5 MMOL/L (3.6-5.0); SODIUM 142 MMOL/L (135-145)
[2020-01-16 05:05] LABS: CALCIUM 8.3 MG/DL (8.5-10.1)
[2020-01-16 05:06] LABS: GLUCOSE 87 MG/DL (70-105); TOTAL PROTEIN 6.1 GM/DL (6.4-8.2)
[2020-01-16 05:08] LABS: CARBON DIOXIDE 23 MMOL/L (21-32)
[2020-01-16 05:10] LABS: ALKALINE PHOSPHATASE 106 U/L (40-136); GFR ESTIMATED > 60
[2020-01-16 05:11] LABS: BUN/CREATININE RATIO 12
[2020-01-16 05:13] LABS: ALANINE AMINOTRANSFERASE 20 U/L (0-55)
[2020-01-16] MEDS: CEFEPIME 2,000 MG/SWFI 20 ML IV PUSH IV SCH ×4 (06:13→18:19)
[2020-01-16] MEDS: LACTATED RINGERS 1,000 ML IV SCH ×3 (06:13→20:45)
[2020-01-16] MEDS: fentaNYL INJECTION 100 MCG/2 ML AMP IV PRN ×5 (06:13→23:39)
[2020-01-16] MEDS ORDERED: TRAZ150T72 PO (10:15)
[2020-01-16] MEDS ORDERED: LACT10SO64 PO (10:15)
[2020-01-16] MEDS ORDERED: RT-ALBUINH PO (10:24)
[2020-01-16] MEDS ORDERED: ACET-2650 PO (10:24)
[2020-01-16] MEDS ORDERED: ACET325T49 PO (10:24)
[2020-01-16] MEDS ORDERED: IBUP-1773 PO (10:24)
[2020-01-16] MEDS ORDERED: BISM262O27 PO (10:24)
[2020-01-16] MEDS ORDERED: GUAI600T43 PO (10:24)
[2020-01-16] MEDS ORDERED: HYDR28.3 TP (10:24)
[2020-01-16] MEDS ORDERED: CALC500T7 PO (10:24)
--- NOTE | 2020-01-16 10:25 | NUR ---
THE MED REC WAS ENTERED USING THE MAR FROM [facility] AND GOING THRU THE EXT MED HISTORY.
[2020-01-16] MEDS ORDERED: ONDANSETRON 4 MG/2 ML (SDV) Z0FRAN ONE (10:58)
[2020-01-16] MEDS ORDERED: fentaNYL INJECTION 100 MCG/2 ML AMP ONE (10:58)
[2020-01-16] MEDS ORDERED: MIDAZOLAM 2 MG/2 ML (VERSED) VIAL ONE (10:58)
[2020-01-16] MEDS ORDERED: GLYCOPYRROLATE 0.2 MG/ML (ROBINUL) 2 ML VIAL ONE (10:58)
[2020-01-16] MEDS ORDERED: SEVOFLURANE (ULTANE) 15 ML INHAL SOLN ONE ×3 (10:58→15:05)
[2020-01-16] MEDS ORDERED: ROCURONIUM 10 MG/ML 5 ML SYRINGE IV ONE ×2 (10:58→14:44)
[2020-01-16] MEDS ORDERED: NEOSTIGMINE 3 MG/3 ML VIAL ONE (10:58)
[2020-01-16] MEDS ORDERED: proPOfol 200 MG/20 ML (DIPRIVAN) VIAL IV ONE (10:58)
[2020-01-16] MEDS ORDERED: LIDOCAINE PF 2% 5 ML (XYLOCAINE) VIAL ONE (10:58)
[2020-01-16] MEDS ORDERED: ceFAZolin INJECTION 0 MG ONE (11:03)
[2020-01-16] MEDS ORDERED: CLINDAMYCIN 900 MG/50 ML IVPB 50 ML IV ONE ×2 (11:08→12:15)
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
--- NOTE | 2020-01-16 11:15 | NUR ---
Patient transported to surgery
[2020-01-16] MEDS: LACTATED RINGERS 1,000 ML IV PRN ×2 (11:20→13:19)
[2020-01-16] MEDS ORDERED: LACTATED RINGERS 1,000 ML IV PRN (12:03)
[2020-01-16] MEDS ORDERED: metroNIDAZOLE 500MG/100ML IVPB 100 ML IV ONE (12:15)
[2020-01-16] MEDS ORDERED: HYDROmorphone 2 MG/ML VIAL (DILAUDID) ONE ×2 (12:27→14:08)
[2020-01-16] MEDS ORDERED: morphine INJ 10 MG/ML 1ML (SYR OR VIAL) ONE (14:08)
[2020-01-16] MEDS ORDERED: PROMETHAZINE INJ 25 MG/ML (PHENERGAN) AMP ONE (14:09)
--- NOTE | 2020-01-16 15:07 | Progress Note-Post Operative ---
Post-Operative Progess Note Surgeon (s)/Group Sales Representative (s) Surgeon CHERYL MIRAMONTES DO Group Sales Representative: Melissa Pre-Operative Diagnosis Abd pain, bleeding and abscess Post-Operative Diagnosis adhesions Procedure & Operative Findings Date of Procedure 01/16/20 Procedure Performed/Findings 1. Right Colon resection with primary anastomosis 2. Lysis of Adhesions 2.25 hrs Anesthesia Type GET Estimated Blood Loss Estimated blood loss (mL): 200ml Specimens/Packing Specimens Removed portion of ascending colon and TI CHERYL MIRAMONTES DO Jan 16, 2020 15:07
[2020-01-16] MEDS ORDERED: MEPERIDINE (DEMEROL) INJ 50 MG/ML IVP ONE (15:30)
[2020-01-16] MEDS ORDERED: ONDANSETRON 4 MG/2 ML (SDV) Z0FRAN IVP PRN (15:30)
[2020-01-16] MEDS ORDERED: HYDROmorphone 2 MG/ML VIAL (DILAUDID) IV ONE (15:30)
[2020-01-16] MEDS ORDERED: morphine INJ 10 MG/ML 1ML (SYR OR VIAL) IVP ONE (15:30)
[2020-01-16] MEDS ORDERED: fentaNYL INJECTION 100 MCG/2 ML AMP IVP ONE (15:30)
[2020-01-16] MEDS ORDERED: PROMETHAZINE INJ 25 MG/ML (PHENERGAN) AMP IVP ONE (15:30)
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
[2020-01-17] MEDS: metroNIDAZOLE 500 MG/100 ML IVPB (PRE-MIX) IV SCH ×3 (00:41→16:44)
[2020-01-17] MEDS: fentaNYL INJECTION 100 MCG/2 ML AMP IV PRN ×5 (01:54→12:49)
[2020-01-17 04:12] VITALS: BP 133/68
[2020-01-17] MEDS: CEFEPIME 2,000 MG/SWFI 20 ML IV PUSH IV SCH ×4 (06:08→18:00)
[2020-01-17] MEDS: CATHETER FLUSH 10 ML SYR IV SCH ×3 (06:08→22:04)
[2020-01-17 08:11] VITALS: BP 131/83
--- NOTE | 2020-01-17 11:15 | NUR ---
CM/SS: Visited with pt as to plan for discharge Plan: When deemed appropriate, pt to return to [facility]. Summary: Pt reports having some pain to her abdomen area based on her recent surgery. Pt reports having some issues with sleeping on last night and was able to rest after they placed a ice pack/pad to the surgical wound area. Pt reports that she has moved apartments and is no longer living with her roommate that she had her last hospital stay. Pt reports things are better with her living arrangement. Pt continues to have 24 hours staff at the apartment and they have a nurse with the agency ([employer]) that can monitor the wound vac that pt currently has. Discuss with pt and attendant care staff that usually home care is ordered upon discharge. They report that their nurse can handle it. This worker will follow up with pt to ensure all is in place at time of discharge.
[2020-01-17 11:38] VITALS: BP 137/85
[2020-01-17] MEDS ORDERED: morphine INJ 4 MG/ML 1 ML (VIAL/SYRINGE) IVP PRN (13:00)
--- NOTE | 2020-01-17 13:00 | Progress Note - Surgery ---
Subjective Time Seen by a Provider: 12:41 Subjective/Events-last exam Pt seen and examined, states she feels bad today because of pain. Wants some ice chips. Review of Systems Pulmonary: No Dyspnea, No Cough Cardiovascular: No: Chest Pain, Palpitations Gastrointestinal: No: Nausea, Vomiting Objective Exam Vital Signs Date Time Temp Pulse Resp B/P (MAP) Pulse Ox O2 Delivery O2 Flow Rate FiO2 01/17/20 11:38 37.2 96 18 137/85 (102) 92 Room Air 01/17/20 11:27 36.8 01/17/20 08:11 36.8 98 20 131/83 (99) 92 Room Air 01/17/20 08:06 95 Room Air 01/17/20 04:12 37.2 98 20 133/68 (89) 95 Nasal Cannula 1.50 01/16/20 23:15 37.6 93 18 135/67 (89) 95 Nasal Cannula 1.50 01/16/20 20:17 Nasal Cannula 1.50 01/16/20 20:09 36.8 89 18 118/58 (78) 91 Nasal Cannula 1.50 01/16/20 17:09 36.4 74 16 124/75 (91) 93 Nasal Cannula 1.50 01/16/20 16:15 Nasal Cannula 3 01/16/20 16:15 36.2 16 131/81 (98) 87 Nasal Cannula 3 01/16/20 16:10 16 131/81 (98) 87 Nasal Cannula 3 01/16/20 16:00 18 135/80 (98) 94 Nasal Cannula 3 01/16/20 16:00 Nasal Cannula 3 01/16/20 15:50 18 133/81 (98) 94 OxyMask 2 01/16/20 15:45 OxyMask 6 01/16/20 15:40 18 140/80 (100) 96 OxyMask 4 01/16/20 15:30 18 128/59 (82) 96 OxyMask 6 01/16/20 15:30 OxyMask 6 01/16/20 15:20 20 133/57 (82) 96 OxyMask 6 01/16/20 15:17 36.4 16 141/83 (102) 98 OxyMask 8 01/16/20 15:17 OxyMask 8 I & O 01/17/20 07:00 Intake Total 2250 ml Output Total 1470 ml Balance 780 ml Capillary Refill : Less Than 3 SecondsLess Than 3 Seconds General Appearance: No Apparent Distress, Obese HEENT: Moist Mucous Membranes; No Scleral Icterus (L), No Scleral Icterus (R) Respiratory: Lungs Clear, Normal Breath Sounds, No Accessory Muscle Use, No Respiratory Distress Cardiovascular: Regular Rate, Rhythm, No Murmur Gastrointestinal: soft, tenderness (at incision), other (VAC in place with scant drainage) Extremity: No Calf Tenderness Neurologic/Psychiatric: Alert, Oriented x3 Skin: Diaphoresis Results Lab Microbiology 01/15/20 Gram Stain - Final, Resulted 01/15/20 Wound Culture - Preliminary, Resulted Staphylococcus aureus Pseudomonas aeruginosa Assessment/Plan Assessment/Plan Assessment/Plan S/P Right colon resection with extensive JOAN D/C murillo, start toradol and tylenol, d/c Fentanyl and switch to Morphine prn. Ok to have ice chips, Encourage IS use and ambulation Clinical Quality Measures DVT/VTE Risk/Contraindication: Risk Factor Score Per Nursin RFS Level Per Nursing on Admit: 4+=Very High CHERYL MIRAMONTES DO Jan 17, 2020 13:00
[2020-01-17] MEDS: ACETAMINOPHEN 500 MG TAB (TYLENOL) PO SCH ×2 (13:31→20:48)
[2020-01-17] MEDS: KETOROLAC 15 MG/ML VIAL IV SCH ×2 (13:32→18:04)
[2020-01-17] MEDS: LACTATED RINGERS 1,000 ML IV SCH ×3 (15:44→20:46)
[2020-01-17 16:00] VITALS: BP 129/82
[2020-01-17 20:09] VITALS: BP 102/69
[2020-01-18] VITALS: BP 127/74
[2020-01-18] MEDS: metroNIDAZOLE 500 MG/100 ML IVPB (PRE-MIX) IV SCH ×3 (00:32→16:05)
[2020-01-18] MEDS: KETOROLAC 15 MG/ML VIAL IV SCH ×4 (01:14→18:20)
[2020-01-18] MEDS: LACTATED RINGERS 1,000 ML IV SCH ×2 (01:31→09:22)
[2020-01-18 04:00] VITALS: BP 117/65
[2020-01-18] MEDS: ACETAMINOPHEN 500 MG TAB (TYLENOL) PO SCH ×3 (05:26→19:55)
[2020-01-18] MEDS: CEFEPIME 2,000 MG/SWFI 20 ML IV PUSH IV SCH ×4 (06:19→18:14)
[2020-01-18] MEDS: CATHETER FLUSH 10 ML SYR IV SCH ×3 (06:19→22:05)
[2020-01-18 08:14] VITALS: BP 120/58
--- NOTE | 2020-01-18 08:46 | Anesthesia-General Post-Op ---
General Patient Condition Mental Status/LOC: Same as Preop Cardiovascular: Satisfactory Nausea/Vomiting: Absent Respiratory: Satisfactory Pain: Controlled Complications: Absent Post Op Complications Complications None Follow Up Care/Instructions Patient Instructions None needed. Anesthesia/Patient Condition Patient Condition Patient is doing well, no complaints, stable vital signs, no apparent adverse anesthesia problems. No complications reported per nursing. NOEL MEJÍA CRNA Jan 18, 2020 08:46
--- NOTE | 2020-01-18 09:40 | NUR ---
PT GIVEN PRN MORPHINE FOR WOUND VAC CHANGE. DENNIS LEZAMA FROM WOUND CARE AT BEDSIDE TO CHANGE WOUND VAC.
[2020-01-18 11:13] VITALS: BP 132/64
[2020-01-18] MEDS: TRIM/SULFAMETH 160/800 (SEPTRA DS) TAB PO SCH ×2 (11:50→18:14)
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
--- NOTE | 2020-01-18 15:01 | Progress Note ---
Standard Progress Note Progress Notes/Assess & Plan Date Seen by a Provider: Jan 18, 2020 Time Seen by a Provider: 14:30 Progress/Assessment & Plan Anesthesia Note ([id number]) Called for difficult IV start. 22 G IV Rt hand on second attempt flushed with ease and secured. Pt tolerated the procedure well. ROB BRUNO DO Jan 18, 2020 15:01
[2020-01-18 16:09] VITALS: BP 104/52
--- NOTE | 2020-01-18 16:12 | Progress Note - Surgery ---
Subjective Time Seen by a Provider: 15:01 Subjective/Events-last exam Pt seen and examined, no new complaints. States pain is mostly controlled, she is hungry and passing gas. Review of Systems General: No Chills Pulmonary: No Dyspnea, No Cough Cardiovascular: No: Chest Pain, Palpitations Gastrointestinal: No: Nausea, Vomiting Objective Exam Vital Signs Date Time Temp Pulse Resp B/P (MAP) Pulse Ox O2 Delivery O2 Flow Rate FiO2 01/18/20 16:09 37.0 86 18 104/52 (69) 92 Room Air 01/18/20 11:13 36.2 88 22 132/64 (86) 91 Room Air 01/18/20 08:14 36.4 89 18 120/58 (78) 92 Room Air 01/18/20 08:00 Room Air 01/18/20 04:00 36.2 82 21 117/65 (82) 92 Room Air 01/18/20 00:00 36.3 88 22 127/74 (91) 90 Room Air 01/17/20 20:09 36.8 91 22 102/69 (80) 94 Room Air 01/17/20 19:15 Room Air I & O 01/18/20 07:00 Intake Total 1100 ml Output Total 700 ml Balance 400 ml Capillary Refill : Less Than 3 SecondsLess Than 3 Seconds General Appearance: No Apparent Distress, Obese HEENT: Moist Mucous Membranes Respiratory: Lungs Clear, Normal Breath Sounds, No Accessory Muscle Use, No Respiratory Distress Cardiovascular: Regular Rate, Rhythm, No Murmur Gastrointestinal: soft, tenderness (at incision), other (VAC in place with scant drainage, changed today and looks good) Extremity: No Calf Tenderness Neurologic/Psychiatric: Alert, Oriented x3 Results Lab Microbiology 01/15/20 Gram Stain - Final, Complete 01/15/20 Wound Culture - Final, Complete Staphylococcus aureus Pseudomonas aeruginosa Assessment/Plan Assessment/Plan Assessment/Plan S/P Right colon resection with extensive JOAN POD#2 Continue toradol and tylenol; Morphine prn. Start soft diet and encourage IS use and ambulation. Clinical Quality Measures DVT/VTE Risk/Contraindication: Risk Factor Score Per Nursin RFS Level Per Nursing on Admit: 4+=Very High CHERYL MIRAMONTES DO Jan 18, 2020 16:12
[2020-01-18 19:54] VITALS: BP 136/78
[2020-01-19 00:28] VITALS: BP 122/80
[2020-01-19] MEDS: KETOROLAC 15 MG/ML VIAL IV SCH ×2 (01:14→06:15)
[2020-01-19 04:32] VITALS: BP 130/76
[2020-01-19] MEDS: CATHETER FLUSH 10 ML SYR IV SCH (05:01)
[2020-01-19] MEDS: ACETAMINOPHEN 500 MG TAB (TYLENOL) PO SCH (05:02)
[2020-01-19] MEDS: CEFEPIME 2,000 MG/SWFI 20 ML IV PUSH IV SCH ×2 (06:15)
[2020-01-19] MEDS: TRIM/SULFAMETH 160/800 (SEPTRA DS) TAB PO SCH (06:15)
[2020-01-19] MEDS: LACTATED RINGERS 1,000 ML IV SCH (06:18)
[2020-01-19 08:00] VITALS: BP 118/67
[2020-01-19] MEDS: metroNIDAZOLE 500 MG/100 ML IVPB (PRE-MIX) IV SCH ×2 (08:09)
--- NOTE | 2020-01-19 10:11 | Progress Note - Surgery ---
Subjective Time Seen by a Provider: 10:01 Subjective/Events-last exam Pt seen and examined; tolerating diet, pain controlled and had BM today. Review of Systems Pulmonary: No Dyspnea, No Cough Cardiovascular: No: Chest Pain, Palpitations Gastrointestinal: No: Nausea, Vomiting Objective Exam Vital Signs Date Time Temp Pulse Resp B/P (MAP) Pulse Ox O2 Delivery O2 Flow Rate FiO2 01/19/20 04:32 36.2 88 20 130/76 (94) 93 Room Air 01/19/20 00:28 36.6 74 20 122/80 (94) 92 Room Air 01/18/20 19:54 36.4 87 20 136/78 (97) 92 Room Air 01/18/20 19:30 Room Air 01/18/20 16:09 37.0 86 18 104/52 (69) 92 Room Air 01/18/20 11:13 36.2 88 22 132/64 (86) 91 Room Air I & O 01/19/20 07:00 Intake Total 1150 ml Output Total 200 ml Balance 950 ml Capillary Refill : Less Than 3 SecondsLess Than 3 Seconds General Appearance: No Apparent Distress, Obese HEENT: Moist Mucous Membranes Respiratory: Lungs Clear, Normal Breath Sounds, No Accessory Muscle Use, No Res piratory Distress Cardiovascular: Regular Rate, Rhythm, No Murmur Gastrointestinal: soft, tenderness (at incision), other (VAC in place with scant drainage, changed today and looks good) Extremity: No Calf Tenderness Neurologic/Psychiatric: Alert, Oriented x3 Results Lab Microbiology 01/15/20 Gram Stain - Final, Complete 01/15/20 Wound Culture - Final, Complete Staphylococcus aureus Pseudomonas aeruginosa Assessment/Plan Assessment/Plan Assessment/Plan S/P Right colon resection with extensive JOAN POD#3 D/C IV and D/C home; pt encouraged to use IS and ambulate at home. Clinical Quality Measures DVT/VTE Risk/Contraindication: Risk Factor Score Per Nursin RFS Level Per Nursing on Admit: 4+=Very High CHERYL MIRAMONTES DO Jan 19, 2020 10:11
[2020-01-19] MEDS ORDERED: Trimethoprim/Sulfamethoxazole PO (10:17)
--- NOTE | 2020-01-19 10:20 | Discharge Inst-Surgical ---
Discharge Inst-Surgical Depart Medication/Instructions New, Converted or Re-Newed RX: Call to Patients Pharmacy Patient Instructions Follow up Appt: Make appointment for 01/26/2020. [phone] Instructions: No lifting greater than 20 pounds. No strenuous activity. May shower in 24 hours, no tub bath or soaking. Use incentive spirometer at home as directed. No Smoking Skin/Wound Care: Change wound VAC Thursday and ( change to be done in my office). Symptoms to Report: Appetite Changes, Extremity Discoloration, Numbness/Tingling, Swelling Increased, Bleeding Excessive, Eyesight Changes, Pain Increased, Urine Color Change, Constipation(Persistent), Fever over 101 degree F, Pain/Pressure in chest, Urinating Difficulty, Cough Up/Vomit Blood, Heart Beat Irreg/Pounding, Pain/Pressure in jaw, Cramps in feet or legs, Lightheadedness, Pain/Pressure in shoulder, Diarrhea(Persistent), Memory Changes Suddenly, Questions/Concerns, Weight gain consecutive days, Dizziness/Fainting, Nausea/Vomiting, Shortness of Breath, Weight gain over 2 pounds If questions or concerns contact your physician Or seek help at emergency department. Activity Activity as Tolerated: Yes Activity Instructions: Avoid Stress to Incision Driving Instructions: No Driving/Refer to Incentive Spirometry: Every 2 Hours While Awake, For 2 weeks Avoid ALL Tobacco Products: Smoking of Any Kind Diet Discharge Diet: No Restrictions (increase protein intake) Diet After 24 Hours: Clear Liquid if Nauseous If Any Problems/Questions/Issu: Contact Your Physician, Go to Emergency Room Skin/Wound Care Infection Signs and Symptoms: Increased Redness, Foul Odor of Wound, Increased Drainage, Skin Itchy or Has a Rash, Increased Swelling, Temperature Above 101 F Bathing Instructions: CHERYL Hugo DO Jan 19, 2020 10:20
--- NOTE | 2020-01-19 10:48 | NUR ---
CM/SS: Visited with pt as to plan for discharge Plan: [facility] Summary: Pt is in bed and reports she is ready to return home. Pt feels better and was able to eat some dinner last night and breakfast this morning. Pt feels much better. Pt indicates that the nurse for the apartment will take care of the wound vac. Pt is encouraged to continue to get along with her roommates and get to feeling better. Pt thanks this worker for visiting. Pt is wished well.
--- NOTE | 2020-01-19 12:00 | NUR ---
DISCHARGE INSTRUCTIONS GIVEN, GEOMETRY PROFESSOR AT BEDSIDE, [employer] GUARDIAN CALLED WITH INSTRUCTIONS, WOUND VAC INTACT, PORTABLE WOUND VAC WITHOUT AIR LEAK, DENIES PAIN OR SOB, VERBALIZED UNDERSTANDING OF DISCHARGE INSTRUCTIONS. PRESCRIPTION FOR BACTRIM CALLED TO NATHANIEL INSTRUCTED BY DR MIRAMONTES
[2020-01-19 13:03] VITALS: BP 118/67
== END 2020-01-19 13:05 | disposition home or self-care (01) | DRG 330 ==
LOC: EDUNIT# 15:12 → ER 15:13 → 4TH 17:49
PROVIDERS: ADMIT Surgery; ATTEND Surgery
PROC: 0DBB0ZZ Excision of Ileum, Open Approach (ICD-10-PCS; 2020-01-16)
PROC: 0DN80ZZ Release Small Intestine, Open Approach (ICD-10-PCS; 2020-01-16)
PROC: 0DNN0ZZ Release Sigmoid Colon, Open Approach (ICD-10-PCS; 2020-01-16)
PROC: 0U920ZZ Drainage of Bilateral Ovaries, Open Approach (ICD-10-PCS; 2020-01-16)
PROC: 0DTH0ZZ Resection of Cecum, Open Approach (ICD-10-PCS; principal; 2020-01-16 11:30)
DX: K65.1 Peritoneal abscess (principal); K66.0 Peritoneal adhesions (postprocedural) (postinfection); Z68.43 Body mass index [BMI] 50.0-59.9, adult; T81.31XA Disruption of external operation (surgical) wound, not elsewhere classified, initial encounter; Q43.8 Other specified congenital malformations of intestine; N83.201 Unspecified ovarian cyst, right side; N83.202 Unspecified ovarian cyst, left side; F17.210 Nicotine dependence, cigarettes, uncomplicated; J45.909 Unspecified asthma, uncomplicated; K59.09 Other constipation; E66.9 Obesity, unspecified; F41.9 Anxiety disorder, unspecified; F60.9 Personality disorder, unspecified; F20.9 Schizophrenia, unspecified; F32.9 Major depressive disorder, single episode, unspecified; Z91.5 Personal history of self-harm; Z88.0 Allergy status to penicillin
CPT/HCPCS: 36415; 74176; 80048; 80053; 81000; 84703; 85007; 85025; 85027; 87070; 87077; 87186; 87205

== ENCOUNTER 2020-06-13 20:39 | Emergency (ER) | payer MEDICARE, MEDICAID ==
[~2020-06-13] VITALS: Ht 162 cm; Wt 122.0 kg
[~2020-06-13 20:39] MED LIST changes: +ACET325T49 PO; -CETI10TA21 PO; +CETI10TA49 PO; +IBUP-1773 PO; +RT-ALBUINH PO; +TRAZ150T72 PO; +Trimethoprim/Sulfamethoxazole PO
[2020-06-13 21:19] LABS: BILIRUBIN,URINE NEGATIVE (NEGATIVE); COLOR,URINE YELLOW; GLUCOSE, URINE (UA) NEGATIVE (NEGATIVE); KETONES,URINE NEGATIVE (NEGATIVE); LEUKOCYTE ESTERASE ,URINE TRACE (NEGATIVE); NITRITE,URINE NEGATIVE (NEGATIVE); PROTEIN,URINE NEGATIVE (NEGATIVE)
[2020-06-13 21:25] LABS: BACTERIA,URINE TRACE /HPF; RBC,URINE 50-100 /HPF; WBC,URINE RARE /HPF
[2020-06-13 21:31] LABS: CLARITY,URINE SL CLOUDY
[2020-06-13] MEDS ORDERED: LACTATED RINGERS 1,000 ML IV ONE (21:47)
[2020-06-13 22:05] LABS: BASOPHILS % (AUTO) 0 % (0-10); EOSINOPHILS % (AUTO) 0 % (0-10); HEMATOCRIT 38 % (35-52); HEMOGLOBIN 12.4 g/dL (11.5-16.0); LYMPHOCYTES # (AUTO) 1.3 10^3/uL (1.0-4.0); LYMPHOCYTES % (AUTO) 19 % (12-44); MEAN CORPUSCULAR HEMOGLOBIN 28 pg (25-34); MEAN CORPUSCULAR HGB CONC 33 g/dL (32-36); MEAN CORPUSCULAR VOLUME 86 fL (80-99); MONOCYTES # (AUTO) 0.5 10^3/uL (0.0-1.0); MONOCYTES % (AUTO) 7 % (0-12); NEUTROPHILS # (AUTO) 5.2 10^3/uL (1.8-7.8); NEUTROPHILS % (AUTO) 74 % (42-75); PLATELET COUNT 185 10^3/uL (130-400)
[2020-06-13 22:18] LABS: CHLORIDE 103 MMOL/L (98-107); POTASSIUM 3.4 MMOL/L (3.6-5.0); SODIUM 142 MMOL/L (135-145)
[2020-06-13 22:19] LABS: AMYLASE 38 U/L (25-125); CALCIUM 8.4 MG/DL (8.5-10.1)
[2020-06-13 22:20] LABS: GLUCOSE 104 MG/DL (70-105); TOTAL PROTEIN 6.5 GM/DL (6.4-8.2)
[2020-06-13 22:22] LABS: BILIRUBIN,TOTAL 0.6 MG/DL (0.1-1.0); CARBON DIOXIDE 27 MMOL/L (21-32)
[2020-06-13 22:24] LABS: ALKALINE PHOSPHATASE 94 U/L (40-136); CREATININE SERUM 0.69 MG/DL (0.60-1.30); GFR ESTIMATED > 60
[2020-06-13 22:25] LABS: BUN/CREATININE RATIO 10
[2020-06-13 22:27] LABS: ALANINE AMINOTRANSFERASE 24 U/L (0-55)
[2020-06-13 22:28] LABS: LIPASE 22 U/L (8-78)
[2020-06-13] MEDS ORDERED: ENOXAPARIN 60 MG/0.6 ML (LOVENOX) SYR SC ONE (23:30)
[2020-06-13] MEDS ORDERED: ENOX120D SQ (23:33)
[2020-06-13] MEDS ORDERED: HYOS0.1283 SL (23:33)
[2020-06-13] MEDS ORDERED: PANT40TA2 PO (23:33)
[2020-06-13] MEDS ORDERED: L. A1CAP11 PO (23:33)
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
[2020-06-13] MEDS ORDERED: HYOSCYAMINE 0.125 MG (LEVSIN) TAB PO ONE (23:45)
[2020-06-13 23:55] VITALS: BP 164/107
[2020-06-14] MEDS ORDERED: NS 100 ML (IVPB) BAG IV ONE (05:45)
[2020-06-14] MEDS ORDERED: IOHEXOL 350 MG/ML 100 ML (OMNIPAQUE 350) VIAL IV ONE (05:45)
--- NOTE | 2020-06-14 08:17 | Diagnostic Imaging Report ---
EXAMINATION: CT Abdomen and Pelvis with intravenous contrast. TECHNIQUE: Multiple contiguous axial images were obtained through the abdomen and pelvis after the uneventful administration of intravenous contrast. All CT scans use one or more of the following dose optimizing techniques: automated exposure control, MA and/or KvP adjustment based on a patient size and exam type, or iterative reconstruction. HISTORY: Right upper quadrant pain COMPARISON: 01/15/2020 FINDINGS: Limited views of the lower thorax show patchy areas of atelectasis. The liver is normal without focal lesion. There is no biliary ductal dilation. Gallbladder is normal. Pancreas is normal. Spleen is normal. Adrenal glands are normal. 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 The kidneys are normal. There is no hydronephrosis. Urinary bladder is normal. Intrauterine device is present within the uterus. There are bilateral cystic adnexal structures which have a somewhat tubular shape. These may represent dilated fallopian tubes filled with fluid or pus. Visualized bowel is normal in caliber without obstruction or inflammation. There are multiple linear hyperattenuating objects in the anterior abdominal wall which are unchanged from prior exam and may represent foreign objects or surgical material. There is noted prior bowel resection. No free fluid or air. No abdominal or pelvic lymphadenopathy. Aorta is normal in caliber without aneurysm. There are no suspicious osseus lesions. IMPRESSION: 1. 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 2. Bilateral cystic structures associated with both adnexa which appear tubular shaped and may represent dilated fallopian tubes with hydrosalpinx or pyosalpinx. There is no significant disagreement with the preliminary report. Dictated by: Dictated on workstation # [id number]
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
== END 2020-06-13 23:55 | disposition home or self-care (01) ==
LOC: EDUNIT# 20:39 → ER 20:40
DX: K55.051 Focal (segmental) acute (reversible) ischemia of intestine, part unspecified (principal); K59.09 Other constipation; F41.9 Anxiety disorder, unspecified; F32.9 Major depressive disorder, single episode, unspecified; F20.9 Schizophrenia, unspecified; F60.9 Personality disorder, unspecified; E66.9 Obesity, unspecified; J45.909 Unspecified asthma, uncomplicated; Z77.22 Contact with and (suspected) exposure to environmental tobacco smoke (acute) (chronic); Z88.0 Allergy status to penicillin; Z88.1 Allergy status to other antibiotic agents; Z88.8 Allergy status to other drugs, medicaments and biological substances; Z79.51 Long term (current) use of inhaled steroids; Z97.5 Presence of (intrauterine) contraceptive device; Z91.5 Personal history of self-harm
CPT/HCPCS: 36415; 74022; 74177; 80053; 81000; 82150; 83690; 84703; 85025

== ENCOUNTER 2020-06-19 09:46 | Emergency (ER) | payer MEDICARE, MEDICAID ==
[~2020-06-19] VITALS: Ht 170.1 cm; Wt 132.4 kg
[~2020-06-19 09:46] MED LIST changes: +ENOX120D SQ; +HYOS0.1283 SL; +L. A1CAP11 PO; +PANT40TA2 PO
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
[2020-06-19] MEDS ORDERED: NS 100 ML (IVPB) BAG IV ONE (10:15)
[2020-06-19] MEDS ORDERED: HOLD METFORMIN - RECEIVED CONTRAST 20 ML VIAL IV SCH (10:15)
[2020-06-19] MEDS ORDERED: IOHEXOL 350 MG/ML 100 ML (OMNIPAQUE 350) VIAL IV ONE (10:15)
[2020-06-19 10:45] LABS: BASOPHILS % (AUTO) 0 % (0-10); EOSINOPHILS % (AUTO) 0 % (0-10); HEMATOCRIT 39 % (35-52); HEMOGLOBIN 13.1 g/dL (11.5-16.0); LYMPHOCYTES % (AUTO) 24 % (12-44); MEAN CORPUSCULAR HEMOGLOBIN 29 pg (25-34); MEAN CORPUSCULAR HGB CONC 33 g/dL (32-36); MEAN CORPUSCULAR VOLUME 86 fL (80-99); MEAN PLATELET VOLUME 8.7 fL (9.0-12.2); MONOCYTES # (AUTO) 0.3 10^3/uL (0.0-1.0); MONOCYTES % (AUTO) 7 % (0-12); NEUTROPHILS # (AUTO) 2.9 10^3/uL (1.8-7.8); NEUTROPHILS % (AUTO) 69 % (42-75); PLATELET COUNT 212 10^3/uL (130-400); WHITE BLOOD COUNT 4.2 10^3/uL (4.3-11.0)
[2020-06-19 10:53] LABS: BILIRUBIN,URINE NEGATIVE (NEGATIVE); CLARITY,URINE CLEAR; COLOR,URINE YELLOW; GLUCOSE, URINE (UA) NEGATIVE (NEGATIVE); KETONES,URINE NEGATIVE (NEGATIVE); LEUKOCYTE ESTERASE ,URINE NEGATIVE (NEGATIVE); NITRITE,URINE NEGATIVE (NEGATIVE); PH,URINE 6.5 (5-9); PROTEIN,URINE NEGATIVE (NEGATIVE)
[2020-06-19 10:54] LABS: CHLORIDE 102 MMOL/L (98-107); POTASSIUM 3.2 MMOL/L (3.6-5.0); SODIUM 141 MMOL/L (135-145)
[2020-06-19 10:56] LABS: CALCIUM 8.5 MG/DL (8.5-10.1)
[2020-06-19 10:57] LABS: GLUCOSE 91 MG/DL (70-105); TOTAL PROTEIN 6.5 GM/DL (6.4-8.2)
[2020-06-19 10:58] LABS: CARBON DIOXIDE 30 MMOL/L (21-32)
[2020-06-19 10:59] LABS: BILIRUBIN,TOTAL 1.3 MG/DL (0.1-1.0)
[2020-06-19 11:00] LABS: ALKALINE PHOSPHATASE 107 U/L (40-136); CREATININE SERUM 0.65 MG/DL (0.60-1.30); GFR ESTIMATED > 60
[2020-06-19 11:01] LABS: BUN/CREATININE RATIO 3
[2020-06-19 11:03] LABS: ALANINE AMINOTRANSFERASE 23 U/L (0-55)
[2020-06-19 11:03] LABS: BACTERIA,URINE NEGATIVE /HPF; RBC,URINE RARE /HPF
--- NOTE | 2020-06-19 11:45 | Diagnostic Imaging Report ---
CT ABDOMEN/PELVIS W TECHNIQUE: Multiple contiguous axial images were obtained through the abdomen and pelvis after administration of intravenous contrast. All CT scans use one or more of the following dose optimizing techniques: automated exposure control, MA and/or KvP adjustment based on a patient size and exam type, or iterative reconstruction. INDICATION: Abdominal pain. Known mesenteric thrombosis. COMPARISON: 06/13/2020. FINDINGS: Lower chest: Scattered areas of linear atelectasis. No consolidations have developed. Peritoneum: No free intraperitoneal air or fluid. Liver and biliary system: Liver enhances normally without mass lesion or features of infarct. Nonocclusive thrombus within the superior mesenteric vein is unchanged. The gallbladder is normal. No biliary duct dilation. Spleen and Pancreas: Stable peripheral hypodensity in the spleen measuring 0.9 cm that fills in on delayed-phase images, indicative of hemangioma. The pancreas enhances normally without mass lesion or peripancreatic inflammatory changes. Adrenals: Normal. tract: The kidneys enhance normally without suspicious mass or obstruction. Urinary bladder is distended without wall thickening. IUD is well positioned. Bilateral adnexal cysts persist and are likely physiologic in nature. GI tract: Stomach is decompressed. No bowel obstruction. Stable postoperative changes within the small bowel. No pericolonic inflammatory change. Appendix is not seen and may be surgically absent. Vasculature and Lymph nodes: Normal caliber aorta. No abdominal or pelvic lymphadenopathy. Musculoskeletal: No concerning osseous lesion. IMPRESSION: 1. No change in the small volume of nonocclusive thrombus within the superior mesenteric vein. No features of mesenteric ischemia within the small bowel or colon. 2. Bilateral adnexal cystic structures are unchanged. Dictated by: Dictated on workstation # [id number]
[2020-06-19] MEDS ORDERED: RIVA1TAB PO (12:02)
[2020-06-19 12:22] VITALS: BP 131/81
== END 2020-06-19 12:22 | disposition home or self-care (01) ==
LOC: EDUNIT# 09:46 → ER 09:47
DX: R10.9 Unspecified abdominal pain (principal); K55.069 Acute infarction of intestine, part and extent unspecified; J45.909 Unspecified asthma, uncomplicated; F41.9 Anxiety disorder, unspecified; F32.9 Major depressive disorder, single episode, unspecified; F20.9 Schizophrenia, unspecified; E66.01 Morbid (severe) obesity due to excess calories; F17.210 Nicotine dependence, cigarettes, uncomplicated; Z82.49 Family history of ischemic heart disease and other diseases of the circulatory system; Z83.3 Family history of diabetes mellitus; Z80.9 Family history of malignant neoplasm, unspecified; Z68.42 Body mass index [BMI] 45.0-49.9, adult; Z88.0 Allergy status to penicillin; Z88.1 Allergy status to other antibiotic agents; Z88.8 Allergy status to other drugs, medicaments and biological substances; Z79.01 Long term (current) use of anticoagulants
CPT/HCPCS: 36415; 74177; 80053; 81000; 83605; 85025

== ENCOUNTER 2020-07-17 11:15 | Outpatient (RCR) | payer MEDICARE, MEDICAID ==
[~2020-07-17 11:15] MED LIST changes: +MIRT-96 PO; -MIRT15TA PO; -MONT10TA26 PO; +MONT10TA97 PO; +RIVA1TAB PO
== END 2020-10-10 | disposition home or self-care (01) ==
LOC: LAB 11:15
PROVIDERS: ATTEND Surgery
DX: R19.7 Diarrhea, unspecified (principal)
CPT/HCPCS: 87015; 87045; 87046; 87324; 87328; 87329; 87449; 87899

== ENCOUNTER 2020-11-14 19:19 | Emergency (ER) | payer MEDICARE, MEDICAID ==
[~2020-11-14] VITALS: Ht 170.1 cm; Wt 138.7 kg
[~2020-11-14 19:19] MED LIST changes: +MONT10TA32 PO; -MONT10TA97 PO
[2020-11-14 20:09] LABS: BILIRUBIN,URINE NEGATIVE (NEGATIVE); CLARITY,URINE CLEAR; COLOR,URINE YELLOW; GLUCOSE, URINE (UA) NEGATIVE (NEGATIVE); KETONES,URINE NEGATIVE (NEGATIVE); LEUKOCYTE ESTERASE ,URINE NEGATIVE (NEGATIVE); NITRITE,URINE NEGATIVE (NEGATIVE); PH,URINE 5.5 (5-9); PROTEIN,URINE NEGATIVE (NEGATIVE)
[2020-11-14] MEDS ORDERED: NS IV 1000 ML 1,000 ML ONE (20:11)
[2020-11-14] MEDS ORDERED: KETOROLAC 30 MG/ML VIAL ONE (20:12)
[2020-11-14] MEDS ORDERED: KETOROLAC 30 MG/ML VIAL IVP STA (20:24)
[2020-11-14] MEDS ORDERED: NS IV 1000 ML 1,000 ML IV SCH (20:30)
[2020-11-14 20:36] LABS: BASOPHILS % (AUTO) 0 % (0-10); EOSINOPHILS % (AUTO) 0 % (0-10); HEMATOCRIT 38 % (35-52); HEMOGLOBIN 12.9 g/dL (11.5-16.0); LYMPHOCYTES # (AUTO) 1.4 10^3/uL (1.0-4.0); LYMPHOCYTES % (AUTO) 18 % (12-44); MEAN CORPUSCULAR HEMOGLOBIN 30 pg (25-34); MEAN CORPUSCULAR HGB CONC 34 g/dL (32-36); MEAN CORPUSCULAR VOLUME 90 fL (80-99); MEAN PLATELET VOLUME 9.2 fL (9.0-12.2); MONOCYTES # (AUTO) 0.6 10^3/uL (0.0-1.0); MONOCYTES % (AUTO) 8 % (0-12); NEUTROPHILS # (AUTO) 5.7 10^3/uL (1.8-7.8); NEUTROPHILS % (AUTO) 73 % (42-75); PLATELET COUNT 211 10^3/uL (130-400); WHITE BLOOD COUNT 7.8 10^3/uL (4.3-11.0)
[2020-11-14] MEDS ORDERED: HOLD METFORMIN - RECEIVED CONTRAST 20 ML VIAL IV SCH (20:45)
[2020-11-14] MEDS ORDERED: IOHEXOL 350 MG/ML 100 ML (OMNIPAQUE 350) VIAL IV ONE (20:45)
[2020-11-14] MEDS ORDERED: NS 100 ML (IVPB) BAG IV ONE (20:45)
[2020-11-14 20:47] LABS: ALANINE AMINOTRANSFERASE 22 U/L (0-55); ALKALINE PHOSPHATASE 81 U/L (40-136); BILIRUBIN,TOTAL 0.6 MG/DL (0.1-1.0); BUN/CREATININE RATIO 10; CALCIUM 8.4 MG/DL (8.5-10.1); CARBON DIOXIDE 26 MMOL/L (21-32); CHLORIDE 104 MMOL/L (98-107); GFR ESTIMATED > 60; GLUCOSE 93 MG/DL (70-105); POTASSIUM 3.9 MMOL/L (3.6-5.0); SODIUM 141 MMOL/L (135-145); TOTAL PROTEIN 6.4 GM/DL (6.4-8.2)
[2020-11-14 20:48] LABS: BACTERIA,URINE NEGATIVE /HPF; RBC,URINE RARE /HPF; SQUAMOUS EPITHELIAL CELL,UR 0-2 /HPF; WBC,URINE 0-2 /HPF
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
--- NOTE | 2020-11-14 21:26 | Diagnostic Imaging Report ---
PROCEDURE: CT abdomen and pelvis with contrast. TECHNIQUE: Multiple contiguous axial images were obtained through the abdomen and pelvis after administration of intravenous contrast. Auto Exposure Controls were utilized during the CT exam to meet ALARA standards for radiation dose reduction. All CT scans use one or more of the following dose optimizing techniques: automated exposure control, MA and/or KvP adjustment based on patient size and exam type or iterative reconstruction. INDICATION: Low abdominal pain. COMPARISON: 06/19/2020. FINDINGS: There is stable scarring in both bases. Solid organs appear grossly unremarkable. There is food contents within the stomach. There is mild constipation without obstruction or ileus. There is no free air or free fluid. Bilateral ovarian cysts are seen. These were present on prior imaging. There is no inflammatory process. There is an IUD within the uterus. The urinary bladder is slightly dilated. There is stable scarring of the anterior abdominal wall. Osseous structures are grossly unremarkable. IMPRESSION: 1. Mild constipation without overt obstruction. 2. Bilateral ovarian cysts. These are likely physiologic. Cysts were seen on ovaries of similar nature on the prior examination. 3. IUD within uterus. 4. No inflammatory process. 5. Not mentioned above, contracted gallbladder likely from the nonfasting state. Dictated by: Dictated on workstation # [id number]
[2020-11-14 21:46] VITALS: BP 153/92
[2020-11-15 14:37] LABS: ERYTHROCYTE SEDIMENTATION RATE 8 MM/HR (0-20)
== END 2020-11-14 21:51 | disposition home or self-care (01) ==
LOC: EDUNIT# 19:19 → ER 19:21
DX: R10.31 Right lower quadrant pain (principal); J45.909 Unspecified asthma, uncomplicated; E66.01 Morbid (severe) obesity due to excess calories; F41.9 Anxiety disorder, unspecified; F32.9 Major depressive disorder, single episode, unspecified; F20.9 Schizophrenia, unspecified; Z88.0 Allergy status to penicillin; Z88.1 Allergy status to other antibiotic agents; Z88.8 Allergy status to other drugs, medicaments and biological substances; Z77.22 Contact with and (suspected) exposure to environmental tobacco smoke (acute) (chronic); Z68.42 Body mass index [BMI] 45.0-49.9, adult; Z20.822 Contact with and (suspected) exposure to COVID-19; Z82.49 Family history of ischemic heart disease and other diseases of the circulatory system; Z83.3 Family history of diabetes mellitus; Z80.9 Family history of malignant neoplasm, unspecified; Z79.01 Long term (current) use of anticoagulants
CPT/HCPCS: 74177; 80053; 81000; 83615; 84145; 84703; 85025; 85379; 85652; 86141; 87804; 99284; U0002; 36415; 87635

== ENCOUNTER → 2020-11-30 | Outpatient (CLI) | payer MEDICARE, MEDICAID ==
[~2020-11-30] MED LIST changes: +CATHETER FLUSH 10 ML SYR IV PRN
--- NOTE | 2020-11-30 14:13 | Diagnostic Imaging Report ---
INDICATION: DIARRHEA. FINDINGS: The patient was administered 5.35 mCi of Tc 99m Choletec and sequential imaging was performed over the right upper abdomen. There is progressive, homogeneous accumulation of radiotracer within the liver parenchyma. There is filling of the bile ducts and subsequent filling of the gallbladder. There is progressive clearance of activity from the liver parenchyma and accumulation of radiotracer within loops of small bowel. The patient was then administered a fatty meal, utilizing 8 ounces of Ensure. The gallbladder ejection fraction was calculated to be approximately 15.9%. (Normal values post fatty meal stimulation are 33% or greater.) IMPRESSION: 1. Hepatobiliary scan demonstrates a patent biliary tree. 2. Abnormal gallbladder ejection fraction of approximately 15.9%. Dictated by: Dictated on workstation # [id number]
== END ==
LOC: CARD 11:12
PROVIDERS: ATTEND Family Medicine
DX: R19.7 Diarrhea, unspecified (principal); R10.9 Unspecified abdominal pain
CPT/HCPCS: 78227; A9537

== ENCOUNTER 2020-12-11 23:56 | Emergency (ER) | payer MEDICARE, MEDICAID ==
[~2020-12-11] VITALS: Ht 170.1 cm; Wt 147.7 kg
[~2020-12-11 23:56] MED LIST changes: -CATHETER FLUSH 10 ML SYR IV PRN
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
[2020-12-12 00:25] LABS: BASOPHILS % (AUTO) 0 % (0-10); EOSINOPHILS % (AUTO) 0 % (0-10); HEMATOCRIT 36 % (35-52); HEMOGLOBIN 12.5 g/dL (11.5-16.0); LYMPHOCYTES # (AUTO) 1.8 10^3/uL (1.0-4.0); LYMPHOCYTES % (AUTO) 23 % (12-44); MEAN CORPUSCULAR HEMOGLOBIN 31 pg (25-34); MEAN CORPUSCULAR HGB CONC 35 g/dL (32-36); MEAN CORPUSCULAR VOLUME 87 fL (80-99); MEAN PLATELET VOLUME 9.3 fL (9.0-12.2); MONOCYTES # (AUTO) 0.6 10^3/uL (0.0-1.0); MONOCYTES % (AUTO) 7 % (0-12); NEUTROPHILS # (AUTO) 5.4 10^3/uL (1.8-7.8); NEUTROPHILS % (AUTO) 69 % (42-75); PLATELET COUNT 182 10^3/uL (130-400); WHITE BLOOD COUNT 7.8 10^3/uL (4.3-11.0)
[2020-12-12 00:33] LABS: BILIRUBIN,URINE NEGATIVE (NEGATIVE); CLARITY,URINE CLEAR; COLOR,URINE YELLOW; GLUCOSE, URINE (UA) NEGATIVE (NEGATIVE); KETONES,URINE NEGATIVE (NEGATIVE); LEUKOCYTE ESTERASE ,URINE NEGATIVE (NEGATIVE); NITRITE,URINE NEGATIVE (NEGATIVE); PH,URINE 6.5 (5-9); PROTEIN,URINE NEGATIVE (NEGATIVE)
[2020-12-12 00:39] LABS: BACTERIA,URINE NEGATIVE /HPF; RBC,URINE RARE /HPF
[2020-12-12 00:41] LABS: AMPHETAMINE SCREEN, URINE NEGATIVE (NEGATIVE); BARBITURATE SCREEN URINE NEGATIVE (NEGATIVE); BENZODIAZEPINES SCREEN URINE NEGATIVE (NEGATIVE); CANNABINOID SCREEN, URINE NEGATIVE (NEGATIVE); COCAINE SCREEN URINE NEGATIVE (NEGATIVE); METHADONE STAT NEGATIVE (NEGATIVE); METHAMPHETAMINE SCREEN URINE S NEGATIVE (NEGATIVE); OPIATE SCREEN URINE NEGATIVE (NEGATIVE); OXYCODONE STAT NEGATIVE (NEGATIVE); PROPOXYPHENE STAT NEGATIVE (NEGATIVE); TRICYCLIC ANTIDEPRESSANTS SCRE NEGATIVE (NEGATIVE)
[2020-12-12 00:42] LABS: ALBUMIN 3.9 GM/DL (3.2-4.5); CHLORIDE 99 MMOL/L (98-107); POTASSIUM 3.2 MMOL/L (3.6-5.0); SODIUM 134 MMOL/L (135-145)
[2020-12-12 00:43] LABS: AMYLASE 33 U/L (25-125); CALCIUM 7.8 MG/DL (8.5-10.1)
[2020-12-12 00:44] LABS: GLUCOSE 93 MG/DL (70-105); TOTAL PROTEIN 6.2 GM/DL (6.4-8.2)
[2020-12-12 00:45] LABS: CARBON DIOXIDE 22 MMOL/L (21-32)
[2020-12-12 00:46] LABS: BILIRUBIN,TOTAL 0.8 MG/DL (0.1-1.0)
[2020-12-12 00:48] LABS: ALKALINE PHOSPHATASE 73 U/L (40-136); CREATININE SERUM 0.58 MG/DL (0.60-1.30); GFR ESTIMATED > 60
[2020-12-12 00:49] LABS: BUN/CREATININE RATIO 9
[2020-12-12] MEDS ORDERED: KETOROLAC 30 MG/ML VIAL IVP STA (00:49)
[2020-12-12 00:51] LABS: ALANINE AMINOTRANSFERASE 17 U/L (0-55); LIPASE 19 U/L (8-78)
[2020-12-12] MEDS ORDERED: IOHEXOL 350 MG/ML 100 ML (OMNIPAQUE 350) VIAL IV ONE (01:30)
[2020-12-12] MEDS ORDERED: NS 100 ML (IVPB) BAG IV ONE (01:30)
[2020-12-12] MEDS ORDERED: HOLD METFORMIN - RECEIVED CONTRAST 20 ML VIAL IV SCH (01:30)
[2020-12-12 02:47] VITALS: BP 173/106
--- NOTE | 2020-12-12 07:16 | Diagnostic Imaging Report ---
PROCEDURE: CT abdomen and pelvis with contrast. TECHNIQUE: Multiple contiguous axial images were obtained through the abdomen and pelvis after administration of intravenous contrast. Auto Exposure Controls were utilized during the CT exam to meet ALARA standards for radiation dose reduction. All CT scans use one or more of the following dose optimizing techniques: automated exposure control, MA and/or KvP adjustment based on patient size and exam type or iterative reconstruction. INDICATION: Nausea and vomiting. Abdominal pain. COMPARISON: 11/14/2020 FINDINGS: Included portions of the lung bases show small juxtapleural micronodule within the lateral margins of the left lower lung adjacent to the major fissure. This is stable compared to 01/01/2020. CT ABDOMEN: Small bowel loops are nondistended. Normal appendix cannot be adequately identified, but appears to be surgically absent. Nonspecific 12 mm hypodensity of the posterior margins of the spleen is present and is stable compared to 01/01/2020. Otherwise, the kidneys, adrenal glands, spleen, pancreas, and liver have a normal CT appearance. There is no loculated fluid collection, free fluid, nor free air within the abdomen. No abnormal mesenteric or retroperitoneal adenopathy is seen. Osseous structures show no acute abnormalities. CT PELVIS: Urinary bladder is grossly unremarkable. There is no loculated fluid collection, free fluid, nor free air within the pelvis. No abnormal adenopathy is seen. Multiple prominent bilateral ovarian cysts are identified. Largest is seen on the right and measures 3.4 x 5.5 cm. These were present previously. Indwelling intrauterine contraceptive device is also present. Osseous structures show no acute abnormalities. IMPRESSION: 1. Multiple prominent bilateral ovarian cysts. May want to consider further characterization with dedicated pelvic sonogram. This could be performed on a nonemergent basis. 2. No other acute abnormality seen within the abdomen or pelvis. 3. Small micronodule within the included portions of the left lower lung. This is stable compared to 01/01/2020. Dictated by: Dictated on workstation # [id number]
== END 2020-12-12 02:51 | disposition home or self-care (01) ==
LOC: EDUNIT# 23:56 → ER 12-12 00:01
DX: G89.29 Other chronic pain (principal); R10.11 Right upper quadrant pain; K52.9 Noninfective gastroenteritis and colitis, unspecified; F32.9 Major depressive disorder, single episode, unspecified; F41.9 Anxiety disorder, unspecified; F60.9 Personality disorder, unspecified; F20.9 Schizophrenia, unspecified; K59.09 Other constipation; E66.01 Morbid (severe) obesity due to excess calories; E61.1 Iron deficiency; J45.909 Unspecified asthma, uncomplicated; Z77.22 Contact with and (suspected) exposure to environmental tobacco smoke (acute) (chronic); Z97.5 Presence of (intrauterine) contraceptive device; Z91.5 Personal history of self-harm; Z79.01 Long term (current) use of anticoagulants; Z79.51 Long term (current) use of inhaled steroids; Z88.0 Allergy status to penicillin; Z88.1 Allergy status to other antibiotic agents; Z88.8 Allergy status to other drugs, medicaments and biological substances; Z32.02 Encounter for pregnancy test, result negative
CPT/HCPCS: 74177; 80053; 80306; 81000; 82150; 83690; 84703; 85025; 99284; G0480; 36415; 80320; 96374

== ENCOUNTER → 2021-01-01 | Outpatient (CLI) | payer MEDICARE, MEDICAID ==
--- NOTE | 2021-01-01 13:53 | Diagnostic Imaging Report ---
PROCEDURE: Pelvic comp/transvaginal sonogram. TECHNIQUE: Complete transabdominal and transvaginal pelvic ultrasound was performed. In addition, limited pelvic Doppler was performed. INDICATION: Dysfunction uterine bleeding. Uterus measures 6.9 x 3.6 x 4.8 cm. Endometrium is 3 mm in thickness. There appears to be an IUD centered in the endometrial canal. No myometrial mass is detected. Left ovary measures 5.6 x 3.2 x 3.5 cm and contains a 2.2 x 3.5 x 3.1 cm cyst. There is somewhat elongated tubular shaped cystic structure in the left adnexa which may represent hydrosalpinx. There also appears to be a hemorrhagic cyst approximately 16 mm in size. Right ovary is difficult to visualize due to a large cystic mass in the right adnexa measuring 8.1 x 4.4 x 8.3 cm. This appears to be adjacent to the right ovary. There is blood flow to both ovaries. Trace free fluid is identified. IMPRESSION: 1. IUD is appropriately centered in the endometrial canal. 2. Large cystic mass right adnexa approximately 8 cm in size. 3. 5 cm left ovarian cyst and small hemorrhagic left ovarian cyst. In addition there appears to be a left-sided hydrosalpinx. Dictated by: Dictated on workstation # [id number]
--- NOTE | 2021-01-01 16:37 | Diagnostic Imaging Report ---
INDICATION: Evaluate presence of IUD. COMPARISON: CT dated 12/12/2020. FINDINGS: Two supine radiographic views of the abdomen were obtained. Multiple linear metallic foreign bodies are noted scattered about the abdomen. These have been present on previous exams. Note is also made of an IUD which projects just to the right lateral of the midline pelvis. Small bowel loops are nondistended and there is no large collection of free intraperitoneal air. Osseous structures show age-related degenerative changes. IMPRESSION: 1. Indwelling IUD is identified. 2. Multiple other linear and curvilinear metallic foreign bodies persist scattered about the abdomen. 3. Nonobstructive small bowel gas pattern. Dictated by: Dictated on workstation # [id number]
== END ==
LOC: RAD 10:00
PROVIDERS: ATTEND Obstetrics & Gynecology
DX: Z30.431 Encounter for routine checking of intrauterine contraceptive device (principal); N83.202 Unspecified ovarian cyst, left side; N83.8 Other noninflammatory disorders of ovary, fallopian tube and broad ligament
CPT/HCPCS: 74018; 76830; 76856

== ENCOUNTER 2021-01-14 05:32 | Outpatient (CLI) | payer MEDICARE, MEDICAID ==
[~2021-01-14] VITALS: Ht 170.2 cm; Wt 141.3 kg
[2021-01-14] MEDS ORDERED: TRAZ-227 PO (13:50)
[2021-01-16] MEDS ORDERED: ACHD5005 PO (10:25)
== END 2021-01-14 14:13 | disposition home or self-care (01) ==
LOC: PREOP 05:32
PROVIDERS: ATTEND Surgery
DX: Z01.818 Encounter for other preprocedural examination (principal)

== ENCOUNTER 2021-01-16 06:58 | Day surgery (SDC) | payer MEDICARE, MEDICAID ==
[~2021-01-16] VITALS: Ht 170.2 cm; Wt 141.3 kg
[2021-01-16] VITALS (17 sets, daily range): BP systolic 127–195; BP diastolic 62–108
[2021-01-16] MEDS ORDERED: fentaNYL INJ 100 MCG/2 ML AMP ONE (07:16)
[2021-01-16] MEDS ORDERED: LIDOCAINE PF 2% 5 ML (XYLOCAINE) VIAL ONE (07:16)
[2021-01-16] MEDS ORDERED: proPOfol 200 MG/20 ML (DIPRIVAN) VIAL IV ONE (07:16)
[2021-01-16] MEDS ORDERED: ROCURONIUM 10 MG/ML 5 ML SYRINGE IV ONE ×2 (07:16→08:43)
[2021-01-16] MEDS ORDERED: ONDANSETRON 4 MG/2 ML (SDV) Z0FRAN ONE (07:16)
[2021-01-16] MEDS ORDERED: MIDAZOLAM 2 MG/2 ML (VERSED) VIAL ONE (07:17)
[2021-01-16] MEDS ORDERED: GLYCOPYRROLATE 0.2 MG/ML (ROBINUL) 2 ML VIAL ONE (07:17)
[2021-01-16] MEDS ORDERED: NEOSTIGMINE 3 MG/3 ML VIAL ONE (07:17)
[2021-01-16] MEDS ORDERED: SEVOFLURANE (ULTANE) 15 ML INHAL SOLN ONE ×7 (07:17→10:05)
[2021-01-16] MEDS ORDERED: LIDOCAINE/EPI 1%-1:100,000 (XYLOCAINE) 20ML ONE (07:18)
--- NOTE | 2021-01-16 07:35 | Progress Note-Pre Operative ---
Pre-Operative Progress Note H&P Reviewed The H&P was reviewed, patient examined and no changes noted. Date Seen by Provider: Jan 16, 2021 Time Seen by Provider: 07:25 Date H&P Reviewed: Jan 16, 2021 Time H&P Reviewed: 07:25 Pre-Operative Diagnosis: removal of IUD, exam under anesthesia SHELBY JULES DO Jan 16, 2021 07:35
[2021-01-16] MEDS ORDERED: ceFAZolin INJECTION 3,000 MG in NS (IVPB) 100 ML IV ONE (08:00)
[2021-01-16] MEDS ORDERED: LACTATED RINGERS 1,000 ML IV PRN (08:00)
--- NOTE | 2021-01-16 08:38 | Progress Note-Pre Operative ---
Pre-Operative Progress Note H&P Reviewed The H&P was reviewed, patient examined and no changes noted. Time Seen by Provider: 08:04 Date H&P Reviewed: Jan 16, 2021 Time H&P Reviewed: 07:25 Pre-Operative Diagnosis: Biliary Dyskinesia CHERYL MIRAMONTES DO Jan 16, 2021 08:38
--- NOTE | 2021-01-16 08:46 | Operative Report ---
Operative Report Date of Procedure/Surgery Jan 16, 2021 Surgeon (s) SHELBY JULES DO Technology Education Instructor (s): LI [place] in the room for the procedure Post-Operative Diagnosis Abnormal uterine bleeding with IUD, desires removal, unable to be removed in the office Procedure Performed Exam under anesthesia, Removal of IUD Description of Procedure Anesthesia Type: General Estimated blood loss (mL): none Specimen(s) collected/removed Liletta IUD Description of the Procedure This patient had an IUD placed in the office last year. This was placed due to abnormal bleeding profile after receiving the depo provera injection. She saw her PCP, Dr. Lillie Tineo who attempted removal in the office and was unable to remove this. She returned to see me but declined exam as she was scheduled to have a cholecystectomy with Dr. Flaherty and had been told that she would have this done at the same time. She did not know why Dr. Tieno was unable to remove this, so an Xray and US were done to locate the IUD which was noted to be in the uterus, but strings are not radioopaque so cannot locate these on US She presents today for removal With informed consent she was placed in the dorsolithotomy position and prepped and draped in the usual sterile fashio in the dorsolithotomy position. The bladder was drained of clear, yellow urine with a straight cath (approximately 50 ml) I then proceeded with exam under anesthesia. A pediatric speculum was placed and the cervix was visualized, but I was not immediately able to see the IUD strings. With some manipulation/movement of the cervix, I was then able to see the tip of the string. I could not grasp with with the forceps at the cervical os. So I used the uterine packing forceps and was able to reach into the lower uterus and grasp the IUD itself and removed it. She was then repositioned and reprepped and draped for the cholecystectomy. Findings of the Procedure small uterus, cervix, Liletta IUD removed Allergies and Home Medications Allergies Coded Allergies: Penicillins (Verified Allergy, Unknown, 03/18/19) amoxicillin (Verified Allergy, Unknown, 03/18/19) clavulanic acid (Verified Allergy, Unknown, 03/18/19) potassium chloride (Verified Allergy, Unknown, 03/18/19) Home Medications Cetirizine HCl 10 Mg Tablet, 10 MG PO HS, (Reported) Last Action: Last Taken Edited Docusate Sodium 100 Mg Capsule, 100 MG PO BID, (Reported) Last Action: Last Taken Edited Ferrous Sulfate 325 Mg Tablet, 325 MG PO 0900,1500,2100, (Reported) Last Action: Last Taken Edited Fluticasone Propionate 16 Gm Fisher.susp, 2 SPRAYS NS DAILY, (Reported) Last Action: Last Taken Edited Lactulose 10 Gm/15 Ml Solution, 30 ML PO BID, (Reported) Last Action: Last Taken Edited Lamotrigine 150 Mg Tablet, 150 MG PO DAILY, (Reported) Last Action: Last Taken Edited Meloxicam 15 Mg Tablet, 15 MG PO DAILY PRN for PAIN-BREAKTHROUGH, (Reported) Last Action: Reviewed Montelukast Sodium 10 Mg Tablet, 10 MG PO DAILY, (Reported) Last Action: Last Taken Edited Olanzapine 20 Mg Tablet, 20 MG PO HS, (Reported) Last Action: Last Taken Edited Olanzapine 15 Mg Tablet, 15 MG PO DAILY, (Reported) Last Action: Last Taken Edited Sertraline HCl 100 Mg Tablet, 100 MG PO DAILY, (Reported) Last Action: Last Taken Edited Trazodone HCl 100 Mg Tablet, 200 MG PO HS, (Reported) Last Action: Last Taken Edited Patient Home Medication List Home Medication List Reviewed: Yes SHELBY JULES DO Jan 16, 2021 08:46
[2021-01-16] MEDS ORDERED: HYDROmorphone 2 MG/ML VIAL (DILAUDID) ONE (08:51)
--- NOTE | 2021-01-16 10:23 | Progress Note-Post Operative ---
Post-Operative Progess Note Surgeon (s)/Early Childhood Aide Classroom (s) Surgeon CHERYL MIRAMONTES DO Early Childhood Aide Classroom: [facility] Pre-Operative Diagnosis Biliary Dyskinesia Post-Operative Diagnosis same plus adhesions Procedure & Operative Findings Date of Procedure 01/16/21 Procedure Performed/Findings PROCEDURE: Laparoscopic cholecystectomy with intraoperative cholangiogram. COMPLICATIONS: None. PROCEDURE: The patient was taken to the operating suite and was prepped and draped in sterile fashion. A surgical pause was performed. In the left upper quadrant, a 12 mm incision was made. Dissection was taken down to the fascia, which was then scored and went through the first layer, then spread muscle and then through second layer of fascia. Finally the abdomen was then entered and a Arteaga trocar was placed and secured. Pneumoperitoneum was achieved; there were a lot of adhesions, able to bluntly take these down with the scope and get above the right side of the liver. A 5mm trochar was placed and then started taking down adhesions, bluntly and with the Ligasure; pushing the duodenum away from gallbladder and creating space in the right upper quadrant. Next placed 2 Versa-step ports in the right upper quadrant. The gallbladder was then grasped and elevated. The cystic duct, and cystic artery were then dissected out. Clip was placed on the distal portion of the cystic duct which was then partially transected. An arrow catheter was inserted into the duct. The cholangiogram was then performed. No filing defects and contrast made its way into the duodenum. Catheter removed. Clips were placed on proximal portion of the cystic duct and then the duct was then transected. Clips were placed along the proximal and distal portion of the cystic artery which was then transected. Hook cautery was used to dissect the gallbladder from the gallbladder fossa achieving hemostasis. The gallbladder was placed in an Endobag and removed through the 12 mm trocar site. The abdomen was then reinspected. Copious amounts of irrigation were used to irrigate the abdomen and there were no signs of active bleeding. Hemostasis had been achieved. The 12 mm fascial defect was then closed with and 0 Vicryl suture; placed in a [id number] fashion. The abdomen was then desufflated, the trocars were removed. The abdomen was then washed and dried. The skin was then closed using 4-0 Monocryl in a subcuticular fashion. The abdomen was washed and dried and Skin Affix was place over incisions. Patient tolerated the procedure well without any complications and was taken to the recovery room in stable condition. Anesthesia Type GET Estimated Blood Loss Estimated blood loss (mL): 20ml Specimens/Packing Specimens Removed GB and contents CHERYL MIRAMONTES DO Jan 16, 2021 10:23
[2021-01-16] MEDS ORDERED: ACHD5005 PO (10:25)
--- NOTE | 2021-01-16 10:25 | Discharge Inst-Surgical ---
Discharge Inst-Surgical Depart Medication/Instructions New, Converted or Re-Newed RX: RX Given to Pt/Family Patient Instructions Follow up Appt: Make appointment for 1 week. [phone] Instructions: No lifting greater than 20 pounds. No strenuous activity. May shower in 24 hours, no tub bath or soaking. Use incentive spirometer at home as directed. No Smoking Skin/Wound Care: May remove bandages in am. You need to leave the Dermabond on incision it will fall off on it's own. Symptoms to Report: Appetite Changes, Extremity Discoloration, Numbness/Tingling, Swelling Increased, Bleeding Excessive, Eyesight Changes, Pain Increased, Urine Color Change, Constipation(Persistent), Fever over 101 degree F, Pain/Pressure in chest, Urinating Difficulty, Cough Up/Vomit Blood, Heart Beat Irreg/Pounding, Pain/Pressure in jaw, Cramps in feet or legs, Lightheadedness, Pain/Pressure in shoulder, Diarrhea(Persistent), Memory Changes Suddenly, Questions/Concerns, Weight gain consecutive days, Dizziness/Fainting, Nausea/Vomiting, Shortness of Breath, Weight gain over 2 pounds If questions or concerns contact your physician Or seek help at emergency department. Activity Activity as Tolerated: Yes Activity Instructions: Avoid Stress to Incision Driving Instructions: No Driving/Refer to Diet Discharge Diet: Avoid Fatty Foods, Low Fat/Low Cholesterol Diet After 24 Hours: Clear Liquid if Nauseous If Any Problems/Questions/Issu: Contact Your Physician, Go to Emergency Room Skin/Wound Care Infection Signs and Symptoms: Increased Redness, Foul Odor of Wound, Increased Drainage, Skin Itchy or Has a Rash, Increased Swelling, Temperature Above 101 F Bathing Instructions: Shower Stitches/[place]/Dermabond Dis: Dermabond Ice Pack: Ice On and Off Site CHERYL MIRAMONTES DO Jan 16, 2021 10:25
[2021-01-16] MEDS ORDERED: NALOXONE 0.4 MG/ML 1 ML (NARCAN) VIAL ONE (10:33)
[2021-01-16] MEDS ORDERED: RT-ALBUTEROL SULF 2.5 MG/3 ML PRE-MIX VIAL ONE (10:36)
--- NOTE | 2021-01-16 14:48 | Diagnostic Imaging Report ---
Indication: History of abdominal pain. Comparison: None Total fluoroscopy time: 24.6 seconds Total number fluoroscopic images saved: 147 Findings: Multiple intraoperative intensifier views of the right upper abdominal quadrant were obtained during intraoperative cholangiogram. Images provided show contrast opacifying the cystic and common bile ducts. There is also reflux into the proper hepatic and pancreatic ducts. No intraluminal filling defects are seen. There is emptying of contrast in the small bowel, as expected. Please note, interpreting radiologist was not present during the procedure. Impression:. Fluoroscopic guidance provided intraoperatively as above. Dictated by: Dictated on workstation # [id number]
--- NOTE | 2021-01-16 16:41 | Anesthesia-General Post-Op ---
General Patient Condition Mental Status/LOC: Same as Preop Cardiovascular: Satisfactory Nausea/Vomiting: Absent Respiratory: Satisfactory Pain: Controlled Complications: Absent Post Op Complications Complications None Follow Up Care/Instructions Patient Instructions None needed. Anesthesia/Patient Condition Patient Condition Patient is doing well, no complaints, stable vital signs, no apparent adverse anesthesia problems. No complications reported per nursing. NOEL MEJÍA CRNA Jan 16, 2021 16:41
== END 2021-01-16 15:55 | disposition home or self-care (01) ==
LOC: SDC 06:58
PROVIDERS: ATTEND Surgery
DX: K81.1 Chronic cholecystitis (principal); K82.8 Other specified diseases of gallbladder; N93.9 Abnormal uterine and vaginal bleeding, unspecified; J45.909 Unspecified asthma, uncomplicated; F41.9 Anxiety disorder, unspecified; F32.9 Major depressive disorder, single episode, unspecified; E66.01 Morbid (severe) obesity due to excess calories; Z68.42 Body mass index [BMI] 45.0-49.9, adult; Z79.899 Other long term (current) drug therapy; Z79.51 Long term (current) use of inhaled steroids; Z88.0 Allergy status to penicillin; Z88.1 Allergy status to other antibiotic agents; Z88.8 Allergy status to other drugs, medicaments and biological substances; Z80.9 Family history of malignant neoplasm, unspecified; Z83.3 Family history of diabetes mellitus
CPT/HCPCS: 76000; 84703; 87081; 88300; 88304; 94664

== ENCOUNTER 2021-01-26 20:19 | Emergency (ER) | payer MEDICARE, MEDICAID ==
[~2021-01-26] VITALS: Ht 170 cm; Wt 139.0 kg
[~2021-01-26 20:19] MED LIST changes: +ACHD5005 PO
[2021-01-26 21:05] VITALS: BP 189/109
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
[2021-01-26] MEDS ORDERED: KETOROLAC 60 MG/2 ML VIAL IM ONE (21:15)
[2021-01-26 21:29] LABS: BASOPHILS % (AUTO) 0 % (0-10); EOSINOPHILS % (AUTO) 0 % (0-10); HEMATOCRIT 34 % (35-52); HEMOGLOBIN 11.4 g/dL (11.5-16.0); LYMPHOCYTES # (AUTO) 1.4 10^3/uL (1.0-4.0); LYMPHOCYTES % (AUTO) 19 % (12-44); MEAN CORPUSCULAR HEMOGLOBIN 30 pg (25-34); MEAN CORPUSCULAR HGB CONC 34 g/dL (32-36); MEAN CORPUSCULAR VOLUME 90 fL (80-99); MEAN PLATELET VOLUME 8.9 fL (9.0-12.2); MONOCYTES # (AUTO) 0.6 10^3/uL (0.0-1.0); MONOCYTES % (AUTO) 8 % (0-12); NEUTROPHILS # (AUTO) 5.1 10^3/uL (1.8-7.8); NEUTROPHILS % (AUTO) 72 % (42-75); PLATELET COUNT 312 10^3/uL (130-400); WHITE BLOOD COUNT 7.2 10^3/uL (4.3-11.0)
[2021-01-26 21:43] LABS: ALBUMIN 3.7 GM/DL (3.2-4.5)
[2021-01-26 21:44] LABS: CHLORIDE 104 MMOL/L (98-107); POTASSIUM 3.6 MMOL/L (3.6-5.0); SODIUM 143 MMOL/L (135-145)
[2021-01-26 21:45] LABS: CALCIUM 8.3 MG/DL (8.5-10.1)
[2021-01-26 21:46] LABS: GLUCOSE 114 MG/DL (70-105); TOTAL PROTEIN 6.3 GM/DL (6.4-8.2)
[2021-01-26 21:47] LABS: CARBON DIOXIDE 25 MMOL/L (21-32)
[2021-01-26 21:48] LABS: BILIRUBIN,TOTAL 0.5 MG/DL (0.1-1.0)
[2021-01-26 21:49] LABS: ALKALINE PHOSPHATASE 107 U/L (40-136)
[2021-01-26 21:50] LABS: CREATININE SERUM 0.66 MG/DL (0.60-1.30); GFR ESTIMATED > 60
[2021-01-26 21:51] LABS: BUN/CREATININE RATIO 9
[2021-01-26 21:52] LABS: ALANINE AMINOTRANSFERASE 44 U/L (0-55)
[2021-01-26] MEDS ORDERED: NS 100 ML (IVPB) BAG IV ONE (22:00)
[2021-01-26] MEDS ORDERED: IOHEXOL 350 MG/ML 100 ML (OMNIPAQUE 350) VIAL IV ONE (22:00)
[2021-01-26] MEDS ORDERED: HOLD METFORMIN - RECEIVED CONTRAST 20 ML VIAL IV SCH (22:00)
--- NOTE | 2021-01-26 22:25 | Diagnostic Imaging Report ---
PROCEDURE: CT abdomen and pelvis with contrast. TECHNIQUE: Multiple contiguous axial images were obtained through the abdomen and pelvis after administration of intravenous contrast. Auto Exposure Controls were utilized during the CT exam to meet ALARA standards for radiation dose reduction. All CT scans use one or more of the following dose optimizing techniques: automated exposure control, MA and/or KvP adjustment based on patient size and exam type or iterative reconstruction. INDICATION: Upper abdominal pain. Recent cholecystectomy. COMPARISON: 12/12/2020. FINDINGS: Included portions of the lung bases show mild left basilar atelectasis. CT abdomen: Patient is now status post cholecystectomy. There is focal loculated fluid collection within the right upper abdominal quadrant just deep to the abdominal wall. It measures 4 x 6 cm in axial dimension and is concerning for potential abscess. There is also mild generalized stranding surrounding the gallbladder fossa. There are a few scattered droplets of pneumoperitoneum within the left upper abdominal quadrant as well. No other distinct focal loculated air-fluid collection is identified within the abdomen. There is focal filling defect within the superior mesenteric vein consistent with thrombus. Portal and splenic veins, however, are patent. The adrenal glands, kidneys, spleen, pancreas and liver have a normal CT appearance. Small bowel loops are nondistended. There is moderate amount of air and stool scattered throughout the colon. No abnormal mesenteric or retroperitoneal adenopathy is seen. Normal appendix cannot be adequately identified. Osseous structures show no acute abnormality. Multiple metallic foreign bodies are also again identified within the subcutaneous fat of the abdomen and pelvis. CT pelvis: Cystic structure is again identified within the right adnexa. It measures 7.3 x 2.8 cm. Multiple left ovarian cysts are also again identified. Urinary bladder is grossly unremarkable. No additional loculated fluid collection is seen within the pelvis. There is no free fluid or free air. No abnormal adenopathy is identified. Osseous structures show no acute abnormality. IMPRESSION: 1. Interval cholecystectomy. 2. Interval development of focal fluid collection within the right upper abdominal quadrant concerning for abscess. 3. A few scattered droplets of pneumoperitoneum. This may be within normal limits depending on time line of patient's recent cholecystectomy. Perforated hollow viscus is not entirely excluded. 4. Multiple left ovarian cysts. 5. More prominent cystic structure of the right adnexa. This may be on the basis of ovarian cyst as well, although hydrosalpinx is also within the differential. This was present previously and has been evaluated on prior sonogram. May want to consider repeat sonogram to evaluate for interval change. 6. Moderate colonic air and stool. Please correlate for constipation. 7. Partially occlusive thrombus within the superior mesenteric vein. 8. Other nonemergent findings as described above. Dictated by: Dictated on workstation # [id number]
[2021-01-26] MEDS ORDERED: TRIM/SULFAMETH 160/800 (SEPTRA DS) TAB PO ONE ×2 (23:19→23:30)
[2021-01-26] MEDS ORDERED: ENOX120D SQ (23:23)
[2021-01-26] MEDS ORDERED: SULF1TAB35 PO (23:23)
[2021-01-26] MEDS ORDERED: ASPIRIN 81 MG CHEW (CHILDREN'S ASA) PO ONE (23:30)
[2021-01-26] MEDS ORDERED: ACHD5005 PO (23:46)
== END 2021-01-26 23:30 | disposition home or self-care (01) ==
LOC: EDUNIT# 20:19 → ER 20:23
DX: T81.43XA Infection following a procedure, organ and space surgical site, initial encounter (principal); K55.019 Acute (reversible) ischemia of small intestine, extent unspecified; J45.909 Unspecified asthma, uncomplicated; F41.9 Anxiety disorder, unspecified; F20.9 Schizophrenia, unspecified; Z88.0 Allergy status to penicillin; Z88.1 Allergy status to other antibiotic agents; Z87.891 Personal history of nicotine dependence; Z79.01 Long term (current) use of anticoagulants; Z79.899 Other long term (current) drug therapy
CPT/HCPCS: 36415; 74177; 80053; 85025

== ENCOUNTER 2021-02-10 21:54 | Emergency (ER) | payer MEDICARE, MEDICAID ==
[~2021-02-10] VITALS: Ht 170.2 cm; Wt 138.3 kg
[2021-02-10 22:38] LABS: BASOPHILS % (AUTO) 0 % (0-10); EOSINOPHILS % (AUTO) 0 % (0-10); HEMATOCRIT 39 % (35-52); HEMOGLOBIN 13.1 g/dL (11.5-16.0); LYMPHOCYTES # (AUTO) 1.5 10^3/uL (1.0-4.0); LYMPHOCYTES % (AUTO) 23 % (12-44); MEAN CORPUSCULAR HEMOGLOBIN 30 pg (25-34); MEAN CORPUSCULAR HGB CONC 34 g/dL (32-36); MEAN CORPUSCULAR VOLUME 89 fL (80-99); MEAN PLATELET VOLUME 9.4 fL (9.0-12.2); MONOCYTES # (AUTO) 0.5 10^3/uL (0.0-1.0); MONOCYTES % (AUTO) 7 % (0-12); NEUTROPHILS # (AUTO) 4.5 10^3/uL (1.8-7.8); NEUTROPHILS % (AUTO) 69 % (42-75); PLATELET COUNT 247 10^3/uL (130-400); WHITE BLOOD COUNT 6.5 10^3/uL (4.3-11.0)
[2021-02-10 22:40] LABS: BILIRUBIN,URINE NEGATIVE (NEGATIVE); CLARITY,URINE CLEAR; COLOR,URINE YELLOW; GLUCOSE, URINE (UA) NEGATIVE (NEGATIVE); KETONES,URINE NEGATIVE (NEGATIVE); LEUKOCYTE ESTERASE ,URINE TRACE (NEGATIVE); NITRITE,URINE NEGATIVE (NEGATIVE); PROTEIN,URINE NEGATIVE (NEGATIVE)
[2021-02-10] MEDS ORDERED: LACTATED RINGERS 1,000 ML IV ONE (22:45)
[2021-02-10 22:51] LABS: BACTERIA,URINE FEW /HPF
[2021-02-10 22:53] LABS: ALBUMIN 4.2 GM/DL (3.2-4.5); CHLORIDE 106 MMOL/L (98-107); POTASSIUM 3.4 MMOL/L (3.6-5.0); SODIUM 143 MMOL/L (135-145)
[2021-02-10 22:54] LABS: AMYLASE 36 U/L (25-125)
[2021-02-10 22:55] LABS: CALCIUM 8.5 MG/DL (8.5-10.1)
[2021-02-10 22:56] LABS: GLUCOSE 97 MG/DL (70-105)
[2021-02-10 22:57] LABS: CARBON DIOXIDE 23 MMOL/L (21-32)
[2021-02-10 22:58] LABS: BILIRUBIN,TOTAL 0.5 MG/DL (0.1-1.0)
[2021-02-10 22:59] LABS: ALKALINE PHOSPHATASE 71 U/L (40-136); CREATININE SERUM 0.75 MG/DL (0.60-1.30); GFR ESTIMATED > 60
[2021-02-10 23:00] LABS: BUN/CREATININE RATIO 5
[2021-02-10 23:02] LABS: ALANINE AMINOTRANSFERASE 47 U/L (0-55)
[2021-02-10 23:03] LABS: LIPASE 32 U/L (8-78)
[2021-02-10] MEDS ORDERED: NS 100 ML (IVPB) BAG IV ONE (23:30)
[2021-02-10] MEDS ORDERED: HOLD METFORMIN - RECEIVED CONTRAST 20 ML VIAL IV SCH (23:30)
[2021-02-10] MEDS ORDERED: CATHETER FLUSH 10 ML SYR IV PRN (23:30)
[2021-02-10] MEDS ORDERED: IOHEXOL 350 MG/ML 100 ML (OMNIPAQUE 350) VIAL IV ONE (23:30)
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
[2021-02-11] MEDS ORDERED: L. A1CAP11 PO (00:23)
[2021-02-11 00:35] VITALS: BP 177/108
--- NOTE | 2021-02-11 07:13 | Diagnostic Imaging Report ---
PROCEDURE: CT abdomen and pelvis with contrast. TECHNIQUE: Multiple contiguous axial images were obtained through the abdomen and pelvis after administration of intravenous contrast. Auto Exposure Controls were utilized during the CT exam to meet ALARA standards for radiation dose reduction. All CT scans use one or more of the following dose optimizing techniques: automated exposure control, MA and/or KvP adjustment based on patient size and exam type or iterative reconstruction. INDICATION: Blood in stool. Recent history of cholecystectomy. COMPARISON: Multiple priors, most recent on 01/26/2021. FINDINGS: There is mild basilar atelectasis. The visualized heart is normal in size. Liver is unremarkable. Low-attenuation focus in the posterior spleen is unchanged and likely represents a cyst. There is mild fatty atrophy of the pancreas. The adrenal glands are unremarkable. The gallbladder surgically absent. Again demonstrated inferior to the liver in the right anterolateral abdomen is a rim-enhancing ovoid fluid attenuation structure. Allowing for differences in technique, this is not significantly changed in overall size or appearance since the prior exam, measuring approximately 5.8 x 3.9 cm as seen on axial images (image 43 series 2). There are no longer any findings to suggest pneumoperitoneum. No new fluid collection is identified. Kidneys are symmetric in size and demonstrate normal enhancement, without renal calculus, hydronephrosis or suspicious renal mass. The visualized ureters are normal. The stomach and duodenum are unremarkable. Small bowel and colon are normal in course and caliber, without evidence of wall thickening or obstruction. Suture lines in the bowel suggests prior bowel resection. No bowel wall thickening or obstruction. The appendix is not definitely visualized. No findings to suggest acute appendicitis. The bladder is normal. The uterus is unremarkable. Bilateral ovarian cysts are similar in appearance to prior exam. The aorta is nonaneurysmal. Again demonstrated is a filling defect in the superior mesenteric vein, with contrast surrounding the area of low-attenuation. No lymphadenopathy is appreciated. There is diastases of the rectus abdominis musculature. Inflammatory changes in the subcutaneous fat of the ventral abdominal wall are less pronounced than on prior exam and likely related to recent cholecystectomy. Subcutaneous gas in the left ventral abdominal wall inferiorly likely reflect subcutaneous injections. Scattered suture material redemonstrated in the ventral abdominal wall. No acute osseous abnormalities identified. Degenerative changes involve the spine. IMPRESSION: Allowing for differences in technique, there has been no significant change in a rim-enhancing fluid attenuation structure in the right upper abdomen just inferior to the liver, which remains concerning for possible abscess. Previously described foci of pneumoperitoneum are no longer seen. 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 No significant change in bilateral ovarian cysts. This can be further evaluated with nonemergent pelvic ultrasound, as previously recommended. Other chronic and incidental findings are detailed above. Findings are in agreement with initial teleradiology report. Dictated by: Dictated on workstation # [id number]
== END 2021-02-11 00:35 | disposition home or self-care (01) ==
LOC: EDUNIT# 21:54 → ER 21:57
DX: K92.1 Melena (principal); R19.7 Diarrhea, unspecified; R18.8 Other ascites; J45.909 Unspecified asthma, uncomplicated; F41.9 Anxiety disorder, unspecified; F20.9 Schizophrenia, unspecified; F32.9 Major depressive disorder, single episode, unspecified; F60.9 Personality disorder, unspecified; E66.01 Morbid (severe) obesity due to excess calories; F17.210 Nicotine dependence, cigarettes, uncomplicated; Z90.49 Acquired absence of other specified parts of digestive tract; Z68.42 Body mass index [BMI] 45.0-49.9, adult; Z98.890 Other specified postprocedural states; Z79.51 Long term (current) use of inhaled steroids; Z79.899 Other long term (current) drug therapy
CPT/HCPCS: 36415; 74177; 80053; 81000; 82150; 82274; 83690; 84703; 85025; 87015; 87045; 87046; 87088; 87324; 87449; 87899; 89055; 93041

== ENCOUNTER 2021-03-04 05:39 | Outpatient (CLI) | payer MEDICARE, MEDICAID ==
[~2021-03-04] VITALS: Ht 170.2 cm; Wt 140.6 kg
[2021-03-04] MEDS ORDERED: NORG1TAB33 PO (13:57)
[2021-03-04] MEDS ORDERED: FLUT1AER IH (13:57)
== END 2021-03-04 14:54 | disposition home or self-care (01) ==
LOC: PREOP 05:39
PROVIDERS: ATTEND Surgery
DX: Z01.818 Encounter for other preprocedural examination (principal)

== ENCOUNTER 2021-03-11 10:03 | Day surgery (SDC) | payer MEDICARE, MEDICAID ==
[~2021-03-11] VITALS: Ht 170.2 cm; Wt 140.6 kg
[~2021-03-11 10:03] MED LIST changes: +FLUT1AER IH; +NORG1TAB33 PO
[2021-03-11 10:06] VITALS: BP 138/82
[2021-03-11] MEDS ORDERED: LACTATED RINGERS 1,000 ML IV STA (10:17)
--- NOTE | 2021-03-11 10:52 | Progress Note-Pre Operative ---
Pre-Operative Progress Note H&P Reviewed The H&P was reviewed, patient examined and no changes noted. Time Seen by Provider: 10:51 Date H&P Reviewed: Mar 11, 2021 Time H&P Reviewed: 10:51 Pre-Operative Diagnosis: rectal bleed CHERYL MIRAMONTES DO Mar 11, 2021 10:52
[2021-03-11] MEDS ORDERED: PROPOFOL INJECTION 50 ML IV ONE (11:21)
[2021-03-11] MEDS ORDERED: MIDAZOLAM 2 MG/2 ML (VERSED) VIAL ONE (11:21)
[2021-03-11 12:13] VITALS: BP 134/98
[2021-03-11 12:18] VITALS: BP 144/99
[2021-03-11 12:20] VITALS: BP 144/99
--- NOTE | 2021-03-11 12:29 | Progress Note-Post Operative ---
Post-Operative Progess Note Surgeon (s)/Research Manufacturing Operator (s) Surgeon CHERYL MIRAMONTES DO Research Manufacturing Operator: none Pre-Operative Diagnosis rectal bleed Post-Operative Diagnosis Polyps int hemorrhoids Thrombosed ext hemorrhoid Procedure & Operative Findings Date of Procedure 03/11/21 Procedure Performed/Findings After informed consent was obtained, the patient was brought to the endoscopy suite and placed in the bed in the left lateral decubitus position. She was administered IV sedation by the ELECTRICAL ENGINEER, who then monitored her vitals the entire time, heart rate, blood pressure and pulse ox and the scope was inserted, started the colonoscopy. Pushed all the way into about 150 cm to get all the way to cecum, took a picture of the appendiceal orifice, noted the ileocecal valve and then slowly withdrew the scope, insufflating to looke circumferentiallly at the carmona starting in the cecum, up the ascending colon to the hepatic flexure, then down the transverse colon. In the transverse colon I saw a polyp took a picture and then did a snare polypectomy. Continued to the splenic flexure, into the descending colon where I found another polyp; did snare polypectomy. Then down into the sigmoid; found another polyp and did another snare. Finally into the rectum, retroflexed in the rectal vault, saw some minimal internal hemorrhoids and took a picture of this. On the way in had noted a small thrombosed external hemorrhoid; no inflammation seen. The patient tolerated the procedure and she recovered in the endoscopy suite. Anesthesia Type IV sedation by BERT Estimated Blood Loss Estimated blood loss (mL): scant Specimens/Packing Specimens Removed transverse colon polyp desc colon polyp sigmoid polyp CHERYL MIRAMONTES DO Mar 11, 2021 12:29
--- NOTE | 2021-03-11 12:30 | Endoscopy Discharge Instruct ---
Endo Procedure/Findings Findings 1.: Polyp 2.: Internal Hemorrhoids 3.: Other Findings Discharge Instructions - Activity: You might feel a little sleepy until tomorrow. This is due to the medicine you received to relax you. Until tomorrow, you should: NOT drive a car, operate machinery or power tools. NOT drink any alcoholic beverages. NOT make any important decisions or sign importortant papers. Do not return to work until tomorrow, unless otherwise instructed. Resume previous activities tomorrow. Diet: Start by taking liquids. If you tolerate liquids, advance to solid food. 1.: Colonscopy in 3 years (because one polyp had to be taken in pieces) Notify Physician - If you experience excessive bleeding, unusual abdominal pain, fever, or chest pain, contact your doctor immediately. CHERYL MIRAMONTES DO Mar 11, 2021 12:30
[2021-03-11 12:55] VITALS: BP 141/71
[2021-03-11 13:05] VITALS: BP 141/71
--- NOTE | 2021-03-11 13:07 | Anesthesia-General Post-Op ---
MAC Patient Condition Mental Status/LOC: Same as Preop Cardiovascular: Satisfactory Nausea/Vomiting: Absent Respiratory: Satisfactory Pain: Controlled Complications: Absent Post Op Complications Complications None Follow Up Care/Instructions Patient Instructions None needed. Anesthesiology Discharge Order Discharge Order Patient is doing well, no complaints, stable vital signs, no apparent adverse anesthesia problems. ROB BRUNO DO Mar 11, 2021 13:07
== END 2021-03-11 13:05 | disposition home or self-care (01) ==
LOC: ENDO 10:03
PROVIDERS: ATTEND Surgery
DX: D12.3 Benign neoplasm of transverse colon (principal); D12.5 Benign neoplasm of sigmoid colon; K63.5 Polyp of colon; K64.8 Other hemorrhoids; K64.5 Perianal venous thrombosis; F41.9 Anxiety disorder, unspecified; F32.9 Major depressive disorder, single episode, unspecified; F20.9 Schizophrenia, unspecified; J45.909 Unspecified asthma, uncomplicated; E66.01 Morbid (severe) obesity due to excess calories; Z68.42 Body mass index [BMI] 45.0-49.9, adult; F17.210 Nicotine dependence, cigarettes, uncomplicated; Z79.899 Other long term (current) drug therapy; Z79.51 Long term (current) use of inhaled steroids
CPT/HCPCS: 84703; 88305; 93005

== ENCOUNTER → 2021-05-06 | Outpatient (CLI) | payer MEDICARE, MEDICAID ==
[~2021-05-06] MED LIST changes: -OLAN15TA19 PO; +OLAN15TA35 PO; -SULF1TAB35 PO; +SULF1TAB38 PO
--- NOTE | 2021-05-06 14:41 | Diagnostic Imaging Report ---
PROCEDURE: US right lower extremity venous. TECHNIQUE: Multiple real-time grayscale images were obtained over the right lower extremity in various projections. Additional spectral analysis and color Doppler duplex images were also obtained. INDICATION: Right lower extremity pain and swelling. There is no evidence of right lower extremity DVT. Right lower extremity deep venous system shows normal compressibility with normal response to augmentation and Valsalva. No fluid collection or mass is detected. IMPRESSION: No evidence of right lower extremity DVT. Dictated by: Dictated on workstation # [id number]
--- NOTE | 2021-05-06 14:42 | Diagnostic Imaging Report ---
INDICATION: Right arm swelling. Grayscale, color-flow and duplex Doppler evaluation of the right upper extremity deep venous system was performed. Right internal jugular vein is patent. Right subclavian and axillary veins are patent. Brachial vein is patent. Basilic, cephalic, radial and ulnar veins are patent. No thrombus is seen. No fluid collections or masses are identified. IMPRESSION: No evidence of right upper extremity DVT. Dictated by: Dictated on workstation # [id number]
== END ==
LOC: RAD 12:30
PROVIDERS: ATTEND Family Medicine
DX: M79.661 Pain in right lower leg (principal); M79.89 Other specified soft tissue disorders

== ENCOUNTER 2022-06-12 05:28 | Outpatient (CLI) | payer MEDICARE, MEDICAID ==
[~2022-06-12] VITALS: Ht 165.1 cm; Wt 131.9 kg
[~2022-06-12 05:28] MED LIST changes: +MONT-40 PO; -MONT10TA32 PO
[2022-06-17] MEDS ORDERED: MINE3.5O4 OP (09:42)
[2022-06-17] MEDS ORDERED: PROP1.5D OP (09:42)
[2022-06-17] MEDS ORDERED: HYDR28.480 TP (10:02)
[2022-06-17] MEDS ORDERED: DIPH25CA79 PO (10:02)
[2022-06-17] MEDS ORDERED: HYDR-3584 PO (10:02)
[2022-06-17] MEDS ORDERED: NYST15CR36 TP (10:02)
[2022-06-17] MEDS ORDERED: DIPH1TAB PO (10:02)
[2022-06-17] MEDS ORDERED: BACTROBAN 2% OINT (10:02)
[2022-06-17] MEDS ORDERED: GUAI-557 PO (10:02)
[2022-06-17] MEDS ORDERED: DOXY25TA56 PO (10:02)
[2022-06-17] MEDS ORDERED: NYST1POW5 MC (10:02)
[2022-06-17] MEDS ORDERED: MENT1.1L MM (10:02)
[2022-06-17] MEDS ORDERED: ACET325C7 PO (10:02)
[2022-06-17] MEDS ORDERED: MAG30ORA2 PO (10:02)
[2022-06-17] MEDS ORDERED: MENT113P8 TP (10:02)
[2022-06-17] MEDS ORDERED: CALA177S11 TP (10:02)
[2022-06-17] MEDS ORDERED: LOPE-175 PO (10:02)
[2022-06-17] MEDS ORDERED: NEOM28.33 TP (10:02)
[2022-06-17] MEDS ORDERED: POLY17PO6 PO (10:02)
== END 2022-06-17 10:26 | disposition home or self-care (01) ==
LOC: PREOP 05:28
PROVIDERS: ATTEND Otolaryngology Otolaryngology/Facial Plastic Surgery
DX: Z01.818 Encounter for other preprocedural examination (principal)

== ENCOUNTER 2022-06-19 05:49 | Day surgery (SDC) | payer MEDICARE, MEDICAID ==
[~2022-06-19] VITALS: Ht 165.1 cm; Wt 131.9 kg
[2022-06-19] VITALS (9 sets, daily range): BP systolic 116–153; BP diastolic 66–101
[~2022-06-19 05:49] MED LIST changes: +BACTROBAN 2% OINT; +DIPH1TAB PO; +DOXY25TA56 PO; +GUAI-557 PO; +HYDR-3584 PO; +HYDR28.480 TP; +LOPE-175 PO; +MAG30ORA2 PO; +MENT1.1L MM; +MENT113P8 TP; +MINE3.5O4 OP; +NEOM28.33 TP; +NYST15CR36 TP; +NYST1POW5 MC; +POLY17PO6 PO; +PROP1.5D OP
[2022-06-19] MEDS ORDERED: LACTATED RINGERS 1,000 ML IV PRN (06:30)
--- NOTE | 2022-06-19 06:59 | Progress Note-Pre Operative ---
Pre-Operative Progress Note Date of Available H&P: Jun 19, 2022 Date H&P Reviewed: Jun 19, 2022 Time H&P Reviewed: 06:30 History & Physical: H&P Reviewed, Patient Examed, No changes noted Changes from last HP none Pre-Operative Diagnosis: Bilat Chronic/REcurrent OM SALBADOR BUTLER MD Jun 19, 2022 06:59
--- NOTE | 2022-06-19 07:02 | Progress Note-Post Operative ---
Post-Operative Progess Note Surgeon (s)/Mergers And Acquisitions Attorney (s) Surgeon SALBADOR BUTLER MD Mergers And Acquisitions Attorney n/a Pre-Operative Diagnosis Bilat Chronic/REcurrent OM Post-Operative Diagnosis same Post-Op Procedure Note Date of Procedure: Jun 19, 2022 Name of Procedure Performed: BMT Description & Findings Description and Findings: n/a Anesthesia Type mask Estimated Blood Loss minimal Packing none. Specimen(s) collected/removed none SALBADOR BUTLER MD Jun 19, 2022 07:02
[2022-06-19] MEDS ORDERED: SEVOFLURANE (ULTANE) 15 ML INHAL SOLN ONE ×2 (07:08→07:58)
[2022-06-19] MEDS ORDERED: ONDANSETRON 4 MG/2 ML (SDV) Z0FRAN ONE (07:08)
[2022-06-19] MEDS ORDERED: fentaNYL INJ 100 MCG/2 ML AMP ONE (07:08)
[2022-06-19] MEDS ORDERED: LIDOCAINE PF 2% 5 ML (XYLOCAINE) VIAL ONE (07:08)
[2022-06-19] MEDS ORDERED: MIDAZOLAM 2 MG/2 ML (VERSED) VIAL ONE (07:08)
[2022-06-19] MEDS ORDERED: proPOfol 200 MG/20 ML (DIPRIVAN) VIAL IV ONE ×2 (07:08→07:57)
[2022-06-19] MEDS ORDERED: APAP 325 MG/10.15 ML LIQ (TYLENOL) UDC PO PRN (07:15)
[2022-06-19] MEDS ORDERED: MEPERIDINE (DEMEROL) INJ 50 MG/ML IVP ONE (08:15)
[2022-06-19] MEDS ORDERED: morphine INJ 10 MG/ML 1ML (SYR OR VIAL) IVP ONE (08:15)
[2022-06-19] MEDS ORDERED: fentaNYL INJ 100 MCG/2 ML AMP IVP ONE (08:15)
[2022-06-19] MEDS ORDERED: ONDANSETRON 4 MG/2 ML (SDV) Z0FRAN IVP PRN (08:15)
[2022-06-19] MEDS ORDERED: OFLO5DRO33 EACH EAR (09:06)
== END 2022-06-19 09:35 ==
LOC: SDC 05:49
PROVIDERS: ATTEND Otolaryngology Otolaryngology/Facial Plastic Surgery
DX: H65.23 Chronic serous otitis media, bilateral (principal); H69.90 Unspecified Eustachian tube disorder, unspecified ear; Z87.891 Personal history of nicotine dependence; E66.01 Morbid (severe) obesity due to excess calories; Z68.42 Body mass index [BMI] 45.0-49.9, adult
CPT/HCPCS: 84703; 87081

== ENCOUNTER 2022-12-24 23:39 | Emergency (ER) | payer MEDICARE, MEDICAID ==
[~2022-12-24 23:39] MED LIST changes: +ALBU8.5H6 IH; +ALBU8.5H6 PO; -LACT10SO27 PO; +LACT10SO84 PO; +OFLO5DRO33 EACH EAR; -RT-ALBUINH IH; -RT-ALBUINH PO
--- NOTE | 2022-12-25 01:18 | ED Psychosocial ---
General Chief Complaint: Psych/Social Disorder Stated Complaint: SUICIDAL,STABBED SELF IN STOMACH W/ INK PEN Nursing Triage Note: TO ED VIA POV AND AMBULATORY TO ROOM 8 WITH CAREGIVER FROM [place]. PT STATES SHE WOKE UP STAFF TO TELL THEM SHE TRIED TO STAB HERSELF WITH AN INK PEN AND AT THE TIME SHE HAD THOUGHTS OF SI. AT THIS TIME OF TRIAGE SHE DENIES SUIDICAL IDEATION. PT HAS EXTENSIVE HX OF SELF HARM, SELF MUTILATION, SWALLOWING RANDOM OBJECTS, STABBING SELF. Source: patient, other (medical care provider at home she resides in) Exam Limitations: no limitations History of Present Illness Date Seen by Provider: Dec 25, 2022 Time Seen by Provider: 01:05 Initial Comments Patient is a 42-year-old female who presents to the emergency room with a chief complaint of suicidal ideation. Apparently patient came to staff this evening and told them that she had stabbed herself in the abdomen with a ballpoint pen. Patient insists that the pen is buried in her abdomen. She points to an area just above the umbilicus in the area of a previous midline abdominal scar. Min imal bleeding is noted. No open wound (patient states wound has "closed"). no nausea or vomiting. No URI symptoms. Patient states that she has been thinking about suicide over the last several days. She has recently quit therapy but still sees a medication provider through [facility]. She states that her plan is to stab herself and not tell care workers so that she would . She has a history of severe previous self-harm with prior surgery to remove foreign objects as well as small bowel injury. She has also swallowed foreign bodies in the past. She complains of a little right-sided abdominal discomfort over the last several days. No dysuria urgency or frequency. No diarrhea, has had normal bowel movements. No recent fevers or chills. She does reside in a [place]. She does have a guardian. Timing/Duration: just prior to arrival Severity: severe Associated Symptoms: injury, suicidal ideation Allergies and Home Medications Allergies Coded Allergies: Penicillins (Verified Allergy, Unknown, RASH, 06/17/22) amoxicillin (Verified Allergy, Unknown, RASH, 06/17/22) clavulanic acid (Verified Allergy, Unknown, RASH, 06/17/22) potassium chloride (Verified Allergy, Unknown, UNKNOWN, 06/17/22) Patient Home Medication List Home Medication List Reviewed: Yes Acetaminophen (Tylenol) 325 Mg Capsule, 325 MG PO UD, (Reported) Entered as Reported by: SHAJI BEE on 06/17/22 1002 Calamine/Zinc Oxide (Calamine Lotion) 8 %-8 % Lotion, 1 APPLIC TP UD, (Reported) Entered as Reported by: SHAJI BEE on 06/17/22 1002 Cetirizine HCl (Zyrtec) 10 Mg Tablet, 10 MG PO HS, (Reported) Entered as Reported by: MICHELLE PERRY on 07/19/19 1326 Diphenhydramine HCl (Benadryl) 25 Mg Capsule, 25 MG PO UD, (Reported) Entered as Reported by: SHAJI BEE on 06/17/22 1002 Diphenoxylate HCl/Atropine (Lomotil 2.5-0.025 mg Tablet) 2.5 Mg-0.025 Mg Tablet, 1 EACH PO UD, (Reported) Entered as Reported by: SHAJI BEE on 06/17/22 1002 Doxylamine Succinate (Unisom) 25 Mg Tablet, 25 MG PO UD, (Reported) Entered as Reported by: SHAJI BEE on 06/17/22 1002 Ferrous Sulfate (Ferrous Sulfate) 325 Mg Tablet, 325 MG PO 0900,1500,2100, (Reported) Entered as Reported by: BOOGIE DIAZ on 03/18/19 1139 Fluticasone Propionate (Fluticasone Propionate) 16 Gm [place].susp, 2 SPRAYS NS DAILY, (Reported) Entered as Reported by: MICHELLE PERRY on 07/19/19 1326 Fluticasone/Vilanterol (Breo Ellipta 100-25 Mcg INH) 1 Each Blst.w.dev, 1 EACH IH DAILY, (Reported) Entered as Reported by: JAXSON FERNANDEZ on 03/04/21 1357 Guaifenesin/Dextromethorphan (Tussin Dm Liquid) 100 Mg-10 Mg/5 Ml Liquid, 118 ML PO UD, (Reported) Entered as Reported by: SHAJI BEE on 06/17/22 1002 Hydrocodone/Acetaminophen (Hydrocodone-Acetamin 5-325 mg) 1 Each Tablet, 1 TAB PO Q6H PRN for PAIN-MODERATE (5-7) Prescribed by: BARBARA WHEELER on 01/26/21 2346 Hydrocortisone/Aloe Vera (Hydrocortisone Plus 1% Cream) 1 % Cream..g., 28.4 GM TP UD, (Reported) Entered as Reported by: SHAJI BEE on 06/17/22 1002 Hydroxyzine HCl (Hydroxyzine HCl) 10 Mg Tablet, 10 MG PO HS, (Reported) Entered as Reported by: SHAJI BEE on 06/17/221001 L. Acidophilus/Pectin, [place] (Acidophilus Capsule) 1 Each Capsule, 2 EACH PO QID Prescribed by: ARACELIS VELASCO on 02/11/21 0023 Lamotrigine (Lamotrigine) 150 Mg Tablet, 150 MG PO DAILY, (Reported) Entered as Reported by: LISET REMY on 12/31/19 234 Loperamide HCl (Imodium A-D) Unknown Strength Capsule, Unknown Dose PO UD, (Reported) Entered as Reported by: SHAJI BEE on 06/17/221001 Mag Hydrox/Al Hydrox/Simeth (Mylanta Suspension) Unknown Strength Oral.susp, Unknown Dose PO UD PRN for INDIGESTION, (Reported) Entered as Reported by: SHAJI BEE on 06/17/22 1002 Meloxicam (Meloxicam) 15 Mg Tablet, 15 MG PO DAILY PRN for PAIN-BREAKTHROUGH, (Reported) Entered as Reported by: LISET REMY on 12/31/19 234 Menthol (Ricola) Unknown Strength Lozenge, Unknown Dose MM UD, (Reported) Entered as Reported by: SHAJI BEE on 06/17/22 1002 Menthol (Gold Melendrez Medicated Body) 0.8 % Powder, 113 GM TP UD, (Reported) Entered as Reported by: SHAJI BEE on 06/17/22 1002 Mineral Oil/Petrolatum,White (Systane Nighttime Eye Oint) 3 %-94 % Oint...g., 3.5 GM OP HS, (Reported) Entered as Reported by: SHAJI BEE on 06/17/22 0942 Montelukast Sodium (Montelukast Sodium) 10 Mg Tablet, 10 MG PO DAILY, (Reported) Entered as Reported by: BOOGIE DIAZ on 03/18/19 1139 Neomycin Fonseca/Bacitrac Zn/Poly (Neosporin Ointment) Unknown Strength Oint...g., Unknown Dose TP UD, (Reported) Entered as Reported by: SHAJI BEE on 06/17/22 1002 Norgestrel-Ethinyl Estradiol (Dfs-Rtklaqfl-65 Tablet) 1 Each Tablet, 1 EACH PO DAILY, (Reported) Entered as Reported by: JAXSON FERNANDEZ on 03/04/21 1357 Nystatin (Nystatin) Unknown Strength Powder.ea., Unknown Dose MC UD, (Reported) Entered as Reported by: SHAJI BEE on 06/17/22 1002 Nystatin/Triamcinolone (Nystatin-Triamcinolone Cream) 100,000 Unit/Gram-0.1 % Cr, 15 GM TP UD, (Reported) Entered as Reported by: SHAJI BEE on 06/17/22 1002 Ofloxacin (Floxin (Non-Formulary)) 0.3 % Drops, 3 DROPS EACH EAR BID Prescribed by: DERECK SAEED on 06/19/22 0906 Olanzapine (Zyprexa) 20 Mg Tablet, 20 MG PO HS, (Reported) Entered as Reported by: BOOGIE DIAZ on 03/18/19 1139 Olanzapine (Olanzapine) 15 Mg Tablet, 15 MG PO DAILY, (Reported) Entered as Reported by: LISET REMY on 12/31/19 2344 Polyethylene Glycol 3350 (Miralax) 17 Gram Powd.pack, 17 GM PO UD, (Reported) Entered as Reported by: SHAJI BEE on 06/17/22 1002 Propylene Glycol (Systane Complete) 0.6 % Drops, 1.5 ML OP TID, (Reported) Entered as Reported by: SHAJI BEE on 06/17/22 0942 Sertraline HCl (Zoloft) 100 Mg Tablet, 100 MG PO DAILY, (Reported) Entered as Reported by: BOOGIE DIAZ on 03/18/19 1139 Trazodone HCl (Trazodone HCl) 100 Mg Tablet, 100 MG PO HS, (Reported) Entered as Reported by: QIAN HIDALGO on 01/14/21 1350 [Bactroban 2% Oint] Unknown Strength , Unknown Dose UD, (Reported) Entered as Reported by: SHAJI BEE on 06/17/22 1002 Review of Systems Constitutional: see HPI Respiratory: no symptoms reported Cardiovascular: no symptoms reported Gastrointestinal: no symptoms reported Genitourinary: no symptoms reported Musculoskeletal: no symptoms reported Skin: no symptoms reported Psychiatric/Neurological: Emotional Problems All Other Systems Reviewed Negative Unless Noted: Yes Past Rwbewiv-Ktqjlb-Cofnha Hx Patient Social History Tobacco Use?: Yes Tobacco type used: Cigarettes Smoking Status: Current Everyday Smoker Substance use?: No Alcohol Use?: No Immunizations Up To Date Tetanus Booster (TDap): Less than 5yrs Influenza Vaccine Up-to-Date: Yes; Up-to-Date First/Initial COVID19 Vaccinat: 02/27/21 Second COVID19 Vaccination Umair: 03/27/21 Third COVID19 Vaccination Date: 10/10/21 Seasonal Allergies Seasonal Allergies: Yes Past Medical History Surgeries: Yes (FOREIGN BODY REMOVAL FROM ABDOMEN MULT. TIMES WITH BOWEL RESECTIONS;D&C) Abdominal, Bowel Surgery, Gallbladder, Tonsillectomy Respiratory: Yes Asthma Currently Using CPAP: No Currently Using BIPAP: No Cardiac: Yes Hypertension Neurological: No Reproductive Disorders: Yes (IUD PLACED 03/2019 WITH D&C FOR MENORRHAGIA;REMOVED 01/16/21) Female Reproductive Disorders: Menstrual Problems, Ovarian Cyst [employer] History: IUD Sexually Transmitted Disease: No Genitourinary: No Gastrointestinal: Yes (BOWEL RESECTION DUE TO FOREIGN BODIES;HAS INSERTED & INGESTED MULTIPLE FB'S) Chronic Constipation, Gall Bladder Disease Musculoskeletal: No Endocrine: Yes (MORBID OBESITY) HEENT: Yes (DRY EYES) Loss of Vision: Denies Hearing Impairment: Denies Cancer: No Psychosocial: Yes (EXTENSIVE PSYCH ISSUES-MULTIPLE FB INGESTIONS/INSERTIONS/STABBED IN ABDOMEN) Anxiety, Suicide Attempts, Personality Disorder, Schizophrenia, Depression Integumentary: Yes (SKIN DISCOLORATIONS PIGMENTATION) Blood Disorders: Yes (LOW IRON) Adverse Reaction/Blood Tranf: No Family Medical History Cancer, Diabetes, Hypertension PSH: -01/01/20--EXPLORATORY LAPAROTOMY WITH LYSIS OF ADHESIONS AND REPAIR OF SMALL BOWEL PERFORATION DUE TO SELF INFLICTED INJURY WITH BALL POINT PEN. -01/15/20--EXPLORATORY LAPAROTOMY WITH RIGHT COLON RESECTION WITH RE-ANASTAMOSIS, EXTENSIVE LYSIS OF ADHESIONS, WOUND VAC PLACEMENT AND DRAINAGE OF BILATERAL OVARIAN CYSTS. 01/16/21--CHOLECYSTECTOMY AND REMOVAL OF IUD Physical Exam Vital Signs - First Documented 12/25/22 00:38 Temp 36.4 Pulse 86 Resp 18 B/P (MAP) 151/86 (107) Pulse Ox 96 O2 Delivery Room Air Capillary Refill : Less Than 3 Seconds Height, Weight, BMI Height: 5'4.00" Weight: 213lbs. 0.0oz. [id number]; 48.38 BMI Method: General Appearance: WD/WN, no apparent distress, obese HEENT: PERRL/EOMI Neck: normal inspection Respiratory: lungs clear, normal breath sounds, no respiratory distress, no accessory muscle use Cardiovascular: regular rate, rhythm Gastrointestinal: normal bowel sounds, soft, other (midline abdominal scal with an area just above the unbilicus with scant blood noted. no open wound. tender to palpation in this area.) Extremities: normal range of motion, non-tender, normal inspection Neurologic/Psychiatric: alert, normal mood/affect, oriented x 3 Appearance/Memory: appropriate appearance, appropriate insight, no memory impairment Behavior/Eye Contact: cooperative, good eye contact, normal speech Thoughts/Hallucinations: normal thought pattern, no apparent hallucination Skin: normal color, warm/dry, other (as above ) Progress/Results/Core Measures Results/Orders Lab Results My Orders Vital Signs/I&O Blood Pressure Mean: 107 Progress Progress Note #1: Time: 04:04 Progress Note patient seen and evaluated by me. Eval today includes physical exam, psych screening which includes covid test, cbc, ch12, UDS, tylenol, aspirin and acetaminophen levels, test, UA and due to complaint of foreign body in abdominal wall - a KUB. Pertinent physical exam findings, obese female, no acute distress. soft abdomen with bowel sounds present, small wound midline abdomen just above umbilicus with scant blood. TTP. PAtient states still thinking of suicide (escalating thoughts in recent days) with plan to stab self and not report to staff. DDX: foreign body in soft tissue of abdomen vs intraperitoneal fb Labs reviewed by me - CBC normal, Chem normal, UA no evidence of infection. Tox screens (UDS, ASA, acetaminophen and alcohol) negative. test neg. Covid screen POSITIVE. KUB shows multiple foreign bodies. On comparison to previous - no significant new findings. Discussed with patient and caregiver anton burnett is present with patient. Patient states the pen was plastic and she insists it is in her abdomen. SHe remains without complaint, no n/v and benign exam. VSS. Awaiting at this time for [facility] mental health screen. Anticipate she will be screened and not found to be a candidate for placement due to Covid positive. Progress Note #2: Time: 05:14 Progress Note Patient has been screened by [facility]. They are creating a safety plan with out patient follow up. patient will be given discharge instructions as well that include follow up with Dr Miramontes to further evaluate the "ink pen" she states she inserted into her abdominal wall. Discharge precautions with include monitoring for increased pain, fever, vomting or bloody stool. Her caregiver is present at the bedside and will be made aware of the d/c instructions. Initial ECG Impression Date: Dec 25, 2022 Initial ECG Impression Time: 00:52 Initial ECG Rate: 87 Initial ECG Rhythm: Normal Sinus Initial ECG Intervals MI 161 QRS 94 QTc 460 Comment Normal sinus rhythm with occasional PVC. No ST segment elevation or depression Diagnostic Imaging Diagonstic Imaging: Xray Plain Films/CT/US/NM/MRI: abdomen Comments independent interpretation by - PK - multiple foreign bodies identified in abdominal wall. Comparison to prior film 2020. Possibly punctate new radiopaque fb left of midline. (question pen tip?) Departure Impression Primary Impression: Suicidal ideation Additional Impressions: Self-harming behavior COVID-19 Foreign body in skin of abdomen Disposition: 01 HOME, SELF-CARE Condition: Stable Departure-Patient Inst. Decision time for Depature: 05:16 Referrals: MARION CONTRERAS MD (PCP/Family) Primary Care Physician CHERYL MIRAMONTES DO Patient Instructions: Foreign Body in Skin ED, Self-Harm Add. Discharge Instructions: Follow up with Mental Health providers as outlined in your safety plan. You have had a positive Covid test today. Please monitor for symptoms and mask around others for 5 days, Keep a dry gauze bandage over the affected area to the abdominal wall. Continue all previously prescribed medications. Monitor for changing symptoms and return to the ER if she develops abdominal pain, fever, vomiting or blood in stool. I would recommend a follow up appointment in the clinic with Dr Miramontes to ensure as well all the objects inserted previously and yesterday are stable to remain in her abdomen. Also please keep follow up appointments with regular medical providers. Copy Copies To 1: MARION CONTRERAS MD Copies To 2: CHERYL MIRAMONTES KATHRYN M MD Dec 25, 2022 01:18
[2022-12-25 01:27] LABS: BILIRUBIN,URINE NEGATIVE (NEGATIVE); COLOR,URINE YELLOW; GLUCOSE, URINE (UA) NEGATIVE (NEGATIVE); KETONES,URINE NEGATIVE (NEGATIVE); LEUKOCYTE ESTERASE ,URINE TRACE (NEGATIVE); NITRITE,URINE NEGATIVE (NEGATIVE); PH,URINE 5.5 (5-9); PROTEIN,URINE NEGATIVE (NEGATIVE)
[2022-12-25 01:29] LABS: BASOPHILS % (AUTO) 0 % (0-10); EOSINOPHILS % (AUTO) 0 % (0-10); HEMATOCRIT 41 % (35-52); HEMOGLOBIN 13.9 g/dL (11.5-16.0); LYMPHOCYTES # (AUTO) 1.6 10^3/uL (1.0-4.0); LYMPHOCYTES % (AUTO) 17 % (12-44); MEAN CORPUSCULAR HEMOGLOBIN 30 pg (25-34); MEAN CORPUSCULAR HGB CONC 34 g/dL (32-36); MEAN CORPUSCULAR VOLUME 86 fL (80-99); MEAN PLATELET VOLUME 9.9 fL (9.0-12.2); MONOCYTES # (AUTO) 0.6 10^3/uL (0.0-1.0); MONOCYTES % (AUTO) 6 % (0-12); NEUTROPHILS # (AUTO) 7.1 10^3/uL (1.8-7.8); NEUTROPHILS % (AUTO) 76 % (42-75); PLATELET COUNT 237 10^3/uL (130-400); WHITE BLOOD COUNT 9.4 10^3/uL (4.3-11.0)
[2022-12-25 01:30] LABS: CLARITY,URINE SL CLOUDY
[2022-12-25 01:31] LABS: HCG,QUALITATIVE URINE NEGATIVE (NEGATIVE)
[2022-12-25 01:36] LABS: BACTERIA,URINE MODERATE /HPF; RBC,URINE 0-2 /HPF
[2022-12-25 01:39] LABS: ALBUMIN 4.1 GM/DL (3.2-4.5); CHLORIDE 106 MMOL/L (98-107); POTASSIUM 3.6 MMOL/L (3.6-5.0); SODIUM 139 MMOL/L (135-145)
[2022-12-25 01:40] LABS: AMPHETAMINE SCREEN, URINE NEGATIVE (NEGATIVE); BARBITURATE SCREEN URINE NEGATIVE (NEGATIVE); BENZODIAZEPINES SCREEN URINE NEGATIVE (NEGATIVE); CANNABINOID SCREEN, URINE NEGATIVE (NEGATIVE); COCAINE SCREEN URINE NEGATIVE (NEGATIVE); METHADONE STAT NEGATIVE (NEGATIVE); OPIATE SCREEN URINE NEGATIVE (NEGATIVE); OXYCODONE STAT NEGATIVE (NEGATIVE); PROPOXYPHENE STAT NEGATIVE (NEGATIVE); TRICYCLIC ANTIDEPRESSANTS SCRE NEGATIVE (NEGATIVE)
[2022-12-25 01:40] LABS: CALCIUM 8.8 MG/DL (8.5-10.1)
[2022-12-25 01:41] LABS: GLUCOSE 101 MG/DL (70-105)
[2022-12-25 01:42] LABS: TOTAL PROTEIN 6.7 GM/DL (6.4-8.2)
[2022-12-25 01:43] LABS: BILIRUBIN,TOTAL 0.7 MG/DL (0.1-1.0); CARBON DIOXIDE 22 MMOL/L (21-32)
[2022-12-25 01:45] LABS: ALKALINE PHOSPHATASE 77 U/L (40-136); GFR ESTIMATED 95
[2022-12-25 01:47] LABS: BUN/CREATININE RATIO 11
[2022-12-25 01:48] LABS: ALANINE AMINOTRANSFERASE 20 U/L (0-55); SALICYLATE < 5.0 MG/DL (5.0-20.0)
[2022-12-25 01:49] LABS: ACETAMINOPHEN < 10 UG/ML (10-30)
--- NOTE | 2022-12-25 05:00 | Diagnostic Imaging Report ---
INDICATION: Stab wound KUB 1:57 AM There are multiple linear radiopaque foreign objects projecting over the abdomen. Lung bases are clear. Gallbladder appears to be surgically absent. Bowel gas pattern is normal. IMPRESSION: Multiple linear foreign bodies presumably wires projecting over the abdomen. Dictated by: Dictated on workstation # [id number]
[2022-12-25 06:02] VITALS: BP 138/78
== END 2022-12-25 06:02 | disposition home or self-care (01) ==
LOC: EDUNIT# 23:39 → ER 23:45
DX: T18.2XXA Foreign body in stomach, initial encounter (principal); U07.1 COVID-19; R45.851 Suicidal ideations; F17.210 Nicotine dependence, cigarettes, uncomplicated; E66.01 Morbid (severe) obesity due to excess calories; Z87.19 Personal history of other diseases of the digestive system; Z68.42 Body mass index [BMI] 45.0-49.9, adult; W45.8XXA Other foreign body or object entering through skin, initial encounter
CPT/HCPCS: 74018; 80053; 80306; 81000; 84703; 85025; 87088; 87636; 93005; 99284; G0480 ×3; 36415; 80320; 80329

== ENCOUNTER 2023-01-04 08:09 | Emergency (ER) | payer MEDICARE, MEDICAID ==
[~2023-01-04] VITALS: Ht 170 cm; Wt 133.8 kg
[2023-01-04 10:04] LABS: BASOPHILS % (AUTO) 0 % (0-10); EOSINOPHILS % (AUTO) 0 % (0-10); HEMATOCRIT 32 % (35-52); HEMOGLOBIN 11.2 g/dL (11.5-16.0); LYMPHOCYTES % (AUTO) 15 % (12-44); MEAN CORPUSCULAR HEMOGLOBIN 30 pg (25-34); MEAN CORPUSCULAR HGB CONC 35 g/dL (32-36); MEAN CORPUSCULAR VOLUME 86 fL (80-99); MEAN PLATELET VOLUME 9.2 fL (9.0-12.2); MONOCYTES # (AUTO) 0.7 10^3/uL (0.0-1.0); MONOCYTES % (AUTO) 9 % (0-12); NEUTROPHILS # (AUTO) 5.4 10^3/uL (1.8-7.8); NEUTROPHILS % (AUTO) 75 % (42-75); PLATELET COUNT 271 10^3/uL (130-400); WHITE BLOOD COUNT 7.2 10^3/uL (4.3-11.0)
[2023-01-04 10:14] LABS: POTASSIUM 2.7 MMOL/L (3.6-5.0)
--- NOTE | 2023-01-04 10:14 | ED General ---
General Chief Complaint: Foreign Body Stated Complaint: PEN STUCK IN STOMACH Nursing Triage Note: pt presents to ed via pov accompanied by [facility] staff for complaints of bloody leakage/drainage from abdomen where she stabbed herself with a ballpoint pin on 12/25. pt reports she saw a surgeon and they decided to leave pen in at this time. pt denies any current pain Source of Information: Patient Exam Limitations: No Limitations History of Present Illness Date Seen by Provider: Jan 04, 2023 Time Seen by Provider: 09:34 Initial Comments Here with report of having a bic pen stuck in her abdomen. She will occasionally do this. She used to do this quite a bit in the past but had stopped for the last 3 years. She is in [facility] and was doing okay there but apparently the stress got too much and she put a pen in her abdomen. Currently she was seen by Dr. Miramontes on the and had an x-ray done at that time. That did not show any foreign bodies. She was seen after by Dr. Vora per the healthcare worker who states that he did not want to try to remove anything because of all the scar tissue and would just wait and see. Today, the [place] care worker reports that they did see something looking like it was going to protrude from the abdomen and thought it was the pen and brought her in for to get checked out. Patient denies pain. No report of fever or chills. This was apparently placed within the last week per the patient and healthcare worker. Timing/Duration: 1 Week Severity: Mild Associated Systoms: No Fever/Chills, No Nausea/Vomiting, No Shortness of Air, No Weakness Allergies and Home Medications Allergies Coded Allergies: Penicillins (Verified Allergy, Unknown, RASH, 06/17/22) amoxicillin (Verified Allergy, Unknown, RASH, 06/17/22) clavulanic acid (Verified Allergy, Unknown, RASH, 06/17/22) potassium chloride (Verified Allergy, Unknown, UNKNOWN, 06/17/22) Patient Home Medication List Home Medication List Reviewed: Yes Acetaminophen (Tylenol) 325 Mg Capsule, 325 MG PO UD, (Reported) Entered as Reported by: SHAJI BEE on 06/17/22 1002 Calamine/Zinc Oxide (Calamine Lotion) 8 %-8 % Lotion, 1 APPLIC TP UD, (Reported) Entered as Reported by: SHAJI EBE on 06/17/22 1002 Cetirizine HCl (Zyrtec) 10 Mg Tablet, 10 MG PO HS, (Reported) Entered as Reported by: MICHELLE PERRY on 07/19/19 1326 Diphenhydramine HCl (Benadryl) 25 Mg Capsule, 25 MG PO UD, (Reported) Entered as Reported by: SHAJI BEE on 06/17/22 1002 Diphenoxylate HCl/Atropine (Lomotil 2.5-0.025 mg Tablet) 2.5 Mg-0.025 Mg Tablet, 1 EACH PO UD, (Reported) Entered as Reported by: SHAJI BEE on 06/17/22 1002 Doxylamine Succinate (Unisom) 25 Mg Tablet, 25 MG PO UD, (Reported) Entered as Reported by: SHAJI BEE on 06/17/22 1002 Ferrous Sulfate (Ferrous Sulfate) 325 Mg Tablet, 325 MG PO 0900,1500,2100, (Reported) Entered as Reported by: BOOGIE DIAZ on 03/18/19 1139 Fluticasone Propionate (Fluticasone Propionate) 16 Gm Lang[place].susp, 2 SPRAYS NS DAILY, (Reported) Entered as Reported by: MICHELLE PERRY on 07/19/19 1326 Fluticasone/Vilanterol (Breo Ellipta 100-25 Mcg INH) 1 Each Blst.w.dev, 1 EACH IH DAILY, (Reported) Entered as Reported by: JAXSON FERNANDEZ on 03/04/21 1357 Guaifenesin/Dextromethorphan (Tussin Dm Liquid) 100 Mg-10 Mg/5 Ml Liquid, 118 ML PO UD, (Reported) Entered as Reported by: SHAJI BEE on 06/17/22 1002 Hydrocodone/Acetaminophen (Hydrocodone-Acetamin 5-325 mg) 1 Each Tablet, 1 TAB PO Q6H PRN for PAIN-MODERATE (5-7) Prescribed by: BARBARA WHEELER on 01/26/21 2346 Hydrocortisone/Aloe Vera (Hydrocortisone Plus 1% Cream) 1 % Cream..g., 28.4 GM TP UD, (Reported) Entered as Reported by: SHAJI BEE on 06/17/22 1002 Hydroxyzine HCl (Hydroxyzine HCl) 10 Mg Tablet, 10 MG PO HS, (Reported) Entered as Reported by: SHAJI BEE on 06/17/22 1002 L. Acidophilus/Pectin, Lasalle (Acidophilus Capsule) 1 Each Capsule, 2 EACH PO QID Prescribed by: ARACELIS VELASCO on 02/11/21 0023 Lamotrigine (Lamotrigine) 150 Mg Tablet, 150 MG PO DAILY, (Reported) Entered as Reported by: LISET REMY on 12/31/19 234 Loperamide HCl (Imodium A-D) Unknown Strength Capsule, Unknown Dose PO UD, (Reported) Entered as Reported by: SHAJI BEE on 06/17/22 1002 Mag Hydrox/Al Hydrox/Simeth (Mylanta Suspension) Unknown Strength Oral.susp, Unknown Dose PO UD PRN for INDIGESTION, (Reported) Entered as Reported by: SHAJI BEE on 06/17/221001 Meloxicam (Meloxicam) 15 Mg Tablet, 15 MG PO DAILY PRN for PAIN-BREAKTHROUGH, (Reported) Entered as Reported by: LISET REMY on 12/31/192343 Menthol (Ricola) Unknown Strength Lozenge, Unknown Dose MM UD, (Reported) Entered as Reported by: HSAJI BEE on 06/17/22 1002 Menthol (Gold Melendrez Medicated Body) 0.8 % Powder, 113 GM TP UD, (Reported) Entered as Reported by: SHAJI BEE on 06/17/22 1002 Mineral Oil/Petrolatum,White (Systane Nighttime Eye Oint) 3 %-94 % Oint...g., 3.5 GM OP HS, (Reported) Entered as Reported by: SHAJI BEE on 06/17/22 0942 Montelukast Sodium (Montelukast Sodium) 10 Mg Tablet, 10 MG PO DAILY, (Reported) Entered as Reported by: BOOGIE DIAZ on 03/18/19 1139 Neomycin Fonseca/Bacitrac Zn/Poly (Neosporin Ointment) Unknown Strength Oint...g., Unknown Dose TP UD, (Reported) Entered as Reported by: SHAJI BEE on 06/17/22 1002 Norgestrel-Ethinyl Estradiol (Cyp-Tonkqjey-58 Tablet) 1 Each Tablet, 1 EACH PO DAILY, (Reported) Entered as Reported by: JAXSON FERNANDEZ on 03/04/21 1357 Nystatin (Nystatin) Unknown Strength Powder.ea., Unknown Dose MC UD, (Reported) Entered as Reported by: SHAJI BEE on 06/17/22 1002 Nystatin/Triamcinolone (Nystatin-Triamcinolone Cream) 100,000 Unit/Gram-0.1 % Cr, 15 GM TP UD, (Reported) Entered as Reported by: SHAJI BEE on 06/17/22 1002 Ofloxacin (Floxin (Non-Formulary)) 0.3 % Drops, 3 DROPS EACH EAR BID Prescribed by: DERECK SAEED on 06/19/22 0906 Olanzapine (Zyprexa) 20 Mg Tablet, 20 MG PO HS, (Reported) Entered as Reported by: BOOGIE DIAZ on 03/18/19 1139 Olanzapine (Olanzapine) 15 Mg Tablet, 15 MG PO DAILY, (Reported) Entered as Reported by: LISET REMY on 12/31/19 2344 Polyethylene Glycol 3350 (Miralax) 17 Gram Powd.pack, 17 GM PO UD, (Reported) Entered as Reported by: SHAJI BEE on 06/17/22 1002 Propylene Glycol (Systane Complete) 0.6 % Drops, 1.5 ML OP TID, (Reported) Entered as Reported by: SHAJI BEE on 06/17/22 0942 Sertraline HCl (Zoloft) 100 Mg Tablet, 100 MG PO DAILY, (Reported) Entered as Reported by: BOOGIE DIAZ on 03/18/19 1139 Trazodone HCl (Trazodone HCl) 100 Mg Tablet, 100 MG PO HS, (Reported) Entered as Reported by: QIAN HIDALGO on 01/14/21 1350 [Bactroban 2% Oint] Unknown Strength , Unknown Dose UD, (Reported) Entered as Reported by: SHAJI BEE on 06/17/22 1002 Review of Systems Review of Systems Constitutional: No chills, No fever EENTM: no symptoms reported Respiratory: no symptoms reported Cardiovascular: no symptoms reported Gastrointestinal: No abdominal pain, No nausea, No vomiting Skin: see HPI, other (Scar tissue and old wounds to the central abdomen near umbilicus.) Psychiatric/Neurological: Anxiety Past Cmofgkx-Tabosb-Ofzadw Hx Patient Social History Tobacco Use?: Yes Tobacco type used: Cigarettes Smoking Status: Current Everyday Smoker Substance use?: No Alcohol Use?: No Pt feels they are or have been: No Immunizations Up To Date Tetanus Booster (TDap): Less than 5yrs First/Initial COVID19 Vaccinat: 02/27/21 Second COVID19 Vaccination Umair: 03/27/21 Third COVID19 Vaccination Date: 10/10/21 Seasonal Allergies Seasonal Allergies: Yes Past Medical History Surgery/Hospitalization HX: pmh: extensive psych, hx of self harm/self mutilation, schizo effective disorder, borderline personality disorder, asthma, constipation, anxiety, impulse control, dm, anemia Surgeries: Yes (FOREIGN BODY REMOVAL FROM ABDOMEN MULT. TIMES WITH BOWEL RESECTIONS;D&C) Abdominal, Bowel Surgery, Gallbladder, Tonsillectomy Respiratory: Yes Asthma Currently Using CPAP: No Currently Using BIPAP: No Cardiac: Yes Hypertension Neurological: No Reproductive Disorders: Yes (IUD PLACED 03/2019 WITH D&C FOR MENORRHAGIA;REMOVED 01/16/21) Female Reproductive Disorders: Menstrual Problems, Ovarian Cyst [employer] History: IUD Sexually Transmitted Disease: No Genitourinary: No Gastrointestinal: Yes (BOWEL RESECTION DUE TO FOREIGN BODIES;HAS INSERTED & INGESTED MULTIPLE FB'S) Chronic Constipation, Gall Bladder Disease Musculoskeletal: No Endocrine: Yes (MORBID OBESITY) HEENT: Yes (DRY EYES) Loss of Vision: Denies Hearing Impairment: Denies Cancer: No Psychosocial: Yes (EXTENSIVE PSYCH ISSUES-MULTIPLE FB ING ESTIONS/INSERTIONS/STABBED IN ABDOMEN) Anxiety, Suicide Attempts, Personality Disorder, Schizophrenia, Depression Integumentary: Yes (SKIN DISCOLORATIONS PIGMENTATION) Blood Disorders: Yes (LOW IRON) Adverse Reaction/Blood Tranf: No Family Medical History Reviewed Nursing Family Hx Cancer, Diabetes, Hypertension PSH: -01/01/20--EXPLORATORY LAPAROTOMY WITH LYSIS OF ADHESIONS AND REPAIR OF SMALL BOWEL PERFORATION DUE TO SELF INFLICTED INJURY WITH BALL POINT PEN. -01/15/20--EXPLORATORY LAPAROTOMY WITH RIGHT COLON RESECTION WITH RE-ANASTAMOSIS, EXTENSIVE LYSIS OF ADHESIONS, WOUND VAC PLACEMENT AND DRAINAGE OF BILATERAL OVARIAN CYSTS. 01/16/21--CHOLECYSTECTOMY AND REMOVAL OF IUD Physical Exam Vital Signs Vital Signs - First Documented 01/04/23 09:06 Temp 36.0 Pulse 87 Resp 16 B/P (MAP) 147/83 (104) Pulse Ox 97 Capillary Refill : Less Than 3 Seconds Height, Weight, BMI Height: 5'4.00" Weight: 213lbs. 0.0oz. [id number]; 46.00 BMI Method: General Appearance: No Apparent Distress, WD/WN, Obese Respiratory: Lungs Clear, Normal Breath Sounds Cardiovascular: Regular Rate, Rhythm, No Murmur Gastrointestinal: Soft, Other (Old wounds and scar tissue to lower abdomen and pannus. This is covered with dressing. Serous/bloody drainage noted on dres sing. Dressing was removed and there did appear to be something that was trying to protrude from what looks to be an old stoma site. On manipulation the butt of the pen was noted and the pin was easily removed from the pocket. Some foul- smelling serous drainage erupted from the wound but not purulent. Culture obtained. Wound cleaned and covered with dressing.) Neurologic/Psychiatric: Alert, Oriented x3 Skin: Warm/Dry, Other (See above) Progress/Results/Core Measures Suspected Sepsis SIRS Temperature: Pulse: 87 Respiratory Rate: 16 Laboratory Tests 01/04/23 10:01: White Blood Count 7.2 Blood Pressure 147 /83 Mean: 104 Laboratory Tests 01/04/23 10:01: Creatinine 0.72, Platelet Count 271 Results/Orders Lab Results Laboratory Tests Test 01/04/23 10:01 Range/Units White Blood Count 7.2 4.3-11.0 10^3/uL Red Blood Count 3.78 L 3.80-5.11 10^6/uL Hemoglobin 11.2 L 11.5-16.0 g/dL Hematocrit 32 L 35-52 % Mean Corpuscular Volume 86 80-99 fL Mean Corpuscular Hemoglobin 30 25-34 pg Mean Corpuscular Hemoglobin Concent 35 32-36 g/dL Red Cell Distribution Width 12.2 10.0-14.5 % Platelet Count 271 130-400 10^3/uL Mean Platelet Volume 9.2 9.0-12.2 fL Immature Granulocyte % (Auto) 1 % Neutrophils (%) (Auto) 75 42-75 % Lymphocytes (%) (Auto) 15 12-44 % Monocytes (%) (Auto) 9 0-12 % Eosinophils (%) (Auto) 0 0-10 % Basophils (%) (Auto) 0 0-10 % Neutrophils # (Auto) 5.4 1.8-7.8 10^3/uL Lymphocytes # (Auto) 1.0 1.0-4.0 10^3/uL Monocytes # (Auto) 0.7 0.0-1.0 10^3/uL Eosinophils # (Auto) 0.0 0.0-0.3 10^3/uL Basophils # (Auto) 0.0 0.0-0.1 10^3/uL Immature Granulocyte # (Auto) 0.0 0.0-0.1 10^3/uL Sodium Level 142 135-145 MMOL/L Potassium Level 2.7 L 3.6-5.0 MMOL/L Chloride Level 104 98-107 MMOL/L Carbon Dioxide Level 24 21-32 MMOL/L Anion Gap 14 5-14 MMOL/L Blood Urea Nitrogen 7 7-18 MG/DL Creatinine 0.72 0.60-1.30 MG/DL Estimat Glomerular Filtration Rate 108 BUN/Creatinine Ratio 10 Glucose Level 102 70-105 MG/DL Calcium Level 8.1 L 8.5-10.1 MG/DL C-Reactive Protein High Sensitivity 11.59 H 0.00-0.50 MG/DL My Orders Orders - AROLDO GOODMAN MD Basic Metabolic Panel (01/04/23 09:46) Cbc With Automated Diff (01/04/23 09:46) Hs C Reactive Protein (01/04/23 09:46) Wound Culture (01/04/23 09:46) Doxycycline Hyclate Tablet (Vibramycin T (01/04/23 11:32) Vital Signs/I&O 01/04/23 09:06 Temp 36.0 Pulse 87 Resp 16 B/P (MAP) 147/83 (104) Pulse Ox 97 Capillary Refill : Less Than 3 Seconds Blood Pressure Mean: 104 Progress Note : Progress Note Seen and evaluated. I did speak with Dr. Padilla at 0947 after removing the pen. We will go ahead and get wound culture as discussed and get CBC and BMP as well as CRP to evaluate for level of infection. If these are not grossly abnormal then we can do oral antibiotics and he can see her in follow-up. Monitor patient. Differential diagnosis includes local soft tissue infection, seroma without significant infection, systemic infection 1140: Labs reviewed. CBC is grossly normal and chemistries are grossly normal. CRP is elevated at greater than 11. Given this we will go ahead and initiate oral antibiotics and have her continue that for 10 days initiating doxycycline 100 mg p.o. now. This was discussed with the patient and care worker. She can follow-up with Dr. Miramontes. Discharged home with return precautions. Patient and care worker verbalized understanding instructions and agreement with plan. Departure Impression Primary Impression: Foreign body in skin Additional Impression: Soft tissue infection Disposition: HOME, SELF-CARE Condition: Stable Departure-Patient Inst. Decision time for Depature: 11:44 Referrals: MARION VORA MD (PCP/Family) Primary Care Physician CHERYL MIRAMONTES DO Patient Instructions: Foreign Body in Skin ED, Wound Infection Add. Discharge Instructions: All discharge instructions reviewed with patient and/or family. Voiced understanding. Take antibiotics as directed. Keep wound clean. It is okay to shower but do not soak for prolonged periods of time. Use dressing over wound as needed and change that as often as needed. Follow-up with Dr. Miramontes or Dr. Vora for recheck and further evaluation. Call office for appointment. Return for worse pain, fever, vomiting, weakness, breathing problems or other concerns as needed. Scripts Doxycycline Monohydrate (Monodox) 100 Mg Capsule 100 MG PO BID for 10 Days, #2 CAP 0 Refills Prov: AROLDO GOODMAN MD 01/04/23 Copy Copies To 1: CHERYL MIRAMONTES DO Copies To 2: MARION VORA MD, TIMOTHY D MD Jan 04, 2023 10:14
[2023-01-04 10:15] LABS: CALCIUM 8.1 MG/DL (8.5-10.1)
[2023-01-04 10:20] LABS: CREATININE SERUM 0.72 MG/DL (0.60-1.30)
[2023-01-04] MEDS ORDERED: DOXYCYCLINE 100 MG (VIBRAMYCIN) TABLET PO STA (11:32)
[2023-01-04] MEDS ORDERED: DOXY100C55 PO (11:47)
[2023-01-04 11:55] VITALS: BP 140/78
[2023-01-06] MEDS ORDERED: DOXY100C55 PO (10:12)
== END 2023-01-04 11:54 | disposition home or self-care (01) ==
LOC: EDUNIT# 08:09 → ER 08:11
DX: T18.2XXA Foreign body in stomach, initial encounter (principal); L08.9 Local infection of the skin and subcutaneous tissue, unspecified; E66.01 Morbid (severe) obesity due to excess calories; F17.210 Nicotine dependence, cigarettes, uncomplicated; Z68.42 Body mass index [BMI] 45.0-49.9, adult; Z88.0 Allergy status to penicillin; W45.8XXA Other foreign body or object entering through skin, initial encounter
CPT/HCPCS: 36415; 80048; 85025; 86141; 87070; 87077; 87186; 87205; 99283

== ENCOUNTER 2023-05-27 15:09 | Emergency (ER) | payer MEDICARE, MEDICAID ==
[~2023-05-27 15:09] MED LIST changes: +DOXY100C55 PO
[2023-05-27 15:21] VITALS: BP 165/98
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
[2023-05-27 15:51] LABS: HCG,QUALITATIVE URINE NEGATIVE (NEGATIVE)
[2023-05-27 16:05] LABS: BASOPHILS % (AUTO) 0 % (0-10); EOSINOPHILS % (AUTO) 0 % (0-10); HEMATOCRIT 38 % (35-52); HEMOGLOBIN 13.1 g/dL (11.5-16.0); LYMPHOCYTES # (AUTO) 1.2 10^3/uL (1.0-4.0); LYMPHOCYTES % (AUTO) 15 % (12-44); MEAN CORPUSCULAR HEMOGLOBIN 31 pg (25-34); MEAN CORPUSCULAR HGB CONC 35 g/dL (32-36); MEAN CORPUSCULAR VOLUME 89 fL (80-99); MEAN PLATELET VOLUME 9.3 fL (9.0-12.2); MONOCYTES # (AUTO) 0.5 10^3/uL (0.0-1.0); MONOCYTES % (AUTO) 6 % (0-12); NEUTROPHILS # (AUTO) 6.6 10^3/uL (1.8-7.8); NEUTROPHILS % (AUTO) 78 % (42-75); PLATELET COUNT 248 10^3/uL (130-400); WHITE BLOOD COUNT 8.4 10^3/uL (4.3-11.0)
[2023-05-27 16:12] LABS: AMPHETAMINE SCREEN, URINE NEGATIVE (NEGATIVE); BARBITURATE SCREEN URINE NEGATIVE (NEGATIVE); BENZODIAZEPINES SCREEN URINE NEGATIVE (NEGATIVE); CANNABINOID SCREEN, URINE NEGATIVE (NEGATIVE); COCAINE SCREEN URINE NEGATIVE (NEGATIVE); METHADONE STAT NEGATIVE (NEGATIVE); OPIATE SCREEN URINE NEGATIVE (NEGATIVE); OXYCODONE STAT NEGATIVE (NEGATIVE); PROPOXYPHENE STAT NEGATIVE (NEGATIVE); TRICYCLIC ANTIDEPRESSANTS SCRE NEGATIVE (NEGATIVE)
[2023-05-27 16:20] LABS: ALANINE AMINOTRANSFERASE 15 U/L (0-55); ALBUMIN 4.1 GM/DL (3.2-4.5); ALKALINE PHOSPHATASE 74 U/L (40-136); BILIRUBIN,TOTAL 0.9 MG/DL (0.1-1.0); BUN/CREATININE RATIO 6; CALCIUM 8.7 MG/DL (8.5-10.1); CARBON DIOXIDE 22 MMOL/L (21-32); CHLORIDE 107 MMOL/L (98-107); CREATININE SERUM 0.69 MG/DL (0.60-1.30); GFR ESTIMATED 112; GLUCOSE 122 MG/DL (70-105); POTASSIUM 3.4 MMOL/L (3.6-5.0); SALICYLATE < 5.0 MG/DL (5.0-20.0); SODIUM 140 MMOL/L (135-145); TOTAL PROTEIN 6.5 GM/DL (6.4-8.2)
[2023-05-27 16:21] LABS: ACETAMINOPHEN < 10 UG/ML (10-30)
[2023-05-27 16:28] LABS: BILIRUBIN,URINE NEGATIVE (NEGATIVE); CLARITY,URINE CLEAR; COLOR,URINE YELLOW; GLUCOSE, URINE (UA) NEGATIVE (NEGATIVE); KETONES,URINE NEGATIVE (NEGATIVE); NITRITE,URINE NEGATIVE (NEGATIVE); PH,URINE 5.5 (5-9); PROTEIN,URINE NEGATIVE (NEGATIVE)
[2023-05-27 16:29] LABS: BACTERIA,URINE TRACE /HPF; LEUKOCYTE ESTERASE ,URINE NEGATIVE (NEGATIVE); RBC,URINE RARE /HPF; SQUAMOUS EPITHELIAL CELL,UR 0-2 /HPF; WBC,URINE RARE /HPF
== END 2023-05-27 21:42 | disposition home or self-care (01) ==
LOC: EDUNIT# 15:09 → ER 15:11
DX: R45.851 Suicidal ideations (principal); F17.210 Nicotine dependence, cigarettes, uncomplicated; E66.01 Morbid (severe) obesity due to excess calories; Z68.42 Body mass index [BMI] 45.0-49.9, adult
CPT/HCPCS: 80053; 80306; 81000; 84703; 85025; 99282; G0480 ×3; 36415; 80320; 80329

== ENCOUNTER → 2023-08-12 | Outpatient (CLI) | payer MEDICARE, MEDICAID ==
[~2023-08-12] MED LIST changes: +MIRT-122 PO; -MIRT-96 PO
--- NOTE | 2023-08-12 10:42 | Diagnostic Imaging Report ---
INDICATION: Palpable abnormality in the right shoulder. AP, oblique and transscapular views of right shoulder are obtained with marker in place. No fracture or malalignment is identified. There is no evidence of lytic or sclerotic lesion. There is a wispy curvilinear density in the subcutaneous tissues of the lateral right shoulder underlying BB marker. IMPRESSION: Focal subcutaneous density corresponding to patient's palpable abnormality is nonspecific. This could be related to inflammation. Associated lipoma or other isodense lesion cannot be excluded. Consideration could be given to ultrasonography for additional characterization. No acute abnormality seen elsewhere in the shoulder. Dictated by: Dictated on workstation # [id number]
== END ==
LOC: RAD 10:07
PROVIDERS: ATTEND Family Medicine
DX: R22.31 Localized swelling, mass and lump, right upper limb (principal)
CPT/HCPCS: 73030